=== PATIENT | female | born 1990 | race Caucasian/White ===

== ENCOUNTER 2017-10-21 01:52 | Emergency (ER) | payer OTHER, SELFPAY ==
[2017-10-21 01:53] VITALS: BP 143/102; PULSE 86; RESP 17; TEMP 36.3; O2SAT 100; BMI 29.7
--- NOTE | 2017-10-21 02:28 | EKG12_ITS ---
Test Reason : SHOULDER/CP Blood Pressure : / mmHG Vent. Rate : 085 BPM Atrial Rate : 085 BPM P-R Int : 136 ms QRS Dur : 096 ms QT Int : 374 ms P-R-T Axes : 051 004 026 degrees QTc Int : 445 ms Normal sinus rhythm with sinus arrhythmia Normal ECG Confirmed by CLAUDE SAWYER, ANEUDY ([id number]), metropolitan editor GREGORY RODRIGUEZ ([id number]) on 10/23/2017 1:27:33 PM Referred By: JESSICA Confirmed By:ANEUDY ARCE MD
--- NOTE | 2017-10-21 02:28 | RAD_ITS ---
STUDY: X-RAY CHEST REASON FOR EXAM: Female, 26 years old. Chest pain TECHNIQUE: Frontal and lateral views of the chest. COMPARISON: 07/30/2017 FINDINGS: The lungs are clear and expanded. There is no demonstrated pleural abnormality. Normal size heart. Normal mediastinum and teresa. Normal visualized pulmonary arteries. Normal visualized aortic arch and descending thoracic aorta. Normal visualized thoracic spine. Normal visualized ribs, clavicles, and shoulders. There is no demonstrated abnormality of the visualized soft tissue structures of the upper abdomen. RAD/Chest PA and Lateral IMPRESSION: Normal x-ray examination of the chest. Electronically Signed: Isacc Blackwell MD at 4:00 EDT Tel , Service support ,
--- NOTE | 2017-10-21 02:28 | ED.VISSUMM ---
- ER Visit Summary Date of Service: 10/21/17 Chief Complaint: Chest pain History of Present Illness: The patient is a 26 F presenting with pain in her right shoulder that radiates into her right chest and right parascapular area, she states the majority of the pain and the most severe pains are in her right shoulder and it feels like there is a blood pressure cuff on her upper arm. She woke up with this discomfort about 18-20 hours prior to arrival. She took a naproxen which did not help. She later took an ibuprofen which did not help. She later took an aspirin which did help. It is a little worse with certain that upper extremity movements or positions but she has a hard time pinpointing it. There is no pleuritic nature to it. She had pneumonia a couple months ago and states since then she has had dyspnea with exertion off and on and an occasional mild nonproductive cough, those are really no different today. She denies any recent travel, immobilization, hospitalization, leg pain, or swelling. No history of DVT or PE. She is a non-smoker. No risk factors for coronary artery disease, she does take medication for GERD. Physical Examination: Other than her blood pressure being slightly elevated at 143/102, her vital signs are normal including a heart rate of 86, respirations at 17, pulse ox 100 on room air. She is a little anxious. She can put her right hand over her head without any problem or discomfort. She can touch her left shoulder with her right hand without any discomfort. She has a negative Yergason sign. No subacromial tenderness on the right shoulder. No rashes. All compartments are soft and nondistended and nontender. 2+/4 equal bilateral radial pulses. Heart is regular without tachycardia or murmur. Lungs are clear to auscultation throughout, chest is mildly tender up near the clavicle, no tenderness at the acromioclavicular joint. No calf tenderness, pedal edema, or JVD. Abdomen soft nontender nondistended with normal bowel sounds present. Test Results: EKG is normal without any T-wave inversions or ischemic abnormalities. This is compared with an old EKG from July of this year, it is unchanged. Labs including troponin are normal. Chest x-ray on my interpretation is normal. Emergency Department Course and Treatment: She was given Toradol which really did not change much. 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 We discussed other treatments, such as nitroglycerin for possible esophageal spasm and Mylanta for possible reflux-related discomfort. She declined all this, and states that she forgot she took some Tums earlier and it did not help. She is comfortable going home without further treatment. I reassured her I do not think this is anything dangerous. Her PERC score is 0, therefore she meets criteria to not require further workup in order to rule out pulmonary embolus as etiology for this discomfort. Her discomfort is very atypical for PE anyhow. Encouraged to follow-up for persistent discomfort or return if worse and she is comfortable with that plan. Treatment Plan: As above Disposition: Discharge home Impression: Right shoulder pain Atypical chest pain This note was generated with [employer] dictation software. It may contain incorrect words, spelling, and punctuation that were not noted in review of the chart prior to signing ED Disposition - Plan for ED Patient: Disposition: Home or Assisted Living Chief Complaint: Chest Pain Instructions: ED Chest Pain Atypical Unkn Cause Referrals: Jorge Lamb DO [Primary Care Provider] - 3-5 Days if not improving
[2017-10-21] MEDS: Ketorolac 30 MG/ML Syringe IV (02:34)
[2017-10-21 02:46] LABS: Absolute Neutrophil Count 4.4 X10^3/uL (2.0-7.7); Basophil# 0.02 X10^3/uL; Basophil% 0.3 % (0-1); Eosinophil# 0.18 X10^3/uL; Eosinophils% 2.5 % (0-5); Hematocrit 38.6 % (37-47); Hemoglobin 13.2 g/dl (12.0-15.0); Lymphocyte % 29.3 % (19-41); Mean Corp Hgb Conc 34.2 g/gl (32-36); Mean Corpuscular Hgb 29.2 pg (27.0-32.0); Mean Corpuscular Volume 85.4 fL (81-99); Mean Platelet Vol. 10.9 fl (6.2-12.0); Monocyte# 0.48 X10^3/uL; Monocyte% 6.7 % (0-10); Neutrophil # 4.38 X10^3/uL (2.7-7.7); Neutrophil % 61.1 % (47-70); Platelet Count 151 K/mm3 (150-450); RBC Distribution Width CV 12.6 % (11.6-14.6); RBC Distribution Width SD 38.5 fl (35.1-43.9); Red Blood Count 4.52 M/mm3 (4.2-5.4); White Blood Count 7.2 K/mm3 (4.4-11.0)
[2017-10-21 02:48] LABS: POSITIVE COUNT NO; POSITIVE DIFFERENTIAL NO; POSITIVE MORPHOLOGY NO
[2017-10-21 03:08] LABS: Anion Gap 8 (5-15); BUN 14 mg/dL (7-18); Calcium,Total 8.2 mg/dL (8.5-10.1); Chloride 109 mmol/L (98-107); EST Glomerular Filtration Rate 70 mL/min (>60); Est Glom Filt Rate - Afr Amer 84 mL/min (>60); Estimated Creatinine Clearance 69.28 ml/min; Glucose 113 mg/dL (74-106); Potassium 3.6 mmol/L (3.5-5.1); Sodium Level 142 mmol/L (136-145)
[2017-10-21 03:56] VITALS: BP 107/96; PULSE 73; PULSE 75; O2SAT 98
== END 2017-10-21 03:57 | disposition home or self-care (01) ==
PROVIDERS: Emergency Provider Emergency Medicine; Family Provider Student in an Organized Health Care Education/Training Program; PCP Student in an Organized Health Care Education/Training Program
DX: R07.89 Other chest pain (principal); M25.511 Pain in right shoulder; K21.9 Gastro-esophageal reflux disease without esophagitis; Z79.899 Other long term (current) drug therapy
CPT/HCPCS: 71046; 80048; 84484; 85025; 93005; 96374; 99283; A4216

== ENCOUNTER → 2018-06-27 12:05 | Outpatient (CLI) | payer OTHER, SELFPAY ==
[2018-04-05 14:47] VITALS: BMI 28.7
[2018-06-27 12:44] LABS: Hematocrit 42.8 % (37-47); Hemoglobin 14.3 g/dl (12.0-15.0); Mean Corp Hgb Conc 33.4 g/gl (32-36); Mean Corpuscular Hgb 28.8 pg (27.0-32.0); Mean Corpuscular Volume 86.1 fL (81-99); Mean Platelet Vol. 10.7 fl (6.2-12.0); Platelet Count 194 K/mm3 (150-450); RBC Distribution Width CV 12.9 % (11.6-14.6); RBC Distribution Width SD 40.8 fl (35.1-43.9); Red Blood Count 4.97 M/mm3 (4.2-5.4); Scan Indicated on CBC? Y/N NO; White Blood Count 6.3 K/mm3 (4.4-11.0)
[2018-06-27 13:08] LABS: hCG Titer Quant., Serum < 1 mIU/mL (<9 non-preg)
[2018-06-27 13:24] LABS: ALB/GLOB Ratio 1.1 RATIO (0.9-2.4); AST(SGOT) 27 U/L (15-37); Alanine Aminotransfer ALT/SGPT 57 U/L (13-56); Albumin, Serum 3.9 g/dL (3.2-5.0); Alkaline Phosphatase 106 U/L (45-117); Anion Gap 9 (5-15); BUN 12 mg/dL (7-18); BUN/Creat Ratio 10.9 RATIO (10-20); Calcium,Total 8.7 mg/dL (8.5-10.1); Chloride 107 mmol/L (98-107); EST Glomerular Filtration Rate 62 mL/min (>60); Est Glom Filt Rate - Afr Amer 75 mL/min (>60); Globulin 3.6 g/dL (2.2-4.2); Glucose 83 mg/dL (74-106); Potassium 3.9 mmol/L (3.5-5.1); Protein, Total 7.5 g/dL (6.4-8.2); Sodium Level 140 mmol/L (136-145)
--- OUTSIDE RECORDS SUMMARY | 2018-08-22 15:18 | XMS RPT_ITS ---
:1990 Author Organization OHIP Support Name Relationship Address Phone DELROY IZQUIERDO Unavailable [address] [facility] + [place] [address] PHILLIP HYATT Un[address] + [place] [address] [facility] Unavailable [address] + [place] [address] FELECIA DELROY Unavailable [address] + [place] [address] PHILLIP HYATT Unavailable [address] + [place] [address] [facility] Unavailable [address] + [place] [address] FELECIA DELROY Unavailable [address] + [place] [address] PHILLIP HYATT Unavailable [address] + [place] [address] [facility] Unavailable [address] + [place] [address] FELECIA DELROY Unavailable [address] + [place] [address] PHILLIP HYATT Unavailable [address] + [place] [address] [facility] Unavailable [address] + [place] [address] FELECIA DELROY Unavailable [address] + [place] [address] PHILLIP HYATT Unavailable [address] + [place] [address] [facility] Unavailable [address] + [place] [address] FELECIA, DELROY Unavailable [address] + [place] [address] PHILLIP HYATT Unavailable [address] + [place] [address] [facility] Unavailable [address] + [place] [address] FELECIAAYSHA LARSENY Unavailable [address] + [place] [address] JESSICA, PHILLIP Unavailable [address] + [place] [address] [facility] Unavailable [address] + [place] [address] Care Team Providers Name Role Phone ASSESSMENT, HEALTH RISK Attending Unavailable Jorge Lamb Primary Care Unavailable Jorge Lamb Primary Care Unavailable Erin Shukla Attending Unavailable Jorge Lamb Primary Care Unavailable MADISON LOPEZ Attending Unavailable ASSESSMENT, HEALTH RISK Attending Unavailable ASSESSMENT, HEALTH RISK Referring Unavailable Kian Martines Primary Care Unavailable Steffen Kruger Attending Unavailable Martines, Kian Referring Unavailable Conrad, Kian Primary Care Unavailable Akanksha Nelson Attending Unavailable Conrad, Kian Primary Care Unavailable Akanksha Nelson Attending Unavailable Akanksha Nelson Referring Unavailable Martines, Kian Primary Care Unavailable PROBLEMS PROBLEMS DATE TYPE CONDITION / CODE ATTENDING STATUS SOURCE 07/30/2017 Unknown R11.0 - Nausea / Vazquez, Erin Active [place] R11.0(ICD-10) [facility] Repository PROCEDURES PROCEDURES No Procedure Records FoundRESULTS RESULTS ABDOMEN LIMITED Observed: 07/09/2018 Status: F Source: [place] 9:[address] [facility] REPOSITORY [facility] Imaging Services [address] [place] [address] Abdomen Limited MR#: [id number] Acct: [id number] Name: MAIK IZQUIERDO Rep #: [id number] : 1990 F 27 From: Joselo Fernandez DO PCP: Conrad SAWYER,Kian Status: REG CLI Study: Abdomen Limited Date of Exam: 07/09/18 Exam# [id number] Ordering Dr: Akanksha Villalobos MD STUDY: ABDOMINAL ULTRASOUND - RIGHT UPPER QUADRANT REASON FOR VISIT: Female, 27 years old. Elevated LFTs TECHNIQUE: Ultrasound evaluation of the right upper quadrant was performed with real-time and static ross-scale imaging. TECHNICAL QUALITY: Adequate. COMPARISON: None. FINDINGS: Liver: The liver measures 14.7 cm. There is normal echogenicity of the liver. The bile ducts are within normal limits. There is hepatic color flow. The direction of portal flow is hepatopetal. There is no demonstrated mass lesion. Gallbladder: Normal distended gallbladder. The gallbladder wall measures 1.7 mm. There is a negative sonographic Davila's sign. There is no pericholecystic fluid. There are no gallstones. Common Bile Duct (C.B.D.): The common bile duct measures 2.9 mm. Pancreas: Normal size of the head, body and tail of the pancreas. There is normal echogenicity of the pancreas. There is no demonstrated pancreatic mass or cyst. Right Kidney: Normal size of the right kidney. The right kidney measures 10.0 x 4.2 x 3.4 cm. Normal renal cortex. The right cortex measures 1.2 cm. There is no demonstrated renal mass or cyst. There is no right hydronephrosis. US/Abdomen Limited IMPRESSION: Normal right upper quadrant ultrasound examination. Electronically Signed: Joselo Fernandez DO at 23:14 EST Tel [phone], Service support , CC: Kian Martines MD; Akanksha Nelson MD Material Engineer: Signed CBC-COMPLETE BLOOD CNT Collected: 06/27/2018 Status: F Source: [place] NO DIFF 12:06 PM [facility] REPOSITORY TYPE CODE TESTS RESULT OUT OF RANGE REFERENCE UNITS LAB L100.1000 4.4-11.0 K/mm3 Normal WBC 6.3 LAB L100.1200 4.2-5.4 M/mm3 Normal RBC 4.97 LAB L100.1300 12.0-15.0 g/dl Normal HGB 14.3 LAB L100.1400 37-47 % Normal HCT 42.8 LAB L100.1500 81-99 fL Normal MCV 86.1 LAB L100.1600 27.0-32.0 pg Normal MCH 28.8 LAB L100.1700 32-36 g/gl Normal MCHC 33.4 LAB L100.1810 11.6-14.6 % Normal RDW CV 12.9 LAB L100.1820 35.1-43.9 fl Normal RDW SD 40.8 LAB L100.1900 150-450 K/mm3 Normal PLT 194 LAB L100.2000 6.2-12.0 fl Normal MPV 10.7 Performed By: #### L100.0500 #### [facility] [address] [facility]. [place], [place], [address] HCG TITER QUANT., Collected: 06/27/2018 Status: F Source: [place] SERUM 12:06 PM [facility] REPOSITORY TYPE CODE TESTS RESULT OUT OF RANGE REFERENCE UNITS LAB L700.8000 <9 non-preg mIU/mL Normal HCG < 1 QUANT. Performed By: #### L700.8000 #### [facility] [address] [facility]. [place], [place], [address] COMPREHENSIVE METABOLIC Collected: 06/27/2018 Status: F Source: [place] PROFIL 12:06 PM [facility] REPOSITORY TYPE CODE TESTS RESULT OUT OF RANGE REFERENCE UNITS LAB L501.0100 74-106 mg/dL Normal GLU 83 Result Comment: Please note revised GLUCOSE reference range effective 2017. LAB L501.1000 7-18 mg/dL Normal BUN 12 LAB L501.1100 0.55-1.02 mg/dL High CREAT,SERUM 1.10 Result Comment: The validity of the calculated GFR AND GFRAA in patients over 70 years has not been determined. Clinical correlation is essential. LAB L501.1110 >60 mL/min Normal EST GFR 62 Result Comment: Non- GFR Calc LAB L501.1115 >60 mL/min Normal EST GFR - AA 75 Result Comment: GFR Calc LAB L501.1300 10-20 RATIO Normal BUN/CRE 10.9 LAB L501.1500 6.4-8.2 g/dL T Normal PROT 7.5 LAB L501.1800 3.2-5.0 g/dL Normal ALB 3.9 LAB L501.1950 2.2-4.2 g/dL Normal GLOB 3.6 LAB L501.2000 0.9-2.4 RATIO Normal A/G 1.1 LAB L501.2200 8.5-10.1 mg/dL CA Normal 8.7 LAB L501.4100 15-37 U/L Normal AST 27 LAB L501.4305 45-117 U/L Normal ALK P 106 LAB L501.4405 13-56 U/L High ALT 57 LAB L501.4600 0.20-1.00 mg/dL T Normal BILI 0.40 LAB L501.5300 136-145 mmol/L NA Normal 140 LAB L501.5600 3.5-5.1 mmol/L K Normal 3.9 LAB L501.5900 98-107 mmol/L CL Normal 107 LAB L501.6100 21.0-32.0 mmol/L Normal CO2 24.0 LAB L501.6200 5-15 Normal GAP 9 Performed By: #### L500.4050 #### [facility] [address] [place], [place], [address] URGENT CARE VISIT Observed: 04/05/2018 Status: F Source: [place] REPORT 3:11 PM [facility] REPOSITORY [facility] [address] [place] [address] 6 [place] [address] OFFICE VISIT Date of Service: 04/05/18 MR#: [id number] Acct: [id number] Name: MAIK HYATT Rep #: [id number] : 1990 Provider: Steffen OVALLE Age/Sex: 27/F Location: [facility] Status: Signed Intake Vital Signs04/05/18 Height 5 ft 2 in Intake Visit Reasons: SINUS INFECTION/EAR ACHE Allergies grape Allergy (Verified 04/05/18 14:49) Swelling morphine Adverse Reaction (Verified 04/05/18 14:49) Other promethazine HCl [From Phenergan] Adverse Reaction (Verified 04/05/18 14:49) Other sulfamethoxazole [From Bactrim] Adverse Reaction (Verified 04/05/18 14:49) Vomiting trimethoprim [From Bactrim] Adverse Reaction (Verified 04/05/18 14:49) Vomiting Medications Dexlansoprazole [Dexilant] 60 mg PO DAILY 07/30/17 [History Confirmed 04/05/18] Desogestrel-Ethinyl Estradiol [Apri 28 Day Tablet] 1 tab PO DAILY 10/21/17 [History Confirmed 04/05/18] amoxicillin 875 mg-potassium clavulanate 125 mg tablet 1 tab PO Q12H 10 Days #20 tab 04/05/18 [Rx Confirmed 04/05/18] buspirone 5 mg tablet 5 mg PO BID 04/05/18 [History Confirmed 04/05/18] vitamin,calcium,jdtpizjl-ykmq-vmmrb acid tablet 1 tab PO DAILY 04/05/18 [History Confirmed 04/05/18] zinc 50 mg tablet 50 mg PO DAILY 04/05/18 [History Confirmed 04/05/18] PFSH Medical History Anemia (Acute) Fatigue (Acute) Fever (Acute) SOB (shortness of breath) (Acute) Surgical History History of tonsillectomy (Acute) Hx of section (Acute) Family History Grandfather Heart disease Parkinson disease Hypertension Grandmother Heart disease CHF (congestive heart failure) Hypertension Dementia Mother CHF (congestive heart failure) Heart disease Father Hypertension Dementia Social History Smoking Status: Never smoker alcohol intake: current alcohol intake frequency: a few times a month Alcohol type: wine HPI HPI Details: MAIK HYATT, is a 27 F who presents to the office today for sinus pressure and pain for the past week. Patient states that the episode started with a cough and congestion approximately 2 weeks ago which has since resolved however the nasal congestion and pressure have not. She states that the pressure does cause headaches which she has made slightly better with Tylenol. She has had no fever, chills, sweats. No nausea, vomiting, diarrhea. No other associated symptoms or alleviating/aggravating factors. ROS Const Constitutional: Positive for headache(s); no fever(s), chills, night sweats or abnormal sleep pattern ENT ENT: Positive for headache(s), nasal congestion, sinus pressure, sinus pain and nasal discharge; no ear pain Resp Respiratory: No cough or shortness of breath Cardio Cardiology: No shortness of breath, irregular heart rhythm or fast heart rate Neuro Neurology: Positive for headache(s); no confusion Psych Psychiatric: No abnormal sleep pattern, No confusion Exam Const General: cooperative, healthy appearing HENMT Head: normal to inspection Ears: hearing grossly normal bilaterally, TM's normal bilaterally, EAC's normal Nose: nasal discharge purulent Face and sinus: sinus tenderness frontal and maxillary Mouth: oral mucosae normal Throat: abnormal tonsil bilaterally, postnasal drainage Resp Effort AND Inspection: normal respiratory effort Auscultation: Bilateral: Clear to Auscultation Cardio Palpation: normal PMI Rate: regular rate Rhythm: regular rhythm Neuro General: alert, CN's II-XI intact bilaterally Psych Appearance: grossly normal Mental Status: mental status grossly normal Assessment AND Plan Problems 1. Acute non-recurrent frontal sinusitis J01.10 Status Acute Plan Augmentin as prescribed today. Encouraged to get plenty of rest, drink lots of clear liquids, and use Tylenol or Ibuprofen (unless contraindicated) for fever and comfort. Patient also educated on other symptomatic management techniques. To be seen in 7-10 days if no improvement; sooner if worsening of symptoms. Patient advised of potential red flags when appropriate report to the ED. Patient verbalized understanding of all the above. Medications New: Coding Level of Care Code Off vis,new,level 3 Diagnoses Acute non-recurrent frontal sinusitis J01.10 Sinusitis location: frontal Recurrence: non-recurrent 04/05/18 1511 <Electronically signed by Steffen OVALLE> Date Steffen OVALLE Cosigner Signature: Date (if applicable) CC: DEE, EMPLOYEE Collected: 03/19/2018 Status: F Source: [place] 8:59 AM [facility] REPOSITORY Order Comment: This patient requested that [facility] [employer] send to you a copy of their Yearly Employee Health Risk Assessment. A copy of this report is also given to the patient so they can follow up with your office if they choose. TYPE CODE TESTS RESULT OUT OF RANGE REFERENCE UNITS LAB L100.1000 4.4-11.0 K/mm3 Normal WBC 5.9 LAB L100.1200 4.2-5.4 M/mm3 Normal RBC 4.76 LAB L100.1300 12.0-15.0 g/dl Normal HGB 13.4 LAB L100.1400 37-47 % Normal HCT 41.5 LAB L100.1500 81-99 fL Normal MCV 87.2 LAB L100.1600 27.0-32.0 pg Normal MCH 28.2 LAB L100.1700 32-36 g/gl Normal MCHC 32.3 LAB L100.1810 11.6-14.6 % Normal RDW CV 13.1 LAB L100.1820 35.1-43.9 fl Normal RDW SD 41.8 LAB L100.1900 150-450 K/mm3 Normal PLT 162 LAB L100.2000 6.2-12.0 fl Normal MPV 11.0 LAB L100.2110 47-70 % Normal NEUT% 55.4 LAB L100.2210 19-41 % Normal LY% 33.9 LAB L100.2310 0-10 % Normal MONO% 8.3 LAB L100.2410 0-5 % Normal EO% 2.0 LAB L100.2510 0-1 % Normal BASO% 0.2 LAB L100.2620 2.0-7.7 X10 3/uL Normal Absolute Neut 3.3 LAB L100.2720 0.83-4.51 X10 3/ul Normal Absolute Lymph 2.01 Performed By: #### L100.0200 #### [facility] [address] [place], [place], [address] URINALYSIS, EMPLOYEE Collected: 03/19/2018 Status: F Source: [place] 8:59 AM [facility] REPOSITORY Order Comment: This patient requested that [facility] [employer] send to you a copy of their Yearly Employee Health Risk Assessment. A copy of this report is also given to the patient so they can follow up with your office if they choose. TYPE CODE TESTS RESULT OUT OF RANGE REFERENCE UNITS LAB L400.3000 Yellow COLOR Normal Yellow LAB L400.3050 Clear Normal CLARITY Sl. Cloudy LAB L400.3200 Normal mg/dl Normal GLUCOSE, UR Normal LAB L400.3300 Negative mg/dL Normal BILIRUBIN URINE Negative LAB L400.3400 Negative mg/dl Normal KETONE UR Negative LAB L400.3465 1.002-1.030 Normal SP.GR. DIPSTX 1.020 LAB L400.3550 5.0 - 8.0 pH UR Normal 6.0 LAB L400.3600 Negative mg/dl PROT Normal DIPSTX Negative LAB L400.3700 Normal mg/dl Normal UROBILI Normal LAB L400.3750 Negative Normal NITRITE UR Negative LAB L400.3780 Negative /ul High 25 OCCULT BLOOD-UR LAB L400.3800 Negative /ul High LEUK ESTERASE 500 Performed By: #### L400.0100 #### [facility] [address] [place], [place], [address] NICOTINE URINE DRUG Collected: 03/19/2018 Status: F Source: [place] SCREEN 8:59 AM [facility] REPOSITORY Order Comment: This patient requested that [facility] [employer] send to you a copy of their Yearly Employee Health Risk Assessment. A copy of this report is also given to the patient so they can follow up with your office if they choose. TYPE CODE TESTS RESULT OUT OF RANGE REFERENCE UNITS LAB L505.6250 TO BE Normal CONFIRMED Result Comment: CONFIRMATORY TESTING FOR ALL POSITIVE URINE DRUG SCREEN RESULTS WILL ONLY BE SENT OUT UPON PHYSICIAN ORDER. The results of Urine Drug Screen methods provide only preliminary analytical test results. A more specific alternate chemical method must be used in order to obtain a confirmed analytical result. Gas chromatography/mass spectrometery (GC/MS) is the preferred confirmatory method. Clinical consideration and professional judgement should be applied to any drug of abuse test result, particularly when preliminary positive results are used. LAB L505.6270 <200 ng/mL Normal COT DRG Negative SCREEN Result Comment: Cotinine is the first-stage metabolite of Nicotine. Performed By: #### L505.6240 #### [facility] [address] [place], [place], [address] EMPLOYEE PROFILE Collected: 03/19/2018 Status: F Source: [place] 8:59 AM [facility] REPOSITORY Order Comment: This patient requested that [facility] [employer] send to you a copy of their Yearly Employee Health Risk Assessment. A copy of this report is also given to the patient so they can follow up with your office if they choose. TYPE CODE TESTS RESULT OUT OF RANGE REFERENCE UNITS LAB L501.0100 74-106 mg/dL Normal GLU 90 Result Comment: Please note revised GLUCOSE reference range effective 2017. LAB L501.1000 7-18 mg/dL Normal BUN 12 LAB L501.1100 0.55-1.02 mg/dL High CREAT,SERUM 1.13 Result Comment: The validity of the calculated GFR AND GFRAA in patients over 70 years has not been determined. Clinical correlation is essential. LAB L501.1110 >60 mL/min Normal EST GFR 60 Result Comment: Non- GFR Calc LAB L501.1115 >60 mL/min Normal EST GFR - AA 73 Result Comment: GFR Calc LAB L501.1300 10-20 RATIO Normal BUN/CRE 10.6 LAB L501.1400 2.6-6.0 mg/dL Normal URIC 4.2 Result Comment: The drugs N-Acetylcysteine and Metamizole may falsely depress this assay. LAB L501.1500 6.4-8.2 g/dL Normal T PROT 7.2 LAB L501.1800 3.2-5.0 g/dL Normal ALB 3.4 LAB L501.1950 2.2-4.2 g/dL Normal GLOB 3.8 LAB L501.2000 0.9-2.4 RATIO Normal A/G 0.9 LAB L501.2200 8.5-10.1 mg/dL Normal CA 8.7 LAB L501.2300 2.5-4.9 mg/dL Normal PHOS 3.0 LAB L501.4100 15-37 U/L Normal AST 15 LAB L501.4305 45-117 U/L Normal ALK P 70 LAB L501.4405 13-56 U/L Normal ALT 25 LAB L501.4600 0.20-1.00 mg/dL Normal T BILI 0.30 LAB L501.4700 0.00-0.30 mg/dL Normal D BILI 0.09 LAB L501.4900 200 mg/dL Normal CHOL 147 Result Comment: <200 mg/dL Desirable 200-240 mg/dL Borderline >240 mg/dL High Risk LAB L501.5000 mg/dL Normal TRIG 187 Result Comment: The drugs N-Acetylcysteine and Metamizole may falsely depress this assay. Serum Triglycerides Reference Interval Normal <150 mg/dL Borderline high 150 - 199 mg/dL High 200 - 499 mg/dL Very High > or = 500 mg/dL LAB L501.5300 136-145 mmol/L Normal NA 140 LAB L501.5600 3.5-5.1 mmol/L Normal K 4.0 LAB L501.5900 98-107 mmol/L High CL 108 LAB L501.6100 21.0-32.0 mmol/L Normal CO2 25.0 LAB L501.6200 5-15 Normal 7 GAP LAB L501.6400 mg/dL Normal HDL 57 Result Comment: The drugs N-Acetylcysteine and Metamizole may falsely depress this assay. Reference Range HDL <40 mg/dL Low HDL Cholesterol HDL >or= 60 mg/dL High HDL Cholesterol LAB L501.6475 Normal CHOL:HDL 2.60 LAB L501.6500 0-130 mg/dL Normal LDL 53 LAB L501.6600 5-40 mg/dL Normal VLDL 37 LAB L504.2610 84-246 U/L Normal LDH 176 Performed By: #### L500.2900 #### [facility] [address] [place], [address] 12 LEAD ELECTROCARDIOGRAM Observed: 10/23/2017 Status: F Source: [place] 1:27 PM [facility] REPOSITORY [facility] Cardiovascular Services [address] [place] [address] 12 Lead EKG 10/21/17 0203 MR#: [id number] Acct: [id number] Name: MAIK HYATT Rep #: [id number] : 1990 26 From: Hudson Ham MD Attending Dr: Status: DEP ER Ordering Dr: Madison Lopez MD Date: 10/21/17 Location: ED Sex: F C Admitted: Test Reason : SHOULDER/CP Blood Pressure : / mmHG Vent. Rate : 085 BPM Atrial Rate : 085 BPM P-R Int : 136 ms QRS Dur : 096 ms QT Int : 374 ms P-R-T Axes : 051 004 026 degrees QTc Int : 445 ms Normal sinus rhythm with sinus arrhythmia Normal ECG Confirmed by CLAUDE SAWYER, HUDSON ([id number]), rewrite editor GREGORY RODRIGUEZ ([id number]) on 10/23/2017 1:27:33 PM Referred By: JESSICA Confirmed By:HUDSON HAM MD 10/23/17 1327 Date Hudson Ham MD CC: MADISON LOPEZ MD; Jorge Hankins DO Signed EMERGENCY DEPARTMENT Observed: 10/21/2017 Status: F Source: [place] SUMMARY 3:52 AM [facility] REPOSITORY [facility] Medical Records Department [address] [place] [address] Emergency Department Summary 10/21/17 0228 MR#: [id number] Acct: [id number] Name: MAIK HYATT Rep #: [id number] : 1990 26 From: Madison Lopez MD PCP: Jorge Hankins DO Status: REG ER - ER Visit Summary Date of Service: 10/21/17 Chief Complaint: Chest pain History of Present Illness: The patient is a 26 F presenting with pain in her right shoulder that radiates into her right chest and right parascapular area, she states the majority of the pain and the most severe pains are in her right shoulder and it feels like there is a blood pressure cuff on her upper arm. She woke up with this discomfort about 18-20 hours prior to arrival. She took a naproxen which did not help. She later took an ibuprofen which did not help. She later took an aspirin which did help. It is a little worse with certain that upper extremity movements or positions but she has a hard time pinpointing it. There is no pleuritic nature to it. She had pneumonia a couple months ago and states since then she has had dyspnea with exertion off and on and an occasional mild nonproductive cough, those are really no different today. She denies any recent travel, immobilization, hospitalization, leg pain, or swelling. No history of DVT or PE. She is a non-smoker. No risk factors for coronary artery disease, she does take medication for GERD. Physical Examination: Other than her blood pressure being slightly elevated at 143/102, her vital signs are normal including a heart rate of 86, respirations at 17, pulse ox 100 on room air. She is a little anxious. She can put her right hand over her head without any problem or discomfort. She can touch her left shoulder with her right hand without any discomfort. She has a negative Yergason sign. No subacromial tenderness on the right shoulder. No rashes. All compartments are soft and nondistended and nontender. 2+/4 equal bilateral radial pulses. Heart is regular without tachycardia or murmur. Lungs are clear to auscultation throughout, chest is mildly tender up near the clavicle, no tenderness at the acromioclavicular joint. No calf tenderness, pedal edema, or JVD. Abdomen soft nontender nondistended with normal bowel sounds present. Test Results: EKG is normal without any T-wave inversions or ischemic abnormalities. This is compared with an old EKG from July of this year, it is unchanged. Labs including troponin are normal. Chest x-ray on my interpretation is normal. Emergency Department Course and Treatment: She was given Toradol which really did not change much. 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 We discussed other treatments, such as nitroglycerin for possible esophageal spasm and Mylanta for possible reflux-related discomfort. She declined all this, and states that she forgot she took some Tums earlier and it did not help. She is comfortable going home without further treatment. I reassured her I do not think this is anything dangerous. Her PERC score is 0, therefore she meets criteria to not require further workup in order to rule out pulmonary embolus as etiology for this discomfort. Her discomfort is very atypical for PE anyhow. Encouraged to follow-up for persistent discomfort or return if worse and she is comfortable with that plan. Treatment Plan: As above Disposition: Discharge home Impression: Right shoulder pain Atypical chest pain This note was generated with [employer] dictation software. It may contain incorrect words, spelling, and punctuation that were not noted in review of the chart prior to signing ED Disposition - Plan for ED Patient: Disposition: Home or Assisted Living Chief Complaint: Chest Pain Instructions: ED Chest Pain Atypical Unkn Cause Referrals: Jorge Lamb, DO [Primary Care Provider] - 3-5 Days if not improving What to do if you have Problems For any increased pain, shortness of breath, bleeding, nausea or vomiting, chest pain, or any unexpected problems, contact your Primary Care Provider. Call [facility] ([phone]) or report to the closest Emergency Room. Call 911 if necessary. 10/21/17 0352 <Electronically signed by Madison Lopez MD> Date Madison Lopez MD Cosigner Signature (If Indicated): Date CC: Jorge Hankins, DO CBC W/DIFF, AUTOMATED Collected: 10/21/2017 Status: F Source: [place] 2:37 AM [facility] REPOSITORY TYPE CODE TESTS RESULT OUT OF RANGE REFERENCE UNITS LAB L100.1000 4.4-11.0 K/mm3 Normal WBC 7.2 LAB L100.1200 4.2-5.4 M/mm3 Normal RBC 4.52 LAB L100.1300 12.0-15.0 g/dl Normal HGB 13.2 LAB L100.1400 37-47 % Normal HCT 38.6 LAB L100.1500 81-99 fL Normal MCV 85.4 LAB L100.1600 27.0-32.0 pg Normal MCH 29.2 LAB L100.1700 32-36 g/gl Normal MCHC 34.2 LAB L100.1810 11.6-14.6 % Normal RDW CV 12.6 LAB L100.1820 35.1-43.9 fl Normal RDW SD 38.5 LAB L100.1900 150-450 K/mm3 Normal PLT 151 LAB L100.2000 6.2-12.0 fl Normal MPV 10.9 LAB L100.2100 47-70 % Normal NEUT% 61.1 LAB L100.2200 19-41 % Normal LY% 29.3 LAB L100.2300 0-10 % Normal MONO% 6.7 LAB L100.2400 0-5 % Normal EO% 2.5 LAB L100.2500 0-1 % Normal BASO% 0.3 LAB L100.2550 0.0-0.9 % Normal IM GRAN % 0.100 Result Comment: IG% - Immature Granulocytes (promyelocytes, myelocytes and metamyelocytes) > 1% indicates that a LEFT SHIFT is Present. LAB L100.2620 2.0-7.7 X10 3/uL Normal Absolute Neut 4.4 LAB L100.2720 0.83-4.51 X10 3/ul Normal Absolute Lymph 2.10 Performed By: #### L100.0100 #### [facility] [address] [place], [place], [id number] BASIC METABOLIC Collected: 10/21/2017 Status: F Source: [place] PROFILE (BMP) 2:37 AM [facility] REPOSITORY Order Comment: 'TROP' Serial specimen #1, #2, #3, or #4: 1 TYPE CODE TESTS RESULT OUT OF RANGE REFERENCE UNITS LAB L501.0100 74-106 mg/dL High GLU 113 Result Comment: Fasting Glucose result from 100 to 125 mg/dL suggests IMPAIRED HOMEOSTASIS per A.D.A. criteria. Please note revised GLUCOSE reference range effective 2017. LAB L501.1000 7-18 mg/dL Normal BUN 14 LAB L501.1100 0.55-1.02 mg/dL Normal CREAT,SERUM 1.00 Result Comment: The validity of the calculated GFR AND GFRAA in patients over 70 years has not been determined. Clinical correlation is essential. LAB L501.1110 >60 mL/min Normal EST GFR 70 Result Comment: Non- GFR Calc LAB L501.1115 >60 mL/min Normal EST GFR - AA 84 Result Comment: GFR Calc LAB L501.1255 ml/min Normal Estimated CRCL 69.28 LAB L501.1300 10-20 RATIO Normal BUN/CRE 14.0 LAB L501.2200 8.5-10 mg/dL Low .1 CA 8.2 LAB L501.5300 136-14 mmol/L Normal 5 NA 142 LAB L501.5600 3.5-5. mmol/L Normal 1 K 3.6 LAB L501.5900 98-107 mmol/L High CL 109 LAB L501.6100 21.0-3 mmol/L Normal 2.0 CO2 25.0 LAB L501.6200 5-15 Normal GAP 8 Performed By: #### L500.2500, L501.4010 #### [facility] [address] [place], [address] TROPONIN-I Collected: 10/21/2017 Status: F Source: [place] 2:37 AM [facility] REPOSITORY Order Comment: 'TROP' Serial specimen #1, #2, #3, or #4: 1 TYPE CODE TESTS RESULT OUT OF RANGE REFERENCE UNITS LAB L501.4010 <0.06 ng/mL Normal < 0.02 TROPONIN-I Result Comment: TROPONIN-I EXPECTED VALUES <0.05 NEGATIVE 0.06 - 0.59 AT RISK OF IA > OR = 0.60 SUGGEST IA Performed By: #### L500.2500, L501.4010 #### [facility] [address] [place], [place], [address] CHEST PA AND LATERAL Observed: 10/21/2017 Status: F Source: [place] 2:28 AM [facility] REPOSITORY [facility] Services [address] [place] [address] Chest PA and Lateral MR#: [id number] Acct: [id number] Name: MAIK HYATT Rep #: [id number] : 1990 F 26 From: Isacc Blackwell MD PCP: Jorge Hankins DO Status: DEP ER Study: Chest PA and Lateral Date of Exam: 10/21/17 Exam# [id number] Ordering Dr: Madison Lopez MD STUDY: X-RAY CHEST REASON FOR EXAM: Female, 26 years old. Chest pain TECHNIQUE: Frontal and lateral views of the chest. COMPARISON: 07/30/2017 FINDINGS: The lungs are clear and expanded. There is no demonstrated pleural abnormality. Normal size heart. Normal mediastinum and teresa. Normal visualized pulmonary arteries. Normal visualized aortic arch and descending thoracic aorta. Normal visualized thoracic spine. Normal visualized ribs, clavicles, and shoulders. There is no demonstrated abnormality of the visualized soft tissue structures of the upper abdomen. RAD/Chest PA and Lateral IMPRESSION: Normal x-ray examination of the chest. Electronically Signed: Isacc Blackwell MD at 4:00 EDT Tel , Service support , CC: MADISON LOPEZ MD; Jorge Hankins DO Material Engineer: Signed PROGRESS Observed: 10/04/2017 Status: COMPLETED Source: [place] 9:24 AM [facility] REPOSITORY HNO ID: [id number] Author: Juana Madrid) Luis F Service: (none) Author Type: Nurse Practitioner Type: Progress Notes Filed: 10/04/2017 9:36 AM Note Text: Subjective HPI Maik Hyatt is a 26 year old female who presents with cough, congestion, and sinus congestion and drainage, she has had this illness on and off for the last 2 months. In the last 2 days she had acute worsening of URI symptoms. She used her inhaler and Nyquil last night. She feels short of breath at times and has a frequent cough. Review of Systems Constitutional: Positive for fever (reported, 101 last night). HENT: Positive for congestion and ear pain. Negative for sore throat. Respiratory: Positive for cough, sputum production and shortness of breath. Cardiovascular: Negative. Negative for chest pain. Gastrointestinal: Negative. Negative for abdominal pain, diarrhea, nausea and vomiting. Musculoskeletal: Positive for myalgias. Skin: Negative. Negative for rash. BP 112/82 Pulse 94 Temp 36.8 ?C (98.3 ?F) (Tympanic) Wt 74.4 kg (164 lb) SpO2 97% BMI 29.05 kg/m2 PAST MEDICAL HISTORY Diagnosis Date - Allergic rhinitis, cause unspecified - Esophageal reflux - Headache(784.0) - Lymph node enlargement right posterior auricular, sees [facility] PAST SURGICAL HISTORY Procedure Laterality Date - DELIVERY ONLY 2009 , low transverse - EXCISION OF LINGUAL TONSIL 06/2007 - GI UPPER SERIES ALLERGIES Bactrim [Sulfamethoxazole-Trimethoprim]; Morphine; Phenergan [Promethazine Hcl]; Zoloft [Sertraline Hcl] MEDICATIONS Dexlansoprazole (DEXILANT) 60 mg CpDM Take by mouth. Levonorgestrel-Ethinyl Estrad (MARLISSA) 0.15-0.03 mg per tablet Take 1 tablet by mouth once daily. albuterol HFA (PROAIR HFA) 90 mcg/actuation inhaler Inhale 2 Puffs as instructed every 4 hours as needed. FAMILY HISTORY Problem Relation Age of Onset - None Mother - None Father - None Sister Overweight - None Brother Overweight - Hypertension Maternal Grandmother - Heart Maternal Grandfather - Other [Other] [OTHER] Maternal Grandfather Parkinson's - Alzheimer's Disease Paternal Grandmother - Breast Cancer Maternal Aunt 53 Social History Substance Use Topics - Smoking status: Never Smoker - Smokeless tobacco: Never Used - Alcohol use Yes Comment: Occasionally Objective Physical Exam Constitutional: She is well-developed, well-nourished, and in no distress. HENT: Head: Normocephalic. Right Ear: Tympanic membrane, external ear and ear canal normal. Left Ear: Tympanic membrane, external ear and ear canal normal. Nose: Rhinorrhea and sinus tenderness present. Mouth/Throat: Uvula is midline, oropharynx is clear and moist and mucous membranes are normal. Mucous membranes are not pale and not dry. No posterior oropharyngeal edema or posterior oropharyngeal erythema. Eyes: Conjunctivae are normal. Right eye exhibits no discharge. Left eye exhibits no discharge. Neck: Neck supple. Cardiovascular: Normal rate, regular rhythm and normal heart sounds. Pulmonary/Chest: Effort normal and breath sounds normal. Lymphadenopathy: She has no cervical adenopathy. Neurological: She is alert. Skin: Skin is warm and dry. No rash noted. Nursing note and vitals reviewed. ASSESSMENT/PLAN: 1. Sinobronchitis - ICD9: 473.9, 490, ICD10: J32.9, J40 - Will begin treatment with Zithromax pack as directed - The patient should also be given warm salt water gargles, throat lozenges and/or OTC throat spray as needed for the first 5- 7 days of treatment. - Supportive care with plenty of fluids, rest, and analgesia prn. - ALBUTEROL SULFATE HFA 90 MCG/ACTUATION AEROSOL INHALER - AZITHROMYCIN 250 MG TABLET - METHYLPREDNISOLONE 4 MG TABLETS IN A DOSE PACK - Follow-up with your PCP in 3-5 days if symptoms have not improved or sooner if symptoms worsen - Discussed red flags and need for immediate medical evaluation if any occur. - Discussed supportive care treatment with fluids, rest and analgesia. - Discussed expected course of illness Juana Kerns CNP CNOV Observed: 10/04/2017 Status: COMPLETED Source: [place] 9:15 AM [facility] REPOSITORY Office Visit ([facility]) MAIK HYATT ([id number]) 1990 F Date Time Provider Department 10/04/17 9:15 AM JUANA KERNS (GEOFF) [facility] During your visit today, we recorded the following information about you: Temperature Pulse Blood pressure Weight 98.3 degrees 94/minute 112/82 74.4 kg Juana Kerns CNP 10/04/2017 9:36 AM Signed Subjective HPI Maik Yazan Hyatt is a 26 year old female who presents with cough, congestion, and sinus congestion and drainage, she has had this illness on and off for the last 2 months. In the last 2 days she had acute worsening of URI symptoms. She used her inhaler and Nyquil last night. She feels short of breath at times and has a frequent cough. Review of Systems Constitutional: Positive for fever (reported, 101 last night). HENT: Positive for congestion and ear pain. Negative for sore throat. Respiratory: Positive for cough, sputum production and shortness of breath. Cardiovascular: Negative. Negative for chest pain. Gastrointestinal: Negative. Negative for abdominal pain, diarrhea, nausea and vomiting. Musculoskeletal: Positive for myalgias. Skin: Negative. Negative for rash. BP 112/82 Pulse 94 Temp 36.8 ?C (98.3 ?F) (Tympanic) Wt 74.4 kg (164 lb) SpO2 97% BMI 29.05 kg/m2 PAST MEDICAL HISTORY Diagnosis Date - Allergic rhinitis, cause unspecified - Esophageal reflux - Headache(784.0) - Lymph node enlargement right posterior auricular, sees [facility] PAST SURGICAL HISTORY Procedure Laterality Date - DELIVERY ONLY 2009 , low transverse - EXCISION OF LINGUAL TONSIL 06/2007 - GI UPPER SERIES ALLERGIES Bactrim [Sulfamethoxazole-Trimethoprim]; Morphine; Phenergan [Promethazine Hcl]; Zoloft [Sertraline Hcl] MEDICATIONS Dexlansoprazole (DEXILANT) 60 mg CpDM Take by mouth. Levonorgestrel-Ethinyl Estrad (MARLISSA) 0.15-0.03 mg per tablet Take 1 tablet by mouth once daily. albuterol HFA (PROAIR HFA) 90 mcg/actuation inhaler Inhale 2 Puffs as instructed every 4 hours as needed. FAMILY HISTORY Problem Relation Age of Onset - None Mother - None Father - None Sister Overweight - None Brother Overweight - Hypertension Maternal Grandmother - Heart Maternal Grandfather - Other [Other] [OTHER] Maternal Grandfather Parkinson's - Alzheimer's Disease Paternal Grandmother - Breast Cancer Maternal Aunt 53 Social History Substance Use Topics - Smoking status: Never Smoker - Smokeless tobacco: Never Used - Alcohol use Yes Comment: Occasionally Objective Physical Exam Constitutional: She is well-developed, well-nourished, and in no distress. HENT: Head: Normocephalic. Right Ear: Tympanic membrane, external ear and ear canal normal. Left Ear: Tympanic membrane, external ear and ear canal normal. Nose: Rhinorrhea and sinus tenderness present. Mouth/Throat: Uvula is midline, oropharynx is clear and moist and mucous membranes are normal. Mucous membranes are not pale and not dry. No posterior oropharyngeal edema or posterior oropharyngeal erythema. Eyes: Conjunctivae are normal. Right eye exhibits no discharge. Left eye exhibits no discharge. Neck: Neck supple. Cardiovascular: Normal rate, regular rhythm and normal heart sounds. Pulmonary/Chest: Effort normal and breath sounds normal. Lymphadenopathy: She has no cervical adenopathy. Neurological: She is alert. Skin: Skin is warm and dry. No rash noted. Nursing note and vitals reviewed. ASSESSMENT/PLAN: 1. Sinobronchitis - ICD9: 473.9, 490, ICD10: J32.9, J40 - Will begin treatment with Zithromax pack as directed - The patient should also be given warm salt water gargles, throat lozenges and/or OTC throat spray as needed for the first 5-7 days of treatment. - Supportive care with plenty of fluids, rest, and analgesia prn. - ALBUTEROL SULFATE HFA 90 MCG/ACTUATION AEROSOL INHALER - AZITHROMYCIN 250 MG TABLET - METHYLPREDNISOLONE 4 MG TABLETS IN A DOSE PACK - Follow-up with your PCP in 3-5 days if symptoms have not improved or sooner if symptoms worsen - Discussed red flags and need for immediate medical evaluation if any occur. - Discussed supportive care treatment with fluids, rest and analgesia. - Discussed expected course of illness GEOFF Saul CNP 10/04/2017 9:32 AM Signed ACUTE BRONCHITIS: You have acute bronchitis. This means the airway passages in your lungs are inflamed. Bronchitis may be caused by viruses or bacteria. Inhaling cigarette smoke will always make it worse. Exposure to irritating chemicals or second hand smoke as well as allergies can contribute to bronchitis. Repeat episodes of bronchitis may cause lifelong lung problems. Acute bronchitis is usually treated with rest, fluids, cough medicine, and possibly antibiotics or inhaled medicine to open up the small airways. It is very important that you avoid smoke and drink increased amounts of fluids. A cool air vaporizer can help thin bronchial secretions. This makes it easier to cough and clear your chest. If you are a cigarette smoker, consider using nicotine gum or skin patches to help you withdraw. Recovery from bronchitis is often slow, but you should start feeling better after 2-3 days of treatment. Please call your doctor or return here if you have any of the following symptoms: - Increased fever, chills, or chest pain. - Severe shortness of breath or bloody sputum. - Do not improve after 3 days of proper treatment. Acute Sinusitis Each of us has four paired cavities (spaces) in our head that are connected to the nose by narrow channels. These cavities, known as sinuses, produce thin mucus that drains out of the channels of the nose. This drainage helps keep the nose clean and free of particles and bacteria. Normally, sinuses are filled with air. But when sinuses become blocked and filled with fluid, bacteria can grow and cause an infection (bacterial sinusitis). Conditions that cause sinus blockage include: ? the common cold ? allergic rhinitis (swelling of the lining of the nose due to allergies) ? nasal polyps (small growths in the lining of the nose), or ? a deviated septum (the wall between the left and right nostril is crooked). Allergies, such as hay fever, can also cause swelling and poor drainage of the sinuses. One confusing factor to consider is that many people with ?sinus headaches? are actually suffering from migraines. In fact, in large clinical studies, up to 90% of people who reported sinus headaches were diagnosed with migraines instead. Migraines can cause headaches in combination with facial pressure over the sinuses, a runny nose, and nasal congestion. If you have symptoms that involve the sinuses, it may be difficult to tell if you have sinusitis, a cold, nasal allergy, or even a migraine. This article will describe the symptoms, diagnosis, and treatment of sinusitis, and how to tell the difference between sinusitis, cold, migraines, and nasal allergy. What is sinusitis? Sinusitis is an inflammation, or swelling, of the tissue lining the sinuses. There are two types of sinusitis: ? Acute bacterial sinusitis: a sudden onset of cold symptoms such as runny nose, stuffy nose, and facial pain that does not go away after 10 days, or symptoms that seem to begin improving but return worse than the initial symptoms. It responds well to antibiotics and decongestants. ? Chronic sinusitis: a condition defined by nasal congestion, drainage, facial pain/pressure, and decreased sense of smell for at least 12 weeks. Who gets sinusitis? Every year, approximately 1 billion Americans have at least one episode of viral sinusitis. About 37 million will develop a bacterial sinusitis. People who have the following conditions have a higher risk of sinusitis: ? Nasal mucus membrane swelling, as from a common cold or allergies ? Blockage of drainage ducts, leading to trapping of mucus ? Structure differences that narrow the drainage ducts ? Conditions that result in an increased risk of infection ? Polyps (growths) In children, common factors in the environment that contribute to sinusitis include allergies, illness from other children at day care or school, and smoke in the environment. In adults, the contributing factors are most frequently viral infections, allergies, and smoking. What are the signs and symptoms of acute sinusitis? The primary symptoms of acute sinusitis include: ? Facial pain/pressure/tenderness ? Nasal stuffiness ? Nasal discharge (thick yellow or green discharge from nose), especially if it is long-lasting. These also may be present with viral illness. ? Loss of smell and taste ? Cough/congestion Additional symptoms may include: ? Fever of 102? or higher ? Ear pain ? Headache ? Bad breath ? Fatigue ? Ache in upper jaw and teeth How is sinusitis diagnosed? To diagnose sinusitis, your doctor will discuss your symptoms and examine your nose for swelling and drainage. Your personal history is most important in diagnosing sinusitis. A physical exam of the ears, nose, and throat is performed to look for signs of obstruction (blockage) or infection. Some patients may have conditions that may need to be referred to a specialist, such as an ear, nose, and throat (ENT) physician. How is sinusitis treated? Acute sinusitis. If you have a simple sinusitis infection, your health care provider may recommend treatment with lyiy-rpb-eypslwl medications for cold and allergy, nasal saline irrigation, and drinking fluids (as most sinusitis is viral). Use of prescription intranasal steroid sprays might be added to help control symptoms. However, non-prescription drops or sprays should not be used beyond 5 days -- or they may actually increase congestion. If symptoms do not improve after at least 10 days, if the symptoms seem to be getting worse, or if medications for cold or allergy do not improve symptoms, a bacterial infection may be causing the sinusitis. In this case, antibiotics are given for 7 days in adults and 10 days in children. Antibiotics should improve symptoms within 48 hours. Chronic sinusitis. Treating chronic sinusitis begins with controlling the underlying condition, which is most often allergies. Standard treatments include intranasal steroid sprays, topical antihistamine sprays, or antihistamine pills, and leukotriene antagonists such as montelukast. Often you will be encouraged to rinse the nose with saline irrigations. Sometimes medications may be added to these irrigations. If sinusitis is not controlled, the next step is a visit with an Ear, Nose and Throat Specialist. Will I need to make lifestyle changes? If you have indoor allergies, avoiding triggers -- such as animal dander and dust mites ? is recommended in addition to medications. Smoking is never recommended, but if you do smoke, strongly consider a program to help you stop smoking, as this may be the main reason you have sinus infections. No special diet is required, but drinking extra fluids helps to thin nasal secretions. What are the symptoms of the common cold? An upper respiratory infection (the common cold) is usually caused by a virus that infects the nose and throat. Most upper respiratory infections are not bacterial and do not respond to antibiotics. A cold may cause swelling in the sinuses, preventing the outflow of mucus. Cold symptoms include nasal congestion, runny nose, post-nasal drip (ycau-ld-tqrg release of nasal fluid into the back of the throat), headache, achiness, and fatigue. Cough and fever may also go along with these symptoms. Cold symptoms usually build, peak, and slowly disappear. No treatment is necessary for a cold, but some medications can ease symptoms. For example, decongestants may decrease drainage and open the nasal passages. Analgesics (pain relievers) may help with fever and headache. Cough medication may help, as well. Colds will typically last from a few days to about a week. What is the harm in getting an antibiotic for a common cold? Viral infections like the common cold are not cured by antibiotics. Taking an antibiotic for a viral infection unnecessarily puts you at risk for side effects related to the antibiotic. In addition, the overuse of antibiotics leads to antibiotic resistance, which may make future infections more difficult to treat. Finally, the use of inappropriate medication increases health care costs unnecessarily. What are the symptoms of nasal allergy? Symptoms of nasal allergy include: ? Sneezing ? Itchy nose ? Clear, watery nasal discharge ? Nasal blockage ? Feeling fatigued How is nasal allergy treated? Usually medications are prescribed to relieve symptoms. These may include antihistamines, with or without decongestants, or steroid nasal sprays. Other nasal sprays, which deliver antihistamines or cromolyn sodium, are sometimes helpful. If allergy symptoms are chronic (long-term), allergy testing and allergy shots (immunotherapy) may be helpful. How can I tell if I have a sinus infection, cold, or nasal allergy? Although the symptoms of sinusitis and nasal allergy may occur with a common cold, in general, cold-related symptoms disappear within 1 week. The point at which a normal cold ends and a sinus condition begins is not always easy to know. If you are fighting off a cold and develop symptoms of a sinus infection or nasal allergy, see your health care provider. You will be asked to describe your symptoms and medical history. ? How do I know if my sinus condition requires the care of an ear, nose, and throat specialist? Most routine sinus conditions are easily cared for by primary care physicians. If, however, you are bothered by ongoing abnormal symptoms, recurring infections, or have abnormal X-ray findings or complications, a referral to a specialist is appropriate. References ? Hernandez Grant. et al., IDSA Clinical Practice Guideline for Acute Bacterial Rhinosinusitis in Children and Adults. Clinical Infectious Diseases; 2012;54(8):7714-8255. ? Raffi Eller, Sinusitis: Allergies, antibiotics, aspirin, asthma. [facility] Journal of Medicine 2006; 73(7): 671-678 ? National [employer]ergy and Infectious [employer]. Sinusitis (Sinus Infection) Accessed 06/08/2015. ? [employer], [employer]. Sinusitis Accessed 06/08/2015. ? [employer], [employer] AND[employer]; Immunology. Sinus Information Accessed 06/08/2015. ? Darrick Stevenson., Prevalence of migraine in patients with a history of self-reported or physician-diagnosed ANDquot;sinusANDquot; headache. [employer], 2003. 164(16):1769-72. ? Copyright 7127-0931 [facility]. All rights reserved. Referring Provider: SELF [200] Allergies As of Date: 10/04/2017 Noted Allergy Reaction BACTRIM (SULFAMETHOXAZOLE-TRIMETH*08/20/2015 8 - GI Upset Comments: vomiting MORPHINE 01/07/2008 Comments: hypotension PHENERGAN (PROMETHAZINE HCL) 01/07/2008 14 - Other: See Comments Comments: ? Hypotension, given at same time as Morphine ZOLOFT (SERTRALINE HCL) 10/30/2016 14 - Other: See Comments Comments: Increased anxiety and weight gain Date Reviewed: 10/04/2017 Reviewed by: Ana Iyer LPN - Fully Assessed Reason for Visit: cough, congestion and sinus [Other] Cmt: off and on for 2 months-now becoming very SOB Primary Visit Diagnosis:Sinobronchitis [J32.9, J40] Order(s):albuterol HFA (PROAIR HFA) 90 mcg/actuation inhalerInhale 2 Puffs as instructed every 4 hours as needed.Disp: 1 InhalerRfl: 0 azithromycin (ZITHROMAX) 250 mg tabletTake 2 tablets today then one tablet daily for 4 days.Disp: 6 tabletRfl: 0 methylPREDNISolone (MEDROL, CAREN,) 4 mg Dose-PackFollow dosing instructions, take with food.Disp: 1 PackageRfl: 0 Prescriptions as of 10/04/2017 Sig: ALBUTEROL SULFATE HFA 90 MCG/* Inhale 2 Puffs as instructed * DEXLANSOPRAZOLE 60 MG CAPSULE* Take by mouth. LEVONORGESTREL 0.15 MG-ETHINY* Take 1 tablet by mouth once d* AZITHROMYCIN 250 MG TABLET Take 2 tablets today then one* METHYLPREDNISOLONE 4 MG TABLE* Follow dosing instructions, t* Medication notes this encounter ESCITALOPRAM 5 MG TABLET >> Ana Iyer LPN 10/04/2017 9:14 AM >> ANA IYER LPN [facility] Oct 04, 2017 9:14 AM Not Taking BUPROPION XL 150 MG TAB >> Ana Iyer LINE MANAGER 10/04/2017 9:14 AM >> ANA IYER LPN [facility] Oct 04, 2017 9:14 AM Not Taking Problem List As Of Date 10/04/2017 Noted Resolved GE REFLUX (GASTROESOPHAGEAL) [K21.9] INVALID FOR* RHINITIS ALLERGIC, DUE TO POLLEN [J30.1] INVALID FOR* MELENA, BLOOD IN STOOL [K92.1] INVALID FOR* Supervision of Normal First [Z34.00] INVALID FOR*11/18/2009 Bacteriuria Preg-Unspec [O99.89, R82.71] INVALID FOR*11/18/2009 Routine Follow-Up [Z39.2] INVALID FOR* Leg Pain [M79.606] INVALID FOR* Unspecified Backache [M54.9] INVALID FOR* ANTOINE (generalized anxiety disorder) [F41.1] INVALID FOR* Other instructions from your clinician: ACUTE BRONCHITIS: You have acute bronchitis. This means the airway passages in your lungs are inflamed. Bronchitis may be caused by viruses or bacteria. Inhaling cigarette smoke will always make it worse. Exposure to irritating chemicals or second hand smoke as well as allergies can contribute to bronchitis. Repeat episodes of bronchitis may cause lifelong lung problems. Acute bronchitis is usually treated with rest, fluids, cough medicine, and possibly antibiotics or inhaled medicine to open up the small airways. It is very important that you avoid smoke and drink increased amounts of fluids. A cool air vaporizer can help thin bronchial secretions. This makes it easier to cough and clear your chest. If you are a cigarette smoker, consider using nicotine gum or skin patches to help you withdraw. Recovery from bronchitis is often slow, but you should start feeling better after 2-3 days of treatment. Please call your doctor or return here if you have any of the following symptoms: - Increased fever, chills, or chest pain. - Severe shortness of breath or bloody sputum. - Do not improve after 3 days of proper treatment. Acute Sinusitis Each of us has four paired cavities (spaces) in our head that are connected to the nose by narrow channels. These cavities, known as sinuses, produce thin mucus that drains out of the channels of the nose. This drainage helps keep the nose clean and free of particles and bacteria. Normally, sinuses are filled with air. But when sinuses become blocked and filled with fluid, bacteria can grow and cause an infection (bacterial sinusitis). Conditions that cause sinus blockage include: ? the common cold ? allergic rhinitis (swelling of the lining of the nose due to allergies) ? nasal polyps (small growths in the lining of the nose), or ? a deviated septum (the wall between the left and right nostril is crooked). Allergies, such as hay fever, can also cause swelling and poor drainage of the sinuses. One confusing factor to consider is that many people with ?sinus headaches? are actually suffering from migraines. In fact, in large clinical studies, up to 90% of people who reported sinus headaches were diagnosed with migraines instead. Migraines can cause headaches in combination with facial pressure over the sinuses, a runny nose, and nasal congestion. If you have symptoms that involve the sinuses, it may be difficult to tell if you have sinusitis, a cold, nasal allergy, or even a migraine. This article will describe the symptoms, diagnosis, and treatment of sinusitis, and how to tell the difference between sinusitis, cold, migraines, and nasal allergy. What is sinusitis? Sinusitis is an inflammation, or swelling, of the tissue lining the sinuses. There are two types of sinusitis: ? Acute bacterial sinusitis: a sudden onset of cold symptoms such as runny nose, stuffy nose, and facial pain that does not go away after 10 days, or symptoms that seem to begin improving but return worse than the initial symptoms. It responds well to antibiotics and decongestants. ? Chronic sinusitis: a condition defined by nasal congestion, drainage, facial pain/pressure, and decreased sense of smell for at least 12 weeks. Who gets sinusitis? Every year, approximately 1 billion Americans have at least one episode of viral sinusitis. About 37 million will develop a bacterial sinusitis. People who have the following conditions have a higher risk of sinusitis: ? Nasal mucus membrane swelling, as from a common cold or allergies ? Blockage of drainage ducts, leading to trapping of mucus ? Structure differences that narrow the drainage ducts ? Conditions that result in an increased risk of infection ? Polyps (growths) In children, common factors in the environment that contribute to sinusitis include allergies, illness from other children at day care or school, and smoke in the environment. In adults, the contributing factors are most frequently viral infections, allergies, and smoking. What are the signs and symptoms of acute sinusitis? The primary symptoms of acute sinusitis include: ? Facial pain/pressure/tenderness ? Nasal stuffiness ? Nasal discharge (thick yellow or green discharge from nose), especially if it is long-lasting. These also may be present with viral illness. ? Loss of smell and taste ? Cough/congestion Additional symptoms may include: ? Fever of 102? or higher ? Ear pain ? Headache ? Bad breath ? Fatigue ? Ache in upper jaw and teeth How is sinusitis diagnosed? To diagnose sinusitis, your doctor will discuss your symptoms and examine your nose for swelling and drainage. Your personal history is most important in diagnosing sinusitis. A physical exam of the ears, nose, and throat is performed to look for signs of obstruction (blockage) or infection. Some patients may have conditions that may need to be referred to a specialist, such as an ear, nose, and throat (ENT) physician. How is sinusitis treated? Acute sinusitis. If you have a simple sinusitis infection, your health care provider may recommend treatment with rqvp-mvi-syihaca medications for cold and allergy, nasal saline irrigation, and drinking fluids (as most sinusitis is viral). Use of prescription intranasal steroid sprays might be added to help control symptoms. However, non- prescription drops or sprays should not be used beyond 5 days -- or they may actually increase congestion. If symptoms do not improve after at least 10 days, if the symptoms seem to be getting worse, or if medications for cold or allergy do not improve symptoms, a bacterial infection may be causing the sinusitis. In this case, antibiotics are given for 7 days in adults and 10 days in children. Antibiotics should improve symptoms within 48 hours. Chronic sinusitis. Treating chronic sinusitis begins with controlling the underlying condition, which is most often allergies. Standard treatments include intranasal steroid sprays, topical antihistamine sprays, or antihistamine pills, and leukotriene antagonists such as montelukast. Often you will be encouraged to rinse the nose with saline irrigations. Sometimes medications may be added to these irrigations. If sinusitis is not controlled, the next step is a visit with an Ear, Nose and Throat Specialist. Will I need to make lifestyle changes? If you have indoor allergies, avoiding triggers -- such as animal dander and dust mites ? is recommended in addition to medications. Smoking is never recommended, but if you do smoke, strongly consider a program to help you stop smoking, as this may be the main reason you have sinus infections. No special diet is required, but drinking extra fluids helps to thin nasal secretions. What are the symptoms of the common cold? An upper respiratory infection (the common cold) is usually caused by a virus that infects the nose and throat. Most upper respiratory infections are not bacterial and do not respond to antibiotics. A cold may cause swelling in the sinuses, preventing the outflow of mucus. Cold symptoms include nasal congestion, runny nose, post- nasal drip (nzgp-qo-hffn release of nasal fluid into the back of the throat), headache, achiness, and fatigue. Cough and fever may also go along with these symptoms. Cold symptoms usually build, peak, and slowly disappear. No treatment is necessary for a cold, but some medications can ease symptoms. For example, decongestants may decrease drainage and open the nasal passages. Analgesics (pain relievers) may help with fever and headache. Cough medication may help, as well. Colds will typically last from a few days to about a week. What is the harm in getting an antibiotic for a common cold? Viral infections like the common cold are not cured by antibiotics. Taking an antibiotic for a viral infection unnecessarily puts you at risk for side effects related to the antibiotic. In addition, the overuse of antibiotics leads to antibiotic resistance, which may make future infections more difficult to treat. Finally, the use of inappropriate medication increases health care costs unnecessarily. What are the symptoms of nasal allergy? Symptoms of nasal allergy include: ? Sneezing ? Itchy nose ? Clear, watery nasal discharge ? Nasal blockage ? Feeling fatigued How is nasal allergy treated? Usually medications are prescribed to relieve symptoms. These may include antihistamines, with or without decongestants, or steroid nasal sprays. Other nasal sprays, which deliver antihistamines or cromolyn sodium, are sometimes helpful. If allergy symptoms are chronic (long- term), allergy testing and allergy shots (immunotherapy) may be helpful. How can I tell if I have a sinus infection, cold, or nasal allergy? Although the symptoms of sinusitis and nasal allergy may occur with a common cold, in general, cold-related symptoms disappear within 1 week. The point at which a normal cold ends and a sinus condition begins is not always easy to know. If you are fighting off a cold and develop symptoms of a sinus infection or nasal allergy, see your health care provider. You will be asked to describe your symptoms and medical history. ? How do I know if my sinus condition requires the care of an ear, nose, and throat specialist? Most routine sinus conditions are easily cared for by primary care physicians. If, however, you are bothered by ongoing abnormal symptoms, recurring infections, or have abnormal X-ray findings or complications, a referral to a specialist is appropriate. References ? Tayla Grant et al., IDSA Clinical Practice Guideline for Acute Bacterial Rhinosinusitis in Children and Adults. Clinical Infectious Diseases; 2012;54(8):3036-5860. ? Raffi Eller, Sinusitis: Allergies, antibiotics, aspirin, asthma. [facility] Journal of Medicine 2006; 73(7): 671-678 ? National [employer] of Allergy and Infectious [employer]. Sinusitis (Sinus Infection) Accessed 06/08/2015. ? [employer], [employer], [employer]. Sinusitis Accessed 06/08/2015. ? [employer]. Sinus Information Accessed 06/08/2015. ? Darrick Stevenson., Prevalence of migraine in patients with a history of self-reported or physician-diagnosed sinus headache. [employer], 2004. 164(16):1769-72. ? Copyright 7391-7561 [facility]. All rights reserved. Prescriptions ordered this encounter Disp Refills Start End ALBUTEROL SULFATE HFA 90 MCG/ACTUATI* 1 In* 0 10/04/2017 Route: INHALATION Sig: Inhale 2 Puffs as instructed every 4 hours as needed. AZITHROMYCIN 250 MG TABLET 6 ta* 0 10/04/2017 Sig: Take 2 tablets today then one tablet daily for 4 days. METHYLPREDNISOLONE 4 MG TABLETS IN A* 1 Pa* 0 10/04/2017 10/10/2017 Sig: Follow dosing instructions, take with food. Medications Discontinued During This Encounter buPROPion XL (WELLBUTRIN XL) 150 mg * 90 t* 3 12/13/2016 10/04/2017 Route: ORAL Sig: Take 1 tablet by mouth once daily. Disc: Reason for discontinue is not on file. escitalopram oxalate (LEXAPRO) 5 mg * 90 t* 3 03/21/2017 10/04/2017 Route: ORAL Sig: Take 1 tablet by mouth once daily. Disc: Reason for discontinue is not on file. albuterol HFA (PROAIR HFA) 90 mcg/ac* 1 In* 0 06/29/2016 10/04/2017 Route: INHALATION Sig: Inhale 2 Puffs as instructed every 4 hours as needed. Disc: Reason for discontinue is not on file. Letter Text Juana Kerns CNP Urgent Care [address] [facility] [address] Dept: [phone] 10/04/2017 [facility] [address] [facility] [address] To Whom it May Concern: This is to certify that Maik [place] was seen at our office for medical care. Maik may return to work on 10/05/2017. If you have any questions please feel free to call. Sincerely: Juana Kerns CNP Encounter Status:Closed by JAUNA KERNS on 10/04/17 12 LEAD ELECTROCARDIOGRAM Observed: 08/01/2017 Status: F Source: [place] 2:37 PM [facility] REPOSITORY [facility] Cardiovascular Services [address] [place] [address] 12 Lead EKG 07/30/17 1428 MR#: [id number] Acct: [id number] Name: CHRISTIAN HYATTITLIN Rep #: [id number] : 1990 26 From: Hudson Ham MD Attending Dr: Status: DEP ER Ordering Dr: Erin Shukla MD Date: 07/30/17 Location: ED Sex: F C Admitted: Test Reason : SOB Blood Pressure : / mmHG Vent. Rate : 088 BPM Atrial Rate : 088 BPM P-R Int : 138 ms QRS Dur : 088 ms QT Int : 368 ms P-R-T Axes : 034 010 035 degrees QTc Int : 445 ms Sinus rhythm with marked sinus arrhythmia Otherwise normal ECG Confirmed by HUDSON HAM MD ([id number]), rewrite editor GREGORY RODRIGUEZ ([id number]) on 08/01/2017 2:36:54 PM Referred By: Confirmed By:HUDSON HAM MD 08/01/17 1436 Date Hudson Ham MD CC: Jorge Lamb DO Signed DISCHARGE INSTRUCTION Observed: 07/30/2017 Status: F Source: [place] 5:09 PM [facility] REPOSITORY [facility] Medical Records Department [address] [place] [address] Discharge Instruction 07/30/171707 MR#: [id number] Acct: [id number] Name: MAIK HYATT Rep #: [id number] : 1990 26 From: Erin Shukla MD PCP: Jorge Lamb DO Status: REG ER ED Disposition - Plan for ED Patient: Chief Complaint: Shortness of Breath Instructions: ED Upper Resp Infec No Abx Tx Prescriptions: Ondansetron [Zofran Odt] 4 mg PO Q8H PRN PRN #10 tablet PRN Reason: Nausea Referrals: Jorge Lamb DO [Primary Care Provider] - What to do if you have Problems For any increased pain, shortness of breath, bleeding, nausea or vomiting, chest pain, or any unexpected problems, contact your Primary Care Provider. Call [facility] ([phone]) or report to the closest Emergency Room. Call 911 if necessary. 07/30/171708 <Electronically signed by Erin Shukla MD> Date Erin Shukla MD Cosigner Signature (If Indicated): Date CC: Jorge Lamb DO EMERGENCY DEPARTMENT Observed: 07/30/2017 Status: F Source: [place] 5:08 PM [facility] REPOSITORY [facility] Medical Records Department [address] [place] [address] Emergency Department Summary 07/30/17 1440 MR#: [id number] Acct: [id number] Name: MAIK HYATT Rep #: [id number] : 1990 26 From: Erin Shukla MD PCP: Jorge Lamb DO Status: REG ER - ER Visit Summary Date of Service: 07/30/17 Chief Complaint: Cough, shortness of breath History of Present Illness: The patient is a 26 F presenting with cough, shortness of breath. She states this has been ongoing for the past week. 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 She did receive a flu shot this year. She complains of subjective fever, shortness of breath, productive cough. She has myalgias and headache. She has a family history of PE, no other DVT/PE risk factors. She denies chest pain. She is not a smoker. Physical Examination: Vitals are stable. Patient is afebrile. Alert no acute distress. HEENT exam is unremarkable. Neck is supple. Lungs are clear and equal bilaterally. Heart is regular rate and rhythm. Abdomen is soft nontender nondistended. Extremities are unremarkable. Skin is warm and dry. No focal neurologic deficit. Remainder of exam is unremarkable. Emergency Department Course and Treatment: EKG is sinus with rate of 88, no acute ischemic changes. Chest x-ray shows no acute process. CBC, chemistries are unremarkable. Troponin is negative. D-dimer is 0.30. HCG negative. Influenza negative. Attempted to ambulate the patient and she became dizzy. She was then given a liter of fluid with some improvement. Her pulse ox is 92% on room air with ambulation. Because of her dizziness with ambulation she was offered admission. Patient declines admission. She states she does not want to stay in the hospital. She is advised signs and symptoms for which to return to ED. She understands and will follow-up with her primary care physician. She will return to ED for worsening complaints. Disposition: Discharge home Impression: Viral syndrome This note was generated with [employer] dictation software. It may contain incorrect words, spelling, and punctuation that were not noted in review of the chart prior to signing ED Disposition - Plan for ED Patient: Chief Complaint: Shortness of Breath Referrals: Jorge Lamb, DO [Primary Care Provider] - What to do if you have Problems For any increased pain, shortness of breath, bleeding, nausea or vomiting, chest pain, or any unexpected problems, contact your Primary Care Provider. Call [facility] ([phone]) or report to the closest Emergency Room. Call 911 if necessary. 07/30/171707 <Electronically signed by Erin Shukla MD> Date Erin Shukla MD Cosigner Signature (If Indicated): Date CC: Jorge Lamb DO CBC W/DIFF, AUTOMATED Collected: 07/30/2017 Status: F Source: [place] 2:35 PM [facility] REPOSITORY TYPE CODE TESTS RESULT OUT OF RANGE REFERENCE UNITS LAB L100.1000 4.4-11.0 K/mm3 Normal WBC 5.4 LAB L100.1200 4.2-5.4 M/mm3 Normal RBC 4.69 LAB L100.1300 12.0-15.0 g/dl Normal HGB 13.4 LAB L100.1400 37-47 % Normal HCT 40.6 LAB L100.1500 81-99 fL Normal MCV 86.6 LAB L100.1600 27.0-32.0 pg Normal MCH 28.6 LAB L100.1700 32-36 g/gl Normal MCHC 33.0 LAB L100.1810 11.6-14.6 % Normal RDW CV 12.7 LAB L100.1820 35.1-43.9 fl Normal RDW SD 40.5 LAB L100.1900 150-450 K/mm3 Normal PLT 153 LAB L100.2000 6.2-12.0 fl Normal MPV 10.6 LAB L100.2100 47-70 % Normal NEUT% 65.0 LAB L100.2200 19-41 % Normal LY% 23.8 LAB L100.2300 0-10 % Normal MONO% 7.7 LAB L100.2400 0-5 % Normal EO% 3.1 LAB L100.2500 0-1 % Normal BASO% 0.4 LAB L100.2550 0.0-0.9 % Normal IM GRAN % 0.000 Result Comment: IG% - Immature Granulocytes (promyelocytes, myelocytes and metamyelocytes) > 1% indicates that a LEFT SHIFT is Present. LAB L100.2620 2.0-7.7 X10 3/uL Normal Absolute Neut 3.5 LAB L100.2720 0.83-4.51 X10 3/ul Normal Absolute Lymph 1.29 Performed By: #### L100.0100 #### [facility] [address] [facility] [place], [place], [address] D-DIMER QUANTITATIVE Collected: 07/30/2017 Status: F Source: [place] (DVT/PE) 2:35 PM [facility] REPOSITORY TYPE CODE TESTS RESULT OUT OF RANGE REFERENCE UNITS LAB L300.8000 0.27-0.49 FEU/ug/m Normal D-DIMER 0.30 QUANT Result Comment: NORMAL D-Dimer level (<0.50) indicates no DVT or PE. Performed By: #### L300.8000 #### [facility] [address] [facility]. [place], [place], [address] BASIC METABOLIC Collected: 07/30/2017 Status: F Source: [place] PROFILE (BMP) 2:35 PM [facility] REPOSITORY Order Comment: 'TROP' Serial specimen #1, #2, #3, or #4: 1 TYPE CODE TESTS RESULT OUT OF RANGE REFERENCE UNITS LAB L501.0100 70-110 mg/dL Normal GLU 87 LAB L501.1000 7-18 mg/dL Normal BUN 9 LAB L501.1100 0.55-1.02 mg/dL High 1.08 CREAT,SERUM Result Comment: The validity of the calculated GFR AND GFRAA in patients over 70 years has not been determined. Clinical correlation is essential. LAB L501.1110 >60 mL/min Normal EST GFR 64 Result Comment: Non- GFR Calc LAB L501.1115 >60 mL/min Normal EST GFR - AA 77 Result Comment: GFR Calc LAB L501.1255 ml/min Normal Estimated CRCL 64.15 LAB L501.1300 10-20 RATIO Low BUN/CRE 8.3 LAB L501.2200 8.5-10 mg/dL Normal .1 CA 8.8 LAB L501.5300 136-14 mmol/L Normal 5 NA 139 LAB L501.5600 3.5-5. mmol/L Normal 1 K 3.9 LAB L501.5900 98-107 mmol/L Normal CL 105 LAB L501.6100 21.0-3 mmol/L Normal 2.0 CO2 25.0 LAB L501.6200 5-15 Normal GAP 9 Performed By: #### L500.2500, L501.4010 #### [facility] [address] [place], [address] TROPONIN-I Collected: 07/30/2017 Status: F Source: [place] 2:35 PM [facility] REPOSITORY Order Comment: 'TROP' Serial specimen #1, #2, #3, or #4: 1 TYPE CODE TESTS RESULT OUT OF RANGE REFERENCE UNITS LAB L501.4010 <0.06 ng/mL Normal < 0.02 TROPONIN-I Result Comment: TROPONIN-I EXPECTED VALUES <0.05 NEGATIVE 0.06 - 0.59 AT RISK OF IA > OR = 0.60 SUGGEST IA Performed By: #### L500.2500, L501.4010 #### [facility] [address] [place], [address] HCG TITER QUANT., Collected: 07/30/2017 Status: F Source: [place] SERUM 2:35 PM [facility] REPOSITORY TYPE CODE TESTS RESULT OUT OF RANGE REFERENCE UNITS LAB L700.8000 <9 non-preg mIU/mL Normal HCG < 1 QUANT. Performed By: #### L700.8000 #### [facility] [address] [place], [address] Observed: 07/30/2017 Status: F Source: [place] INFLUENZA A+B (RAPID 2:20 PM [facility]) REPOSITORY FLU A/B Rapid Negative test results should be confirmed by culture. Order Rapid Viral Culture for Influenzae A+B ([id number]) if clinically indicated. Influenza Ag, Direct Presumptive NEGATIVE for Influenza A/B Antigen (See Note) Performed By: #### M101.0101 #### [facility] [address] [place], [address] CHEST 1 VIEW Observed: 07/30/2017 Status: F Source: [place] (PORTABLE) 2:[address] [facility] REPOSITORY [facility] Imaging Services [address] [place] [address] Chest 1 View (Portable) MR#: [id number] Acct: [id number] Name: MAIK HYATT Rep #: [id number] : 1990 F 26 From: Joe Peña MD PCP: Jorge Lamb DO Status: REG ER Study: Chest 1 View (Portable) Date of Exam: 07/30/17 Exam# [id number] Ordering Dr: Erin Shukla MD STUDY: X-RAY CHEST REASON FOR EXAM: Female, 26 years old. Cough for one week TECHNIQUE: Single PA view of the chest. COMPARISON: Chest x-ray on August 21, 2013. FINDINGS: The lungs are clear and expanded. There is no demonstrated pleural abnormality. Normal size heart. Normal mediastinum and teresa. Normal visualized pulmonary arteries. Normal visualized aortic arch and descending thoracic aorta. Normal visualized thoracic spine. Normal visualized ribs, clavicles, and shoulders. There is no demonstrated abnormality of the visualized soft tissue structures of the upper abdomen. RAD/Chest 1 View (Portable) IMPRESSION: Normal x-ray examination of the chest. No significant changes since the prior study Electronically Signed: Joe Peña MD, FACR at 14:35 EST , Service support , CC: Erin Shukla MD; Jorge Lamb DO Material Engineer: Signed ALLERGIES ALLERGIES DATE TYPE / CODE NAME / CODE REACTION SEVERITY SOURCE 04/05/2018 Drug promethazine Other Unknown [place] Allergy/416 HCl/[id number](RXNO Community 610609([facility] ED CT) Repository 04/05/2018 Drug morphine/[id number] Other Unknown [place] Allergy/416 (RXNORM) Community 477161([facility] ED CT) Repository 04/05/2018 Drug sulfamethoxazole/F0 Vomiting Unknown [place] Allergy/416 [id number](RXNORM) Community 597768([facility] ED CT) Repository 04/05/2018 Drug trimethoprim/B90794 Vomiting Unknown [place] Allergy/416 2873(RXNORM) Community 367252([facility] ED CT) Repository 04/05/2018 Drug grape/[id number](RX Swelling Unknown [place] Allergy/416 NORM) Community 543068([facility] ED CT) Repository 10/30/2016 DRUG SERTRALINE HCL OTHER: SEE C [address] [address]349(SNOM Repository ED CT) 08/20/2015 DRUG/615443 SULFAMETHOXAZOLE-TR GI UPSET [facility] 003(SNOMED IMETHOPRIM [address]) Repository 01/07/2008 DRUG MORPHINE [address] [address]1418(SNOM Repository ED CT) 01/07/2008 DRUG PROMETHAZINE HCL OTHER: SEE C [address] [address]0548(SNOM Repository ED CT) ENCOUNTERS ENCOUNTERS ADMIT/DISCHARGE ACCOUNT ADMITTING ENCOUNTER LOCATION SOURCE NUMBER CLASS 07/09/2018 [id number] Ambulatory [facility] ing:US Repository 06/27/2018 [id number] [facility] ing:[place] Repository 04/05/2018/04/05/20 [id number] Ambulatory BMSBuilding:B [place] [address] Repository 03/19/2018 [id number] Ambulatory [facility] ing:EMPH Repository 10/21/2017/10/22/19 [id number] Emergency [address] ing:ED Repository 10/04/2017/10/05/19 [id number] Ambulatory [address] Repository 07/30/2017/07/30/19 [id number] Emergency [address] [address] ing:ED Repository 07/25/2017 [id number] Ambulatory [facility] ing:EMPH Repository PAYERS PAYERS ENCOUNTER GUARANTOR PAYER SUBSCRIBER SOURCE 07/09/2018 MAIK Hand Primary Insurance:[facility] MAIK Hassansamantha [id number] [facility] [id number] Number: Repository [id number]: [phone] [id number] [phone] (HP) Date:8342-78-83OF [address] [address]KPF, [place] [address]AH: CHECK WEBSITE 07/09/2018 Secondary NOT GIVENUNK [place] Insurance:SELF PAY [facility] Number: Effective Repository Date:2018-07-04 06/27/2018 MAIK Hand Primary MAIK Gonsalez [id number] Insurance:[place]OB: [facility] [id number] Number: Repository [id number]: [phone] [id number] [phone] (HP) Date:4680-91-32JH [address] [address]FXPP, [place] [address]CZ: 06/27/2018 Secondary NOT GIVENUNK [place] Insurance:SELF PAY [facility] Number: Effective Repository Date:2018-06-27 04/05/2018 MAIK Hand Primary MAIK [id number] Insurance[facility] [id number] Number: Repository [id number]: [phone] [id number] [phone] (HP) Date:5993-40-22XX [address] [address]FB, [place] [address]CR: 04/05/2018 Secondary NOT GIVENUNK [place] Insurance:SELF PAY [facility] Number: Effective Repository Date:2018-04-05 03/19/2018 MAIK Hand Primary NOT GIVENUNK [place] [id number] Insurance:SELF PAY [place] Number: Effective Repository [id number]: [phone]) Date:2018-03-19 [phone] (HP) 10/21/2017 MAIK M Primary MAIK Hand [place] [id number] Insurance:[facility]: [id number] Number: Repository [id number]: [phone] [id number] [phone] (HP) Date:7667-04-24EZ [facility] [address]FCWY[place]NF, [place] [address]LC: 10/21/2017 Secondary NOT GIVENUNK [place] Insurance:SELF PAY [facility] Number: Effective Repository Date:2017-10-21 07/30/2017 MAIK Primary MAIK [id number] Insurance:ESCANABAPolicy [place]OB: [facility] Number: [id number] [id number] Repository [phone]: ([phone]) Date:7238-39-04BY [phone] (HP) [place] [address]PI: 07/30/2017 Secondary NOT GIVENUNK [place] Insurance:SELF PAY [facility] Number: Effective Repository Date:2017-07-30 07/25/2017 MAIK Primary NOT GIVENUNK [place] [id number] Insurance:SELF PAY [place] Number: Effective Repository [id number]: ([phone] Date:2017-07-21 [phone] (HP)
== END ==
PROVIDERS: Family Provider Family Medicine; PCP Family Medicine; Visit Provider Obstetrics & Gynecology
DX: N92.6 Irregular menstruation, unspecified (principal); R10.11 Right upper quadrant pain; R53.83 Other fatigue
CPT/HCPCS: 36415; 80053; 84702; 85027

== ENCOUNTER → 2018-07-09 09:29 | Outpatient (CLI) | payer OTHER, SELFPAY ==
--- NOTE | 2018-07-09 09:34 | US_ITS ---
STUDY: ABDOMINAL ULTRASOUND - RIGHT UPPER QUADRANT REASON FOR VISIT: Female, 27 years old. Elevated LFTs TECHNIQUE: Ultrasound evaluation of the right upper quadrant was performed with real-time and static ross-scale imaging. TECHNICAL QUALITY: Adequate. COMPARISON: None. FINDINGS: Liver: The liver measures 14.7 cm. There is normal echogenicity of the liver. The bile ducts are within normal limits. There is hepatic color flow. The direction of portal flow is hepatopetal. There is no demonstrated mass lesion. Gallbladder: Normal distended gallbladder. The gallbladder wall measures 1.7 mm. There is a negative sonographic Davila's sign. There is no pericholecystic fluid. There are no gallstones. Common Bile Duct (C.B.D.): The common bile duct measures 2.9 mm. Pancreas: Normal size of the head, body and tail of the pancreas. There is normal echogenicity of the pancreas. There is no demonstrated pancreatic mass or cyst. Right Kidney: Normal size of the right kidney. The right kidney measures 10.0 x 4.2 x 3.4 cm. Normal renal cortex. The right cortex measures 1.2 cm. There is no demonstrated renal mass or cyst. There is no right hydronephrosis. US/Abdomen Limited IMPRESSION: Normal right upper quadrant ultrasound examination. Electronically Signed: Joselo Fernandez DO at 23:14 EST Tel [phone], Service support ,
--- OUTSIDE RECORDS SUMMARY | 2018-08-25 08:40 | XMS RPT_ITS ---
:1990 Author Organization OHIP Support Name Relationship Address Phone DELROY IZQUIERDO Unavailable [address] [facility] [address] + [place] [address] PHILLIP HYATT Un[address] + [place] [address] [facility] Unavailable [address] + [place] [address] DELROY IZQUIERDO Unavailable [address] [facility] [address] + [place] [address] PHILLIP HYATT Un[address] + [place] [address] [facility] Unavailable [address] + [place] [address] FELECIA DELROY Unavailable [address] + [place] [address] PHILLIP HYATT Unavailable [address] + [place] [address] [facility] Unavailable [address] + [place] [address] DELROY IZQUIERDO Unavailable [address] + [place] [address] PHILLIP HYTAT Unavailable [address] + [place] [address] [facility] Unavailable [address] + [place] [address] DELROY IZQUIERDO Unavailable [address] + [place] [address] PHILLIP HYATT Unavailable [address] + [place] [address] [facility] Unavailable [address] + [place] [address] DELROY IZQUIERDO Unavailable [address] + [place] [address] JESSICAPHILLIP LYLE Unavailable [address] + [place] [address] [facility] Unavailable [address] + [place] [address] Care Team Providers Name Role Phone Ag Russo Attending Unavailable Martines, Kian Referring Unavailable Jorge Lamb Primary Care Unavailable MADISON LOPEZ Attending Unavailable ASSESSMENT, HEALTH RISK Attending Unavailable ASSESSMENT, HEALTH RISK Referring Unavailable Martines, Kian Primary Care Unavailable Steffen Kruger Attending Unavailable Martines, Kian Referring Unavailable Martines, Kian Primary Care Unavailable Akanksha Nelson Attending Unavailable Martines, Kian Primary Care Unavailable Akanksha Nelson Attending Unavailable Sue-Valeriano, Summer Referring Unavailable Martines, Kian Primary Care Unavailable PROBLEMS PROBLEMS No Problem Records FoundPROCEDURES PROCEDURES No Procedure Records FoundRESULTS RESULTS URGENT CARE VISIT Observed: 07/25/2018 Status: F Source: [place] REPORT 12:01 PM [facility] [address] [place] [address] 6 [place] [address] OFFICE VISIT Date of Service: 07/25/18 MR#: [id number] Acct: [id number] Name: MAIK IZQUIERDO Rep #: [id number] : 1990 Provider: Ag OVALLE Age/Sex: 27/F Location: [facility] Status: Signed Intake Vital Signs07/25/18 Body Mass Index (BMI) 28.7 07/25/18 Height 5 ft 2 in 07/25/18 Weight: 157 lb 07/25/18 Body Mass Index (BMI) 28.7 07/25/18 Blood Pressure 112/78 07/25/18 Respiratory Rate 14 Intake Visit Reasons: Cough, Congestion and Fever Chief Complaint: Cough, myalgias, rhinorrhea Quitline Counselor Required: No Accompanied by: SELF Is patient in pain?: No Allergies grape Allergy (Verified 07/25/18 11:45) Swelling morphine Adverse Reaction (Verified 07/25/18 11:45) Other promethazine HCl [From Phenergan] Adverse Reaction (Verified 07/25/18 11:45) Other sulfamethoxazole [From Bactrim] Adverse Reaction (Verified 07/25/18 11:45) Vomiting trimethoprim [From Bactrim] Adverse Reaction (Verified 07/25/18 11:45) Vomiting Medications Dexlansoprazole [Dexilant] 60 mg PO DAILY 07/30/17 [History Confirmed 07/25/18] Desogestrel-Ethinyl Estradiol [Apri 28 Day Tablet] 1 tab PO DAILY 10/21/17 [History Confirmed 07/25/18] buspirone 5 mg tablet 5 mg PO BID 04/05/18 [History Confirmed 07/25/18] vitamin,calcium,uqjvwwco-vdft-nzcup acid tablet 1 tab PO DAILY 04/05/18 [History Confirmed 07/25/18] zinc 50 mg tablet 50 mg PO DAILY 04/05/18 [History Confirmed 07/25/18] ON LICENSE OF [facility] Medical History Anemia (Acute) Fatigue (Acute) Fever [...] a month Alcohol type: wine HPI HPI Chief Complaint: Cough, myalgias, rhinorrhea Details: MAIK IZQUIERDO, is a 27 F who presents to the office today for initial evaluation approximately 1 week history of progressively worsening rhinorrhea, cough, myalgias, chills. No complaints of fever, sweats, rash, chest pain/shortness of breath - though does admit occasional wheezing which she uses as needed albuterol inhaler. Patient notes cough is worse at night productive of clear yellow. 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 She has taken no ktoq-lzs-kujrsip products to assist with her symptoms. She notes no other members in household with similar complaints. She is a non-smoker. She notes no other associated symptoms no other alleviating or aggravating factors. ROS Const Constitutional: No other (ROS negative x10 other than as noted above) Exam Const General: cooperative, healthy appearing, no acute distress, uncomfortable Nutritional Appearance: average body habitus Orientation: alert, awake, oriented x3 HENMT Head: normal to inspection Ears: hearing grossly normal bilaterally, external ears normal, TM's normal bilaterally, EAC's normal Nose: external nose normal, nares normal, septum normal, nasal discharge clear bilaterally (Scant amount) Eyes General: appearance normal, both eyes and all related structures Neck Neck: normal visual inspection, full ROM, no lymphadenopathy, no meningeal signs, supple Neck mass: No Thyroid: thyroid normal Lymphatic: no lymphadenopathy noted Chest Chest palpation AND inspection: normal inspection of the chest Resp Effort AND Inspection: normal respiratory effort, able to speak in complete sentences, symmetric chest movement, cough Quality of cough: wet (Nonproductive in office today) Auscultation: Bilateral: Clear to Auscultation Cardio Palpation: normal PMI Rate: regular rate Rhythm: regular rhythm Heart Sounds: S1 normal, S2 normal, no gallops, no murmurs, no rubs Pulses: radial pulses present GI Inspection: normal to inspection Palpation: soft, no hepatosplenomegaly Skin General: no rashes or lesions noted Neuro General: alert, awake, oriented x3, gait normal Cognition: normal cognition Speech: speech normal Gait: normal gait Motor: muscle tone normal throughout Sensory Exam: no sensory deficits noted Psych Appearance: grossly normal Mental Status: mental status grossly normal Mood: congruent mood Affect: normal affect Speech and Movement: speech and movement normal Attitude: cooperative Thought Process: normal Thought Content: normal Judgment: judgment good Assessment AND Plan Problems 1. URI (upper respiratory infection) J06.9 2. Bronchitis J40 Plan Azithromycin as prescribed today. Work excuse. Avoid tobacco smoke exposure. Clear fluids, rest, Advil/Tylenol as needed for symptomatic relief. Follow-up with PCP in 3-5 days should symptoms not improve, sooner should symptoms worsen or any other concerns. Patient states acknowledging understanding all the above. This note was generated with [employer] software. It may contain incorrect words, spelling, and punctuation that were not noted in checking the note before signing. Coding Level of Care Code Off vis,est,level 3 Diagnoses URI (upper respiratory infection) J06.9 Bronchitis J40 07/25/18 1201 <Electronically signed by Ag OVALLE> Date Ag OVALLE Cosigner Signature: Date (if applicable) CC: ABDOMEN LIMITED Observed: 07/09/2018 Status: F Source: [place] 9:34 AM [facility] Imaging Services [address] [place] [address] Abdomen Limited MR#: [id number] Acct: [id number] Name: MAIK IZQUIERDO Rep #: [id number] : 1990 F 27 From: Joselo Fernandez DO PCP: Conrad SAWYER,Kian Status: REG CLI Study: Abdomen Limited Date of Exam: 07/09/18 Exam# [id number] Ordering Dr: Akanksha Villalobos MD STUDY: ABDOMINAL [...] Joselo Fernandez DO at 23:14 EST Tel [phone], Service support , CC: Kian Martines MD; Akanksha Nelson MD Broiler 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 [address] [place], [address] HCG TITER QUANT., Collected: 06/27/2018 Status: F Source: [place] SERUM 12:06 PM [facility] TYPE CODE TESTS RESULT OUT OF RANGE REFERENCE UNITS LAB L700.8000 <9 non-preg mIU/mL Normal HCG < 1 QUANT. Performed By: #### L700.8000 #### [facility] [address] [place], [address] COMPREHENSIVE METABOLIC Collected: 06/27/2018 Status: F Source: [place] PROFIL 12:06 PM [facility] TYPE CODE TESTS RESULT OUT OF [...] GAP 9 Performed By: #### L500.4050 #### [facility] [address] [place], [address] URGENT CARE VISIT Observed: 04/05/2018 Status: F Source: [place] REPORT 3:11 PM [facility] [address] [place] [address] [address] [place] [address] OFFICE VISIT Date of Service: 04/05/18 MR#: [id number] Acct: [id number] Name: MAIK HYATT Rep #: [id number] : 1990 Provider: Steffen OVALLE Age/Sex: 27/F Location: [facility] Status: Signed Intake Vital Signs04/05/18 Height 5 [...] mg PO BID 04/05/18 [History Confirmed 04/05/18] vitamin,calcium,wkskjapw-ekby-rgpjk acid tablet 1 tab PO DAILY 04/05/18 [...] confusion Exam Const General: cooperative, healthy appearing [facility] Head: normal to inspection Ears: hearing grossly [...] OVALLE Cosigner Signature: Date (if applicable) CC: CBC, EMPLOYEE Collected: 03/19/2018 Status: F Source: [place] 8:59 AM [facility] Order Comment: This patient requested that [facility] send to you a copy of [...] Lymph 2.01 Performed By: #### L100.0200 #### [facility] [address] [place], [place], [address] URINALYSIS, EMPLOYEE Collected: 03/19/2018 Status: F Source: [place] 8:59 AM [facility] Order Comment: This patient requested that [facility] send to you a copy of [...] ESTERASE 500 Performed By: #### L400.0100 #### [facility] [address] [place], [place], [address] NICOTINE URINE DRUG Collected: 03/19/2018 Status: F Source: [place] SCREEN 8:59 AM [facility] Order Comment: This patient requested that [facility] [email or web address] send to you a copy of their [...] of Nicotine. Performed By: #### L505.6240 #### [facility] [address] [place], [address] EMPLOYEE PROFILE Collected: 03/19/2018 Status: F Source: [place] 8:59 AM [facility] Order Comment: This patient requested that [facility] send to you a copy of [...] LDH 176 Performed By: #### L500.2900 #### [facility] [address] [place], [address] 12 LEAD ELECTROCARDIOGRAM Observed: 10/23/2017 Status: F Source: [place] 1:27 PM [facility] Cardiovascular Services [address] [place] [address] 12 Lead EKG 10/21/17 0203 MR#: [id number] Acct: [id number] Name: MAIK HYATT Rep #: [id number] : 1990 From: Hudson Ham MD Attending Dr: Status: [...] ECG Confirmed by CLAUDE SAWYER, HUDSON ([id number]), commercial production editor GREGORY RODRIGUEZ ([id number]) on 10/23/2017 1:27:33 PM Referred By: JESSICA Confirmed By:HUDSON HAM MD 10/23/17 1327 Date Hudson Ham MD CC: MADISON LOPEZ MD; Jorge Hankins DO Signed EMERGENCY DEPARTMENT Observed: 10/21/2017 Status: F Source: [place] SUMMARY 3:52 AM [facility] Medical Records Department [address] [place] [address] Emergency Department Summary 10/21/178 MR#: [id number] Acct: [id number] Name: MAIK HYATT Rep #: [id number] : 1990 From: Madison Lopez MD PCP: Jorge Hankins [...] chest pain This note was generated with [employer] dictation software. It may contain incorrect words, spelling, and punctuation that were not noted in review of the chart prior to signing ED Disposition - Plan for ED Patient: Disposition: Home or Assisted Living Chief Complaint: Chest Pain Instructions: ED Chest Pain Atypical Unkn Cause Referrals: Jorge Lamb DO [Primary Care Provider] - 3-5 Days if not improving What to do if you have Problems For any increased pain, shortness of breath, bleeding, nausea or vomiting, chest pain, or any unexpected problems, contact your Primary Care Provider. Call [facility] ([phone]) or report to the closest Emergency Room. Call 911 if necessary. 10/21/17 0352 <Electronically signed by Madison Lopez MD> Date Madison Lopez MD Cosigner Signature (If Indicated): Date CC: Jorge Hankins DO CBC W/DIFF, AUTOMATED Collected: 10/21/2017 Status: F Source: [place] 2:37 AM [facility] TYPE CODE TESTS RESULT OUT OF [...] Lymph 2.10 Performed By: #### L100.0100 #### [facility] [address] [place], [place], [address] BASIC METABOLIC Collected: 10/21/2017 Status: F Source: [place] PROFILE ([facility]) 2:37 AM [facility] Order Comment: 'TROP' Serial specimen #1, [...] 8 Performed By: #### L500.2500, L501.4010 #### [facility] [address] [facility] [place], [address] TROPONIN-I Collected: 10/21/2017 Status: F Source: [place] 2:37 AM [facility] Order Comment: 'TROP' Serial specimen #1, #2, #3, or #4: 1 TYPE CODE TESTS RESULT OUT OF RANGE REFERENCE UNITS LAB L501.4010 <0.06 ng/mL Normal < 0.02 TROPONIN-I Result Comment: TROPONIN-I EXPECTED VALUES <0.05 NEGATIVE 0.06 - 0.59 AT RISK OF TX > OR = 0.60 SUGGEST TX Performed By: #### L500.2500, L501.4010 #### [facility] [address] [facility] [place], [place], [address] CHEST PA AND LATERAL Observed: 10/21/2017 Status: F Source: [place] 2:28 AM [facility] Imaging Services [address] [place] [address] Chest PA and Lateral MR#: [id number] Acct: [id number] Name: MAIK HYATT Rep #: [id number] : 1990 F 26 From: Isacc Blackwell MD PCP: Jorge Hankins DO Status: DEP ER Study: Chest PA and Lateral Date of Exam: 10/21/17 Exam# [id number] Ordering Dr: Madison Lopez MD STUDY: X-RAY [...] CC: MADISON LOPEZ MD; Jorge Hankins DO Broiler Chef Or Cook: Signed PROGRESS Observed: 10/04/2017 Status: COMPLETED Source: [place] 9:24 AM [facility] REPOSITORY HNO ID: [id number] Author: Juana Kerns Service: (none) Author Type: Nurse Practitioner Type: [...] CNP CNOV Observed: 10/04/2017 Status: COMPLETED Source: [place] 9:15 AM [facility] REPOSITORY Office Visit (WSTR) MAIK HYATT ([id number]) 1990 F Date Time Provider Department 10/04/17 9:15 AM JUANA KERNS (GEOFF) WSTR During your visit today, we recorded the following information about you: Temperature Pulse Blood pressure Weight 98.3 degrees 94/minute 112/82 74.4 kg Juana Kerns CNP 10/04/2017 9:36 AM Signed Subjective HPI Maik Hyatt is a 26 [...] - Lymph node enlargement right posterior auricular, seestanley Gonsalez ENT PAST SURGICAL HISTORY Procedure Laterality Date [...] health care provider may recommend treatment with uius-utj-jyyyvfu medications for cold and allergy, nasal saline [...] include nasal congestion, runny nose, post-nasal drip (sids-qi-wmxm release of nasal fluid into the back [...] in Children and Adults. Clinical Infectious Diseases; 2012;54(8):1452-0724. ? Raffi Eller, Sinusitis: Allergies, antibiotics, aspirin, asthma. [facility] Journal of Medicine 2006; 73(7): 671-678 ? National Hope of Allergy and Infectious Diseases. Sinusitis (Sinus Infection) Accessed 06/08/2015. ? [place] Academy of Allergy, Asthma, and Immunology. Sinusitis Accessed 06/08/2015. ? [place] College of Allergy, Asthma ANDamp; Immunology. Sinus Information Accessed 06/08/2015. ? Darrick Stevenson., Prevalence of migraine in patients with a history of self-reported or physician-diagnosed ANDquot;sinusANDquot; headache. Arch Teasel Setter Med, 2003. 164(16):1769-72. ? Copyright 5083-5960 The [facility]. All rights reserved. Referring Provider: SELF [...] 10/04/2017 9:14 AM >> ANA IYER LPN [facility] Oct 04, 2017 9:14 AM Not Taking BUPROPION XL 150 MG TAB >> Ana Iyer LPN 10/04/2017 9:14 AM >> ANA IYER LPN [facility] Oct 04, 2017 9:14 AM Not [...] health care provider may recommend treatment with qfru-izt-jnyhpto medications for cold and allergy, nasal saline [...] nasal congestion, runny nose, post- nasal drip (qwxh-sa-mkcq release of nasal fluid into the back [...] in Children and Adults. Clinical Infectious Diseases; 2012;54(8):2968-2852. ? Raffi Eller, Sinusitis: Allergies, antibiotics, aspirin, asthma. [facility] Journal of Medicine 2006; 73(7): 671-678 ? National Hope of Allergy and Infectious Diseases. Sinusitis (Sinus Infection) Accessed 06/08/2015. ? [place] Academy of Allergy, Asthma, and Immunology. Sinusitis Accessed 06/08/2015. ? [place] College of Allergy, Asthma AND Immunology. Sinus Information Accessed 06/08/2015. ? Darrick Stevenson., Prevalence of migraine in patients with a history of self-reported or physician-diagnosed sinus headache. Arch Teasel Setter Med, 2004. 164(16):1769-79. ? Copyright 3611-5907 The [facility]. All rights reserved. Prescriptions ordered this [...] Text Juana Kerns CNP Urgent Care [address] [facility] [place] [address] Dept: [phone] 10/04/2017 Maik Hyatt [address] [facility] [address] To Whom it May Concern: This is to certify that Maik Hyatt was seen at our office for medical care. Maik may return to work on 10/05/2017. If you have any questions please feel free to call. Sincerely: Juana Kerns CNP Encounter Status:Closed by JUANA KERNS on 10/04/17 ALLERGIES ALLERGIES DATE TYPE / CODE NAME / CODE REACTION SEVERITY SOURCE 07/25/2018 Drug promethazine Other Unknown [place] Allergy/416 HCl/[id number](RXNO Community 180987([facility] ED CT) Repository 07/25/2018 Drug morphine/I290401809 Other Unknown [place] Allergy/416 (RXNORM) Community 549459([facility] ED CT) Repository 07/25/2018 Drug sulfamethoxazole/F0 Vomiting Unknown [place] Allergy/416 54251550(RXNORM) Community 859189([facility] ED CT) Repository 07/25/2018 Drug trimethoprim/H37237 Vomiting Unknown [place] Allergy/416 2873(RXNORM) Community 028656([facility] ED CT) Repository 07/25/2018 Drug grape/H370672680(RX Swelling Unknown [place] Allergy/416 NORM) Community 586668([facility] ED CT) Repository 10/30/2016 DRUG SERTRALINE HCL OTHER: SEE C [facility] INGREDI/[address] [place] 408768([facility] Repository ED CT) 08/20/2015 DRUG/265118 SULFAMETHOXAZOLE-TR GI UPSET [facility] 003(SNOMED IMETHOPRIM [address] [place] [address]) Repository 01/07/2008 DRUG MORPHINE [facility] INGREDI/[address] [place] [address]403([facility] Repository ED CT) 01/07/2008 DRUG PROMETHAZINE HCL [facility] [place] [address]32[address]([facility] Repository ED CT) ENCOUNTERS ENCOUNTERS ADMIT/DISCHARGE ACCOUNT ADMITTING ENCOUNTER LOCATION SOURCE NUMBER CLASS 07/25/2018/07/25/20 [id number] Ambulatory BMSBuilding:B [place] 18 MS.NOW [facility] Hospital Repository 07/09/2018 [id number] Ambulatory [facility] ing:US Repository 06/27/2018 [id number] Ambulatory [facility] ing:[place] Repository 04/05/2018/04/05/20 [id number] Ambulatory BMSBuilding:B [place] 18 MS.NOW [facility] Hospital Repository 03/19/2018 [id number] Ambulatory [facility] ing:EMPH Repository 10/21/2017/10/22/19 [id number] Emergency [address] ing:ED Repository 10/04/2017/10/05/19 [id number] Ambulatory [address] Repository PAYERS PAYERS ENCOUNTER GUARANTOR PAYER SUBSCRIBER SOURCE 07/25/2018 MAIK Hand Primary Insurance:[facility] MAIK [id number] [facility] BRENNDOB: [facility] [id number] Number: Repository [id number]: 330 [id number] [phone] () Date:1844-05-46YW [address] [address], [place] [address]XC: CHECK WEBSITE 07/25/2018 Secondary NOT GIVENUNK [place] Insurance:SELF PAY [facility] Number: Effective Repository Date:2018-07-25 07/09/2018 MAIK Hand Primary Insurance:[facility] MAIK [id number] [facility] [id number] Number: Repository [id number]: 330 [id number] [phone] () Date:8122-75-01EN [address] [address], [place] [address]QJ: CHECK WEBSITE 07/09/2018 Secondary NOT GIVENUNK [place] Insurance:SELF PAY [facility] Number: Effective Repository Date:2018-07-04 06/27/2018 MAIK Hand Primary MAIK [id number] Insurance:MUTUAL [place]DOB: [facility] [id number]HPP[place]icy Number: Repository [id number]: 330 [id number] [phone] (HP) Date:5583-29-73DF [address] [address]DLKTXQPP, [place] [address]FW: 06/27/2018 Secondary NOT GIVENUNK [place] Insurance:SELF PAY [facility] Number: Effective Repository Date:2018-06-27 04/05/2018 MAIK Hand Primary MAIK Hand [place] [id number] Insurance:MUTUAL GRIMSLEYDOB: [facility] [id number] EHPPolicy Number: Repository [id number]: 330 [id number] [phone] (HP) Date:5246-77-72MW [address] [address], [place] [address]CY: 04/05/2018 Secondary NOT GIVENUNK [place] Insurance:SELF PAY [facility] Number: Effective Repository Date:2018-04-05 03/19/2018 MAIK Hand Primary NOT GIVENUNK [place] [id number] Insurance:SELF PAY [place] Number: Effective Repository [id number]: (330) Date:2018-03-19 [phone] (HP) 10/21/2017 MAIK Hand Primary MAIK Hand [place] [id number] Insurance:[facility] [id number] Medical CenterPPolicy Number: Repository [id number]: 330 [id number] [phone] (HP) Date:1458-66-83LQ [address] [address]IPSCSAQG, [place] [address]TU: 10/21/2017 Secondary NOT GIVENUNK [place] Insurance:SELF PAY [facility] Number: Effective Repository Date:2017-10-21
== END ==
PROVIDERS: Family Provider Family Medicine; PCP Family Medicine; Referring Provider Obstetrics & Gynecology; Visit Provider Obstetrics & Gynecology
DX: R94.5 Abnormal results of liver function studies (principal)
CPT/HCPCS: 76705

== ENCOUNTER → 2018-10-07 10:14 | Outpatient (CLI) | payer OTHER, SELFPAY ==
[2018-07-25 11:46] VITALS: BMI 28.7
--- NOTE | 2018-10-07 10:46 | MRI_ITS ---
STUDY: MRI RIGHT KNEE REASON FOR EXAM: Female, 27 years old. Increasing right-sided knee pain and trouble walking. TECHNIQUE: Standardized fat and water weighted pulse sequences were obtained in all 3 orthogonal planes. COMPARISON: Prior comparison studies are not available for review at this time. FINDINGS: Normal medial meniscus. Normal hyaline cartilage of the medial femorotibial compartment. Normal medial femoral condyle and tibial plateau. Normal medial collateral ligamentous complex (MCL). Normal distal semimembranosus, gracilis and semitendinosus tendons. Normal lateral meniscus. There is diffuse, less than 50% thickness articular cartilage loss of the lateral femorotibial compartment. Normal lateral femoral condyle and tibial plateau. Normal proximal tibiofibular articulation. Normal lateral collateral (fibular) ligament. Normal popliteus tendon. Normal biceps femoris tendon. Normal anterior cruciate ligament (ACL). Normal posterior cruciate ligament (PCL). There is a medial patellar tilt. There appears to be focal thinning of the central retropatellar cartilage associated with abnormal signal suggesting blistering. Normal medial and lateral patellar retinaculum. There is quadriceps tendinosis with thickening of the tendon. There is patellar tendinosis with thickening of the tendon. Normal Hoffa's fat pad. There is a small volume joint effusion. The soft tissues are unremarkable. The otherwise visualized osseous structures are unremarkable. MRI/Lower Ext Joint Only (Routine) IMPRESSION: 1. There appears to be subluxation of the patella with apparent laxity of the medial retinaculum. 2. Mild chondromalacia. Electronically Signed: Amalia Nathan MD at 9:31 EDT , Service support ,
== END ==
PROVIDERS: Family Provider Family Medicine; PCP Family Medicine; Referring Provider Physician Assistant Surgical; Visit Provider Physician Assistant Surgical
DX: M25.561 Pain in right knee (principal)
CPT/HCPCS: 73721

== ENCOUNTER → 2018-11-05 11:04 | Outpatient (CLI) | payer OTHER, SELFPAY ==
[2018-07-25 11:46] VITALS: BMI 28.7
--- NOTE | 2018-11-05 | IMM_PTH ---
PATIENT: MAIK IZQUIERDO LOC: [facility] U#:[id number] AGE/SX: 34/F ROOM: RE11/05/[address]: Dr. Kian Martines MD : 1990 BED: DIS: SPEC #: [id number] RECD: 11/07/18 09:17 STATUS: DAI REGillian #: [id number] PAL: 11/05/18 00:[address]: Kian Martines DEPT: IMMUNOHISTOCHEMISTRY RECD BY: Kellie Mayo Tissues: Skin of arm Procedures: CD45 (add) MACRO (add) Vimentin (add) Pankeratin (add) MELAN-A (initial) S-100 (add) PHYSICIAN & INSTITUTION [place] [address] SPECIMEN INFORMATION: Tissue Source: Right arm, shave biopsy Clinical Info: Mole with color change, bleeding Specimen Number: [id number] CPT code: 19277, 28098 x5 METHODOLOGY: Deparaffinized sections of prefer/formalin-fixed tissue or PAP/DQ stained slides are incubated with monoclonal/polyclonal antibodies/oligonucleotide probes. Localization is made via biotin free immunoperoxidase method. Appropriate controls are performed and reacted as expected. Results on target cell population are indicated in the following table: RESULTS: ANTIBODY / CLONE RESULT Melan A (A103) positive S-100 (4C4.9) positive AE1-3 (AE1/AE3/PCK26) negative Macro (HAM-56) negative Vimentin (V9) positive CD45 (RP2/18) negative These tests were developed and their performance characteristics determined by [facility]. They may not have been cleared or approved by the U.S. Food and Drug Administration. The FDA has determined that such clearance or approval is not necessary. INTERPRETATION: Right arm, shave biopsy: Consistent with intradermal nevus. AM:stacey 11/07/18
--- NOTE | 2018-11-05 | LES_PTH ---
PATIENT: MAIK IZQUIERDO LOC: [facility] U#:[id number] AGE/SX: 34/F ROOM: RE11/05/[address]: Dr. Kian Martines MD : 1990 BED: DIS: SPEC #: [id number] RECD: 11/05/18 11:04 STATUS: DAI PRASANNA #: [id number] PAL: 11/05/18 00:[address]: Kian Martines DEPT: SURGICAL PATHOLOGY RECD BY: Eric Sánchez Tissues: Skin of arm Procedures: Surgery Specimen Level IV HEADER OPERATION: Shave biopsy PRE-OP DIAGNOSIS: Mole with color change, bleeding TISSUE SUBMITTED: Right arm, shave biopsy MICROSCOPIC DIAGNOSIS Skin lesion of right arm, shave biopsy: Compound nevus. AM:stacey 11/06/18 MICROSCOPIC DESCRIPTION Slides are reviewed. GROSS DESCRIPTION Received in fixative is one container labeled with the patient's name and designated right arm shave biopsy. The specimen consists of a piece of patricia-white skin measuring 0.3 x 0.3 x 0.1 cm. The specimen is totally submitted in one cassette. / SJ:rg 11/05/18 TC:5 [facility]: [id number]
== END ==
PROVIDERS: Family Provider Family Medicine; PCP Family Medicine; Referring Provider Family Medicine; Visit Provider Family Medicine
DX: D22.9 Melanocytic nevi, unspecified (principal)
CPT/HCPCS: 88305; 88341; 88342

== ENCOUNTER 2018-11-26 09:00 | Outpatient (RCR) | payer OTHER, SELFPAY ==
[2018-07-25 11:46] VITALS: BMI 28.7
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
--- NOTE | 2018-11-15 10:44 | HP.PTREVAL_ITS ---
YAMILE Powell, It has been my pleasure to treat MAIK IZQUIERDO over the last 10 visits for R knee sprain. Please see the progress note below for an update on the physical therapy plan of care! Subjective: Pt. reports today is a bad, we went to [employer], and it did not go well. All I did was walk around and the second day I had to sit the whole time. She reports she feels like she has regressed a bit after initially progressing. Pt. reports being 35% better overall. Objective/Function: RLE- ankle 5/5 throughout; knee- ext 4/5, flexion 4-/5 increase in symptoms: hip- flexion 4-/5 increase in symptoms, ext 4/5 increase in symptoms, abd 4/5 increase in symptoms. GAIT: Pt. ambulates with antalgic pattern, STAIRS: Pt. is able to negotiate, but has intense pain with controlled eccentric lowering. ROM: 0-0-120deg with increased pain at end ranges of motion Plan Plan: Requesting more visits x10 to work on decreasing her symptoms increas continued increase in strengthening. Goals Goal 1:: Decrease R knee pain x 50% to aid with sleep Goal Time Frame: 4-6 Weeks Goal Progress: Progressing Goal 2:: Increase R knee strength x 1 grade to aid with RTW without limitation Goal Time Frame: 4-6 Weeks Goal Progress: Progressing Goal 3:: Increase R knee flexion ROM x 10 degrees to aid with restoring a more normalized gait pattern Goal Time Frame: 4-6 Weeks Goal Progress: Progressing Goal 4:: I with HEP Goal Time Frame: 4-6 Weeks Goal Progress: Progressing Anticipated Interventions Patient/Client Instruction: Educate patient on: Condition, Plan of Care For the Purpose of:: To improve self management Therapeutic Exercise to Include: Strength training, Endurance training, Flexibilty training, Dynamic Lumbar Stabilization For the Purpose of:: To decrease pain, To increase ROM, To improve muscle performance and motor function Cryotherapy (ice pack, ice massage): Yes Ultrasound (thermal/non thermal): Yes For the Purpose of:: To decrease pain Please do not hesitate to contact me at [phone] by phone or if you have questions or concerns regarding this new plan of care! Sincerely, Julio Queen DPT
--- NOTE | 2018-12-13 08:01 | HP.PT.NRP ---
HP - Discharge Summary (1) - Patient Information MAIK IZQUIERDO was seen in my office for initial evaluation on 10/15/18. The following Plan of Care was established for this patient: Initial Frequency: 2-3x /Week Initial Duration: 4-6 Weeks - Anticipated Interventions Patient/Client Instruction: Educate patient on: Condition, Plan of Care For the Purpose of:: To improve self management Therapeutic Exercise to Include: Strength training, Endurance training, Flexibilty training, Dynamic Lumbar Stabilization For the Purpose of:: To decrease pain, To increase ROM, To improve muscle performance and motor function Cryotherapy (ice pack, ice massage): Yes Ultrasound (thermal/non thermal): Yes For the Purpose of:: To decrease pain This patient was last seen in our office . Pertinent comments regarding their Physical therapy will appear below: Pt returned today post surgical with orders for PT from a different care provider. This chart is discharged and care will be transferred to another EMR At this point I will be discontinuing this patient from physical therapy. I would be happy to see this patient again in the future if found appropriate by the physician. Thank you! Emory Trinh, PT, ATC
== END 2018-11-26 19:00 | disposition home or self-care (01) ==
LOC: PT 09:00
PROVIDERS: Family Provider Family Medicine; PCP Family Medicine; Referring Provider Physician Assistant Surgical; Visit Provider Physician Assistant Surgical
DX: M25.561 Pain in right knee (principal)
CPT/HCPCS: 97110; 97161; 97530

== ENCOUNTER 2019-02-14 07:30 | Outpatient (RCR) | payer OTHER, SELFPAY ==
[2018-07-25 11:46] VITALS: BMI 28.7
--- NOTE | 2018-12-19 13:52 | HP.PTEVAL_ITS ---
Patient's Visit Information MAIK IZQUIERDO is a 28 year old F referred to Physical Therapy by PB GARCIA with a diagnosis of R MPFL recon. Date of Evaluation: 12/19/18 Physical Therapist: Emory Trinh PT, ATC - Visit Plan Frequency: 2-3x /Week Duration: 4-6 Weeks Plan: Follow Protocal. CP for pain - Subjective Findings: DOS: 12/10/18. Pt reports she dislocated her Patella in August of this year. Pt reports she attempted PT after injury, but her pain really never got any better. Pt reports she is still in a lot of pain this date. Pt also c/o significant swelling in her R knee that is bothersome. Pt reports she has tingling and numbness around the knee cap and on the incisions. Pt reports sleep difficulty secondary to pain (wakes up every 3 hours). 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 Pt negotiates stairs one step at a time. 5/10 pain at rest, 8/10 pain at worst. - Pain R knee Pain Intensity (Out of 10): 5 Pain Intensity Range: 8 - Objective Neuro: B LE sensation is WNL to light touch. Girth at joint line: L knee 36 cm, R knee is 38 cm. ROM: R knee 0-5-50; L knee 0-135. MMT: R knee 2/5 and painful. L knee 5/5 throughout. Gait: Pt ambulated 340' with 2 krutches and a slow cadance until feeling tired and needing a rest - Goals Goal 1:: Decrease R knee pain x 50% to aid with sleep Goal Time Frame: 4-6 Weeks Goal 2:: Increase R knee ROM x 40 degrees to aid with resotring a more normalized gait pattern Goal Time Frame: 4-6 Weeks Goal 3:: Increase R knee strength x 2 grades to aid with RTW Goal Time Frame: 4-6 Weeks Goal 4:: I with HEP Goal Time Frame: 4-6 Weeks - Rehabilitation Potential Physical Therapy Diagnosis: Pt has R knee pain, limited ROM, and weakness secondary to R knee MPFL recon Rehabilitation Potential: Good - Anticipated Interventions Patient/Client Instruction: Educate patient on: Condition, Plan of Care For the Purpose of:: To improve self management Therapeutic Exercise to Include: Strength training, Endurance training, Balance training, Flexibilty training, Gait and locomotor training, Dynamic Lumbar Stabilization For the Purpose of:: To decrease pain, To increase ROM, To improve muscle performance and motor function Cryotherapy (ice pack, ice massage): Yes For the Purpose of:: To decrease pain Thank you for the opportunity to evaluate your patient. For Medicare and Medicare HMO plans, please review the plan of care and approve it. It will need to be FAXED BACK to us at [phone] for Medicare purposes. For Medicare only, by signing this I certify the plan of care. Please let me know if there are questions or concerns regarding this plan of care. Physician Signature: Date:
--- NOTE | 2019-01-16 11:00 | HP.PTREVAL ---
PB GARCIA, It has been my pleasure to treat MAIK IZQUIERDO over the last 11 visits for R MPFL recon. Please see the progress note below for an update on the physical therapy plan of care! Subjective: Pt reports she is sore from the drive here today Objective/Function: R knee pain 11/06. R knee ROM: 0-95 degrees. R knee MMT: flex= 5/5, ext= 3-/5. Pt is progressing well but still demonstrates the need for further skilled PT for ROM and strength Plan Plan: attempt to get approval for 12 more PT visits to ramez on strength and ROM Goals Goal 1:: Decrease R knee pain x 50% to aid with sleep Goal Time Frame: 4-6 Weeks Goal 2:: Increase R knee ROM x 40 degrees to aid with resotring a more normalized gait pattern Goal Time Frame: 4-6 Weeks Goal 3:: Increase R knee strength x 2 grades to aid with RTW Goal Time Frame: 4-6 Weeks Goal 4:: I with HEP Goal Time Frame: 4-6 Weeks Anticipated Interventions Patient/Client Instruction: Educate patient on: Condition, Plan of Care For the Purpose of:: To improve self management Therapeutic Exercise to Include: Strength training, Endurance training, Balance training, Flexibilty training, Gait and locomotor training, Dynamic Lumbar Stabilization For the Purpose of:: To decrease pain, To increase ROM, To improve muscle performance and motor function Cryotherapy (ice pack, ice massage): Yes For the Purpose of:: To decrease pain Please do not hesitate to contact me at [phone] by phone or if you have questions or concerns regarding this new plan of care! Sincerely, Emory Trinh, PT, ATC
--- NOTE | 2019-02-14 08:04 | HP.PTREVAL ---
PB GARCIA, It has been my pleasure to treat MAIK IZQUIERDO over the last 22 visits for R MPFL recon. Please see the progress note below for an update on the physical therapy plan of care! Subjective: Pt reports she is stiff today Objective/Function: R knee pain ranges from 4/10 to 6/10. R knee girth at joint line: 37.5 cm. R knee ROM: 0-133 degrees. R knee MMT: flex= 4+/5, ext= 3+/5 Plan Plan: Follow PROTOCOL and progress as pt able to tolerate. Goals Goal 1:: Decrease R knee pain x 50% to aid with sleep Goal Time Frame: 4-6 Weeks Goal 2:: Increase R knee ROM x 40 degrees to aid with resotring a more normalized gait pattern Goal Time Frame: 4-6 Weeks Goal 3:: Increase R knee strength x 2 grades to aid with RTW Goal Time Frame: 4-6 Weeks Goal 4:: I with HEP Goal Time Frame: 4-6 Weeks Anticipated Interventions Patient/Client Instruction: Educate patient on: Condition, Plan of Care For the Purpose of:: To improve self management Therapeutic Exercise to Include: Strength training, Endurance training, Balance training, Flexibilty training, Gait and locomotor training, Dynamic Lumbar Stabilization For the Purpose of:: To decrease pain, To increase ROM, To improve muscle performance and motor function Cryotherapy (ice pack, ice massage): Yes For the Purpose of:: To decrease pain Please do not hesitate to contact me at [phone] by phone or if you have questions or concerns regarding this new plan of care! Sincerely, Emory Trinh, PT, ATC
--- NOTE | 2019-04-23 12:33 | HP.PTDCSUM ---
HP - PT D/C Summary It has been my pleasure to treat MAIK IZQUIERDO under orders from PB GARCIA, for the diagnosis of R MPFL recon for a total of 22 visit(s). Discharge Date: Please see the following information for a summary of their discharge status. - Subjective Subjective: Pt reports she is stiff today - Pain R knee Pain Intensity (Out of 10): 4 R Hip/Glutes Pain Intensity (Out of 10): 6 - Overall Improvement % Improvement: 70 - Objective Objective/Function: R knee pain ranges from 4/10 to 6/10. R knee girth at joint line: 37.5 cm. R knee ROM: 0-133 degrees. R knee MMT: flex= 4+/5, ext= 3+/5 - Goals Goal 1:: Decrease R knee pain x 50% to aid with sleep Goal 2:: Increase R knee ROM x 40 degrees to aid with resotring a more normalized gait pattern Goal 3:: Increase R knee strength x 2 grades to aid with RTW Goal 4:: I with HEP - Plan Plan: Follow PROTOCOL and progress as pt able to tolerate. - D/C Information If there are questions or concerns regarding this patient's physical therapy, please feel free to call me at [phone]. Thank you for the referral of this patient. Sincerely, Emory Trinh, PT, ATC
== END 2019-02-14 19:00 | disposition home or self-care (01) ==
LOC: PT 07:30
PROVIDERS: Family Provider Family Medicine; PCP Family Medicine
DX: M25.361 Other instability, right knee (principal)
CPT/HCPCS: 97014; 97032; 97110; 97161; 97530; G0283

== ENCOUNTER 2019-04-22 22:10 | Emergency (ER) | payer OTHER, SELFPAY ==
[2018-07-25 11:46] VITALS: BMI 28.7
[2019-04-22 22:11] VITALS: BP 141/106; PULSE 87; RESP 18; TEMP 36.7; O2SAT 99; BMI 29.2
--- NOTE | 2019-04-22 23:05 | ED.VIS.GEN ---
History of Present Illness Chief Complaint: Cellulitis Narrative: Patient is a 28-year-old female who presents with a bug bite. She noticed a small red raised area on her right forearm today. She states she did squeeze a small amount of purulent material out of this. This evening she then noticed a couple of red lines actually extending medially towards the center of the forearm. No history of prior similar symptoms. She is not diabetic. No systemic symptoms such as fevers or vomiting. Past Medical History - Allergies and Home Meds Allergies/Adverse Reactions: Allergies grape Allergy (Verified 04/22/19 22:11) Swelling morphine Adverse Reaction (Verified 04/22/19 22:11) Other promethazine HCl [From Phenergan] Adverse Reaction (Verified 04/22/19 22:11) Other sulfamethoxazole [From Bactrim] Adverse Reaction (Verified 04/22/19 22:11) Vomiting trimethoprim [From Bactrim] Adverse Reaction (Verified 04/22/19 22:11) Vomiting Primary Care Physician: Kian Martines MD [Primary Care Provider] - Past Medical History: - - GERD Smoking Status: Never smoker Review of Systems All systems negative except as indicated General: Denies: Fever Cardiovascular: Denies: Chest pain Respiratory: Denies: Dyspnea Gastrointestinal: Denies: Vomiting Skin: Reports: Rash Physical Exam Vital Signs/Narrative: Vital Signs Temp Pulse Resp BP Pulse Ox 04/22/19 22:11 98.1 F 87 18 141/106 H 99 Inital Vital Signs reviewed: Yes General: Well nourished Head: Normocephalic Eyes: EOMI ENT: Moist mucous membranes Neck: Supple Cardiovascular: Regular rate Respiratory: No distress Skin: - - She has a small wound over the anterior distal right forearm with some surrounding erythema and warmth to the touch there are 2 red streaks extending medially these arsen there are no petechiae or purpura no fluctuance Diagnostic/Tx/Re-eval - Medical Decision Making Patient streaking is unusual but could be consistent with early lymphangitic streaking she will be treated for cellulitis. She was given first dose of Keflex here as well as a prescription for the same and was discharged home. ED Disposition - Plan for ED Patient: Disposition: Home or Assisted Living Diagnosis: Cellulitis Instructions: Cellulitis Prescriptions: Cephalexin [Keflex] 500 mg PO Q6 #40 cap Prescription Printed Referrals: Kian Martines MD [Primary Care Provider] -
[2019-04-22] MEDS: Cephalexin 250 MG Capsule 500 MG PO (23:29)
[2019-04-22 23:35] VITALS: PULSE 86; RESP 18; O2SAT 99
--- NOTE | 2019-04-22 23:36 | ED.RN ---
THIS NURSE REVIEWED D/C INSTRUCTIONS WITH PT. PT VERBALIZED UNDERSTANDING OF INSTRUCTIONS. PT DENIES FURTHER NEEDS OR QUESTIONS AT THIS TIME. PT AMBULATES FROM ROOM ON OWN WITHOUT ASSISTANCE FROM STAFF
== END 2019-04-22 23:37 | disposition home or self-care (01) ==
PROVIDERS: Emergency Provider Emergency Medicine; Family Provider Family Medicine; PCP Family Medicine
DX: L03.113 Cellulitis of right upper limb (principal); K21.9 Gastro-esophageal reflux disease without esophagitis; Z88.1 Allergy status to other antibiotic agents; Z88.2 Allergy status to sulfonamides; Z88.8 Allergy status to other drugs, medicaments and biological substances
CPT/HCPCS: 99283

== ENCOUNTER 2019-05-29 11:17 | Emergency (ER) | payer OTHER, SELFPAY ==
[2019-05-29 11:18] VITALS: BP 124/79; PULSE 90; RESP 18; TEMP 36.6; O2SAT 100; BMI 29.2
--- NOTE | 2019-05-29 11:33 | CT_ITS ---
STUDY: CT BRAIN WITHOUT CONTRAST REASON FOR EXAM: Female, 28 years old. Dizziness. RADIATION DOSAGE (If Supplied By Facility): CTDIvol = ( 44.99 ) mGy, DLP = ( 779.24 ) mGycm TECHNIQUE: Transaxial CT imaging of the brain was performed without administration of intravenous contrast material. Individualized dose optimization techniques were used for this CT. COMPARISON: Comparison is made with prior study dated January 02, 2011. FINDINGS: Normal soft tissue structures. Normal calvarium. Normal size ventricles and extra-axial spaces for the patient's age. Normal white matter tracts of the cerebral hemispheres. Normal basal ganglia and thalami. Normal brainstem. Normal cerebellum. There is no intracranial hemorrhage. There are no findings of an acute ischemic infarction. Normal visualized paranasal sinuses. CT/Brain/Head without Contrast IMPRESSION: Normal unenhanced CT scan of the brain. Electronically Signed: Steve oMy, at 12:48 EDT , Service support ,
--- NOTE | 2019-05-29 11:34 | RAD_ITS ---
STUDY: X-RAY - LEFT KNEE REASON FOR EXAM: Female, 28 years old. History of patellar dislocation. TECHNIQUE: 4 view(s) of the knee. COMPARISON: None. FINDINGS: Normal visualized distal femur. Normal visualized proximal tibia and fibula. Normal proximal tibiofibular articulation. Normal medial femorotibial compartment. Normal lateral femorotibial compartment. Normal patellofemoral articulation. The soft tissue structures are unremarkable. RAD/Knee 4 or More Views IMPRESSION: Normal x-ray examination of the knee. Electronically Signed: Steve Moy, at 12:42 EDT , Service support ,
[2019-05-29 11:59] LABS: Absolute Lymphocyte Count 1.58 X10^3/uL (0.83-4.51); Basophil# 0.03 X10^3/uL; Basophil% 0.5 % (0-1); Eosinophil# 0.43 X10^3/uL; Eosinophils% 7.9 % (0-5); Hematocrit 40.6 % (37-47); Hemoglobin 13.2 g/dL (12.0-15.0); Lymphocyte # 1.58 X10^3/ul (4.0); Lymphocyte % 28.9 % (19-41); Mean Corp Hgb Conc 32.5 g/dL (32-36); Mean Corpuscular Hgb 28.7 pg (27.0-32.0); Mean Corpuscular Volume 88.3 fL (81-99); Mean Platelet Vol. 10.6 fl (6.2-12.0); Monocyte# 0.39 X10^3/uL; Monocyte% 7.1 % (0-10); NRBC Flagged by Analyzer 0 % (0-5); Neutrophil # 3.02 X10^3/uL (2.7-7.7); Neutrophil % 55.4 % (47-70); Platelet Count 168 K/mm3 (150-450); RBC Distribution Width CV 12.7 % (11.6-14.6); RBC Distribution Width SD 41.2 fl (35.1-43.9); White Blood Count 5.5 K/mm3 (4.4-11.0)
[2019-05-29 12:10] LABS: Anion Gap 7 (5-15); BUN 17 mg/dL (7-18); BUN/Creat Ratio 16.3 RATIO (10-20); Calcium,Total 9.1 mg/dL (8.5-10.1); Chloride 107 mmol/L (98-107); Creatinine, Serum 1.04 mg/dL (0.55-1.02); EST Glomerular Filtration Rate 66 mL/min (>60); Est Glom Filt Rate - Afr Amer 80 mL/min (>60); Estimated Creatinine Clearance 65.43 ml/min; Glucose 103 mg/dL (74-106); Sodium Level 139 mmol/L (136-145)
[2019-05-29 12:36] LABS: Internal QC Validated? YES +Cl - CLEAR BKGD; Pregnancy, Serum, hCG Quali. NEGATIVE Negative
--- NOTE | 2019-05-29 13:21 | ED.VISSUMM ---
- ER Visit Summary Date of Service: 05/29/19 Chief Complaint: [Pain to left knee] History of Present Illness: The patient is a 28 F [presents to the ER with complaint of pain to her left knee that started last evening. Patient states that her kneecap popped out of place last night and she had to push it back in the place. Patient having pain with ambulation. Patient also states that she fell when her knee gave out on the 16th of the month and hit her head on a banister and she thinks she had a loss of consciousness for a few seconds. Patient had another injury last week when a sliding door fell and struck her in the head. Patient complains of intermittent episodes of dizziness and feeling like she has to hold onto things when she walks. She is had no vomiting. Since the knee injury last evening she is had some numbness to her left foot. Patient states that she is currently on her menstrual period which started today but she is 2 weeks early. She is been trying to get . Patient with recent surgery on her right knee.] Physical Examination: [HEENT-PERRLA, EOMI. Cranial nerves II through XII grossly intact. TMs clear. Mucous membranes moist. No adenopathy. Cardiovascular-regular rate and rhythm without murmur or ectopy Lungs-clear to auscultation, chest wall stable without crepitus or subcu emphysema Abdomen-normoactive bowel sounds, soft, nontender, no rebound or rigidity, no peritoneal signs. Neuro supk-xnduze-[id number] and pwdl-rl-fisn testing within normal limits, negative Romberg, negative pronator drift, fundi benign Extremities-intact ?4, normal range of motion, normal pulses, atraumatic] left knee-good range of motion in flexion and extension. Patient does have some pain with flexion. No effusion noted. Ligamentously stable. Neurovascular intact distally. She does have some tenderness along the medial joint line. Patella tracks normally during exam. Test Results: [CBC with differential obtained was normal. Chemistries normal. hCG negative. Orthostatic vital signs were negative CT scan of the brain without contrast was normal. X-rays of the left knee obtained were normal.] Emergency Department Course and Treatment: [] Treatment Plan: [Keep her appointment with primary care physician as well as orthopedic surgeon. I suspect she may have a concussive syndrome. Patient will be given a knee immobilizer for her left knee.] Disposition: [Discharged home in stable condition] Impression: [Left knee patella dislocation-reduced by patient Concussion syndrome] This note was generated with [employer] dictation software. It may contain incorrect words, spelling, and punctuation that were not noted in review of the chart prior to signing ED Disposition - Plan for ED Patient: Referrals: Kian Martines MD [Primary Care Provider] -
--- NOTE | 2019-05-29 13:25 | ED.DEP ---
ED Disposition - Plan for ED Patient: Instructions: Patellar Dislocation / Subluxation, CONCUSSION, No Wake Up Referrals: Kian Martines MD [Primary Care Provider] - As soon as possible
[2019-05-29 13:59] VITALS: BP 118/80; BP 135/93; BP 152/93; PULSE 67; PULSE 70; PULSE 94
== END 2019-05-29 14:01 | disposition home or self-care (01) ==
LOC: ED 12:40
PROVIDERS: Emergency Provider Emergency Medicine; Family Provider Family Medicine; PCP Family Medicine
DX: S83.005A Unspecified dislocation of left patella, initial encounter (principal); F07.81 Postconcussional syndrome; W19.XXXA Unspecified fall, initial encounter; Y93.9 Activity, unspecified; Y92.89 Other specified places as the place of occurrence of the external cause; Y99.9 Unspecified external cause status; K21.9 Gastro-esophageal reflux disease without esophagitis
CPT/HCPCS: 70450; 73564; 80048; 84703; 85025; 99284

== ENCOUNTER 2019-07-02 09:00 | Outpatient (RCR) | payer OTHER, SELFPAY ==
--- NOTE | 2019-06-16 14:18 | HP.PTEVAL ---
Patient's Visit Information MAIK IZQUIERDO is a 28 year old F referred to Physical Therapy by Dawson Meléndez MD with a diagnosis of concussion dizzyness. Date of Evaluation: 06/16/19 Physical Therapist: Kian Oh DPT, OCS, CSCS - Visit Plan Frequency: 1-2x /Week Duration: 4-6 Weeks Plan: 1-2x/week for 4-6 weeks for. 1. progression of adaptation and habituation, MSQ as needed. 2. Monitor balance. 3. symptom management - Subjective Findings: May 14 knee gave out adn hit head and got concussion, then hit head again two weeks later by a falling door. Symptoms include random dizzyness adn unsteadiness. Getting better overall. 40% better overall. Yesterday was a good day and has symptoms 30% of day. Today dizzy much of day. MIRZA daily since concussion in skunk pattern. Worse with stress. wakes up often with MIRZA. Dizzyness is not spinning but more lightheaded. Mostly when she is on feet. Rarely lying down. Is on amitrytilline. Can last all day. Moving head can make her worse really quick. Balance feels OK but knees can give out, Had R knee surgery 6 months ago adn L knee started giving out on her. Started patellar instability suddenly. Wears brace which makes it feel better. 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 Off for at least two weeks. Will see Rika on Sunday. Sleep is improving but was rough at first. Basic ADLs at home are OK. Knees hurt to put pants on. Lives with 2 kids and a . - Pain MIRZA Pain Intensity (Out of 10): 3 Pain Intensity Range: 0, 4 - Objective Oculomotor: no nystagmus with gaze or head shake. Oursuit is normal. Saccades give symptoms short term. VOR 15 sec gives 4/10 for 1 minute seated in quiet room. - head thrust. - skew eye deviation. - R hallpike. + L hallpike for up torsional nystagmus quickly, treated with Tonio then 50% better. - roll test. walking with VOR is dizzy and challenging for patient. c/s aROM is hesitant but WNL and without c/o pain or H. - Balance Scores Functional Gait Assessment Score: 24 % Disability: 20.0000 CATSIB Score (Max score 120 seconds): 110 - Goals Goal 1:: 30/30 FGA to show normal balance Goal Time Frame: 4-6 Weeks Goal 2:: Patient dizzyness abolished adn HA90% better Goal Time Frame: 4-6 Weeks Goal 3:: I apporpr HEp to minimze future problems. Goal Time Frame: 4-6 Weeks Goal 4:: Pt ready to return to work Goal Time Frame: 4-6 Weeks Goal 5:: <8% disability on DHI Goal Time Frame: 4-6 Weeks - Rehabilitation Potential Physical Therapy Diagnosis: vertigenous concussion symptoms. Rehabilitation Potential: Good - Anticipated Interventions Patient/Client Instruction: Educate patient on: Condition, Plan of Care For the Purpose of:: To improve muscle performance and motor function, To increase tolerance to activity/condition/position, To improve ability of physical actions for home/community/work/leisure, To improve gait and locomotor functions, To improve balance Therapeutic Exercise to Include: Balance training Comment: adaptation adn habituation For the Purpose of:: To increase tolerance to activity/condition/position, To improve ability of physical actions for home/community/work/leisure, To improve balance Thank you for the opportunity to evaluate your patient. For Medicare and Medicare HMO plans, please review the plan of care and approve it. It will need to be FAXED BACK to us at [phone] for Medicare purposes. For Medicare only, by signing this I certify the plan of care. Please let me know if there are questions or concerns regarding this plan of care. Physician Signature: Date:
--- NOTE | 2019-09-02 14:58 | HP.PT.NRP ---
HP - Discharge Summary (1) - Patient Information MAIK IZQUIERDO was seen in my office for initial evaluation on 06/16/19. The following Plan of Care was established for this patient: Initial Frequency: 1-2x /Week Initial Duration: 4-6 Weeks - Anticipated Interventions Patient/Client Instruction: Educate patient on: Condition, Plan of Care For the Purpose of:: To improve muscle performance and motor function, To increase tolerance to activity/condition/position, To improve ability of physical actions for home/community/work/leisure, To improve gait and locomotor functions, To improve balance Therapeutic Exercise to Include: Balance training For the Purpose of:: To increase tolerance to activity/condition/position, To improve ability of physical actions for home/community/work/leisure, To improve balance This patient was last seen in our office 07/02/19. Pertinent comments regarding their Physical therapy will appear below: Pt seen 3 visits of POC and was 75% better. she cancelled her last scheduled visit and did nto reschedule. At this point, it has been almost two months and I will disocontinue due to nonattendance. At this point I will be discontinuing this patient from physical therapy. I would be happy to see this patient again in the future if found appropriate by the physician. Thank you! Kian Oh, DPT, OCS, CSCS
== END 2019-07-02 19:00 | disposition home or self-care (01) ==
LOC: PT 09:00
PROVIDERS: Family Provider Family Medicine; PCP Family Medicine; Referring Provider Family Medicine; Visit Provider Family Medicine
DX: S06.0X9D Concussion with loss of consciousness of unspecified duration, subsequent encounter (principal); M54.2 Cervicalgia; R42 Dizziness and giddiness
CPT/HCPCS: 97110; 97162; 97530

== ENCOUNTER → 2019-10-10 15:21 | Outpatient (CLI) | payer BC, SELFPAY | PROVIDERS: PCP Family Medicine; Visit Provider Obstetrics & Gynecology | DX: Z11.3 Encounter for screening for infections with a predominantly sexual mode of transmission (principal); Z12.4 Encounter for screening for malignant neoplasm of cervix; Z34.81 Encounter for supervision of other normal pregnancy, first trimester ==

== ENCOUNTER → 2019-11-04 11:08 | Outpatient (CLI) | payer BC, SELFPAY | LOC: LAB.FUTURE 11:12 → LAB 11:15 | PROVIDERS: PCP Family Medicine; Referring Provider Obstetrics & Gynecology; Visit Provider Obstetrics & Gynecology | DX: R19.5 Other fecal abnormalities (principal) | CPT/HCPCS: 87177; 87209 ==

== ENCOUNTER → 2019-11-12 17:54 | Outpatient (CLI) | payer BC, SELFPAY ==
[2019-11-12 18:18] LABS: Absolute Lymphocyte Count 1.51 X10^3/uL (0.83-4.51); Absolute Neutrophil Count 5.6 X10^3/uL (2.0-7.7); Basophil# 0.03 X10^3/uL; Basophil% 0.4 % (0-1); Eosinophil# 0.07 X10^3/uL; Eosinophils% 0.9 % (0-5); Hematocrit 38.9 % (37-47); Hemoglobin 12.7 g/dL (12.0-15.0); Lymphocyte # 1.51 X10^3/ul (4.0); Lymphocyte % 19.8 % (19-41); Mean Corp Hgb Conc 32.6 g/dL (32-36); Mean Corpuscular Volume 88.8 fL (81-99); Mean Platelet Vol. 11.3 fl (6.2-12.0); Monocyte# 0.37 X10^3/uL; Monocyte% 4.8 % (0-10); NRBC Flagged by Analyzer 0 % (0-5); Neutrophil # 5.63 X10^3/uL (2.7-7.7); Neutrophil % 73.8 % (47-70); Platelet Count 183 K/mm3 (150-450); RBC Distribution Width CV 13.4 % (11.6-14.6); RBC Distribution Width SD 43.7 fl (35.1-43.9); Red Blood Count 4.38 M/mm3 (4.2-5.4); White Blood Count 7.6 K/mm3 (4.4-11.0)
[2019-11-12 18:40] LABS: Amphetamine Urine VISTA NEGATIVE (<1000 ng/mL); Barbiturate Urine VISTA NEGATIVE (< 200 ng/mL); Benzodiazepine Urine VISTA NEGATIVE (< 200 ng/mL); Cocaine Urine VISTA NEGATIVE (< 300 ng/mL); Ecstacy Urine VISTA NEGATIVE (< 500 ng/mL); Methadone Urine VISTA NEGATIVE (< 300 ng/mL); PCP Urine VISTA NEGATIVE (< 25 ng/mL); THC Urine VISTA NEGATIVE (< 50 ng/mL); Vista UDS pH Range 6
[2019-11-12 18:41] LABS: Thyroid Stim Hormone (TSH) 1.09 uIU/mL (0.358-3.74)
[2019-11-12 19:00] LABS: Color, Urine Yellow (Yellow); Glucose, Dipstick Normal (Normal); Ketone-Dipstick Negative (Negative); Leukocyte Esterase-Dipstick 500 /ul (Negative); Nitrite-Dipstick Negative (Negative); Occult Blood-Urine 10 /ul (Negative); Protein-Dipstick Negative (Negative); Urine Bilirubin Dipstick Negative (Negative); Urine Clarity Sl. Cloudy (Clear); Urine Urobilinogen Normal (Normal); Urine pH 6.5 (5.0 - 8.0)
[2019-11-13 00:57] LABS: Prenatal RPR NONREACTIVE (NONREACTIVE)
[2019-11-13 08:24] LABS: HIV - WCH Non-Reactive (Nonreactive); Hepatitis B Surface Antigen Non-Reactive (Nonreactive); Hepatitis C Antibody Non-Reactive (Nonreactive); Rubella IgG 204.2 IU/mL
== END ==
PROVIDERS: PCP Family Medicine; Referring Provider Obstetrics & Gynecology; Visit Provider Obstetrics & Gynecology
DX: Z34.81 Encounter for supervision of other normal pregnancy, first trimester (principal)
CPT/HCPCS: 80307; 81002; 84443; 85025; 86703; 86762; 86803; 87340

== ENCOUNTER → 2019-12-11 16:20 | Outpatient (CLI) | payer MEDICAID, SELFPAY ==
[2019-12-11 16:24] LABS: Mucous, Urine 0 SEEN /hpf (<or=2+); Red Blood Cells-Urine 0 SEEN /hpf (0-5); White Blood Cells 0 SEEN /hpf (0-5)
[2019-12-11 16:38] LABS: Color, Urine Yellow (Yellow); Glucose, Dipstick Normal (Normal); Ketone-Dipstick Negative (Negative); Leukocyte Esterase-Dipstick Negative /ul (Negative); Nitrite-Dipstick Negative (Negative); Occult Blood-Urine 10 /ul (Negative); Protein-Dipstick Negative (Negative); Urine Bilirubin Dipstick Negative (Negative); Urine Clarity Clear (Clear); Urine Urobilinogen Normal (Normal)
[2019-12-11 16:46] LABS: Bacteria 1+ /hpf (None Seen); Squamous Epithelial Cells - UA 0-5 SEEN /hpf (5-10)
== END ==
PROVIDERS: PCP Family Medicine; Referring Provider Obstetrics & Gynecology; Visit Provider Obstetrics & Gynecology
DX: O26.892 Other specified pregnancy related conditions, second trimester (principal); R30.0 Dysuria; R10.30 Lower abdominal pain, unspecified; Z3A.00 Weeks of gestation of pregnancy not specified
CPT/HCPCS: 81001; 87086; 87088

== ENCOUNTER 2020-01-20 21:27 | Emergency (ER) | payer MEDICAID, SELFPAY ==
[2020-01-20 21:28] VITALS: BP 115/79; PULSE 96; RESP 14; TEMP 36.9; O2SAT 99; BMI 29.2
[2020-01-20 21:55] VITALS: PULSE 84; RESP 24; O2SAT 99
[2020-01-20] MEDS: proCHLORPERazine 10 MG/2 ML Vial 5 MG IV (22:41)
[2020-01-20 22:42] LABS: Absolute Lymphocyte Count 1.37 X10^3/uL (0.83-4.51); Absolute Neutrophil Count 7.4 X10^3/uL (2.0-7.7); Basophil# 0.01 X10^3/uL; Basophil% 0.1 % (0-1); Eosinophil# 0.09 X10^3/uL; Hematocrit 34.7 % (37-47); Hemoglobin 11.5 g/dL (12.0-15.0); Lymphocyte # 1.37 X10^3/ul (4.0); Lymphocyte % 14.5 % (19-41); Mean Corp Hgb Conc 33.1 g/dL (32-36); Mean Corpuscular Hgb 30.1 pg (27.0-32.0); Mean Corpuscular Volume 90.8 fL (81-99); Mean Platelet Vol. 10.7 fl (6.2-12.0); Monocyte# 0.56 X10^3/uL; Monocyte% 5.9 % (0-10); NRBC Flagged by Analyzer 0 % (0-5); Neutrophil # 7.37 X10^3/uL (2.7-7.7); Neutrophil % 78.1 % (47-70); Platelet Count 186 K/mm3 (150-450); RBC Distribution Width SD 42.6 fl (35.1-43.9); Red Blood Count 3.82 M/mm3 (4.2-5.4); White Blood Count 9.4 K/mm3 (4.4-11.0)
[2020-01-20] MEDS: Lactated Ringers 1,000 ML 999 ML IV (22:44)
[2020-01-20 22:52] LABS: Anion Gap 6 (5-15); BUN 12 mg/dL (7-18); BUN/Creat Ratio 13.6 RATIO (10-20); Calcium,Total 8.8 mg/dL (8.5-10.1); Chloride 109 mmol/L (98-107); Creatinine, Serum 0.88 mg/dL (0.55-1.02); EST Glomerular Filtration Rate 80 mL/min (>60); Est Glom Filt Rate - Afr Amer 96 mL/min (>60); Estimated Creatinine Clearance 76.62 ml/min; Glucose 96 mg/dL (74-106); Potassium 3.9 mmol/L (3.5-5.1); Sodium Level 140 mmol/L (136-145)
--- NOTE | 2020-01-20 23:32 | ED.DCSUM_ITS ---
History of Present Illness Chief Complaint: Dizziness Narrative: Patient presenting for evaluation secondary to pelvic cramping. Patient is G3, P1 at 19 weeks . Patient reports that over the weekend she was working outside in the heat and she suffered a syncopal episode. She reports it was after she was pulling weeds, she went to walk inside then she became lightheaded and passed out. She denies there was any preceding chest pain shortness of breath or palpitations. She denies any injuries from the episode. Patient states that a week or so ago she was having some intermittent pelvic pain that ultimately ended up being Jerald Mcintyre contractions. Patient reports that today she has been having a similar pain in her pelvis. These are intermittent cramps that are not rhythmic. There is been no vaginal bleeding or loss of fluid. Patient does believe that she still feeling some movement. Patient has had complication of this with hyperemesis gravidarum and is on Compazine and Zofran regularly. She denies any fevers. She denies any diarrhea. Review of systems otherwise negative. Past Medical History - Allergies and Home Meds Allergies/Adverse Reactions: Allergies grape Allergy (Verified 01/20/20 21:31) Swelling morphine Adverse Reaction (Verified 01/20/20 21:31) Other promethazine HCl [From Phenergan] Adverse Reaction (Verified 01/20/20 21:31) Other sulfamethoxazole [From Bactrim] Adverse Reaction (Verified 01/20/20 21:31) Vomiting trimethoprim [From Bactrim] Adverse Reaction (Verified 01/20/20 21:31) Vomiting Primary Care Physician: Kian Martines MD [Primary Care Provider] - Prior records reviewed: Yes Past Medical History: None Smoking Status: Never smoker Review of Systems All systems negative except as indicated General: Reports: - - Syncope Eyes: Denies: Visual changes - bilaterally, Diplopia ENT: Denies: Rhinorrhea, Sore throat Cardiovascular: Denies: Chest pain, Palpitations Respiratory: Denies: Dyspnea, Cough, Dyspnea on exertion Gastrointestinal: Reports: Nausea, Vomiting Genitourinary: Denies: Dysuria, Hematuria, Frequency Musculoskeletal: Denies: Back pain, Extremity Pain Skin: Denies: Rash, Wounds Neurological: Denies: Headache, Weakness, Numbness Physical Exam Vital Signs/Narrative: Vital Signs Temp Pulse Resp BP Pulse Ox 01/20/20 21:55 84 24 H 99 01/20/20 21:28 98.5 F 96 14 115/79 99 Inital Vital Signs reviewed: Yes General: Well nourished, Well developed, No Acute Distress Head: Normocephalic, Atraumatic Eyes: Perrl, EOMI ENT: Moist mucous membranes, No rhinorrhea Neck: Supple, Nontender Cardiovascular: Regular rate, Regular rhythm, Murmur - 2 out of 6 systolic murmur Respiratory: No distress, CTA bilaterally, Chest nontender Abdomen: Soft, Nontender, Normal bowel sounds, - - Abdomen appropriately gravid for gestational age Back: Nontender, Normal Inspection Extremities: Nontender, No edema Skin: Normal color, No rash Neurological: Alert, Oriented x3, Cranial nerves II-XII grossly intact, Normal Strength, Normal Sensation Psychological: Normal affect, Normal Mood Diagnostic/Tx/Re-eval Laboratory Data 01/20/20 01/20/20 22:00 22:00 WBC 9.4 RBC 3.82 L Hgb 11.5 L Hct 34.7 L MCV 90.8 MCH 30.1 MCHC 33.1 RDW Std Deviation 42.6 RDW Coeff of Nathaniel 13.0 Plt Count 186 MPV 10.7 Immature Gran % (Auto) 0.400 Neut % (Auto) 78.1 H Lymph % (Auto) 14.5 L [place] % (Auto) 5.9 Eos % (Auto) 1.0 Baso % (Auto) 0.1 Absolute Neuts (auto) 7.4 Absolute Lymphs (auto) 1.37 Nucleated RBC % 0 Sodium 140 Potassium 3.9 Chloride 109 H Carbon Dioxide 25.0 Anion Gap 6 BUN 12 Creatinine 0.88 Estim Creat Clear Calc 76.62 Est GFR (MDRD) Af Amer 96 Est GFR (MDRD) Non-Af 80 BUN/Creatinine Ratio 13.6 Glucose 96 Calcium 8.8 - Medical Decision Making Patient presented secondary to an episode of syncope a couple of days ago and some intermittent pelvic cramping. History seems consistent with that of [place] Mcintyre contractions. IV was established patient was given a liter of lactated Ringer's. Patient's laboratory work-up including CBC and chemistry were unremarkable. Bedside ultrasound showed good movement with heart rate of 133. Patient was given Compazine in the emergency department. She had improvement of her symptoms. At this point I do not feel that the patient requires further observation or admission. Patient was given reassurance and she was discharged. ED Disposition - Plan for ED Patient: Disposition: Home or Assisted Living Diagnosis: [place] Mcintyre contractions Instructions: ED Labor False Referrals: Akanksha Sy MD [STAFF PHYSICIAN] - As Needed
[2020-01-21] VITALS: BP 115/88; PULSE 86; RESP 16; O2SAT 98
== END 2020-01-21 00:01 | disposition home or self-care (01) ==
PROVIDERS: Emergency Provider Emergency Medicine; PCP Family Medicine
DX: O47.02 False labor before 37 completed weeks of gestation, second trimester (principal); Z3A.19 19 weeks gestation of pregnancy; O21.0 Mild hyperemesis gravidarum; Z88.1 Allergy status to other antibiotic agents; Z88.2 Allergy status to sulfonamides; Z88.8 Allergy status to other drugs, medicaments and biological substances
CPT/HCPCS: 80048; 85025; 96361; 96374; 99283; J7120; A4216

== ENCOUNTER → 2020-02-26 13:43 | Outpatient (CLI) | payer MEDICAID, SELFPAY | PROVIDERS: PCP Family Medicine; Referring Provider Obstetrics & Gynecology; Visit Provider Obstetrics & Gynecology | DX: R30.0 Dysuria (principal); R39.15 Urgency of urination | CPT/HCPCS: 87086; 87088 ==

== ENCOUNTER 2020-04-03 21:27 | Emergency (ER) | payer MEDICAID, SELFPAY ==
[2020-04-03 21:28] VITALS: BP 105/66; PULSE 122; RESP 18; TEMP 36.4; O2SAT 98; BMI 31.2
[2020-04-03 21:31] VITALS: BP 105/66; PULSE 122; RESP 18; TEMP 36.4; O2SAT 98
--- NOTE | 2020-04-03 21:41 | EKG12_ITS ---
Test Reason : SOB Blood Pressure : / mmHG Vent. Rate : 081 BPM Atrial Rate : 081 BPM P-R Int : 144 ms QRS Dur : 088 ms QT Int : 378 ms P-R-T Axes : 024 002 013 degrees QTc Int : 439 ms Normal sinus rhythm Normal ECG Confirmed by EVERARDO SAWYER, NGOZI ([id number]), commercial production editor MISSY KAYE ([id number]) on 04/07/2020 9:51:59 AM Referred By: LISA Confirmed By:NGOZI MCGEE MD
--- NOTE | 2020-04-03 21:44 | ED.DCSUM_ITS ---
History of Present Illness Chief Complaint: Shortness of Breath Informant: Patient Onset: Yesterday Current Severity: Mild Maximum Severity: Moderate Narrative: Patient presents secondary to shortness of breath that she noted yesterday. It is worse with exertion and better with rest. She did have some chest pain earlier today. She noted her heart is tachycardic. She gives the example of walking to the kitchen and noting her heart rate going up into the 130s and staying there for about 10 minutes. She had a mild dry cough. She is had no fever or chills. She does report intermittent sweats. No change in taste or smell. Patient is approximately 30 weeks . She has felt normal movement. She has had hyperemesis with this , but states it is recently improved. In the last 24 hours she has had increased vomiting again. - Past Medical History (1) GERD (gastroesophageal reflux disease) Status: Chronic Past Medical History - Allergies and Home Meds Allergies/Adverse Reactions: Allergies grape Allergy (Verified 01/20/20 21:31) Swelling morphine Adverse Reaction (Verified 01/20/20 21:31) Other promethazine HCl [From Phenergan] Adverse Reaction (Verified 01/20/20 21:31) Other sulfamethoxazole [From Bactrim] Adverse Reaction (Verified 01/20/20 21:31) Vomiting trimethoprim [From Bactrim] Adverse Reaction (Verified 01/20/20 21:31) Vomiting Primary Care Physician: Kian Martines MD [Primary Care Provider] - Prior records reviewed: Yes Lives: With Family Smoking Status: Never smoker Review of Systems General: Reports: Sweats Eyes: Denies: Visual changes - bilaterally ENT: Denies: Bilateral ear pain, Sore throat Cardiovascular: Reports: Chest pain, Heart racing Respiratory: Reports: Dyspnea, Cough. Denies: Sputum Gastrointestinal: Reports: Nausea, Vomiting. Denies: Abdominal pain Genitourinary: Denies: Dysuria Musculoskeletal: Denies: Extremity Pain Skin: Denies: Rash Neurological: Denies: Headache Hematologic: Denies: Easy bruising, Easy bleeding Allergy: Denies: Uticaria Physical Exam Vital Signs/Narrative: Vital Signs Temp Pulse Resp BP Pulse Ox 04/03/20 21:31 97.6 F L 122 H 18 105/66 98 04/03/20 21:28 97.6 F L 122 H 18 105/66 98 Inital Vital Signs reviewed: Yes General: Well nourished, Well developed Head: Normocephalic ENT: Moist mucous membranes Neck: Supple Cardiovascular: Regular rate, Regular rhythm Respiratory: No distress, CTA bilaterally Abdomen: Soft, Nontender - Gravid, Normal bowel sounds Extremities: Nontender Skin: Normal color Neurological: Alert, Oriented x3 Psychological: Normal affect Diagnostic/Tx/Re-eval Impressions Chest CTA 04/03/20 22:55 IMPRESSION: Normal CTA chest examination, without a demonstrated pulmonary embolism or arterial dissection. Electronically Signed: Morro Lyles MD at 0:10 EDT , Service support , 04/03/20 22:55 CTA Chest W/WO Contrast [CT] Stat Laboratory Results 04/03/20 04/03/20 04/03/20 21:55 21:55 21:55 WBC 9.8 RBC 3.78 L Hgb 10.5 L Hct 32.7 L MCV 86.5 MCH 27.8 MCHC 32.1 RDW Std Deviation 38.5 RDW Coeff of Nathaniel 12.2 Plt Count 191 MPV 10.9 Immature Gran % (Auto) 0.400 Neut % (Auto) 72.5 H Lymph % (Auto) 18.[address] [place] % (Auto) 7.7 Eos % (Auto) 0.8 Baso % (Auto) 0.3 Absolute Neuts (auto) 7.1 Absolute Lymphs (auto) 1.80 Nucleated RBC % 0 D-Dimer Quant (PE/DVT) 1.24 H* Sodium 140 Potassium 3.6 Chloride 109 H Carbon Dioxide 24.0 Anion Gap 7 BUN 9 Creatinine 0.79 Estim Creat Clear Calc 85.35 Est GFR (MDRD) Af Amer 109 Est GFR (MDRD) Non-Af 90 BUN/Creatinine Ratio 11.4 Glucose 87 Calcium 8.5 Troponin I < 0.015 Urine Color Urine Clarity Urine pH Ur Specific [place] Urine Protein Urine Glucose (UA) Urine Ketones Urine Occult Blood Urine Nitrite Urine Bilirubin Urine Urobilinogen Ur Leukocyte Esterase Urine RBC Urine WBC Ur Squamous Epith Cells Urine Bacteria Urine Mucus 04/03/20 21:55 WBC RBC Hgb Hct MCV MCH MCHC RDW Std Deviation RDW Coeff of Nathaniel Plt Count MPV Immature Gran % (Auto) Neut % (Auto) Lymph % (Auto) [place] % (Auto) Eos % (Auto) Baso % (Auto) Absolute Neuts (auto) Absolute Lymphs (auto) Nucleated RBC % D-Dimer Quant (PE/DVT) Sodium Potassium Chloride Carbon Dioxide Anion Gap BUN Creatinine Estim Creat Clear Calc Est GFR (MDRD) Af Amer Est GFR (MDRD) Non-Af BUN/Creatinine Ratio Glucose Calcium Troponin I Urine Color Yellow Urine Clarity Sl. Cloudy Urine pH 6.0 Ur Specific [place] 1.015 Urine Protein Negative Urine Glucose (UA) 50 H Urine Ketones Negative Urine Occult Blood Negative Urine Nitrite Negative Urine Bilirubin Negative Urine Urobilinogen Normal Ur Leukocyte Esterase 25 H Urine RBC 0 SEEN Urine WBC 0-5 SEEN Ur Squamous Epith Cells 0-5 SEEN Urine Bacteria 0 SEEN Urine Mucus 0 SEEN - EKG Initial EKG Interpretation: Sinus Rhythm - Sinus 81 with no acute ischemia. - Medical Decision Making Patient was given IV fluids here. Test results are discussed with her. At this time her blood work is unremarkable and CTA reveals no evidence of PE. heart tones are appropriate. We will swab her for Covid which will be a send out test. Patient is comfortable with monitoring her symptoms at home. She does have a pulse ox that she can monitor her vital signs. She is encouraged to return for any worsening symptoms or concerns. ED Disposition - Plan for ED Patient: Disposition: Home or Assisted Living Diagnosis: Dyspnea Instructions: ED Dyspnea Referrals: Kian Martines MD [Primary Care Provider] - Joy Juarez MD [STAFF PHYSICIAN] -
[2020-04-03] MEDS: 0.9% Normal Saline 1,000 ML 1000 ML IV (21:59)
[2020-04-03 22:17] LABS: Bacteria 0 SEEN /hpf (None Seen); Mucous, Urine 0 SEEN /hpf (<or=2+); Red Blood Cells-Urine 0 SEEN /hpf (0-5)
[2020-04-03 22:22] LABS: Color, Urine Yellow (Yellow); Glucose, Dipstick 50 mg/dl (Normal); Ketone-Dipstick Negative (Negative); Leukocyte Esterase-Dipstick 25 /ul (Negative); Nitrite-Dipstick Negative (Negative); Occult Blood-Urine Negative /ul (Negative); Protein-Dipstick Negative (Negative); Specific Gravity, Urine 1.015 (1.002-1.030); Urine Bilirubin Dipstick Negative (Negative); Urine Clarity Sl. Cloudy (Clear); Urine Urobilinogen Normal (Normal)
[2020-04-03 22:31] LABS: Squamous Epithelial Cells - UA 0-5 SEEN /hpf (5-10); White Blood Cells 0-5 SEEN /hpf (0-5)
[2020-04-03 22:33] LABS: Absolute Neutrophil Count 7.1 X10^3/uL (2.0-7.7); Basophil# 0.03 X10^3/uL; Basophil% 0.3 % (0-1); Eosinophil# 0.08 X10^3/uL; Eosinophils% 0.8 % (0-5); Hematocrit 32.7 % (37-47); Hemoglobin 10.5 g/dL (12.0-15.0); Lymphocyte % 18.3 % (19-41); Mean Corp Hgb Conc 32.1 g/dL (32-36); Mean Corpuscular Hgb 27.8 pg (27.0-32.0); Mean Corpuscular Volume 86.5 fL (81-99); Mean Platelet Vol. 10.9 fl (6.2-12.0); Monocyte# 0.76 X10^3/uL; Monocyte% 7.7 % (0-10); NRBC Flagged by Analyzer 0 % (0-5); Neutrophil # 7.13 X10^3/uL (2.7-7.7); Neutrophil % 72.5 % (47-70); Platelet Count 191 K/mm3 (150-450); RBC Distribution Width CV 12.2 % (11.6-14.6); RBC Distribution Width SD 38.5 fl (35.1-43.9); Red Blood Count 3.78 M/mm3 (4.2-5.4); White Blood Count 9.8 K/mm3 (4.4-11.0)
[2020-04-03 22:38] LABS: Anion Gap 7 (5-15); BUN 9 mg/dL (7-18); BUN/Creat Ratio 11.4 RATIO (10-20); Calcium,Total 8.5 mg/dL (8.5-10.1); Chloride 109 mmol/L (98-107); Creatinine, Serum 0.79 mg/dL (0.55-1.02); EST Glomerular Filtration Rate 90 mL/min (>60); Est Glom Filt Rate - Afr Amer 109 mL/min (>60); Estimated Creatinine Clearance 85.35 ml/min; Glucose 87 mg/dL (74-106); Potassium 3.6 mmol/L (3.5-5.1); Sodium Level 140 mmol/L (136-145)
[2020-04-03 22:54] LABS: D-Dimer Quantitative (DVT/PE) 1.24 FEU/ug/m (0.27-0.49)
--- NOTE | 2020-04-03 22:55 | CT_ITS ---
STUDY: CTA CHEST REASON FOR EXAM: Female, 29 years old. Shortness of breath, cough, tachycardia. Patient . RADIATION DOSAGE (If Supplied By Facility): CTDIvol = ( 13.40 ) mGy, DLP = ( 425.46 ) mGycm TECHNIQUE: The examination was performed with the intravenous administration of IV 100mL Isovue-370. Post-processing of the angiographic images was performed, with multiplanar reformation and 3D reconstruction. Individualized dose optimization techniques were used for this CT. COMPARISON: Chest x-ray October 21, 2017. FINDINGS: Normal enhancement of the main pulmonary artery and right and left pulmonary arteries. Normal enhancement of the bilateral peripheral pulmonary arteries. There is no demonstrated pulmonary embolism. Normal thoracic aorta and visualized great vessels. There is no demonstrated aortic dissection. Normal heart and pericardium. Normal mediastinum. Normal hilar regions. Normal visualized trachea and bronchi. The lungs are well expanded. Normal pulmonary parenchyma. Normal pleura. Normal chest wall structures. Normal osseous structures. Normal visualized upper abdomen. CT/CTA Chest W/WO Contrast IMPRESSION: Normal CTA chest examination, without a demonstrated pulmonary embolism or arterial dissection. Electronically Signed: Morro Lyles MD at 0:10 EDT , Service support ,
[2020-04-03 23:00] VITALS: BP 106/73; PULSE 75; RESP 12; O2SAT 100
[2020-04-04 00:30] VITALS: BP 102/74; PULSE 76; RESP 17; O2SAT 100
== END 2020-04-04 00:39 | disposition home or self-care (01) ==
PROVIDERS: Emergency Provider Emergency Medicine; PCP Family Medicine
DX: O26.893 Other specified pregnancy related conditions, third trimester (principal); R06.00 Dyspnea, unspecified; K21.9 Gastro-esophageal reflux disease without esophagitis; O99.613 Diseases of the digestive system complicating pregnancy, third trimester; Z88.1 Allergy status to other antibiotic agents; Z88.2 Allergy status to sulfonamides; Z88.8 Allergy status to other drugs, medicaments and biological substances; Z3A.30 30 weeks gestation of pregnancy; R05 Cough
CPT/HCPCS: 71275; 80048; 81001; 84484; 85025; 85379; 87635; 93005; 96361; 96374; 99284; C9803; Q9967; U0003

== ENCOUNTER 2020-05-19 12:20 | Outpatient (CLI) | payer MEDICAID, SELFPAY ==
[2020-05-19 12:34] VITALS: BP 115/77; PULSE 123
[2020-05-19 12:40] VITALS: BMI 33.3
[2020-05-19 12:51] VITALS: PULSE 111; TEMP 37; O2SAT 97
[2020-05-19 14:04] VITALS: BP 122/77; PULSE 93; TEMP 37.1; O2SAT 97
[2020-05-19 14:07] LABS: ROM Internal Control Test YES-OK TO RESULT pt. (Internal QC); ROM Patient Test Negative (Negative)
--- NOTE | 2020-05-29 06:51 | OB.TRI.NOTE ---
History of Present Illness Date of Service: 05/19/20 Was patient seen by the physician?: No Reason For Visit: R/O RUPTURED MEMBRANES Final CLAIRE: 06/11/20 Gestational age: 36 weeks 5 days History of Present Illness: 29yo @ 36 5/7 wga presenting with c/o leaking of fluid. Allergies grape Allergy (Verified 01/20/20 21:31) Swelling morphine Adverse Reaction (Verified 01/20/20 21:31) Other promethazine HCl [From Phenergan] Adverse Reaction (Verified 01/20/20 21:31) Other sulfamethoxazole [From Bactrim] Adverse Reaction (Verified 01/20/20 21:31) Vomiting trimethoprim [From Bactrim] Adverse Reaction (Verified 01/20/20 21:31) Vomiting - Pertinent Past Medical History Medical History: Past Medical History (Last Reviewed 07/25/18 @ 11:45 by Meaghan Nuñez) Anemia Fatigue Fever SOB (shortness of breath) Surgical History: Past Surgical History (Last Reviewed 07/25/18 @ 11:45 by Meaghan Nuñez) History of tonsillectomy Hx of section Laboratory Studies: Laboratory Tests 05/19/20 Range/Units 13:05 Vag Amniotic Fld Detect Negative (Negative) Physical Exam Vitals: Vital Signs Temp Pulse BP Pulse Ox 98.7 F 93 122/77 H 97 05/19/20 14:04 05/19/20 14:04 05/19/20 14:04 05/19/20 14:04 NST - FHR Rate Baby A Baseline: 135 Variability:: Moderate Accelerations:: 15 x 15 Decelerations:: None NST Reactive:: Yes FHR Category:: Category I Uterine Activity:: 0-08/08 Impression/Plan 29yo @ 36 5/7wga with false labor Amnisure negative Prolonged monitor performed for tachycardia with baseline 180s occurring following initial NST, until baseline returned to 150 bpm. Pt hydrated orally in the interim. d/c home
== END 2020-05-19 15:20 | disposition home or self-care (01) ==
PROVIDERS: PCP Family Medicine; Referring Provider Obstetrics & Gynecology; Visit Provider Obstetrics & Gynecology
DX: O47.03 False labor before 37 completed weeks of gestation, third trimester (principal); Z3A.36 36 weeks gestation of pregnancy
CPT/HCPCS: 59025; 59050; 84112; 99218; G0378

== ENCOUNTER → 2020-09-09 09:23 | Outpatient (CLI) | payer MEDICAID, SELFPAY ==
[2020-09-09 10:13] LABS: Absolute Neutrophil Count 2.8 X10^3/uL (2.0-7.7); Basophil# 0.03 X10^3/uL; Basophil% 0.6 % (0-1); Eosinophil# 0.11 X10^3/uL; Eosinophils% 2.2 % (0-5); Hematocrit 43.4 % (37-47); Hemoglobin 14.1 g/dL (12.0-15.0); Lymphocyte % 32.7 % (19-41); Mean Corp Hgb Conc 32.5 g/dL (32-36); Mean Corpuscular Hgb 29.2 pg (27.0-32.0); Mean Corpuscular Volume 89.9 fL (81-99); Mean Platelet Vol. 10.7 fl (6.2-12.0); Monocyte# 0.33 X10^3/uL; Monocyte% 6.7 % (0-10); NRBC Flagged by Analyzer 0 % (0-5); Neutrophil # 2.82 X10^3/uL (2.7-7.7); Neutrophil % 57.6 % (47-70); Platelet Count 213 K/mm3 (150-450); RBC Distribution Width SD 42.8 fl (35.1-43.9); Red Blood Count 4.83 M/mm3 (4.2-5.4); White Blood Count 4.9 K/mm3 (4.4-11.0)
[2020-09-09 10:51] LABS: Thyroid Stim Hormone (TSH) 0.95 uIU/mL (0.358-3.74)
== END ==
PROVIDERS: PCP Family Medicine; Referring Provider Family Medicine; Visit Provider Family Medicine
DX: R53.83 Other fatigue (principal)
CPT/HCPCS: 36415; 84443; 85025

== ENCOUNTER → 2020-12-23 20:07 | Outpatient (CLI) | payer MEDICAID, SELFPAY ==
[2020-11-29 08:09] VITALS: BMI 31.8
== END ==
PROVIDERS: PCP Family Medicine; Referring Provider Nurse Practitioner Acute Care; Visit Provider Nurse Practitioner Acute Care
DX: G47.33 Obstructive sleep apnea (adult) (pediatric) (principal)
CPT/HCPCS: 95810

== ENCOUNTER 2021-02-21 12:30 | Outpatient (RCR) | payer MEDICAID, SELFPAY ==
[2021-01-19 10:55] VITALS: BMI 32.5
--- NOTE | 2021-01-20 14:01 | HP.PTEVAL_ITS ---
Patient's Visit Information MAIK IZQUIERDO is a 30 year old F referred to Physical Therapy by Dr. Matias Zambrano DO with a diagnosis of ITBand Syndrome. Date of Evaluation: 01/20/21 Physical Therapist: Inez Zelaya DPT - Visit Plan Frequency: 2x /Week Duration: 4 Weeks Plan: Focus on LE and core strength/stabilization- Aquatic Therapy - Subjective Patient reports that she is unsure of the cause. On Sunday she started to feel a jas horse in her right hip- having problems bending over, sitting, standing- thought it was a strain and let it go then her had to help her up off the toilet. Went to [facility]- ITBand Syndrome- had three steroid injections in her hip yesterday- Celebrex due to stomach ulcer. Currently it hurts pretty much all the time- in all positions. Pain is located in the ball joint- radiates down the thigh and has tingling in her buttock. Worst: 10/10 Agg: squatting, bending, walking, everything at this point hurts. Eases: nothing- has tried both heat and ice. Does have chronic back issues and goes to the chiro- normally focuses on neck and shoulders. No current low back pain. X- rays of both spine and hip. Sleep: disturbed. Numbness since the injection in top of thigh to knee- Tingling under the crease of the buttocks. Describes the hip pain as sharp/shooting and dull and achy. PMHX: right MPFL knee surgery, GERD, stomach ulcer, Meds: planzoprozol, apri control, caden. 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 - Objective Posture: FH, RS- increased guarding of the right LE. Gait: antalgic- decreased stance on the right LE. Stairs: non recip with 2 HR and pain. HR/TR: able with pain. SLS: weight shift but unable to SLS. ROM: Lumbar: Flexion: hands to knees, Extn: neutral, SB: decreased by 75%, Rotation decreased by 75% pain with all directions, Hip: unable to test due to pain, Knee/Ankle: WFL. Strength: Core: poor, Hip: 4/5 throughout with exception of IR/ER: 4-/5 with severe pain. Special Test: Scour: positive, Slump: positive, Dural Signs: positive, AMANUEL: positive. Challenged to get a good assessment due to pain levels and spasms - Goals Goal 1:: Patient will be I with HEP and progression Goal Time Frame: 4-6 Weeks Goal 2:: Patient will ambulate >300 feet with a normalized gait pattern Goal Time Frame: 4-6 Weeks Goal 3:: Patient will demo full AROM of the lumbar spine without pain Goal Time Frame: 4-6 Weeks Goal 4:: Patient will report no more than 2/10 pain for 1 week Goal Time Frame: 4-6 Weeks Goal 5:: Patient will maintain proper posture t/o tx session to demo increased core s/s - Rehabilitation Potential Physical Therapy Diagnosis: Patient presents with hypomobility- she has decreased painfree ROM, LE and core strength/stabilization, flexibility and muscular endurance leading to poor posture and increased pain with ADL's. Rehabilitation Potential: Fair - Anticipated Interventions Patient/Client Instruction: Educate patient on: Benefits of Fitness Program Therapeutic Exercise to Include: Strength training, Endurance training, Balance training, Agility training, Body mechanics, Postural training, Flexibilty training, Gait and locomotor training, Neuromotor development, In an aquatic setting, Dynamic Lumbar Stabilization, Scapular Strength/Stabilization For the Purpose of:: To improve muscle performance and motor function Thank you for the opportunity to evaluate your patient. For Medicare and Medicare HMO plans, please review the plan of care and approve it. It will need to be FAXED BACK to us at [phone] for Medicare purposes. For Medicare only, by signing this I certify the plan of care. Please let me know if there are questions or concerns regarding this plan of care. Physician Signature: Date :
--- NOTE | 2021-02-21 13:00 | HP.PTREVAL_ITS ---
Dr. 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 Please see the progress note below for an update on the physical therapy plan of care! Subjective: Still having pain on/off but is not as consistent as it was but catches her off guard. Worst: 5-6/10 Agg: getting up off the floor, squatting. Has been sleeping better due to medication. Her hip feels that she is like 40- 60%. Objective/Function: Posture: FH, RS- increased guarding of the right LE. Gait: no deviation noted Stairs: recip with 1 HR and reports pain HR/TR: able with pain. SLS: 5 seconds then LOB ROM: Lumbar: Flexion: hands to knees, Extn: neutral, SB: decreased by 25%, Rotation decreased by 25% pain with all directions, Hip: WFL, pain with IR/ER, Knee/Ankle: WFL. Strength: Core: fair Hip: 4/5 throughout with exception of IR/ER: 4/5 with moderate pain. Special Test: Scour: positive, Slump: positive, Dural Signs: positive, AMANUEL: positive. Plan Plan: 02/21/2021: Continue with current POC. *f/u with new HEP postural corrections as it relates to good gait mechanics as well as new HEP hip flexor/quad stretch. Focus on LE and core strength/stabilization- Aquatic Therapy Goals Goal 1:: Patient will be I with HEP and progression Goal Time Frame: 4-6 Weeks Goal Progress: Progressing Goal 2:: Patient will ambulate >300 feet with a normalized gait pattern Goal Time Frame: 4-6 Weeks Goal Progress: Progressing Goal 3:: Patient will demo full AROM of the lumbar spine without pain Goal Time Frame: 4-6 Weeks Goal Progress: Progressing Goal 4:: Patient will report no more than 2/10 pain for 1 week Goal Time Frame: 4-6 Weeks Goal Progress: Progressing Goal 5:: Patient will maintain proper posture t/o tx session to demo increased core s/s Goal Progress: Progressing Anticipated Interventions Patient/Client Instruction: Educate patient on: Benefits of Fitness Program Therapeutic Exercise to Include: Strength training, Endurance training, Balance training, Agility training, Body mechanics, Postural training, Flexibilty training, Gait and locomotor training, Neuromotor development, In an aquatic setting, Dynamic Lumbar Stabilization, Scapular Strength/Stabilization For the Purpose of:: To improve muscle performance and motor function Please do not hesitate to contact me at [phone] by phone or if you have questions or concerns regarding this new plan of care! Sincerely, DAVID LaurenT
--- NOTE | 2021-05-30 07:12 | HP.PT.NRP ---
MAIK IZQUIERDO was seen in my office for initial evaluation on 01/20/21. The following Plan of Care was established for this patient: Initial Frequency: 2x /Week Initial Duration: 4 Weeks Patient/Client Instruction: Educate patient on: Benefits of Fitness Program Therapeutic Exercise to Include: Strength training, Endurance training, Balance training, Agility training, Body mechanics, Postural training, Flexibilty training, Gait and locomotor training, Neuromotor development, In an aquatic setting, Dynamic Lumbar Stabilization, Scapular Strength/Stabilization For the Purpose of:: To improve muscle performance and motor function This patient was last seen in our office . Pertinent comments regarding their Physical therapy will appear below: Patient has not attended PT in over 4 weeks and is appropriate for discharge- return to MD for further evaluation as needed. At this point I will be discontinuing this patient from physical therapy. I would be happy to see this patient again in the future if found appropriate by the physician. Thank you! Inez Zelaya, DAVIDT Balance/Gait/Functional tests - Balance/Special Test Scores Lower Extremity Functional Score: 49
== END 2021-02-21 19:00 | disposition home or self-care (01) ==
LOC: PT 12:30
PROVIDERS: PCP Family Medicine; Referring Provider Orthopaedic Surgery; Visit Provider Orthopaedic Surgery
DX: M70.61 Trochanteric bursitis, right hip (principal); M76.31 Iliotibial band syndrome, right leg
CPT/HCPCS: 97110; 97113; 97164

== ENCOUNTER 2021-03-26 21:00 | Emergency (ER) | payer MEDICAID, SELFPAY ==
[2021-03-26 21:01] VITALS: BP 120/85; PULSE 130; RESP 18; TEMP 36.4; O2SAT 93; BMI 30.4
--- NOTE | 2021-03-26 21:31 | EDS_ITS ---
HPI History of Present Illness Chief Complaint: Shortness of Breath Informant: patient Onset/Context/Timing Onset: Days (3) Context: gradual Timing: Continuous Quality: Positive for Dyspnea on exertion Worsened by: Exertion Relieved by: Nothing Associated Symptoms cough, ear pain, fever, sore throat, clear sputum and white sputum; Negative for rhinorrhea Chest Pain: Positive for Continuous Narrative Narrative: Patient presents with shortness of breath that has been getting worse over the past 3 days. Patient states it has been constantly getting worse. Patient was recently tested for COVID-19 and was positive. Patient admits to a fever of 100.1 at home. Patient also admits to a sore throat and bilateral ear pain. Patient admits to cough with white clear sputum. Patient also admits to some pain over her left chest. [facility] Medical History (Updated 03/26/21 @ 23:[address] Kian Garcia, ) Anemia Fatigue Fever SOB (shortness of breath) Home Medications lansoprazole 30 mg PO BID 05/19/20 [History Last Taken 05/19/20 08:00] desogestrel 0.15 mg-ethinyl estradiol 0.03 mg tablet 1 tab PO DAILY 11/29/20 [History Last Taken Unknown] escitalopram oxalate 5 mg tablet 5 mg PO DAILY 11/29/20 [History Last Taken Unknown] fexofenadine 180 mg tablet 180 mg PO DAILY 11/29/20 [History Last Taken Unknown] azelastine 137 mcg (0.1 %) nasal spray aerosol 2 spray INTRANASAL BID #30 ml 12/06/20 [Rx Last Taken Unknown] fluticasone propionate 50 mcg/actuation nasal spray,suspension 2 spray INTRANASAL DAILY #18.2 ml 12/06/20 [Rx Last Taken Unknown] celecoxib 200 mg capsule 200 mg PO DAILY #30 cap 01/20/21 [Rx Last Taken Unknown] Allergy/AdvReac Type Severity Reaction Status Date / Time grape Allergy Swelling Verified 03/26/21 21:04 morphine AdvReac Other Verified 03/26/21 21:04 promethazine HCl AdvReac Other Verified 03/26/21 21:04 [From Phenergan] sulfamethoxazole AdvReac Vomiting Verified 03/26/21 21:04 [From Bactrim] trimethoprim [From Bactrim] AdvReac Vomiting Verified 03/26/21 21:04 Family History (Reviewed 01/07/21 @ 08:19 by Rosa Hilton SALESFORCE ADMINISTRATOR, SALESFORCE ADMINISTRATOR-C) Grandfather Heart disease Parkinson disease Hypertension Grandmother Heart disease CHF (congestive heart failure) Hypertension Dementia Mother CHF (congestive heart failure) Heart disease Father Hypertension Dementia Surgical History History of tonsillectomy Hx of section Social History Smoking Status: Never smoker alcohol intake: current alcohol intake frequency: a few times a month Alcohol type: wine ROS ROS ED Constitutional Constitutional ED: Reports fever(s); Denies chills Eyes Eyes: Denies blurry vision or change in vision ENT ENT ED: Reports ear pain bilateral and sore throat; Denies rhinorrhea Cardiovascular Cardiovascular: Reports chest pain; Denies palpitations Respiratory/Chest Respiratory/Chest: Reports cough and dyspnea Gastrointestinal Gastrointestinal: Reports diarrhea, nausea and vomiting Genitourinary Genitourinary ED: Denies dysuria or hematuria Musculoskeletal Musculoskeletal: Reports back pain; Denies neck pain Integumentary Reports rash; Denies abscess Neurologic Neurologic: Reports weakness; Denies headache(s) Allergic/Immunologic Allergic/Immunologic ED: Denies mouth swelling or urticaria EXAM Physical Exam Const Vital Signs: 03/26/21 21:01 03/26/21 21:58 03/26/21 23:00 Temperature 97.5 F L Temperature Source Temporal Pulse Rate 130 H 102 H Respiratory Rate 18 Respiratory Effort Normal Non-Labored Respiratory Depth Normal Respiratory Pattern Normal Blood Pressure 120/85 H 116/71 Blood Pressure Mean 96 86 Pulse Ox 93 96 Oxygen Delivery Method Room Air Room Air Room Air Positive well nourished and well developed General Appearance ED: well developed HEENT Reports moist mucous membranes Neck supple and no JVD Resp normal respiratory effort Auscultation: diminished lung sounds bilateral Cardio regular rate, regular rhythm and no murmurs GI normal to inspection, nondistended, normoactive bowel sounds and non-tender Palpation: soft Extremity normal to inspection General Extremety ED: Negative for edema or tenderness General Extremity: Negative for edema Neuro oriented x3, CN's II-XII intact bilaterally and no sensory deficits noted Sensorium / Orientation: alert Motor Exam: strength 5/5 throughout Psych mental status grossly normal Skin no rashes or lesions noted MDM MDM MDM Narrative Medical decision making narrative: Patient was given IV fluids, Tylenol, and 4 puffs of albuterol inhaler. EKG was obtained. On my interpretation, it showed a sinus tachycardia with a rate of 113. There are no acute ST or T wave changes. SD interval, QRS interval, QTC intervals are normal. [place] is normal. CBC was within normal limits. Comprehensive metabolic profile was normal. Portable 1 view chest x-ray was obtained. On my interpretation, lung medellin are clear. There is normal cardiac silhouette. Bony thorax is normal. There is no acute process noted. Radiologist also interpreted the x-ray and agrees. Lactate was obtained and was normal. COVID-19 rapid antigen was obtained and was positive. Because of the persistent tachycardia and dyspnea, CTA of the chest was obtained. There is no evidence of pulmonary embolism. There are sc attered infiltrates consistent with nonspecific bilateral multifocal pneumonia which is consistent with COVID-19 pneumonia. Patient was advised of her findings. Patient was instructed to follow-up with her primary care physician in 5 to 7 days. Patient was instructed to continue the albuterol inhaler every 4 hours as needed. Patient was instructed to continue Tylenol as needed for any aches or fevers. Patient was instructed return if worse in any way. Patient understood and was agreeable with the plan. All questions were answered. Lab Data Attestation: I reviewed the patient's lab results. Labs: Laboratory Results - last 24 hr 03/26/21 03/26/21 03/26/21 21:55 21:55 21:55 WBC 3.8 L RBC 4.84 Hgb 14.0 Hct 42.0 MCV 86.8 MCH 28.9 MCHC 33.3 RDW Std Deviation 40.4 RDW Coeff of Nathaniel 12.7 Plt Count 83 L MPV 11.7 Immature Gran % (Auto) 0.300 Neut % (Auto) 75.1 H Lymph % (Auto) 17.9 L [place] % (Auto) 6.7 Eos % (Auto) 0.0 Baso % (Auto) 0.0 Absolute Neuts (auto) 2.8 Absolute Lymphs (auto) 0.67 L Nucleated RBC % 0 Differential Comment SCANNED Platelet Estimate MOD DEC RBC Morphology NORM C+C Sodium 138 Potassium 3.6 Chloride 104 Carbon Dioxide 27.0 Anion Gap 7 BUN 5 L Creatinine 0.91 Estim Creat Clear Calc 73.42 Est GFR (MDRD) Af Amer 92 Est GFR (MDRD) Non-Af 76 BUN/Creatinine Ratio 5.5 L Glucose 128 H Lactic Acid 1.0 Calcium 8.3 L Total Bilirubin 0.70 AST 98 H ALT 96 H Alkaline Phosphatase 95 Total Protein 6.9 Albumin 3.1 L Globulin 3.8 Albumin/Globulin Ratio 0.8 L Radiography Chest X-Ray - ED: 1 View, Read by ED Physician, Read by Radiologist and Normal Diagnostic Testing: Radiology Impression Chest X-Ray 03/26/21 22:00 IMPRESSION: No radiographic evidence of acute cardiopulmonary disease. at 2222 Reported and signed by: Adria Mills MD Electronically Signed: Adria Mills MD at 22:21 EDT Tel , Service support , Chest CTA 03/26/21 22:55 IMPRESSION: Normal CTA chest examination, without a demonstrated pulmonary embolism or arterial dissection. Scattered infiltrates consistent with nonspecific bilateral multifocal pneumonia. Electronically Signed: Yung Byrd MD at 23:57 EDT , Service support , EKG Initial EKG: Attestation: I personally reviewed and interpreted this EKG as follows: Interpretation: No Acute Injury Pattern and Sinus Tachycardia (113) Prior EKG tracings: available for review Prior: Unchanged (04/03/2020) Discharge Plan Triage Chief Complaint: Shortness of Breath ED Provider: Kian Garcia Dx/Rx/DC Orders Clinical Impression: Pneumonia due to COVID-19 virus Instructions: Coronavirus Disease 2019 (COVID-19): Caring for Yourself or Others Prescriptions: No Action escitalopram oxalate [Lexapro] 5 mg tablet 5 mg PO DAILY RF: 0 desogestrel-ethinyl estradiol [Apri] 0.15-0.03 mg tablet 1 tab PO DAILY RF: 0 fexofenadine [Radha Allergy] 180 mg tablet 180 mg PO DAILY RF: 0 lansoprazole 30 MG capsule 30 mg PO BID RF: 0 azelastine 137 mcg (0.1 %) aerosol,spray 2 spray intranasal BID Qty: 30 RF: 3 fluticasone propionate 50 mcg/actuation spray,suspension 2 spray intranasal DAILY Qty: 18.2 RF: 3 celecoxib [Celebrex] 200 mg capsule 200 mg PO DAILY Qty: 30 RF: 0 Primary Care Provider: Gilbert Hurley Referrals: Gilbert Hurley MD [Primary Care Provider] - 5-7 Days Disposition Disposition: Home, Self Care
--- NOTE | 2021-03-26 21:43 | EKG12_ITS ---
Test Reason : SOB Blood Pressure : / mmHG Vent. Rate : 113 BPM Atrial Rate : 113 BPM P-R Int : 146 ms QRS Dur : 094 ms QT Int : 350 ms P-R-T Axes : 021 -09 011 degrees QTc Int : 480 ms Sinus tachycardia Otherwise normal ECG Confirmed by CLAUDE SAWYER, ANEUDY ([id number]), staff editor TAY REBOLLAR ([id number]) on 03/29/2021 8:33:17 AM Referred By: MACO Confirmed By:ANEUDY ARCE MD
[2021-03-26 21:58] VITALS: O2SAT 94
--- NOTE | 2021-03-26 22:00 | RAD_ITS ---
HISTORY: cough EXAMINATION/TECHNIQUE: XR Chest 1 View portable AP view COMPARISON: Two-view chest x-ray from 10/21/17 FINDINGS: LINES/DEVICES: color television console monitor leads. LUNGS: No pulmonary edema. No focal airspace consolidation. No sizable pleural effusion. No pneumothorax detected. MEDIASTINUM AND CARDIOVASCULAR STRUCTURES: Heart size within normal limits for imaging technique. Central airways and mediastinal contour are unremarkable. BONES AND SOFT TISSUES: No acute findings. RAD/Chest 1 View (Portable) IMPRESSION: No radiographic evidence of acute cardiopulmonary disease. at 2222 Reported and signed by: Adria Mills MD Electronically Signed: Adria Mills MD at 22:21 EDT Tel , Service support ,
[2021-03-26 22:11] LABS: Absolute Lymphocyte Count 0.67 X10^3/uL (0.83-4.51); Absolute Neutrophil Count 2.8 X10^3/uL (2.0-7.7); Lymphocyte # 0.67 X10^3/ul (0.83-4.51); Lymphocyte % 17.9 % (19-41); Mean Corp Hgb Conc 33.3 g/dL (32-36); Mean Corpuscular Hgb 28.9 pg (27.0-32.0); Mean Corpuscular Volume 86.8 fL (81-99); Mean Platelet Vol. 11.7 fl (6.2-12.0); Monocyte# 0.25 X10^3/uL; Monocyte% 6.7 % (0-10); NRBC Flagged by Analyzer 0 % (0-5); Neutrophil # 2.82 X10^3/uL (2.7-7.7); Neutrophil % 75.1 % (47-70); POSITIVE COUNT YES; Platelet Count 83 K/mm3 (150-450); RBC Distribution Width CV 12.7 % (11.6-14.6); RBC Distribution Width SD 40.4 fl (35.1-43.9); Red Blood Count 4.84 M/mm3 (4.2-5.4); White Blood Count 3.8 K/mm3 (4.4-11.0)
[2021-03-26 22:14] LABS: Differential Indicated SCAN CRITERIA MET
[2021-03-26 22:28] LABS: ALB/GLOB Ratio 0.8 RATIO (0.9-2.4); AST(SGOT) 98 U/L (15-37); Alanine Aminotransfer ALT/SGPT 96 U/L (13-56); Albumin, Serum 3.1 g/dL (3.2-5.0); Alkaline Phosphatase 95 U/L (45-117); Anion Gap 7 (5-15); BUN 5 mg/dL (7-18); BUN/Creat Ratio 5.5 RATIO (10-20); Calcium,Total 8.3 mg/dL (8.5-10.1); Chloride 104 mmol/L (98-107); Creatinine, Serum 0.91 mg/dL (0.55-1.02); EST Glomerular Filtration Rate 76 mL/min (>60); Est Glom Filt Rate - Afr Amer 92 mL/min (>60); Estimated Creatinine Clearance 73.42 ml/min; Globulin 3.8 g/dL (2.2-4.2); Glucose 128 mg/dL (74-106); Potassium 3.6 mmol/L (3.5-5.1); Protein, Total 6.9 g/dL (6.4-8.2); Sodium Level 138 mmol/L (136-145)
[2021-03-26 22:50] LABS: Differential Comment SCANNED
[2021-03-26 22:51] LABS: Platelet Estimate MOD DEC (ADEQ); Red Cell Morphology NORM C+C NORMAL (NORM C&C)
--- NOTE | 2021-03-26 22:55 | CT_ITS ---
STUDY: CTA CHEST REASON FOR EXAM: Female, 30 years old. Dyspnea RADIATION DOSAGE (If Supplied By Facility): CTDIvol = ( 12.93 ) mGy, DLP = ( 373.14 ) mGycm TECHNIQUE: The examination was performed with the intravenous administration of IV 100mL Isovue-370. Post-processing of the angiographic images was performed, with multiplanar reformation and 3D reconstruction. Individualized dose optimization techniques were used for this CT. COMPARISON: 04/03/2020. FINDINGS: Normal enhancement of the main pulmonary artery and right and left pulmonary arteries. Normal enhancement of the bilateral peripheral pulmonary arteries. There is no demonstrated pulmonary embolism. Normal thoracic aorta and visualized great vessels. There is no demonstrated aortic dissection. Normal heart and pericardium. Normal mediastinum. Normal hilar regions. Normal visualized trachea and bronchi. The lungs are under expanded. There are bilateral widespread streaky and patchy pulmonary opacities consistent with nonspecific multifocal pneumonia. Normal pleura. Normal chest wall structures. Normal osseous structures. Normal visualized upper abdomen. CT/CTA Chest W/WO Contrast IMPRESSION: Normal CTA chest examination, without a demonstrated pulmonary embolism or arterial dissection. Scattered infiltrates consistent with nonspecific bilateral multifocal pneumonia. Electronically Signed: Yung Byrd MD at 23:57 EDT , Service support ,
[2021-03-26 23:00] VITALS: BP 116/71; PULSE 102; O2SAT 96
[2021-03-27 00:18] VITALS: PULSE 89; RESP 14; O2SAT 95
== END 2021-03-27 00:19 | disposition home or self-care (01) ==
PROVIDERS: Emergency Provider Emergency Medicine; PCP Family Medicine
DX: U07.1 COVID-19 (principal); J12.82 Pneumonia due to coronavirus disease 2019; D64.9 Anemia, unspecified; Z79.1 Long term (current) use of non-steroidal anti-inflammatories (NSAID); Z79.899 Other long term (current) drug therapy
CPT/HCPCS: 71045; 71275; 80053; 83605; 85025; 87426; 93005; 99284; J7040; Q9967; A4216

== ENCOUNTER 2021-08-29 15:28 | Outpatient (CLI) | payer OTHER, MEDICAID, SELFPAY ==
--- NOTE | 2021-08-29 15:32 | BI_ITS ---
MAMMOGRAPHY - BILATERAL DIAGNOSTIC REASON FOR EXAM: Female, 30 years old. Right breast infection and lump at the 11 to 12 o''clock position. Patient noted enlargement of the right axillary lymph nodes. PERTINENT HISTORY: Aunts with breast cancer. TECHNIQUE: Digital bilateral breast caroline (3D mammographic acquisition) in the CC and MLO projections. 2-D mediolateral oblique (MLO) and craniocaudad (CC) views of both breasts were obtained. CAD: Full Field Digital Mammography with Computer Added Detection was performed. COMPARISON: Comparison is made with prior study dated 06/11/2015. FINDINGS: Breast Composition: The breasts are heterogeneously dense, which may obscure small masses. There are no dominant masses or suspicious calcifications. No other significant abnormalities are identified. There has been no significant change since the prior study. BI/DIAG MAMM W/CAD, BILAT IMPRESSION: Stable bilateral diagnostic mammogram. With the patient''s history of a palpable lump in the deep lateral outer aspect of the right breast, correlation with ultrasound is recommended. ASSESSMENT CATEGORY: BIRADS Category 0: Incomplete. Need additional imaging evaluation. A letter regarding these results will be sent to the patient by the facility within 30 days. Approximately 10% of breast cancers are not detected by mammography. A normal mammogram should not delay biopsy of a clinically suspicious abnormality. Electronically Signed: Steve Moy MD at 10:06 EST ,
== END 2021-08-29 23:59 | disposition short-term general hospital (02) ==
LOC: OPBI 15:29
PROVIDERS: PCP Family Medicine; Referring Provider Family Medicine; Visit Provider Family Medicine
DX: N64.4 Mastodynia (principal); R92.2 Inconclusive mammogram
CPT/HCPCS: 77062; 77066; G0279

== ENCOUNTER 2021-09-02 14:42 | Outpatient (CLI) | payer OTHER, MEDICAID, SELFPAY ==
--- NOTE | 2021-09-02 14:46 | US_ITS ---
STUDY: ULTRASOUND BREAST - RIGHT REASON FOR EXAM: Female, 30 years old. Right breast pain and palpable lump in the upper-outer quadrant of the breast. TECHNIQUE: Axial and longitudinal images of the RIGHT breast were performed with a high resolution ultrasound transducer. # OF IMAGES: 33 COMPARISON: Comparison is made with prior mammogram dated 08/29/2021 and prior sonogram of the right breast dated 06/11/2015. FINDINGS: RIGHT Breast: There is evidence of a 1.3 cm x 0.7 cm x 0.6 cm benign-appearing lymph node in the right axillary region. The upper half of the right breast was examined by ultrasound. No sonographic abnormality is seen. US/Breast Limited Unilateral IMPRESSION: 1.3 cm x 0.7 cm x 0.6 cm benign-appearing lymph node in the right axillary region. ASSESSMENT CATEGORY: BIRADS Category 2: Benign. A letter regarding these results will be sent to the patient by the facility within 30 days. Electronically Signed: Steve Moy MD at 15:45 EST ,
== END 2021-09-02 23:59 | disposition home or self-care (01) ==
LOC: US 14:43
PROVIDERS: PCP Family Medicine; Referring Provider Family Medicine; Visit Provider Family Medicine
DX: N64.4 Mastodynia (principal); N63.11 Unspecified lump in the right breast, upper outer quadrant
CPT/HCPCS: 76642

== ENCOUNTER → 2022-05-08 | Outpatient (CLI) | payer OTHER, MEDICAID, SELFPAY ==
--- NOTE | 2022-05-08 08:22 | RAD_ITS ---
STUDY: X-RAY - ESOPHAGUS (BARIUM SWALLOW) WITH FLUOROSCOPY REASON FOR EXAM: Female, 31 years old. GERD REFLUX TECHNIQUE: 13 view(s) of the esophagus were obtained following swallowing of barium. FLUOROSCOPY TIME (if supplied): (46 seconds) minutes/seconds COMPARISON: Comparison is made with prior study dated 07/19/2016. FINDINGS: There is no demonstrated esophageal foreign body. There is no demonstrated stricture or mucosal abnormality. Normal gastroesophageal junction, without a demonstrated hiatal hernia. The patient ingested a 12 mm tablet of barium. The tablet is trapped at the level of the gastroesophageal junction. Normal visualized aortic arch and descending thoracic aorta. Normal visualized pulmonary parenchyma. Normal visualized osseous structures of the thorax. RAD/Esophagus Dual Contrast IMPRESSION: The ingested 12 mm tablet of barium is trapped at the gastroesophageal junction. Electronically Signed: Steve Moy MD at 13:29 EDT ,
== END | disposition home or self-care (01) ==
LOC: RAD 08:10
PROVIDERS: PCP Family Medicine; Visit Provider Otolaryngology
DX: K21.9 Gastro-esophageal reflux disease without esophagitis (principal)
CPT/HCPCS: 74221

== ENCOUNTER → 2022-08-04 | Outpatient (CLI) | payer OTHER, MEDICAID, SELFPAY ==
--- NOTE | 2022-08-04 07:30 | LES_PTH ---
PATIENT: MAIK IZQUIERDO LOC: [facility] U#:[id number] AGE/SX: 31/F ROOM: RE08/04/[address]: Dr. Gilbert Hurley MD : 1990 BED: DIS: 08/04/2022 SPEC #: [id number] RECD: 08/04/22 17:31 STATUS: DAI PRASANNA #: [id number] PAL: 08/04/22 07:[address]: Gilbert Hurley DEPT: SURGICAL PATHOLOGY RECD BY: Ignacia Ledbetter Tissues: Skin of arm Procedures: Surgery Specimen Level IV HEADER OPERATION: Right arm neoplasm excision PRE-OP DIAGNOSIS: Suspicious skin lesion TISSUE SUBMITTED: Right arm neoplasm MICROSCOPIC DIAGNOSIS Neoplasm of right arm, biopsy: Intradermal nevus. AM:stacey 08/08/2022 MICROSCOPIC DESCRIPTION Slides are reviewed. GROSS DESCRIPTION Received in fixative is one container labeled with the patient's name and designated right arm neoplasm. The specimen consists of a punch biopsy of patricia-light brown skin measuring 0.3 cm in diameter and 0.3 cm in length. The specimen is totally submitted in one cassette. / SJ:rg 08/07/2022 TC:5 [facility]: [id number]
== END | disposition home or self-care (01) ==
PROVIDERS: PCP Family Medicine; Referring Provider Family Medicine; Visit Provider Family Medicine
DX: L98.9 Disorder of the skin and subcutaneous tissue, unspecified (principal)
CPT/HCPCS: 88305

== ENCOUNTER 2022-09-01 19:38 | Emergency (ER) | payer OTHER, MEDICAID, SELFPAY ==
[2022-09-01 19:39] VITALS: BP 124/92; PULSE 106; RESP 16; TEMP 36.6; O2SAT 100; BMI 30.1
--- NOTE | 2022-09-01 21:01 | US_ITS ---
STUDY: VENOUS DOPPLER ULTRASOUND - RIGHT LOWER EXTREMITY REASON FOR EXAM: Female, 31 years old. LEG PAIN AND SWELLING undefined -- PAIN TECHNIQUE: Ultrasound evaluation of the deep vein system to include gary-scale imaging and compression was performed. Gary-scale imaging and Doppler sonographic evaluation, including duplex spectral analysis and qualitative color flow sonography, was performed. COMPARISON: None. FINDINGS: Common Femoral Vein: Normal compression, spontaneity and augmentation. Normal color Doppler. Common Femoral Vein/Greater Saphenous Junction: Normal compression, spontaneity and augmentation. Normal color Doppler. Superficial Femoral Proximal: Normal compression, spontaneity and augmentation. Normal color Doppler. Superficial Femoral Middle: Normal compression, spontaneity and augmentation. Normal color Doppler. Superficial Femoral Distal: Normal compression, spontaneity and augmentation. Normal color Doppler. Popliteal Vein: Normal compression, spontaneity and augmentation. Normal color Doppler. Posterior Tibial Vein: Normal compression, spontaneity and augmentation. Normal color Doppler. Peroneal Vein: Normal compression, spontaneity and augmentation. Normal color Doppler. There is no demonstrated deep venous thrombosis. US/Venous Duplex Imag/Limited/Uni IMPRESSION: There is no demonstrated deep venous thrombosis. Electronically Signed: Emory Troy MD at 21:44 EST ,
[2022-09-01 22:11] LABS: Absolute Lymphocyte Count 2.44 X10^3/uL (0.83-4.51); Absolute Neutrophil Count 4.8 X10^3/uL (2.0-7.7); Basophil# 0.05 X10^3/uL; Basophil% 0.6 % (0-1); Eosinophil# 0.33 X10^3/uL; Hemoglobin 10.9 g/dL (12.0-15.0); Lymphocyte # 2.44 X10^3/ul (0.83-4.51); Lymphocyte % 29.8 % (19-41); Mean Corp Hgb Conc 30.3 g/dL (32-36); Mean Corpuscular Hgb 23.1 pg (27.0-32.0); Mean Corpuscular Volume 76.4 fL (81-99); Mean Platelet Vol. 10.3 fl (6.2-12.0); Monocyte# 0.58 X10^3/uL; Monocyte% 7.1 % (0-10); NRBC Flagged by Analyzer 0 % (0-5); Neutrophil # 4.78 X10^3/uL (2.7-7.7); Neutrophil % 58.3 % (47-70); Platelet Count 253 K/mm3 (150-450); RBC Distribution Width CV 16.4 % (11.6-14.6); RBC Distribution Width SD 45.5 fl (35.1-43.9); Red Blood Count 4.71 M/mm3 (4.2-5.4); White Blood Count 8.2 K/mm3 (4.4-11.0)
[2022-09-01 22:27] LABS: Anion Gap 8 (5-15); BUN 18 mg/dL (7-18); BUN/Creat Ratio 18.2 RATIO (10-20); Calcium,Total 8.8 mg/dL (8.5-10.1); Chloride 107 mmol/L (98-107); Creatinine, Serum 0.99 mg/dL (0.55-1.02); EST Glomerular Filtration Rate 68 mL/min (>60); Est Glom Filt Rate - Afr Amer 83 mL/min (>60); Estimated Creatinine Clearance 66.86 ml/min; Glucose 126 mg/dL (74-106); Potassium 3.6 mmol/L (3.5-5.1); Sodium Level 143 mmol/L (136-145)
[2022-09-01 22:37] LABS: D-Dimer Quantitative (DVT/PE) < 0.27 FEU/ug/m (0.27-0.49)
--- NOTE | 2022-09-01 22:45 | EKG12_ITS ---
Test Reason : SOB Blood Pressure : / mmHG Vent. Rate : 079 BPM Atrial Rate : 079 BPM P-R Int : 168 ms QRS Dur : 092 ms QT Int : 374 ms P-R-T Axes : 032 -17 018 degrees QTc Int : 428 ms Normal sinus rhythm Normal ECG Confirmed by ANEUDY ARCE MD ([id number]), editor house organ JAMES SCHULER ([id number]) on 09/04/2022 11:12:49 AM Referred By: Confirmed By:NAEUDY ARCE MD
--- NOTE | 2022-09-01 23:05 | EX.ED.DYSGE1 ---
HPI History of Present Illness Chief Complaint: Shortness of Breath Narrative Narrative: Patient is a 31-year-old female with past medical history of anemia. She states that over the past few weeks she has been having to travel more for work. She has noticed that she has had some tenderness and pain to her right calf and feels like the area is slightly swollen. She states that she has never had a DVT or PE but there is a strong family history of them and that today she noticed some shortness of breath sensation which she could not differentiate between anxiety or possible clot and secondary to this comes in for evaluation [facility] Medical History (Updated 09/01/22 @ 23:[address] Lauri Lucio, DO) Anemia Fatigue Fever SOB (shortness of breath) Home Medications lansoprazole 30 mg capsule,delayed release 30 mg PO BID 05/19/20 [History Last Taken 05/19/20 08:00] desogestrel 0.15 mg-ethinyl estradiol 0.03 mg tablet (Apri) 1 tab PO DAILY 11/29/20 [History Last Taken Unknown] escitalopram oxalate 5 mg tablet (Lexapro) 5 mg PO DAILY 11/29/20 [History Last Taken Unknown] fexofenadine 180 mg tablet (Ardha Allergy) 180 mg PO DAILY 11/29/20 [History Last Taken Unknown] azelastine 137 mcg (0.1 %) nasal spray aerosol 2 spray intranasal BID #30 mL 12/06/20 [Rx Last Taken Unknown] celecoxib 200 mg capsule (Celebrex) 200 mg PO DAILY Stomach Ulcer and Pain #30 caps 01/20/21 [Rx Last Taken Unknown] fluticasone propionate 50 mcg/actuation nasal spray,suspension 2 spray intranasal DAILY #18.2 mL 08/22/21 [Rx Last Taken Unknown] Allergy/AdvReac Type Severity Reaction Status Date / Time grape Allergy Swelling Verified 09/01/22 19:42 morphine AdvReac Other Verified 09/01/22 19:42 promethazine HCl AdvReac Other Verified 09/01/22 19:42 [From Phenergan] sulfamethoxazole AdvReac Vomiting Verified 09/01/22 19:42 [From Bactrim] trimethoprim [From Bactrim] AdvReac Vomiting Verified 09/01/22 19:42 Family History Grandfather Heart disease Parkinson disease Hypertension Grandmother Heart disease CHF (congestive heart failure) Hypertension Dementia Mother CHF (congestive heart failure) Heart disease Father Hypertension Dementia Surgical History History of tonsillectomy Hx of section Social History Smoking Status: Never smoker alcohol intake: current alcohol intake frequency: a few times a month Alcohol type: wine ROS ROS ED Constitutional Constitutional ED: Denies chills or fever(s) ENT ENT ED: Denies sore throat Cardiovascular Cardiovascular: Denies chest pain Respiratory/Chest Respiratory/Chest: Reports dyspnea; Denies cough Gastrointestinal Gastrointestinal: Denies abdominal pain, diarrhea, nausea or vomiting Genitourinary Genitourinary ED: Denies dysuria Musculoskeletal Musculoskeletal: Reports other Details: Positive right calf pain Integumentary Denies rash Neurologic Neurologic: Denies headache(s) Hematologic/Lymphatic Hematologic/Lymphatic: Denies easy bleeding or easy bruising EXAM Physical Exam Const Vital Signs: 09/01/22 19:39 Temperature 97.8 F Temperature Source Temporal Pulse Rate 106 H Respiratory Rate 16 Blood Pressure 124/92 H Blood Pressure Mean 102 Pulse Ox 100 Oxygen Delivery Method Room Air Positive well nourished and well developed General Appearance ED: well developed HEENT Reports moist mucous membranes HEENT Narrative: No tongue or lip swelling no airway edema or compromise Eyes PERRL and EOMs intact bilaterally Neck supple and no JVD Chest Wall palpation of chest normal Resp normal respiratory effort and clear to auscultation bilaterally Cardio regular rhythm Rate: tachycardic and other Other Details: Slightly tachycardic rate with regular rhythm. Radial pulses are plus 2 out of 4 bilaterally are equal and symmetric GI normal to inspection, nondistended, normoactive bowel sounds, non-tender, non-distended and no masses Auscultation: normoactive bowel sounds Palpation: soft Extremity Extremity Narrative: There is trace nonpitting edema to the right lower extremity compared to left with mild calf tenderness with palpation but no overlying soft tissue changes to suggest trauma or infection Neuro oriented x3 and CN's II-XII intact bilaterally Sensorium / Orientation: alert Psych mental status grossly normal Skin no rashes or lesions noted MDM MDM MDM Narrative Medical decision making narrative: Patient presented to the ER slightly tachycardic but otherwise with stable vitals and in no acute respiratory distress. Based on her slight asymmetric leg edema and history of recent travel as well as family history of clots I did elect to perform a venous duplex as well as basic blood work. Venous duplex of the right lower extremity does not show any changes to suggest DVT and her D-dimer is also negative which goes against pulmonary embolus or DVT as a cause of her symptoms. An EKG was then obtained secondary to her slight tachycardia and shortness of breath sensation which revealed no acute ischemic or dysrhythmic events. Therefore this time with stable vitals and negative work-up I do not feel there is need for further evaluation as exam and work-up does not point to DVT PE severe anemia or cardiac event as a cause of her symptoms. Patient was advised to follow-up with her family doctor she is agreeable to this plan as work-up does not show any obvious signs of clot and is safe for discharge Lab Data Attestation: I reviewed the patient's lab results. Labs: Laboratory Results - last 24 hr 09/01/22 09/01/22 09/01/22 22:00 22:00 22:00 WBC 8.2 RBC 4.71 Hgb 10.9 L Hct 36.0 L MCV 76.4 L MCH 23.1 L MCHC 30.3 L RDW Std Deviation 45.5 H RDW Coeff of Nathaniel 16.4 H Plt Count 253 MPV 10.3 Immature Gran % (Auto) 0.200 Neut % (Auto) 58.3 Lymph % (Auto) 29.8 [place] % (Auto) 7.1 Eos % (Auto) 4.0 Baso % (Auto) 0.6 Absolute Neuts (auto) 4.8 Absolute Lymphs (auto) 2.44 Nucleated RBC % 0 D-Dimer Quant (PE/DVT) < 0.27 L Sodium 143 Potassium 3.6 Chloride 107 Carbon Dioxide 28.0 Anion Gap 8 BUN 18 Creatinine 0.99 Estim Creat Clear Calc 66.86 Est GFR (MDRD) Af Amer 83 Est GFR (MDRD) Non-Af 68 BUN/Creatinine Ratio 18.2 Glucose 126 H Calcium 8.8 Radiography Diagnostic Testing: Clinical Impression(s) from Imaging Studies Venous Duplex 09/01/22 21:01 IMPRESSION: There is no demonstrated deep venous thrombosis. Electronically Signed: Emory Troy MD at 21:44 EST Reading Location ID and State: [facility] / [place] , Service support , Discharge Plan Triage Chief Complaint: Shortness of Breath Other Complaint: Lower Extremity Injury ED Provider: Lauri Lucio Dx/Rx/DC Orders Clinical Impression: Right calf pain, Dyspnea Instructions: ED Dyspnea Prescriptions: No Action escitalopram oxalate [Lexapro] 5 mg tablet 5 mg PO DAILY desogestrel-ethinyl estradiol [Apri] 0.15-0.03 mg tablet 1 tab PO DAILY fexofenadine [Radha Allergy] 180 mg tablet 180 mg PO DAILY lansoprazole 30 MG capsule 30 mg PO BID azelastine 137 mcg (0.1 %) aerosol,spray 2 spray intranasal BID Qty: 30 3RF Rx Instructions: administer into each nostril celecoxib [Celebrex] 200 mg capsule 200 mg PO DAILY Qty: 30 0RF Rx Instructions: Do not take in conjunction with other NSAIDs, Tylenol is okay. fluticasone propionate 50 mcg/actuation spray,suspension 2 spray intranasal DAILY Qty: 18.2 3RF Rx Instructions: administer into each nostril Primary Care Provider: Gilbert Hurley Referrals: Gilbert Hurley MD [Primary Care Provider] - Activity Restrictions/Additional Instructions: The ultrasound of your leg does not show any type of blood clot/DVT. Your D-dimer is also negative which goes against a pulmonary embolus. Please follow-up with her family doctor for repeat evaluation and return to the ER should you have any further concerns Disposition Disposition: Home, Self Care
== END 2022-09-01 23:26 | disposition home or self-care (01) ==
PROVIDERS: Emergency Medicine; Emergency Provider Emergency Medicine; PCP Family Medicine; Visit Provider Emergency Medicine
DX: M79.661 Pain in right lower leg (principal); R06.00 Dyspnea, unspecified; Z82.49 Family history of ischemic heart disease and other diseases of the circulatory system
CPT/HCPCS: 80048; 85025; 85379; 93005; 93971; 94760; 99283; A4216

== ENCOUNTER 2022-11-26 22:41 | Emergency (ER) | payer OTHER, MEDICAID, SELFPAY ==
[2022-11-26 22:42] VITALS: BP 123/89; PULSE 89; RESP 16; TEMP 36.4; O2SAT 100; BMI 30.6
--- NOTE | 2022-11-26 23:30 | RAD_ITS ---
EXAM: XR CHEST, 1 VIEW CLINICAL INDICATION: chest pain TECHNIQUE: Frontal view of the chest. COMPARISON: 03/26/2021 FINDINGS: LUNGS AND PLEURAL SPACES: Unremarkable. No consolidation or edema. No pneumothorax. No effusion. HEART: Unremarkable. Cardiac silhouette not enlarged. MEDIASTINUM: Central airways and mediastinal contour are unremarkable. BONES/JOINTS: Unremarkable. SOFT TISSUES: Unremarkable. RAD/Chest 1 View (Portable) IMPRESSION: No radiographic evidence of acute cardiopulmonary disease. Electronically Signed: Emory Woods MD at 0:19 EDT ,
--- NOTE | 2022-11-26 23:31 | EDS_ITS ---
HPI History of Present Illness Chief Complaint: Neuro S/Sx Detail of Chief Complaint: Syncope Informant: patient Onset/Context/Timing Onset: Today Context: Sudden Onset Current Severity: Gone Maximum Severity: Mild Narrative Narrative: 31-year-old female past medical history of reflux. Says she has passed out 5 times in the last 2 years never been evaluated for it. Today her has a history of bipolar disorder is currently manic. She said he was doing irrational things at home she was trying to stop him from leaving and losing his medications and she felt lightheaded and passed out. Said this was very brief and only lasted seconds. She denies any headache or chest pain. Last week she had viral syndrome with nausea vomiting and diarrhea. Denies any dysuria or abdominal pain. No recent hospitalizations or surgeries. Prior similar symptoms: Yes Recent Illness/Hospitalization: No [facility] Medical History (Updated 11/27/22 @ 00:[address] Gerardo Antonoi MD) Anemia Fatigue Fever SOB (shortness of breath) Home Medications lansoprazole 30 mg capsule,delayed release 30 mg PO BID 05/19/20 [History Last Taken 05/19/20 08:00] desogestrel 0.15 mg-ethinyl estradiol 0.03 mg tablet (Apri) 1 tab PO DAILY 11/29/20 [History Last Taken Unknown] fexofenadine 180 mg tablet (Radha Allergy) 180 mg PO DAILY 11/29/20 [History Last Taken Unknown] azelastine 137 mcg (0.1 %) nasal spray aerosol 2 spray intranasal BID #30 mL 12/06/20 [Rx Last Taken Unknown] celecoxib 200 mg capsule (Celebrex) 200 mg PO DAILY Stomach Ulcer and Pain #30 caps 01/20/21 [Rx Last Taken Unknown] fluticasone propionate 50 mcg/actuation nasal spray,suspension 2 spray intranasal DAILY #18.2 mL 08/22/21 [Rx Last Taken Unknown] Allergy/AdvReac Type Severity Reaction Status Date / Time grape Allergy Swelling Verified 11/26/22 22:45 morphine AdvReac Other Verified 11/26/22 22:45 promethazine HCl AdvReac Other Verified 11/26/22 22:45 [From Phenergan] sulfamethoxazole AdvReac Vomiting Verified 11/26/22 22:45 [From Bactrim] trimethoprim [From Bactrim] AdvReac Vomiting Verified 11/26/22 22:45 Family History Grandfather Heart disease Parkinson disease Hypertension Grandmother Heart disease CHF (congestive heart failure) Hypertension Dementia Mother CHF (congestive heart failure) Heart disease Father Hypertension Dementia Surgical History History of tonsillectomy Hx of section Social History Smoking Status: Never smoker alcohol intake: current alcohol intake frequency: a few times a month Alcohol type: wine ROS ROS ED ROS Narrative Recent GI illness resolved with nausea, vomiting and diarrhea. Review of Systems ROS Unobtainable: Denies due to encephalopathy Constitutional Constitutional ED: Denies chills or fever(s) Eyes Eyes: Denies blurry vision ENT ENT ED: Denies ear pain Cardiovascular Cardiovascular: Denies chest pain Respiratory/Chest Respiratory/Chest: Denies cough or dyspnea Gastrointestinal Gastrointestinal: Reports diarrhea, nausea, vomiting and other Details: 1 week ago. ; Denies abdominal pain, constipation or melena Genitourinary Genitourinary ED: Denies dysuria Musculoskeletal Musculoskeletal: Denies arthralgias Neurologic Neurologic: Denies headache(s) Psychiatric Psychiatric: Denies anxiety Endocrine Endocrinology: Denies cold intolerance Hematologic/Lymphatic Hematologic/Lymphatic: Reports none Allergic/Immunologic Allergic/Immunologic ED: Denies mouth swelling or tongue swelling EXAM Physical Exam Narrative Exam Narrative: Well-appearing 31-year-old female. Vital signs stable afebrile. H EENT exam unremarkable. Pupils round reactive light. No facial droop. Normal speech. No signs of trauma to her face or scalp. Neck nontender. No lymphadenopathy. Lungs clear to auscultation bilaterally. Heart regular rhythm no murmur. Rate about 90. Chest wall nontender. Abdomen soft nontender. Normal bowel sounds no peritoneal signs. Moving all 4 extremities. 5 out of 5 vegetable thinner strength. Kasi si plantarflexion intact. Normal range of motion. No ataxia. Neurologically she is awake and alert. Answering questions following commands. NIH score of 0. Fingertip to nose within normal limits. No drift. Back nontender. Normal exam. Const Vital Signs: 11/26/22 22:42 11/26/22 22:49 11/26/22 23:43 Temperature 97.5 F L Temperature Source Temporal Pulse Rate 89 Pulse Rate [Lying] Pulse Rate [Sitting (for 1 minute prior to obtaining)] Pulse Rate [Standing (for 1 minute prior to obtaining)] Respiratory Rate 16 Respiratory Effort Normal Non-Labored Respiratory Pattern Normal Blood Pressure 123/89 H Blood Pressure [Lying] Blood Pressure [Sitting (for 1 minute prior to obtaining)] Blood Pressure [Standing (for 1 minute prior to obtaining)] Blood Pressure Mean 100 Blood Pressure Mean [Lying] Blood Pressure Mean [Sitting (for 1 minute prior to obtaining)] Blood Pressure Mean [Standing (for 1 minute prior to obtaining)] Pulse Ox 100 98 Oxygen Delivery Method Room Air Room Air 11/27/22 00:02 Temperature Temperature Source Pulse Rate Pulse Rate [Lying] 83 Pulse Rate [Sitting (for 1 minute prior to obtaining)] 90 Pulse Rate [Standing (for 1 minute prior to obtaining)] 88 Respiratory Rate Respiratory Effort Respiratory Pattern Blood Pressure Blood Pressure [Lying] 112/87 H Blood Pressure [Sitting (for 1 minute prior to obtaining)] 120/91 H Blood Pressure [Standing (for 1 minute prior to obtaining)] 132/98 H Blood Pressure Mean Blood Pressure Mean [Lying] 95 Blood Pressure Mean [Sitting (for 1 minute prior to obtaining)] 100 Blood Pressure Mean [Standing (for 1 minute prior to obtaining)] 109 Pulse Ox Oxygen Delivery Method Positive well nourished and well developed; Negative for obese, cachectic, contractures or unkempt General Appearance ED: well developed and NAD; Negative for unkempt, cachectic, contractures, cyanotic, diaphoretic or pallor Nutritional Appearance: Negative for cachectic or obese HEENT Reports moist mucous membranes; Denies dry mucous membranes Negative for trauma or tenderness Mouth ED: No dry mucous membranes Mouth: No dry mucous membranes Eyes PERRL and EOMs intact bilaterally General Eye ED: Negative for pale conjunctiva, scleral icterus or other Neck no lymphadenopathy, supple and no JVD General: Negative for tenderness Lymph Lymphatic: Negative for other Chest Wall inspection of chest normal and palpation of chest normal Chest: Negative for other Resp normal respiratory effort and clear to auscultation bilaterally Effort and Inspection: Negative for retractions Auscultation: Negative for rales, rhonchi or wheezes Cardio regular rate, regular rhythm, S1 normal heart sound, S2 normal heart sound and no murmurs Palpation: Negative for palpable S3 Rate: Negative for bradycardia or tachycardic Rhythm: Negative for abnormal rhythm GI normal to inspection, nondistended, normoactive bowel sounds, non-tender, non- distended and no masses; Negative for hepatosplenomegaly Inspection: Negative for abdominal distention Auscultation: normoactive bowel sounds Palpation: soft; Negative for tender or guarding Back/Spine no CVA tenderness General Back: Negative for CVA tenderness Cervical Spine: Negative for cervical spine tenderness Thoracic Spine / Upper Back: Negative for thoracic spinal tenderness Lumbar Spine / Lower Back: Negative for lumbar spinal tenderness Extremity normal to inspection General Extremety ED: Negative for edema or tenderness General Extremity: Negative for edema Neuro oriented x3, CN's II-XII intact bilaterally and no sensory deficits noted Neuro Narrative: Normal neurologic exam. NIH 0. Normal speech. Normal motor strength and sensation. Sensorium / Orientation: alert; Negative for orientation impaired, lethargic or stuporous Sensory Exam: No sensory level loss detected Motor Exam: strength 5/5 throughout Psych mental status grossly normal Appearance: Negative for unkempt Attitude: No agitated Mood & Affect: Negative for depressed or tearful Skin no rashes or lesions noted, no wounds and skin turgor normal General Skin Exam: elasticity normal; Negative for jaundice or pallor Lesions: No lesion noted Rashes: No rashes noted Trauma: Negative for abrasion Wounds: Negative for wounds noted MDM MDM MDM Narrative Medical decision making narrative: 31-year-old female has very stressful situation at home with her with bipolar disorder. Has had syncopal events 5 times last 2 years. She has a normal physical exam. Normal neurologic exam. No cardiac history. We will do a cardiac work-up. I do not think she needs imaging of her brain. Repeat exam at 12:48 AM patient is doing well. Exam normal and unchanged. We went over all of her test results. They are comfortable being discharged home. Both her cardiac and neurologic exam remains normal. History & Record Review Discussion w/independent historian: Patient Lab Data Attestation: I reviewed the patient's lab results. Lab results narrative: CBC shows a white count 7.6. H&H 11.3 and 36.7. Consistent with a mild anemia. Platelets normal at 262. Electrolytes show a gap of 4. Normal BUN of 16 creatinine of 1. Glucose 129. Troponin 15. Serum test negative. Chest x-ray normal. EKG unremarkable. She does have prior labs on her computer and her last hemoglobin was 10.9. She normally runs between 10.9 and 14. Labs: Laboratory Results - last 24 hr 11/26/22 11/26/22 11/26/22 23:39 23:39 23:39 WBC 7.6 RBC 4.65 Hgb 11.3 L Hct 36.7 L MCV 78.9 L MCH 24.3 L MCHC 30.8 L RDW Std Deviation 44.2 H RDW Coeff of Nathaniel 15.5 H Plt Count 262 MPV 10.1 Immature Gran % (Auto) 0.400 Neut % (Auto) 52.3 Lymph % (Auto) 36.4 [place] % (Auto) 6.9 Eos % (Auto) 3.3 Baso % (Auto) 0.7 Absolute Neuts (auto) 4.0 Absolute Lymphs (auto) 2.75 Nucleated RBC % 0 Sodium 137 Potassium 3.6 Chloride 108 H Carbon Dioxide 25.0 Anion Gap 4 L BUN 16 Creatinine 1.08 H Estim Creat Clear Calc 61.29 Est GFR (MDRD) Af Amer 75 Est GFR (MDRD) Non-Af 62 BUN/Creatinine Ratio 14.8 Glucose 129 H Calcium 8.8 Troponin I High Sens 15 Serum , Qual NEGATIVE Radiography Chest X-Ray - ED: 1 View, Read by ED Physician, Read by Radiologist, Heart, Lungs, Mediastinum, Bony Structures and No Acute Disease Diagnostic Testing: Clinical Impression(s) from Imaging Studies Chest X-Ray 11/26/22 23:30 IMPRESSION: No radiographic evidence of acute cardiopulmonary disease. Electronically Signed: Emory Woods MD at 0:19 EDT , Chest x-ray, portable, single view read by myself and the radiologist is unremarkable. Normal cardiac silhouette. No infiltrates. No fluid. Normal lung [place]. Rhythm Strip Rhythm Strip: Sinus Rhythm Rate: 76 Ectopy: None EKG Initial EKG: Attestation: I personally reviewed and interpreted this EKG as follows: Interpretation: Sinus Rhythm and No Acute Injury Pattern Comments: Normal sinus rhythm rate of 76. No acute signs of CO, ischemia or dysrhythmia. No old EKG available for comparison. Prior EKG tracings: not available for review Prior: No Prior Discharge Plan Triage Chief Complaint: Neuro S/Sx Other Complaint: Syncope ED Provider: Gerardo Antonio Dx/Rx/DC Orders Clinical Impression: Syncope Instructions: Causes of Syncope Prescriptions: No Action desogestrel-ethinyl estradiol [Apri] 0.15-0.03 mg tablet 1 tab PO DAILY fexofenadine [Radha Allergy] 180 mg tablet 180 mg PO DAILY lansoprazole 30 MG capsule 30 mg PO BID azelastine 137 mcg (0.1 %) aerosol,spray 2 spray intranasal BID Qty: 30 3RF Rx Instructions: administer into each nostril celecoxib [Celebrex] 200 mg capsule 200 mg PO DAILY Qty: 30 0RF Rx Instructions: Do not take in conjunction with other NSAIDs, Tylenol is okay. fluticasone propionate 50 mcg/actuation spray,suspension 2 spray intranasal DAILY Qty: 18.2 3RF Rx Instructions: administer into each nostril Primary Care Provider: Gilbert Hurley Referrals: Gilbert Hurley MD [Primary Care Provider] - 3-5 Days if not improving Activity Restrictions/Additional Instructions: Follow-up with your doctor. Return if feeling worse. Disposition Disposition: Home, Self Care
[2022-11-26 23:43] VITALS: O2SAT 98
[2022-11-26 23:44] LABS: Absolute Lymphocyte Count 2.75 X10^3/uL (0.83-4.51); Basophil# 0.05 X10^3/uL; Basophil% 0.7 % (0-1); Eosinophil# 0.25 X10^3/uL; Eosinophils% 3.3 % (0-5); Hematocrit 36.7 % (37-47); Hemoglobin 11.3 g/dL (12.0-15.0); Lymphocyte # 2.75 X10^3/ul (0.83-4.51); Lymphocyte % 36.4 % (19-41); Mean Corp Hgb Conc 30.8 g/dL (32-36); Mean Corpuscular Hgb 24.3 pg (27.0-32.0); Mean Corpuscular Volume 78.9 fL (81-99); Mean Platelet Vol. 10.1 fl (6.2-12.0); Monocyte# 0.52 X10^3/uL; Monocyte% 6.9 % (0-10); NRBC Flagged by Analyzer 0 % (0-5); Neutrophil # 3.96 X10^3/uL (2.7-7.7); Neutrophil % 52.3 % (47-70); Platelet Count 262 K/mm3 (150-450); RBC Distribution Width CV 15.5 % (11.6-14.6); RBC Distribution Width SD 44.2 fl (35.1-43.9); Red Blood Count 4.65 M/mm3 (4.2-5.4); White Blood Count 7.6 K/mm3 (4.4-11.0)
[2022-11-26 23:49] VITALS: BMI 30.6
[2022-11-27 00:02] VITALS: BP 112/87; BP 120/91; BP 132/98; PULSE 83; PULSE 88; PULSE 90
[2022-11-27 00:15] LABS: Internal QC Validated? YES +Cl - CLEAR BKGD; Pregnancy, Serum, hCG Quali. NEGATIVE Negative
[2022-11-27 00:19] LABS: Anion Gap 4 (5-15); BUN 16 mg/dL (7-18); BUN/Creat Ratio 14.8 RATIO (10-20); Calcium,Total 8.8 mg/dL (8.5-10.1); Chloride 108 mmol/L (98-107); Creatinine, Serum 1.08 mg/dL (0.55-1.02); EST Glomerular Filtration Rate 62 mL/min (>60); Est Glom Filt Rate - Afr Amer 75 mL/min (>60); Estimated Creatinine Clearance 61.29 ml/min; Glucose 129 mg/dL (74-106); Potassium 3.6 mmol/L (3.5-5.1); Sodium Level 137 mmol/L (136-145); Troponin-I HS 15 pg/mL (3.0-54.0)
[2022-11-27 00:42] VITALS: PULSE 69; RESP 16; O2SAT 99
== END 2022-11-27 00:59 | disposition home or self-care (01) ==
PROVIDERS: Emergency Provider Emergency Medicine; PCP Family Medicine; Visit Provider Emergency Medicine
DX: R55 Syncope and collapse (principal); Z79.3 Long term (current) use of hormonal contraceptives
CPT/HCPCS: 71045; 80048; 84484; 84703; 85025; 93005; 99285; A4216

== ENCOUNTER → 2022-12-12 | Outpatient (CLI) | payer OTHER, MEDICAID, SELFPAY ==
--- NOTE | 2022-12-12 08:49 | US_ITS ---
STUDY: ULTRASOUND BREAST - RIGHT REASON FOR EXAM: Female, 32 years old. Right axillary pain. TECHNIQUE: Axial and longitudinal images of the RIGHT breast were performed with a high resolution ultrasound transducer. # OF IMAGES: 37 COMPARISON: Comparison is made with prior mammogram done earlier in the day as well as prior sonogram of the right breast dated September 02, 2021. FINDINGS: RIGHT Breast: Imaging of the right axilla was obtained. 4 benign appearing lymph nodes are seen. The largest measures 2.5 cm by 1.2 cm x 0.6 cm. It has a fatty hilum. US/Breast Limited Unilateral IMPRESSION: 4 lymph nodes are seen in the right axilla. The largest lymph node measures 2.5 cm x 1.2 cm x 0.6 ASSESSMENT CATEGORY: BIRADS Category 2: Benign. A letter regarding these results will be sent to the patient by the facility within 30 days. Electronically Signed: Steve Moy MD at 15:34 EDT ,
--- NOTE | 2022-12-12 08:49 | BI_ITS ---
MAMMOGRAPHY - BILATERAL DIAGNOSTIC REASON FOR EXAM: Female, 32 years old. Recently palpable right breast mass in the axillary region. Nonpalpable at time of examination. PERTINENT HISTORY: Aunt with breast cancer. TECHNIQUE: Digital bilateral breast caroline (3D mammographic acquisition) in the CC and MLO projections. 2-D mediolateral oblique (MLO) and craniocaudad (CC) views of both breasts were obtained. CAD: Full Field Digital Mammography with Computer Added Detection was performed. COMPARISON: Comparison is made with prior study dated February 26, 2022. FINDINGS: Breast Composition: The breasts are extremely dense, which lowers the sensitivity of mammography. There are no dominant masses or suspicious calcifications. Lymph nodes are seen in the right axillary region. No other significant abnormalities are identified. There has been no significant change since the prior study. BI/DIAG MAMM W/CAD, BILAT IMPRESSION: Stable bilateral diagnostic mammogram. With the patient''s history of a right axillary lump, correlation with ultrasound is recommended. ASSESSMENT CATEGORY: BIRADS Category 0: Incomplete. Need additional imaging evaluation. A letter regarding these results will be sent to the patient by the facility within 30 days. Approximately 10% of breast cancers are not detected by mammography. A normal mammogram should not delay biopsy of a clinically suspicious abnormality. Electronically Signed: Steve Moy MD at 10:29 EDT ,
== END | disposition home or self-care (01) ==
LOC: OPBI 08:46
PROVIDERS: PCP Family Medicine; Referring Provider Family Medicine; Visit Provider Family Medicine
DX: N64.4 Mastodynia (principal)
CPT/HCPCS: 77062; 76642; 77066; G0279

== ENCOUNTER 2022-12-20 12:59 | Emergency (ER) | payer OTHER, MEDICAID, SELFPAY ==
[2022-12-20 13:00] VITALS: BP 137/91; PULSE 117; RESP 16; TEMP 36.6; O2SAT 100; BMI 30.7
--- NOTE | 2022-12-20 13:27 | CT_ITS ---
HISTORY: paraesthesias right side. TECHNIQUE: Multiple axial images were obtained of the head without intravenous contrast. A radiation dose optimization technique was used for this scan. 237 images. COMPARISON: 05/29/2019. FINDINGS: BRAIN PARENCHYMA: No significant attenuation abnormality. No acute intra-axial hemorrhage. CSF SPACES: Cerebral ventricles, cortical sulci, and other extra-axial CSF spaces within normal limits in size for age. No midline shift or other significant mass effect. No acute extra-axial hemorrhage. OTHER: Intact calvarium. No significant air fluid levels in the paranasal sinuses or mastoid air cells. Unremarkable orbits. CT/Brain/Head without Contrast IMPRESSION: No acute intracranial process identified. Electronically Signed: Celi Shukla MD at 15:18 EDT ,
--- NOTE | 2022-12-20 13:30 | EKG12_ITS ---
Test Reason : BACK PAIN Blood Pressure : / mmHG Vent. Rate : 089 BPM Atrial Rate : 089 BPM P-R Int : 116 ms QRS Dur : 090 ms QT Int : 362 ms P-R-T Axes : 037 -01 026 degrees QTc Int : 440 ms Normal sinus rhythm Low voltage QRS Borderline ECG Confirmed by CLAUDE SAWYER, ANEUDY ([id number]), industrial editor TAY REBOLLAR ([id number]) on 12/21/2022 9:07:21 AM Referred By: Confirmed By:ANEUDY ARCE MD
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
--- NOTE | 2022-12-20 14:50 | RAD_ITS ---
HISTORY: bilat chest pain. TECHNIQUE: XR Chest 2 Views. COMPARISON: 11/26/2022. FINDINGS: CARDIOMEDIASTINAL BORDERS: Cardiac silhouette within normal limits in size. Mediastinal contour unremarkable. LUNGS: Radiographically clear. Artifact from patient''s hair over the right upper lobe. PLEURA: No pleural effusion or pneumothorax seen. OSSEOUS STRUCTURES: Unremarkable. RAD/Chest PA and Lateral IMPRESSION: No acute cardiopulmonary process identified. Electronically Signed: Celi Shukla MD at 15:19 EDT ,
[2022-12-20 14:51] LABS: Absolute Lymphocyte Count 1.58 X10^3/uL (0.83-4.51); Absolute Neutrophil Count 3.2 X10^3/uL (2.0-7.7); Basophil# 0.04 X10^3/uL; Basophil% 0.7 % (0-1); Eosinophil# 0.13 X10^3/uL; Eosinophils% 2.4 % (0-5); Hematocrit 37.8 % (37-47); Hemoglobin 11.6 g/dL (12.0-15.0); Lymphocyte # 1.58 X10^3/ul (0.83-4.51); Mean Corp Hgb Conc 30.7 g/dL (32-36); Mean Corpuscular Hgb 24.6 pg (27.0-32.0); Mean Corpuscular Volume 80.1 fL (81-99); Mean Platelet Vol. 10.1 fl (6.2-12.0); Monocyte# 0.44 X10^3/uL; Monocyte% 8.1 % (0-10); NRBC Flagged by Analyzer 0 % (0-5); Neutrophil # 3.24 X10^3/uL (2.7-7.7); Neutrophil % 59.4 % (47-70); Platelet Count 257 K/mm3 (150-450); RBC Distribution Width CV 15.7 % (11.6-14.6); Red Blood Count 4.72 M/mm3 (4.2-5.4); White Blood Count 5.5 K/mm3 (4.4-11.0)
[2022-12-20 15:08] LABS: Anion Gap 5 (5-15); BUN 9 mg/dL (7-18); BUN/Creat Ratio 8.5 RATIO (10-20); Calcium,Total 9.1 mg/dL (8.5-10.1); Chloride 109 mmol/L (98-107); Creatinine, Serum 1.06 mg/dL (0.55-1.02); EST Glomerular Filtration Rate 63 mL/min (>60); Est Glom Filt Rate - Afr Amer 76 mL/min (>60); Estimated Creatinine Clearance 61.86 ml/min; Glucose 95 mg/dL (74-106); Potassium 4.1 mmol/L (3.5-5.1); Sodium Level 139 mmol/L (136-145); Troponin-I HS 15 pg/mL (3.0-54.0)
[2022-12-20 15:32] VITALS: BP 133/71; PULSE 67; RESP 16; O2SAT 97
== END 2022-12-20 15:39 | disposition home or self-care (01) ==
PROVIDERS: Emergency Provider Emergency Medicine; PCP Family Medicine; Visit Provider Emergency Medicine
DX: M54.9 Dorsalgia, unspecified (principal); R07.89 Other chest pain; R20.2 Paresthesia of skin; K21.9 Gastro-esophageal reflux disease without esophagitis; Z79.899 Other long term (current) drug therapy; Z79.3 Long term (current) use of hormonal contraceptives
CPT/HCPCS: 70450; 71046; 80048; 84484; 85025; 93005; 99283

== ENCOUNTER → 2023-01-01 | Outpatient (CLI) | payer OTHER, MEDICAID, SELFPAY ==
[2023-01-01 11:11] LABS: Erythrocyte Sedimentation Rate 4 mm/hr (0-30)
[2023-01-01 11:14] LABS: Absolute Neutrophil Count 2.9 X10^3/uL (2.0-7.7); Basophil# 0.04 X10^3/uL; Basophil% 0.7 % (0-1); Eosinophil# 0.47 X10^3/uL; Eosinophils% 8.1 % (0-5); Hematocrit 39.6 % (37-47); Lymphocyte % 34.6 % (19-41); Mean Corp Hgb Conc 30.3 g/dL (32-36); Mean Corpuscular Hgb 24.2 pg (27.0-32.0); Mean Corpuscular Volume 79.8 fL (81-99); Mean Platelet Vol. 11.6 fl (6.2-12.0); Monocyte% 6.9 % (0-10); NRBC Flagged by Analyzer 0 % (0-5); Neutrophil # 2.86 X10^3/uL (2.7-7.7); Neutrophil % 49.5 % (47-70); Platelet Count 182 K/mm3 (150-450); RBC Distribution Width CV 16.1 % (11.6-14.6); RBC Distribution Width SD 45.5 fl (35.1-43.9); Red Blood Count 4.96 M/mm3 (4.2-5.4); White Blood Count 5.8 K/mm3 (4.4-11.0)
[2023-01-01 11:44] LABS: Vitamin D,25 Hydroxy 27.4 ng/mL
[2023-01-01 11:55] LABS: AST(SGOT) 18 U/L (15-37); Alanine Aminotransfer ALT/SGPT 25 U/L (13-56); Albumin, Serum 3.9 g/dL (3.2-5.0); Alkaline Phosphatase 104 U/L (45-117); Anion Gap 3 (5-15); BUN 15 mg/dL (7-18); BUN/Creat Ratio 14.9 RATIO (10-20); CRP < 2.90 mg/L (0.0-3.0); Calcium,Total 9.3 mg/dL (8.5-10.1); Chloride 108 mmol/L (98-107); Creatinine, Serum 1.01 mg/dL (0.55-1.02); EST Glomerular Filtration Rate 67 mL/min (>60); Est Glom Filt Rate - Afr Amer 81 mL/min (>60); Ferritin 6 ng/mL (8-252); Globulin 3.9 g/dL (2.2-4.2); Glucose 89 mg/dL (74-106); Potassium 4.5 mmol/L (3.5-5.1); Prolactin 4.5 ng/mL; Protein, Total 7.8 g/dL (6.4-8.2); Sodium Level 137 mmol/L (136-145); Thyroid Stim Hormone (TSH) 1.86 uIU/mL (0.358-3.74)
[2023-01-02 17:07] LABS: Endomysial Antibody IgA Negative (Negative); Immunoglobulin A 118 mg/dL (87-352); t-Transglutaminase IgA <2 U/mL (0-3)
[2023-01-04 18:07] LABS: Anti-Centromere B Ab <0.2 AI (0.0-0.9); Anti-Chromatin <0.2 AI (0.0-0.9); Anti-Jo <0.2 AI (0.0-0.9); Anti-Scleroderma-70 AB 0.3 AI (0.0-0.9); Anti-dsDNA Ab 1 IU/mL (0-9); Beef <0.10 kU/L (Class 0); Chocolate <0.10 kU/L (Class 0); Clam <0.10 kU/L (Class 0); Codfish <0.10 kU/L (Class 0); Corn <0.10 kU/L (Class 0); Egg, White 1.29 kU/L (Class II); Egg, Whole 0.66 kU/L (Class II); Milk (Cow) 0.33 kU/L (Class I); Peanut <0.10 kU/L (Class 0); Pork <0.10 kU/L (Class 0); RNP Ab <0.2 AI (0.0-0.9); SCALLOP <0.10 kU/L (Class 0); SESAME SEED <0.10 kU/L (Class 0); SJOGREN'S Anti-SS-A test < 0.2 AI (0.0-0.9); SJOGREN'S Anti-SS-B test < 0.2 AI (0.0-0.9); Shrimp <0.10 kU/L (Class 0); Smith Ab <0.2 AI (0.0-0.9); Soybean <0.10 kU/L (Class 0); Vitamin D 1,25-Dihydroxy 38.8 pg/mL (24.8-81.5); Walnut, (Food) <0.10 kU/L (Class 0); Wheat 0.25 kU/L (Class 0/I)
[2023-01-06 00:07] LABS: Alpha-1-Globulins 0.2 g/dL (0.0-0.4); Alpha-2-Globulins 0.7 g/dL (0.4-1.0); Angiotensin Convert Enzyme 39 U/L (14-82); Anti-Smooth Muscle ABS 13 Units (0-19); Cytoplasmic Ab (C-ANCA) <1:20 titer (Neg:<1:20); Gamma Globulin 1.2 g/dL (0.4-1.8); Immunoglobulin A 118 mg/dL (87-352); Immunoglobulin E 54 IU/mL (6-495); Immunoglobulin G 1101 mg/dL (586-1602); Immunoglobulin M 109 mg/dL (26-217); PROEL- TOTAL PROTEIN 7.2 g/dL (6.0-8.5); Perinuclear Ab (P-ANCA) <1:20 titer (Neg:<1:20)
== END | disposition home or self-care (01) ==
LOC: LAB 10:36
PROVIDERS: PCP Family Medicine; Referring Provider Internal Medicine Gastroenterology; Visit Provider Internal Medicine Gastroenterology
DX: K21.9 Gastro-esophageal reflux disease without esophagitis (principal); Z87.898 Personal history of other specified conditions
CPT/HCPCS: 36415; 80053; 82164; 82306; 82652; 82728; 82784; 82785; 83516; 84146; 84165; 84443; 85025; 85652; 86003; 86005; 86140; 86225; 86235; 86255; 86256; 86334

== ENCOUNTER → 2023-01-02 | Outpatient (CLI) | payer OTHER, MEDICAID, SELFPAY ==
--- NOTE | 2023-01-02 12:37 | MRI_ITS ---
STUDY: BILATERAL BREAST MR WITHOUT AND WITH CONTRAST REASON FOR EXAM: Female, 32 years old. Family history of breast cancer. Right axillary adenopathy. TECHNIQUE: Multi-sequence multi-echo imaging of both breasts was performed with a dedicated breast coil. T1-weighted and T2-weighted images were performed before the administration of contrast. T1-weighted images were also performed after the intravenous administration of 15ml of Clariscan. COMPARISON: Mammogram and right breast ultrasound dated December 12, 2022. FINDINGS: RIGHT BREAST: Heterogeneously dense fibroglandular tissue. No abnormal enhancing masses or areas of non-mass enhancement in the right breast. LEFT BREAST: Heterogeneously dense fibroglandular tissue. No abnormal enhancing masses or areas of non-mass enhancement in the left breast. Scattered shotty lymph nodes in both axillae, right slightly greater than left. No abnormal morphology of either axillary region lymph nodes is noted. No abnormality in the visualized regions of the chest or liver. MRI/Breast Bilateral W/O and W IMPRESSION: Heterogeneously dense fibroglandular tissue with shotty lymph nodes in both axillae, right slightly greater than left. No other abnormality. Yearly screening mammogram recommended. CATEGORY: BIRADS Category 2: Benign. A letter regarding these results will be sent to the patient by the facility within 30 days. Electronically Signed: Willy Kaur MD at 9:49 EDT ,
== END | disposition home or self-care (01) ==
LOC: MRI 12:35
PROVIDERS: PCP Family Medicine; Referring Provider Family Medicine; Visit Provider Family Medicine
DX: R09.89 Other specified symptoms and signs involving the circulatory and respiratory systems (principal)
CPT/HCPCS: 77049; A9575; A4216; C8908

== ENCOUNTER 2023-03-02 13:03 | Day surgery (SDC) | payer OTHER, MEDICAID, SELFPAY ==
[2023-03-02 13:20] VITALS: BP 126/81; PULSE 86; RESP 17; TEMP 30; O2SAT 100; BMI 31.4
[2023-03-02] MEDS: Lactated Ringers 1,000 ML 15 ML IV (13:23)
[2023-03-02 13:31] LABS: Internal QC Validated? YES +Cl - CLEAR BKGD; Pregnancy, Urine Negative Negative
--- NOTE | 2023-03-02 14:15 | EGD_PTH ---
PATIENT: MAIK IZQUIERDO LOC: EN U#:[id number] AGE/SX: 32/F ROOM: RE03/02/[address]: Dr. Louis Manning DO : 1990 BED: DIS: 03/02/2023 SPEC #: [id number] RECD: 03/02/23 16:19 STATUS: DAI REGillian #: [id number] PAL: 03/02/23 14:[address]: Louis Manning DEPT: SURGICAL PATHOLOGY RECD BY: Ignacia Ledbetter ENTERED: 03/05/23 08:38 SP TYPE: EGD BIOPSY OT DR: Dr. Gilbert Hurley MD Tissues: A - Stomach, NOS B - Duodenum, NOS C - Esophagus, NOS Procedures: Special Stain Group II Surgery Specimen Level IV Alcian Blue/PAS (control) HEADER OPERATION: EGD ([facility] [place]) with biopsy PRE-OP DIAGNOSIS: GERD TISSUE SUBMITTED: A - Stomach cardia biopsy, B - Duodenum biopsy, C - Distal esophagus biopsy MICROSCOPIC DIAGNOSIS A. Stomach cardia, biopsy: Moderate chronic active gastritis. See comment. B. Duodenum, biopsy: Fragments of duodenal mucosa with mild nonspecific chronic inflammation. C. Distal esophagus, biopsy: Fragments of gastroesophageal mucosa with chronic inflammation. Intestinal metaplasia (goblet cell metaplasia) not identified. See comment. SJ:rg 03/06/2023 COMMENT A. The results of immunohistochemistry for Helicobacter pylori will be reported separately ([id number]). C. Alcian blue/PAS stain with matched control is used in the evaluation of the specimen. MICROSCOPIC DESCRIPTION Slides are reviewed. GROSS DESCRIPTION A - Received in fixative is one container labeled with the patient's name and designated stomach cardia biopsy. The specimen consists of two irregular fragments of light patricia soft tissue that in aggregate measure 0.8 x 0.4 x 0.1 cm. The specimen is totally submitted in one cassette. B - Received in fixative is one container labeled with the patient's name and designated duodenum biopsy. The specimen consists of two irregular fragments of light patricia soft tissue that in aggregate measure 0.6 x 0.3 x 0.1 cm. The specimen is totally submitted in one cassette. C - Received in fixative is one container labeled with the patient's name and designated distal esophagus biopsy. The specimen consists of two irregular fragments of light patricia soft tissue that in aggregate measure 0.6 x 0.4 x 0.1 cm. The specimen is totally submitted in one cassette. / SJ:rg 03/05/2023 TC:2 CPT: 55317 x3, [id number]
--- NOTE | 2023-03-02 14:15 | IMM_PTH ---
PATIENT: MAIK IZQUIERDO LOC: EN U#:[id number] AGE/SX: 32/F ROOM: RE03/02/[address]: Dr. Louis Manning DO : 1990 BED: DIS: 03/02/2023 SPEC #: [id number] RECD: 03/05/23 13:27 STATUS: DAI REQ #: [id number] PAL: 03/02/23 14:[address]: Louis Manning DEPT: IMMUNOHISTOCHEMISTRY RECD BY: Kellie Mayo ENTERED: 03/05/23 13:28 SP TYPE: IMMUNO OTHR DR: Dr. Gilbert Hurley MD Tissues: A - Stomach, NOS Procedures: H Pylori (initial) PHYSICIAN & INSTITUTION [place] [id number] SPECIMEN INFORMATION: Tissue Source: A - Stomach, cardiac Clinical Info: GERD Specimen Number: [id number] CPT code: 22744 METHODOLOGY: Deparaffinized sections of prefer/formalin-fixed tissue or PAP/DQ stained slides are incubated with monoclonal/polyclonal antibodies/oligonucleotide probes. Localization is made via biotin free immunoperoxidase method. Appropriate controls are performed and reacted as expected. Results on target cell population are indicated in the following table: RESULTS: ANTIBODY / CLONE RESULT Block A H Pylori (polyclonal) negative These tests were developed and their performance characteristics determined by [facility]. They may not have been cleared or approved by the U.[place]. Food and Drug Administration. The FDA has determined that such clearance or approval is not necessary. The above immunohistochemical/dualISH markers are ordered and reviewed by the Pathologist. INTERPRETATION: A. Stomach cardia, biopsy: Negative for Helicobacter pylori organisms. SJ:stacey 03/06/2023
--- NOTE | 2023-03-02 14:52 | HP.PCM_ITS ---
History and Physical Date of Admission: 03/02/23 32 F who presents to the office today for PCP OV with history of GERD being managed with Prevacid 30mg BID. ? Chest CTA 8.28.21 dyspnea without acute/chronic finding. ? Barium swallow 10.. tablet trapped at GE junction. *I established 01.01.23. Previously established with Dr. Aviles for many years for management of acid reflux. In 2019 she was changed to prevacid 30mg BID when she was . Notes recent increase of reflux lately but also notes there is some ?odd health issues? and possibly increased stress with this. Feels cotton balls in her throat which she feels is r/t historical reflux symptoms. ROS Const Constitutional: No anorexia, fatigue, fever(s), weight change or sleep problems Eyes Eyes: No change in vision ENT ENT: No abnormal hearing, difficulty swallowing, mouth lesions, tongue swelling or throat swelling Resp Respiratory: No cough or shortness of breath Cardio Cardiology: No chest pain at rest, chest pain with exertion, shortness of breath or dyspnea on exertion Gastro GI: No difficulty swallowing Genitourinary-Female: No difficulty urinating or burning urination Musc Musculoskeletal: No joint pain, joint swelling, muscle weakness or decreased muscle mass Skin Skin: No hair loss in leg, yellowing of the eye, itchy eyes, rash, skin ulcer or skin swelling Neuro Neurology: No abnormal hearing, abnormal movements, confusion, unsteady gait/balance or memory loss Psych Psychiatric: No anxiety, No confusion and No memory loss Endo Endocrine: No fatigue or weight change Aller/Imm Allergy/Immunologic: No itchy eyes, throat swelling or tongue swelling Sammy/Lymp Hematologic/Lymphatic: No easy bleeding, easy bruising or enlarged lymph nodes Exam Const General: cooperative and comfortable Nutritional Appearance: average body habitus and well nourished [facility] Head: normal to inspection Ears: hearing grossly normal bilaterally Nose: external nose normal Face and sinus: normal facial exam Mouth: oral mucosae normal Throat: posterior oropharynx normal Eyes General: appearance normal, both eyes and all related structures Neck Neck: normal visual inspection Chest Chest palpation & inspection: normal inspection of the chest and normal palpation of entire chest wall Resp Effort & Inspection: normal respiratory effort Auscultation: Bilateral: Clear to Auscultation Cardio Palpation: normal PMI Rate: regular rate Rhythm: regular rhythm GI Inspection: normal to inspection Auscultation: normal bowel sounds Percussion: normal to percussion Palpation: no hepatosplenomegaly Skin General: no rashes or lesions noted Neuro General: patient alert Extrem General: normal to inspection Psych Affect: normal affect Quality Reporting Tobacco Screening ([facility] 138) Smoking Status: Never smoker Assessment and Plan Assessment and Plan (1) GERD (gastroesophageal reflux disease): Status: Chronic Plan: She has longstanding gastroesophageal reflux disease 20 and has used multiple medicines. Currently she is on omeprazole 40 mg twice daily. She did have a response with Prevacid. She takes this 30 mg p.o. twice a day. She does recognize that some of her symptoms could be secondary to reflux disease but she still wants to feel better. Await laboratory analysis and continue current medication recommendations. (2) History of paresthesia: Status: Acute Plan: He feels a lymphadenopathy we will check her for autoimmune disease. By checking antineutrophilic antibody, antineutrophil cytoplasmic antibody. We will also get ESR, CRP, LDH, protein electrophoresis to see if there or if her symptoms are mostly secondary to stress. Orders: Orders Comprehensive Metabolic Profil Today K21.9 - Gastro-esophageal reflux disease without esophagitis, Z87.898 - Personal history of other specified conditions CRP Today K21.9 - Gastro-esophageal reflux disease without esophagitis, Z87.898 - Personal history of other specified conditions Ferritin Today K21.9 - Gastro-esophageal reflux disease without esophagitis, Z87.898 - Personal history of other specified conditions CBC W/Diff, Automated Today K21.9 - Gastro-esophageal reflux disease without esophagitis, Z87.898 - Personal history of other specified conditions Erythrocyte Sed Rate Today K21.9 - Gastro-esophageal reflux disease without esophagitis, Z87.898 - Personal history of other specified conditions WILEY Comprehensive Panel Today K21.9 - Gastro-esophageal reflux disease without esophagitis, Z87.898 - Personal history of other specified conditions Angiotensin Convert Enzyme Today K21.9 - Gastro-esophageal reflux disease without esophagitis, Z87.898 - Personal history of other specified conditions ANCA Today K21.9 - Gastro-esophageal reflux disease without esophagitis, Z87.898 - Personal history of other specified conditions Anti-Smooth Muscle ABS Today K21.9 - Gastro-esophageal reflux disease without esophagitis, Z87.898 - Personal history of other specified conditions Celiac Disease Profile Today K21.9 - Gastro-esophageal reflux disease without esophagitis, Z87.898 - Personal history of other specified conditions Vitamin D,25 Hydroxy Today K21.9 - Gastro-esophageal reflux disease without esophagitis, Z87.898 - Personal history of other specified conditions Thyroid Stim Hormone (TSH) Today K21.9 - Gastro-esophageal reflux disease without esophagitis, Z87.898 - Personal history of other specified conditions Allergen, Rast Food Profile Today K21.9 - Gastro-esophageal reflux disease without esophagitis, Z87.898 - Personal history of other specified conditions Allergen, Food Profile Today K21.9 - Gastro-esophageal reflux disease without esophagitis, Z87.898 - Personal history of other specified conditions Vitamin D 1,25-Dihydroxy Today K21.9 - Gastro-esophageal reflux disease without esophagitis, Z87.898 - Personal history of other specified conditions Immunoglobulins G/A/M/E Today K21.9 - Gastro-esophageal reflux disease without esophagitis, Z87.898 - Personal history of other specified conditions KIERSTEN + Protein Elect, Serum Today K21.9 - Gastro-esophageal reflux disease without esophagitis, Z87.898 - Personal history of other specified conditions Prolactin Today K21.9 - Gastro-esophageal reflux disease without esophagitis, Z87.898 - Personal history of other specified conditions Medications: New famotidine 20 mg PO BID 60 tabs 3RF I have examined the patient and the H&P has been reviewed. There are no clinical changes since date of exam.
[2023-03-02 15:10] VITALS: BP 115/86; BP 126/81; PULSE 101; RESP 16; TEMP 36.3; O2SAT 97
--- NOTE | 2023-03-02 15:14 | OP.EGD_ITS ---
Patient Name: Effie Martines Procedure Date: 03/02/2023 2:41 PM Date of : 1990 Age: 32 Procedure: Upper GI endoscopy Indications: Functional Dyspepsia, Heartburn, Failure to respond to medical treatment Providers: Louis Manning DO Referring MD: Gilbert Hurley MD Medicines: Monitored Anesthesia Care Patient Profile: This is a 32 year old female. Refer to note in patient chart for documentation of history and physical. Patient has symptoms of acute epigastric abdominal pain, chronic dyspepsia and chronic heartburn. Complications: No immediate complications. Procedure: Pre-Anesthesia Assessment: - Prior to the procedure, a History and Physical was performed, and patient medications and allergies were reviewed. The patient is competent. The risks and benefits of the procedure and the sedation options and risks were discussed with the patient. All questions were answered and informed consent was obtained. Patient identification and proposed procedure were verified by the physician in the pre-procedure area. Mental Status Examination: alert and oriented. Airway Examination: normal oropharyngeal airway and neck mobility. Respiratory Examination: clear to auscultation. CV Examination: normal. Prophylactic Antibiotics: The patient does not require prophylactic antibiotics. Prior Anticoagulants: The patient has taken no previous anticoagulant or antiplatelet agents. ASA Grade Assessment: II - A patient with mild systemic disease. After reviewing the risks and benefits, the patient was deemed in satisfactory condition to undergo the procedure. The anesthesia plan was to use monitored anesthesia care (MAC). Immediately prior to administration of medications, the patient was re-assessed for adequacy to receive sedatives. The heart rate, respiratory rate, oxygen saturations, blood pressure, adequacy of pulmonary ventilation, and response to care were monitored throughout the procedure. The physical status of the patient was re-assessed after the procedure. After obtaining informed consent, the endoscope was passed under direct vision. Throughout the procedure, the patient's blood pressure, pulse, and oxygen saturations were monitored continuously. The Endoscope was introduced through the mouth, and advanced to the second part of duodenum. The upper GI endoscopy was accomplished without difficulty. The patient tolerated the procedure well. Scope In: 2:57:37 PM Scope Out: 3:03:03 PM Total Procedure Duration Time 0 hours 5 minutes 26 seconds Findings: The Z-line was irregular and was found 37 cm from the incisors. Biopsies were taken with a cold forceps for histology. Verification of patient identification for the specimen was done. Estimated blood loss was minimal. Localized moderate inflammation characterized by erosions, erythema and friability was found in the cardia. Biopsies were taken with a cold forceps for histology. Verification of patient identification for the specimen was done. Estimated blood loss was minimal. The first portion of the duodenum was normal. Biopsies were taken with a cold forceps for histology. Verification of patient identification for the specimen was done. Estimated blood loss was minimal. Impression: - Z-line irregular, 37 cm from the incisors. Biopsied. - Chronic gastritis. Biopsied. - Normal first portion of the duodenum. Biopsied. Recommendation: - Discharge patient to home. - Resume previous diet. - Continue present medications. - Await pathology results. Procedure Code(s): --- Professional --- 29522, Esophagogastroduodenoscopy, flexible, transoral; with biopsy, single or multiple CPT copyright 2017 [employer]. All rights reserved. The codes documented in this report are preliminary and upon supervisor cell operation review may be revised to meet current compliance requirements. Louis Manning DO 03/02/2023 3:13:35 PM This report has been signed electronically. Number of Addenda: 0 Note Initiated On: 03/02/2023 2:41 PM
--- NOTE | 2023-03-02 15:14 | OP.CCLET_ITS ---
03/02/2023 Gilbert Hurley MD [address] [id number] Re : Upper GI endoscopy procedure for [facility] Dear Dr. Hurley This procedure was performed on Thursday, March 02, 2023. My impressions and recommendations are as follows: Impressions : - Z-line irregular, 37 cm from the incisors. Biopsied. - Chronic gastritis. Biopsied. - Normal first portion of the duodenum. Biopsied. Recommendations : - Discharge patient to home. - Resume previous diet. - Continue present medications. - Await pathology results. My findings are described in the full procedure note, which is enclosed. If I can be of further assistance, please feel free to contact me at . Sincerely, Louis Manning, 03/02/2023 3:13:35 PM This report has been signed electronically.
[2023-03-02 15:15] VITALS: BP 114/86; BP 126/81; PULSE 85; RESP 16; O2SAT 96
[2023-03-02 15:20] VITALS: BP 117/90; BP 117/91; BP 126/81; PULSE 82; PULSE 84; PULSE 93; RESP 16; O2SAT 93; O2SAT 98; O2SAT 99
[2023-03-02 15:25] VITALS: BP 119/91; BP 126/81; PULSE 78; RESP 16; TEMP 36.8; O2SAT 97
[2023-03-02 15:41] VITALS: BP 126/81
== END 2023-03-02 15:53 | disposition home or self-care (01) ==
LOC: EN 13:07 → AC 13:08
PROVIDERS: Anesthesiology; PCP Family Medicine; Referring Provider Family Medicine; Visit Provider Internal Medicine Gastroenterology
PROC: 0DJ08ZZ Inspection of Upper Intestinal Tract, Via Natural or Artificial Opening Endoscopic (ICD-10-PCS; CPT 43235; principal; 2023-03-02 14:10)
DX: K29.50 Unspecified chronic gastritis without bleeding (principal); K21.9 Gastro-esophageal reflux disease without esophagitis; Z87.898 Personal history of other specified conditions
CPT/HCPCS: 43239; 81025; 88305; 88313; 88342; J7120; J2405

== ENCOUNTER 2023-03-16 08:14 | Outpatient (CLI) | payer OTHER, MEDICAID, SELFPAY ==
[2023-03-16] MEDS: Lidocaine Jelly 2% 20 ML Syringe (URO-JET) 1 APPLIC (08:25)
--- OUTSIDE RECORDS SUMMARY | 2023-03-16 08:25 | XMS RPT_ITS | CCD ---
Author Name Unknown Address [id number] [place] [address] Organization [facility] Care Team Providers Care Plate Straightener Name Role Phone TINO SAWYER, BRANDT Ng Primary Care Physician Josue SAWYER, Gilbert Friedman Primary Care Provider TINO SAWYER, BRANDT Ng Primary Care Physician Josue SAWYER, Gilbert Friedman Primary Care Provider Josue SAWYER, Gilbert Friedman Primary Care Provider [phone] Josue SAWYER, Gilbert Friedman Primary Care Provider EMMY HUTTON Attending Unavailable MALIHA MEDINA Referring Unavailable GILBERT SALAS Primary Care Unavailable MÓNICA SERNA Referring Unavailable JOSUE, GILBERT FRIEDMAN Primary Care Unavailable MÓNICA SERNA Attending Unavailable KISHAN ARMENDARIZ Referring Unavailable GILBERT SALAS Primary Care Unavailable Gilbert Salas MD Primary Care Provider ELLE FAYE Referring Unavailable GILBERT SALAS Primary Care Unavailable Gilbert Salas MD Primary Care Provider GILBERT SALAS Primary Care Unavailable GILBERT SALAS Primary Care Unavailable ELLE FAYE Attending Unavailable ELLE FAYE Referring Unavailable GILBERT SALAS Primary Care Unavailable KISHAN ARMENDARIZ Attending Unavailable GILBERT SALAS Primary Care Unavailable KISHAN ARMENDARIZ Referring Unavailable JOSUE, GILBERT Madison Primary Care Unavailable JOSUE, GILBERT Madison Primary Care Unavailable KISHAN ARMENDARIZ Referring Unavailable JOSUE, GILBERT Madison Primary Care Unavailable JOSUE, GILBERT Madison Primary Care Unavailable ELLE FAYE Referring Unavailable JOSUE, GILBERT Madison Primary Care Unavailable ELLE FAYE Referring Unavailable GILBERT SALAS Primary Care Unavailable GILBERT SALAS Primary Care Unavailable GILBERT SALAS Primary Care Unavailable MELODY HAYNES Referring Unavailable SALAS, GILBERT R Primary Care Unavailable GILBERT SALAS Primary Care Unavailable REBECA PIKE Referring Unavailable GILBERT SALAS Primary Care Unavailable GILBRET SALAS Primary Care Unavailable GILBERT SALAS Primary Care Unavailable EMMY HUTTON Referring Unavailable Allergies Allergy Classification Reported Allergen(s) Allergy Type Date of Onset Reaction(s) Facility (20 sources) Morphine; Translations: [morphine] Drug Allergy 8 [facility] (2 sources) Promethazine; Translations: [promethazine] Drug Allergy [facility] (18 sources) Sulfamethoxazole / Trimethoprim; Translations: [sulfamethoxazole-tr imethoprim] Drug Allergy 6 GI Upset [facility] (19 sources) Promethazine; Translations: [PROMETHAZINE HCL] Drug Allergy 8 Other: See Comments [facility] Work Phone: (19 sources) Sertraline; Translations: [SERTRALINE HCL] Drug Allergy 7 Other: See Comments [facility] Work Phone: (3 sources) Sulfamethoxazole / Trimethoprim; Translations: [SULFAMETHOXAZOLE-TR IMETHOPRIM] Drug Allergy 6 [facility] Other [facility] (6 sources) grape extract; Translations: [GRAPE] Drug Allergy 9 Swelling [facility] Medications Current Medications Medication Drug Class(es) Dates Sig (Normalized) Sig (Original) Radha Allergy (1 source) Start: 01-02-2022 take 1 dose by mouth twice daily Radha Allergy Dose : 60 mg =, Oral, BID, 0 Refill(s) Start Date: 01/02/22 Status: Ordered amoxicillin 875 mg oral tablet (1 source) Penicillin-class Antibacterial Start: 06-07-2022 End: 06-14-2022 take 1 tablet by mouth twice daily amoxicillin (AMOXIL) 875 mg tablet Take 1 tablet by mouth twice daily for 7 days. 14 tablet 0 06/07/2022 06/14/2022 Active Completed/Discontinued Medications Medication Drug Class(es) Dates Sig (Normalized) Sig (Original) [id number] 200 actuat albuterol 0.09 mg/actuat metered dose inhaler (16 sources) beta2-Adrenergic Agonist Start: 10-04-2017 take 2 puff(s) by inhalation every four hours as needed albuterol HFA (PROAIR HFA) 90 mcg/actuation inhaler Indications: Sinobronchitis Inhale 2 Puffs as instructed every 4 hours as needed. 1 Inhaler 0 10/04/2017 Active Problems Active Problems Problem Classification Problem Date Documented Date Episodic/Chronic Abdominal pain (1 source) Pain in pelvis 01-02-2022 Episodic Anxiety disorders (19 sources) Anxiety; Translations: [Generalized anxiety disorder] Onset: 02-16-2015 07-15-2020 Chronic Chronic obstructive pulmonary disease and bronchiectasis (2 sources) Chronic bronchitis 07-15-2020 Chronic Esophageal disorders (18 sources) Gastric reflux; Translations: [Gastroesophageal reflux disease] Onset: 03-06-2008 07-15-2020 Chronic Immunizations and screening for infectious disease (1 source) Suspected disease caused by 2019-nCoV; Translations: [Suspected COVID-19 virus infection] Episodic Inflammation; infection of eye (except that caused by tuberculosis or sexually transmitteddisease) (1 source) Blepharitis; Translations: [Unspecified inflammation of eyelid] Episodic Lymphadenitis (1 source) Enlarged lymph nodes, unspecified; Translations: [Enlarged lymph nodes] Onset: 12-26-2022 Episodic Other and unspecified benign neoplasm (1 source) Angiokeratoma of vulva 01-02-2022 Episodic Other nervous system disorders (1 source) Demyelinating disease of central nervous system; Translations: [Demyelinating disease of central nervous system, unspecified] Chronic Other nervous system disorders (1 source) Demyelinating disease of central nervous system, unspecified; Translations: [Demyelinating disease of central nervous system (HCC)] Onset: 01-09-2023 Chronic Other nervous system disorders (2 sources) Paresthesia; Translations: [Paresthesia of skin] Episodic Other nervous system disorders (1 source) Paresthesia of skin; Translations: [Paresthesia of skin] Onset: 12-26-2022 Episodic Other nutritional; endocrine; and metabolic disorders (2 sources) Body mass index 30+ - obesity 06-01-2020 Chronic Other upper respiratory disease (16 sources) Allergic rhinitis due to pollen; Translations: [Allergic rhinitis due to pollen] Onset: 03-06-2008 03-06-2008 Chronic Otitis media and related conditions (1 source) Acute right otitis media; Translations: [Otitis media, unspecified, right ear] Episodic Residual codes; unclassified (2 sources) Chronic back pain 07-15-2020 Episodic Residual codes; unclassified (4 sources) Transient alteration of awareness; Translations: [Transient alteration of awareness] Onset: 01-09-2023 Episodic Unclassified (2 sources) Breast feeding () (observable entity) 06-02-2020 Past or Other Problems Problem Classification Problem Date Documented Da te Episodic/Chronic Gastrointestinal hemorrhage (16 sources) Hematochezia; Translations: [Melena] Onset: 03-06-2008 03-06-2008 Episodic Genitourinary symptoms and ill-defined conditions (4 sources) Increased frequency of urination; Translations: [Frequency of micturition] Onset: 04-25-2022 Episodic Nonmalignant breast conditions (1 source) Mastodynia; Translations: [Breast pain, right] Onset: 10-17-2021 Episodic Other connective tissue disease (16 sources) Pain in lower limb; Translations: [Pain in leg, unspecified] Onset: 12-22-2009 12-22-2009 Episodic Other connective tissue disease (1 source) Pain in left foot; Translations: [Foot pain, left] Onset: 08-01-2022 Episodic Other and delivery including normal (18 sources) Vaginal delivery; Translations: [Patient encounter status] Onset: 12-22-2009 06-03-2020 Episodic Spondylosis; intervertebral disc disorders; other back problems (16 sources) Backache; Translations: [Dorsalgia, unspecified] Onset: 12-22-2009 12-22-2009 Episodic Urinary tract infections (2 sources) Acute urinary tract infection; Translations: [Urinary tract infection, site not specified] Onset: 04-08-2022 Episodic Results Test Name Value Interpretation Reference Range Facil ity Vital Signs Date Time Vital Sign Value Performing Clinician Faci [facility] 12-26-2022 07:00-0400 Body temperature 98.6 [degF] Elle Faye PA-C Work Phone: [facility] 12-26-2022 07:00-0400 Body weight 79.11 kg Elle Faye PA-C Work Phone: [facility] 12-26-2022 07:00-0400 Diastolic blood pressure 88 mm[Hg] Elle Timmonser PA-C Work Phone: [facility] 12-26-2022 07:00-0400 Heart rate 71 /min Elle Timmonser PA-C Work Phone: [facility] 12-26-2022 07:00-0400 Respiratory rate 18 /min Elle Timmonser PA-C Work Phone: [facility] 12-26-2022 07:00-0400 SaO2% (BldA) [Mass fraction] 98 % Elle Faye PA-C Work Phone: [facility] 12-26-2022 07:00-0400 Systolic blood pressure 125 mm[Hg] Elle Timmonser PA-C Work Phone: [facility] 07-26-2022 17:44-0500 Body temperature 97.59 [degF] Per Sohail IMMUNOPATHOLOGIST.INFANT TEACHER Work Phone: [facility] 07-26-2022 17:44-0500 Body weight 77.66 kg Per Sohail IMMUNOPATHOLOGIST.INFANT TEACHER Work Phone: [facility] 07-26-2022 17:44-0500 Diastolic blood pressure 74 mm[Hg] Per Sohail IMMUNOPATHOLOGIST.INFANT TEACHER Work Phone: [facility] 07-26-2022 17:44-0500 Heart rate 118 /min Per Sohail IMMUNOPATHOLOGIST.INFANT TEACHER Work Phone: [facility] 07-26-2022 17:44-0500 Respiratory rate 16 /min Per Sohail IMMUNOPATHOLOGIST.INFANT TEACHER Work Phone: [facility] 07-26-2022 17:44-0500 SaO2% (BldA) [Mass fraction] 97 % Per Sohail IMMUNOPATHOLOGIST.INFANT TEACHER Work Phone: [facility] 07-26-2022 17:44-0500 Systolic blood pressure 112 mm[Hg] Per Sohail IMMUNOPATHOLOGIST.INFANT TEACHER Work Phone: [facility] 06-07-2022 08:28-0500 Body temperature 99.39 [degF] Maliha Medina APRN.INFANT TEACHER Work Phone: [facility] 06-07-2022 08:28-0500 Body weight 74.84 kg Maliha Medina APRN.INFANT TEACHER Work Phone: [facility] 06-07-2022 08:28-0500 Diastolic blood pressure 72 mm[Hg] Maliha Medina APRN.INFANT TEACHER Work Phone: [facility] 06-07-2022 08:28-0500 Heart rate 76 /min Maliha Medina APRN.INFANT TEACHER Work Phone: [facility] 06-07-2022 08:28-0500 Respiratory rate 16 /min Maliha Medina APRN.INFANT TEACHER Work Phone: [facility] 06-07-2022 08:28-0500 SaO2% (BldA) [Mass fraction] 100 % Maliha Medina APRN.INFANT TEACHER Work Phone: [facility] 06-07-2022 08:28-0500 Systolic blood pressure 108 mm[Hg] Maliha Medina APRN.INFANT TEACHER Work Phone: [facility] 04-08-2022 10:51-0400 Body temperature 98.1 [degF] Rebeca Pike IMMUNOPATHOLOGIST.INFANT TEACHER Work Phone: [facility] 04-08-2022 10:51-0400 Body weight 72.48 kg Rebeca Pike IMMUNOPATHOLOGIST.INFANT TEACHER Work Phone: [facility] 04-08-2022 10:51-0400 Diastolic blood pressure 82 mm[Hg] Rebeca Shahzad IMMUNOPATHOLOGIST.INFANT TEACHER Work Phone: [facility] 04-08-2022 10:51-0400 Heart rate 84 /min Rebeca Shahzad IMMUNOPATHOLOGIST.INFANT TEACHER Work Phone: [facility] 04-08-2022 10:51-0400 Respiratory rate 18 /min Rebeca Shahzad IMMUNOPATHOLOGIST.INFANT TEACHER Work Phone: [facility] 04-08-2022 10:51-0400 SaO2% (BldA) [Mass fraction] 99 % Rebeca Pike APRN.INFANT TEACHER Work Phone: [facility] 04-08-2022 10:51-0400 Systolic blood pressure 118 mm[Hg] Rebeca Pike APRN.INFANT TEACHER Work Phone: [facility] Encounters Encounter Date Encounter Type Care Provider Facility Start: 03-06-2023 End: 03-06-2023 ambulatory GILBERT SALAS Facility:[facility] Start: 03-06-2023 End: 03-06-2023 ambulatory Emg 850) Neurology Start: 03-06-2023 End: 03-06-2023 Patient encounter procedure Emg 1 Neur [facility] (Max Weight: 850) [facility] Start: 01-24-2023 End: 01-25-2023 ambulatory ELLE FAYE Facility:[facility] Start: 01-24-2023 End: 01-25-2023 Patient encounter procedure [facility] [place] Work Phone: Neurology Procedures Date Procedure Procedure Detail Performing Clinician Start: 03-06-2023 Nerve conduction studies 5-6 studies Elle Faye PA-C Work Phone: Start: 01-24-2023 Electroencephalogram w/rec awake&drowsy Elle Faye PA-C Work Phone: Start: 04-28-2022 Us retroperitoneal real time w/image complete Emmy Hutton APRN.INFANT TEACHER Work Phone: Start: 04-08-2022 Urnls dip stick/tablet rgnt auto w/o microscopy Marlyn Nieves PA-C Work Phone: Start: 07-30-2018 History of operative procedure on knee AILYN NARANJO MD Start: 02-28-2016 Adult depression screening assessment Mónica Serna MD Work Phone: Start: 07-30-2009 section AILYN NARANJO MD Tonsillectomy AILYN NARANJO MD Plan of Treatment Date Care Activity Detail Author Start: 03-30-2023 Influenza vaccination [facility] Start: 12-26-2022 End: 02-25-2023 CBC W Auto Differential panel - Blood [facility] Work Phone: Immunizations Immunization Date Immunization Notes Care Provider [facility] 05-10-2015 influenza, seasonal, injectable Mónica Serna MD Work Phone: [facility] Work Phone: 05-25-2009 novel [id number], all formulations Mónica Serna MD Work Phone: [facility] Payers Date Payer Category Payer Medicaid [id number] 2021 Private Health Insurance EHP AET NA EHP STAFF/NON STAFF / EHP [facility] [id number] 2021-Present [address] [place] [address] EPO [id number] 2021 Private Health Insurance [id number] 2021 Unknown [id number] 2019 Medicaid [employer] [id number] 2019-Present [phone] [address] [place] [address] Medicaid [id number] 2019 Medicaid [id number] 2019 Medicaid [id number] Social History Date Type Detail Facility Start: 06-01-2020 End: 04-08-2022 Never smoked tobacco (finding) [facility] Start: 1990 Sex Assigned At Female [facility] Start: 10-17-2021 End: 12-26-2022 Alcohol intake Ex-drinker (finding) [facility] Start: 10-28-2021 End: 06-07-2022 Exposure to SARS-CoV-2 (event) Not sure [facility] Start: 04-08-2022 Tobacco use and exposure Smokeless tobacco non-user [facility] Start: 12-21-2022 End: 12-26-2022 History of Social function [facility] Start: 12-21-2022 End: 12-26-2022 Tobacco use panel [facility] Adult Depression Screening Assessment 0 [facility] Start: 10-15-2021 Gender identity Identifies as female gender (finding) [facility] Clinical Notes 06-08-2009 to 03-06-2023 Carlito Lozano MD - 03/06/2023 2:43 PM EDTPatient Mervat Faye PA-C - 12/26/2022 7:07 AM EDTTelephone Encounter - Ashley Soliman MA - 12/22/2022 8:23 AM EDT Note Date & Type Note Facility 03-06-2023 Note HNO ID: [id number] Author: Carlito Lozano MD Service: ? Author Type: Physician Type: Progress Notes Filed: 03/06/2023 3:29 PM Note Text: UNIVERSAL PROTOCOL / SAFETY CHECKLIST Procedure to be Performed: EMG Sign In: A Moment of CARE was completed. Personnel directly involved with the procedure wore the appropriate PPE (Personal Protective Equipment). Patient/Surrogate Stated/Verified: PATIENT VERIFIED(optional for EMERGENT procedures): Patient name, Date of , Relevant allergies, and The intended procedure Time Out Communication: Intended patient and procedure match the source documents. Correct side/site marked and visible. Sign Out: SIGN OUT (optional for EMERGENT procedures): Post-procedure follow-up management communicated and Plan of Care Visit completed when applicable. Gricelda Brunson NCST Carlito Lozano MD [facility] 03-06-2023 History of Presen t illness Narrative UNIVERSAL PROTOCOL / SAFETY CHECKLIST Procedure to be Performed: EMG Sign In: A Moment of CARE was completed. Personnel directly involved with the procedure wore the appropriate PPE (Personal Protective Equipment). Patient/Surrogate Stated/Verified: PATIENT VERIFIED(optional for EMERGENT procedures): Patient name, Date of , Relevant allergies, and The intended procedure Time Out Communication: Intended patient and procedure match the source documents. Correct side/site marked and visible. Sign Out: SIGN OUT (optional for EMERGENT procedures): Post-procedure follow-up management communicated and Plan of Care Visit completed when applicable. Gricelda Brunson NCST Carlito Lozano MD documented in this encounter [facility] 01-09-2023 Note HNO ID: [id number] Author: GLADIS Vuong) Service: ? Author Type: Technologist Type: Progress Notes Filed: 01/09/2023 10:23 AM Note Text: Radiology Service Progress Note DATE OF SERVICE: January 09, 2023 TIME: 10:23 AM PATIENT IDENTITY VERIFICATION COMPLETED USING TWO (2) STANDARD IDENTIFIERS: Name and Date of confirmed by patient verbally. FALL SCREENING: Has the patient had 2 falls in the last year or 1 fall with injury or currently using an Ambulatory Assistive Device (Walker, Cane, Wheelchair, Crutches, etc.)? No PATIENT GENDER DATA: Female. status: : No status: NO. PATIENT RELEVANT IMPLANT DATA REVIEWED: Yes ALLERGIES: Reviewed and unchanged CONTRAST ALLERGY: NO. EXAM: MRI - CONTRAST TYPE: GROUP II PERIPHERAL IV DATA: Ambulatory: A peripheral IV was started in the Right antecubital site with a Angio cath: 22 gauge. RADIOLOGY DEPARTMENT: MR; Exam(s) Completed: Head: Multiple Sclerosis Spine: Cervical spine SIGNATURE: RT Carolann(R) PATIENT NAME: Maik Martines DATE: January 09, 2023 TIME: 10:23 AM [facility] 12-29-2022 Note HNO ID: [id number] Author: RT Silvia(R) Service: Radiology Author Type: Parking Regulation Enforcement Officer Type: Progress Notes Filed: 12/29/2022 1:43 PM Note Text: Radiology Service Progress Note PATIENT NAME: Maik Martines DATE OF SERVICE: December 29, 2022 TIME: 1:43 PM PATIENT IDENTITY VERIFICATION COMPLETED USING TWO (2) IDENTIFIERS: Name and Date of confirmed by patient verbally. FALL SCREENING: Has the patient had 2 falls in the last year or 1 fall with injury or currently using an Ambulatory Assistive Device (Walker, Cane, Wheelchair, Crutches, etc.)? No PATIENT GENDER DATA: Female. status: : No status: NO. PATIENT RELEVANT IMPLANT DATA REVIEWED: Not Applicable RADIOLOGY DEPARTMENT: Mammography PERIPHERAL IV DATA: Not applicable SIGNED BY: Val Stephens, RT(R) December 29, 2022 1:43 PM [facility] 12-26-2022 Note HNO ID: [id number] Author: Kishan Armendariz MD Service: ? Author Type: Physician Type: Progress Notes Filed: 12/26/2022 5:52 PM Note Text: HISTORY AND PHYSICAL Maik Martines 1990 REFERRING PHYSICIAN: No ref. provider found CHIEF COMPLAINT: Consult (Lump in right breast, enlarge lymph nodes) HPI: The patient is a 32 year old female with a complaint of enlarged lymph nodes in her right axillary area.. Ultrasound of the right axillary area shows several lymph nodes in her right axillary area. The largest measures 2.5 x 1.2 x 0.6 cm. Appears to have a fatty hilum. I actually saw this patient back in 2021 and at that time I sent her to a breast surgeon and they really did not see any lymph nodes so clearly we have had an increase in the size of these lymph nodes. In addition she still having breast pain. PAST MEDICAL HISTORY Diagnosis Date Allergic rhinitis, cause unspecified Esophageal reflux Headache(784.0) Lymph node enlargement right posterior auricular, sees [facility] Lymph node enlargement right axilla PAST SURGICAL HISTORY Procedure Laterality Date DELIVERY ONLY 2009 , low transverse EXC/DSTRJ LINGUAL TONSIL ANY METHOD SPX 06/2007 GI UPPER SERIES Current Outpatient Medications Medication Sig Cetirizine (ZYRTEC) 10 mg cap Take 10 mg by mouth. LORazepam (ATIVAN) 0.5 mg Take one tablet 15-20 minutes before your MRI. You may repeat if anxiety persists. lansoprazole (PREVACID) 30 mg capsule Take 1 capsule by mouth twice daily before meals. albuterol HFA (PROAIR HFA) 90 mcg/actuation inhaler Inhale 2 Puffs as instructed every 4 hours as needed. iv contrast (will be provided with radiology test) MRI CSP Inject, intravenously, once for 1 dose. No IV access, insert saline lock prior to the beginning of sedation, infusion, injection of imaging exam. Discontinue saline lock post exam. If Pt. has a central line or IVAD, may access for administration according to line specific nursing protocol. Once exam is complete flush line and de-access according to line specific nursing protocol in the MR contrast administration guidelines link. (Patient not taking: Reported on 12/26/2022) fluconazole (DIFLUCAN) 150 mg tablet Take 1 tablet by mouth once daily. ergocalciferol 50,000 unit capsule (VITAMIN D2, DRISDOL) Take 1 capsule by mouth one time a week. fexofenadine (RADHA) 180 mg tablet Take 1 tablet by mouth once daily. (Patient not taking: Reported on 12/26/2022) ENSKYCE 0.15-0.03 mg per tablet Take 1 tablet by mouth once daily. loratadine (CLARITIN) 10 mg tablet (Patient not taking: Reported on 10/24/2020 ) Levonorgestrel-Ethinyl Estrad (MARLISSA) 0.15-0.03 mg per tablet Take 1 tablet by mouth once daily. No current facility-administered medications for this visit. ALLERGIES: Bactrim [Sulfamethoxazole-Trimethoprim] , Grape, Morphine, Phenergan [Promethazine Hcl], and Zoloft [Sertraline Hcl] PERSONAL HISTORY: Social History Tobacco Use Smoking status: Never Smokeless tobacco: Never Vaping Use Vaping Use: Never used Substance Use Topics Alcohol use: Not Currently Drug use: No FAMILY HISTORY: FAMILY HISTORY Problem Relation Age of Onset None Mother None Father None Sister Overweight None Brother Overweight Hypertension Maternal Grandmother Heart Maternal Grandfather other (Other [Other]) Maternal Grandfather Parkinson's Alzheimer's Disease Paternal Grandmother Breast Cancer Maternal Aunt 53 Genetics negative Breast Cancer Maternal cousin 60 REVIEW OF SYMPTOMS: The review of systems data was entered by the nurse and reviewed by ia Nursing Notes: Mónica Frederick LPN 12/26/2022 3:28 PM Signed REVIEW OF SYSTEMS: General: The patient notes fatigue, denies weight loss, notes weight gain, denies feeling hot, and denies feelings of cold. Eyes: The patient denies glaucoma, denies eye injury/surgery, wears glasses or contacts. Ear/Nose/Throat: The patient notes allergies, denies hayfever, denies ear infections, and denies bloody noses. Cardiovascular: The patient denies chest pain, denies heart disease, denies high blood pressure,denies cardiac stent, denies prior heart attack, denies irregular heart beat, denies high cholesterol, denies poor circulation, denies heart failure, other cardiac issues, denies claudication, denies cold feet, denies peripheral arterial stent. Respiratory: The patient denies tuberculosis, denies pneumonia, denies frequent cough, denies pulmonary embolism, denies shortness of breath, and denies coughing up blood. Gastrointestinal: The patient denies difficulty swallowing, notes acid reflux, denies ulcers, denies vomiting, denies jaundice/hepatitis, denies gallbladder problems, denies black or tarry stools, denies hemorrhoids, denies bleeding from rectum, denies diverticulitis, denies constipation, denies diarrhea, denies loss of stool control, and denies christian (more content not included)... [facility] 12-26-2022 Note HNO ID: [id number] Author: Elle Faye PA-C Service: ? Author Type: Physician Painter Ski Edge Type: Progress Notes Filed: 12/26/2022 12:57 PM Note Text: Neurology Outpatient Clinic Date: December 26, 2022 Patient Name: Maik Martines Referring physician: SELF Primary physician: Gilbert Salas [address] [place] [id number] Reason for Evaluation: Paresthesias Subjective HPI Maik Martines is a 32 year old right-handed female with history of ANTOINE who presents for evaluation of paresthesias. Dr. Gilbert Salas MD is the PCP. Chart review: Patient passed out 5 times in the last few years and went to ER at beginning of November, related to stress. Additional ER visit for burning in her back at ER 12/20/22, numbness in right face and right arm and leg. CT brain negative, ER wanted MRI for MS and referral to neuro was made. Patient presents for evaluation of multiple symptoms. States the last 4 to 5 months she has had an acute presentation of multiple symptoms. She states that she has had multiple episodes of dizziness and lightheadedness, states that this is likely caused by stress. States she takes care of her schizoaffective stepson, you did put him at home recently causing a lot of stress. She notes that she get dizziness and lightheadedness with both standing and turning head. She states that she will first feel room spinning dizziness followed by a presyncopal lightheadedness. She has passed out few times, but again attributes this to stress. Notes that the sensation lasts 30 minutes to an hour and associated with nausea, 1 episode vomiting with all of this. No tinnitus, headache with this. Does believe her numbness that she has been experiencing the last few months is also exacerbated with this feeling. Patient also reporting some numbness in the right face, right foot and right hand. She notes that the numbness of face has been on and off for the last few years, always on the right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 bites in the past. No known insect bite. No systemic symptoms. Denies history of MRSA. Denies any fever body aches chills productive cough chest pain shortness of breath pleuritic pain hemoptysis nausea vomiting abdominal pain change in bowel or bladder habits. Past medical history prescription medication use and allergies reviewed. .Patient presents with: Pain: Pt reported (RT) hip redness, swelling possible insect bite x 4 days. PAST MEDICAL HISTORY Diagnosis Date Allergic rhinitis, cause unspecified Esophageal reflux Headache(784.0) Lymph node enlargement right posterior auricular, sees [facility] Lymph node enlargement right axilla PAST SURGICAL HISTORY Procedure Laterality Date DELIVERY ONLY 2009 , low transverse EXC/DSTRJ LINGUAL TONSIL ANY METHOD SPX 06/2007 GI UPPER SERIES ALLERGIES Bactrim [Sulfamethoxazole-Trimethoprim] , Grape, Morphine, Phenergan [Promethazine Hcl], and Zoloft [Sertraline Hcl] MEDICATIONS fexofenadine (RADHA) 180 mg tablet Take 1 tablet by mouth once daily. lansoprazole (PREVACID) 30 mg capsule Take 1 capsule by mouth twice daily before meals. fluconazole (DIFLUCAN) 150 mg tablet Take 1 tablet by mouth once daily. ergocalciferol 50,000 unit capsule (VITAMIN D2, DRISDOL) Take 1 capsule by mouth one time a week. ENSKYCE 0.15-0.03 mg per tablet Take 1 tablet by mouth once daily. loratadine (CLARITIN) 10 mg tablet (Patient not taking: Reported on 10/24/2020 ) albuterol HFA (PROAIR HFA) 90 mcg/actuation inhaler Inhale 2 Puffs as instructed every 4 hours as needed. Levonorgestrel-Ethinyl Estrad (MARLISSA) 0.15-0.03 mg per tablet Take 1 tablet by mouth once daily. FAMILY HISTORY Problem Relation Age of Onset None Mother None Father None Sister Overweight None Brother Overweight Hypertension Maternal Grandmother Heart Maternal Grandfather other (Other [Other]) Maternal Grandfather Parkinson's Alzheimer's Disease Paternal Grandmother Breast Cancer Maternal Aunt 53 Genetics negative Breast Cancer Maternal cousin 60 Social History Tobacco Use Smoking status: Never Smokeless tobacco: Never Vaping Use Vaping Use: Never used Substance Use Topics Alcohol use: Not Currently Drug use: No BP 128/64 Pulse 98 Temp 36.7 ?C (98.1 ?F) (Tympanic) Resp 16 Wt 78.4 kg (172 lb 12.8 oz) LMP 07/30/2022 (Within Days) SpO2 100% BMI 30.61 kg/m? Review of Systems Constitutional: Negative for chills, fever and malaise/fatigue. HENT: Negative for congestion, ear discharge, ear pain, sinus pain and sore throat. Eyes: Negative for blurred vision, pain, discharge and redness. Respiratory: Negative for cough, hemoptysis, sputum production, shortness of breath, wheezing and stridor. Cardiovascular: Negative for chest pain. Gastrointestinal: Negative for abdominal pain, diarrhea, nausea and vomiting. Musculoskeletal: Negative for myalgias. Skin: Negative for itching and rash. Neurological: Negative for dizziness and headaches. Objective Physical Exam Constitutional: General: She is not in acute distress. Appearance: She is not diaphoretic. HENT: Head: Normocephalic. Mouth/Throat: Mouth: Mucous membranes are moist. Pharynx: Oropharynx is clear. No oropharyngeal exudate or posterior oropharyngeal erythema. Eyes: Conjunctiva/sclera: Conjunctivae normal. Pupils: Pupils are equal, round, and reactive to light. Cardiovascular: Rate and Rhythm: Normal rate and regular rhythm. Heart sounds: Normal heart sounds. Pulmonary: Effort: Pulmonary effort is normal. No tachypnea, accessory muscle usage or respiratory distress. Breath sounds: Normal breath sounds. No stridor. No wheezing, rhonchi or rales. Musculoskeletal: Cervical back: Normal range of motion. Skin: General: Skin is warm and dry. Comments: A 1 cm x 1 cm area of erythema noted. Raised central area. No remote redness. No breaks in skin. No drainage. Neurological: Mental Status: She is alert and oriented to person, place, and time. ASSESSMENT/PLAN: 1. Folliculitis - ICD9: 704.8, ICD10: L73.9 Differentials include folliculitis versus insect bite. Treat as superficial bacterial infection. Placed on mupirocin. Patient was educated on supportive therapies. Patient will follow up with primary care provider as needed. Patient was instructed to immediately proceed to emergency room for any new, worsening, or symptoms lasting longer th (more content not included)... [facility] 08-01-2022 Note HNO ID: [id number] Author: RT Alem(R) Service: ? Author Type: Parking Regulation Enforcement Officer Type: Progress Notes Filed: 08/01/2022 11:00 AM Note Text: Radiology Service Progress Note PATIENT NAME: Maik Martines DATE OF SERVICE: August 01, 2022 TIME: 10:31 AM PATIENT IDENTITY VERIFICATION COMPLETED USING TWO (2) IDENTIFIERS: Name and Date of confirmed by patient verbally. FALL SCREENING: Has the patient had 2 falls in the last year or 1 fall with injury or currently using an Ambulatory Assistive Device (Walker, Cane, Wheelchair, Crutches, etc.)? No PATIENT GENDER DATA: Female. status: : No status: NO. PATIENT RELEVANT IMPLANT DATA REVIEWED: Yes RADIOLOGY DEPARTMENT: General X-ray: Exam(s) Completed: Lower Extremity X-Ray(s): Foot, Left PERIPHERAL IV DATA: Not applicable SIGNED BY: RT Alem(R) August 01, 2022 10:31 AM [facility] 08-01-2022 Note HNO ID: [id number] Author: Melody Haynes APRN.GEOFF Service: ? Author Type: Nurse Practitioner Type: Progress Notes Filed: 08/01/2022 2:24 PM Note Text: This note was created using [employer]-Duction[employer]. Subjective Maik Martines is a 31 year old female. 31 year old female with PMH GERD and anxiety presents for complaints of left foot pain and eye irritation. . Foot Pain Acute onset of symptoms 07/26/22 States she ran all her left toes and foot into a wall States that today she presents citing that it is not getting better +ecchymosis to toes and top of foot Denies break in skin integrity Denies numbness or tingling +painful and reduced ROM Denies seeking medical treatment [employer]. Eye Irration Acute onset shortly before 07/23/22 She was seen here on 07/26/22 and was diagnosed with eyelid inflammation She was provided Keflex and Romycin ointment. States slightly better, but still there She wears glasses. Denies that she has followed up with eye doctor. Denies visual disturbances. Denies pain with eye movement. The history is provided by the patient. No self propelled dredge operator was used. Eye Problem This is a recurrent problem. The current episode started 1 to 4 weeks ago. The problem occurs constantly. The problem has been waxing and waning. Pertinent negatives include no abdominal pain, anorexia, arthralgias, change in bowel habit, chest pain, chills, congestion, coughing, diaphoresis, fatigue, fever, headaches, joint swelling, myalgias, nausea, neck pain, numbness, rash, sore throat, swollen glands, urinary symptoms, vertigo, visual change, vomiting or weakness. Nothing aggravates the symptoms. Treatments tried: keflex and Romycin. The treatment provided mild relief. Pain (foot) Pain location: left foot. This is a new problem. The current episode started in the past 7 days. There has been a history of trauma. The problem occurs constantly. The problem has been unchanged. The quality of the pain is described as aching and sharp. The pain is at a severity of 6/10. The pain is moderate. Associated symptoms include a limited range of motion. Pertinent negatives include no fever, inability to bear weight, itching, joint locking, joint swelling, numbness, stiffness or tingling. The symptoms are aggravated by activity and standing. She has tried nothing for the symptoms. The treatment provided no relief. Family history does not include gout or rheumatoid arthritis. There is no history of diabetes, gout, osteoarthritis or rheumatoid arthritis. PAST MEDICAL HISTORY Diagnosis Date Allergic rhinitis, cause unspecified Esophageal reflux Headache(784.0) Lymph node enlargement right posterior auricular, sees [facility] Lymph node enlargement right axilla PAST SURGICAL HISTORY Procedure Laterality Date DELIVERY ONLY 2009 , low transverse EXC/DSTRJ LINGUAL TONSIL ANY METHOD SPX 06/2007 GI UPPER SERIES ALLERGIES Bactrim [Sulfamethoxazole-Trimethoprim] , Grape, Morphine, Phenergan [Promethazine Hcl], and Zoloft [Sertraline Hcl] MEDICATIONS erythromycin (ROMYCIN) 5 mg/gram (0.5 %) ophthalmic ointment Use 1 application in the left eye three times daily for 7 days. cephALEXin (KEFLEX) 500 mg capsule Take 1 capsule by mouth three times daily for 7 days. fluconazole (DIFLUCAN) 150 mg tablet Take 1 tablet by mouth once daily. fexofenadine (RADHA) 180 mg tablet Take 1 tablet by mouth once daily. lansoprazole (PREVACID) 30 mg capsule Take 1 capsule by mouth twice daily before meals. albuterol HFA (PROAIR HFA) 90 mcg/actuation inhaler Inhale 2 Puffs as instructed every 4 hours as needed. ergocalciferol 50,000 unit capsule (VITAMIN D2, DRISDOL) Take 1 capsule by mouth one time a week. ENSKYCE 0.15-0.03 mg per tablet Take 1 tablet by mouth once daily. loratadine (CLARITIN) 10 mg tablet (Patient not taking: Reported on 10/24/2020 ) Levonorgestrel-Ethinyl Estrad (MARLISSA) 0.15-0.03 mg per tablet Take 1 tablet by mouth once daily. FAMILY HISTORY Problem Relation Age of Onset None Mother None Father None Sister Overweight None Brother Overweight Hypertension Maternal Grandmother Heart Maternal Grandfather other (Other [Other]) Maternal Grandfather Parkinson's Alzheimer's Disease Paternal Grandmother Breast Cancer Maternal Aunt 53 Genetics negative Breast Cancer Maternal cousin 60 Social History Tobacco Use Smoking status: Never Smokeless tobacco: Never Vaping Use Vaping Use: Never used Substance Use Topics Alcohol use: Not Currently Drug use: No Review of Systems Constitutional: Negative for chills, diaphoresis, fatigue and fever. HENT: Negative for congestion, ear discharge, ear pain and sore throat. Eyes: Negative for photophobia, pain, discharge, redness, itching and visual disturbance. Respiratory: Negative for apnea, cough and chest tightness. Cardiovascular: Negative for chest pain, palpita (more content not included)... [facility] 07-26-2022 Note HNO ID: [id number] Author: Per Sauceda APRN.INFANT TEACHER Service: ? Author Type: Nurse Practitioner Type: Progress Notes Filed: 07/26/2022 7:03 PM Note Text: Subjective HPI HPI Maik Martines is a 31 year old female who presents today for CC of left eyelid swelling/redness. This started 1 day aog. Has tried warm/cold compress. Symptoms are worsened by nothing. Risk factors has been crying a lot lately . Denies eye injury, blurred vision. Denies possibility of being . . .Patient presents with: Eye Problem: left eyelid on and off x 1 day PAST MEDICAL HISTORY Diagnosis Date Allergic rhinitis, cause unspecified Esophageal reflux Headache(784.0) Lymph node enlargement right posterior auricular, sees [facility] Lymph node enlargement right axilla PAST SURGICAL HISTORY Procedure Laterality Date DELIVERY ONLY 2009 , low transverse EXC/DSTRJ LINGUAL TONSIL ANY METHOD SPX 06/2007 GI UPPER SERIES ALLERGIES Bactrim [Sulfamethoxazole-Trimethoprim] , Morphine, Phenergan [Promethazine Hcl], and Zoloft [Sertraline Hcl] MEDICATIONS fluconazole (DIFLUCAN) 150 mg tablet Take 1 tablet by mouth once daily. fexofenadine (RADHA) 180 mg tablet Take 1 tablet by mouth once daily. lansoprazole (PREVACID) 30 mg capsule Take 1 capsule by mouth twice daily before meals. albuterol HFA (PROAIR HFA) 90 mcg/actuation inhaler Inhale 2 Puffs as instructed every 4 hours as needed. erythromycin (ROMYCIN) 5 mg/gram (0.5 %) ophthalmic ointment Use 1 application in the left eye three times daily for 7 days. cephALEXin (KEFLEX) 500 mg capsule Take 1 capsule by mouth three times daily for 7 days. ergocalciferol 50,000 unit capsule (VITAMIN D2, DRISDOL) Take 1 capsule by mouth one time a week. ENSKYCE 0.15-0.03 mg per tablet Take 1 tablet by mouth once daily. loratadine (CLARITIN) 10 mg tablet (Patient not taking: Reported on 10/24/2020 ) Levonorgestrel-Ethinyl Estrad (MARLISSA) 0.15-0.03 mg per tablet Take 1 tablet by mouth once daily. FAMILY HISTORY Problem Relation Age of Onset None Mother None Father None Sister Overweight None Brother Overweight Hypertension Maternal Grandmother Heart Maternal Grandfather other (Other [Other]) Maternal Grandfather Parkinson's Alzheimer's Disease Paternal Grandmother Breast Cancer Maternal Aunt 53 Genetics negative Breast Cancer Maternal cousin 60 Social History Tobacco Use Smoking status: Never Smokeless tobacco: Never Vaping Use Vaping Use: Never used Substance Use Topics Alcohol use: Not Currently Drug use: No ROS Objective Blood pressure 112/74, pulse 118, temperature 36.4 ?C (97.6 ?F), resp. rate 16, weight 77.7 kg (171 lb 3.2 oz), last menstrual period 02/10/2022, SpO2 97 %. Physical Exam Constitutional: General: She is not in acute distress. Appearance: She is not toxic-appearing or diaphoretic. HENT: Head: Normocephalic and atraumatic. Eyes: General: Left eye: No discharge. Conjunctiva/sclera: Left eye: Left conjunctiva is not injected. Pulmonary: Effort: Pulmonary effort is normal. No accessory muscle usage or respiratory distress. Neurological: Mental Status: She is alert and oriented to person, place, and time. ASSESSMENT/PLAN: 1. Eyelid inflammation - ICD9: 373.9, ICD10: H01.9 Cover for stye and possible early periorbital cellulitis. F/u for continued s/s in 3 days, urgent f/u for worsening s/s. - ERYTHROMYCIN 5 MG/GRAM (0.5 %) EYE OINTMENT - CEPHALEXIN 500 MG CAPSULE Per Sauceda APRN.[facility] 07-26-2022 History of Presen t illness Narrative Subjective HPI HPI Maik Martines is a 31 year old female who presents today for CC of left eyelid swelling/redness. This started 1 day aog. Has tried warm/cold compress. Symptoms are worsened by nothing. Risk factors has been crying a lot lately . Denies eye injury, blurred vision. Denies possibility of being . . .Patient presents with: Eye Problem: left eyelid on and off x 1 day PAST MEDICAL HISTORY Diagnosis Date Allergic rhinitis, cause unspecified Esophageal reflux Headache(784.0) Lymph node enlargement right posterior auricular, sees [facility] Lymph node enlargement right axilla PAST SURGICAL HISTORY Procedure Laterality Date DELIVERY ONLY 2009 , low transverse EXC/DSTRJ LINGUAL TONSIL ANY METHOD SPX 06/2007 GI UPPER SERIES ALLERGIES Bactrim [Sulfamethoxazole-Trimethoprim] , Morphine, Phenergan [Promethazine Hcl], and Zoloft [Sertraline Hcl] MEDICATIONS fluconazole (DIFLUCAN) 150 mg tablet Take 1 tablet by mouth once daily. fexofenadine (RADHA) 180 mg tablet Take 1 tablet by mouth once daily. lansoprazole (PREVACID) 30 mg capsule Take 1 capsule by mouth twice daily before meals. albuterol HFA (PROAIR HFA) 90 mcg/actuation inhaler Inhale 2 Puffs as instructed every 4 hours as needed. erythromycin (ROMYCIN) 5 mg/gram (0.5 %) ophthalmic ointment Use 1 application in the left eye three times daily for 7 days. cephALEXin (KEFLEX) 500 mg capsule Take 1 capsule by mouth three times daily for 7 days. ergocalciferol 50,000 unit capsule (VITAMIN D2, DRISDOL) Take 1 capsule by mouth one time a week. ENSKYCE 0.15-0.03 mg per tablet Take 1 tablet by mouth once daily. loratadine (CLARITIN) 10 mg tablet (Patient not taking: Reported on 10/24/2020 ) Levonorgestrel-Ethinyl Estrad (MARLISSA) 0.15-0.03 mg per tablet Take 1 tablet by mouth once daily. FAMILY HISTORY Problem Relation Age of Onset None Mother None Father None Sister Overweight None Brother Overweight Hypertension Maternal Grandmother Heart Maternal Grandfather other (Other [Other]) Maternal Grandfather Parkinson's Alzheimer's Disease Paternal Grandmother Breast Cancer Maternal Aunt 53 Genetics negative Breast Cancer Maternal cousin 60 Social History Tobacco Use Smoking status: Never Smokeless tobacco: Never Vaping Use Vaping Use: Never used Substance Use Topics Alcohol use: Not Currently Drug use: No ROS Objective Blood pressure 112/74, pulse 118, temperature 36.4 C (97.6 F), resp. rate 16, weight 77.7 kg (171 lb 3.2 oz), last menstrual period 02/10/2022, SpO2 97 %. Physical Exam Constitutional: General: She is not in acute distress. Appearance: She is not toxic-appearing or diaphoretic. HENT: Head: Normocephalic and atraumatic. Eyes: General: Left eye: No discharge. Conjunctiva/sclera: Left eye: Left conjunctiva is not injected. Pulmonary: Effort: Pulmonary effort is normal. No accessory muscle usage or respiratory distress. Neurological: Mental Status: She is alert and oriented to person, place, and time. ASSESSMENT/PLAN: 1. Eyelid inflammation - ICD9: 373.9, ICD10: H01.9 Cover for stye and possible early periorbital cellulitis. F/u for continued s/s in 3 days, urgent f/u for worsening s/s. - ERYTHROMYCIN 5 MG/GRAM (0.5 %) EYE OINTMENT - CEPHALEXIN 500 MG CAPSULE Per Sauceda APRN.INFANT TEACHER documented in this encounter [facility] 06-07-2022 Note HNO ID: [id number] Author: Maliha Medina APRN.INFANT TEACHER Service: ? Author Type: Nurse Practitioner Type: Progress Notes Filed: 06/07/2022 9:03 AM Note Text: CC: Patient presents with: Sinus Problem: headaches, bilateral ear pain x 6 days HPI: Maik Martines is a 31 year old female who presents to the office with complaint of head congestion, cough, nonproductive, sinus symptoms, and ear symptoms for 6 days. Symptoms are worsening Associated symptoms includes ear pain. Denies decreased appetite, nausea, vomiting , and diarrhea. Treatments tried include nothing so far. with no relief of symptoms. Sick contacts: unknown. History of asthma, frequent episodes of bronchitis, chronic bronchitis, bronchiectasis or COPD: No Smoker: No Seasonal/environmental allergies: No The ROS is otherwise negative. The patient's pmh, medications, allergies, and past visits are reviewed. PHYSICAL EXAM: BP 108/72 Pulse 76 Temp 37.4 ?C (99.4 ?F) Resp 16 Wt 74.8 kg (165 lb) LMP 02/10/2022 (Within Days) SpO2 100% BMI 29.23 kg/m? General appearance: alert, cooperative, pleasant, in no acute distress Head: Normocephalic Eyes: EOM's intact, conjunctiva pink and moist, no icterus, sclera white, non-injected Ears: Right ear: External ear/canal- Normal, TM - erythematous, bulging. Left ear: External ear/canal- Normal, TM - erythematous Oropharynx:moist without lesions, No erythema, exudates or tonsillar hypertrophy. Heart: Negative. RRR without obvious murmur, gallop, or rubs. No ectopy. Lungs: clear to auscultation, without rales or wheeze, good air exchange PAST MEDICAL HISTORY Diagnosis Date Allergic rhinitis, cause unspecified Esophageal reflux Headache(784.0) Lymph node enlargement right posterior auricular, sees [facility] Lymph node enlargement right axilla PAST SURGICAL HISTORY Procedure Laterality Date DELIVERY ONLY 2009 , low transverse EXC/DSTRJ LINGUAL TONSIL ANY METHOD SPX 06/2007 GI UPPER SERIES ALLERGIES Bactrim [Sulfamethoxazole-Trimethoprim] , Morphine, Phenergan [Promethazine Hcl], and Zoloft [Sertraline Hcl] MEDICATIONS fexofenadine (RADHA) 180 mg tablet Take 1 tablet by mouth once daily. lansoprazole (PREVACID) 30 mg capsule Take 1 capsule by mouth twice daily before meals. albuterol HFA (PROAIR HFA) 90 mcg/actuation inhaler Inhale 2 Puffs as instructed every 4 hours as needed. amoxicillin (AMOXIL) 875 mg tablet Take 1 tablet by mouth twice daily for 7 days. fluconazole (DIFLUCAN) 150 mg tablet Take 1 tablet by mouth once daily. ergocalciferol 50,000 unit capsule (VITAMIN D2, DRISDOL) Take 1 capsule by mouth one time a week. ENSKYCE 0.15-0.03 mg per tablet Take 1 tablet by mouth once daily. loratadine (CLARITIN) 10 mg tablet (Patient not taking: Reported on 10/24/2020 ) Levonorgestrel-Ethinyl Estrad (MARLISSA) 0.15-0.03 mg per tablet Take 1 tablet by mouth once daily. FAMILY HISTORY Problem Relation Age of Onset None Mother None Father None Sister Overweight None Brother Overweight Hypertension Maternal Grandmother Heart Maternal Grandfather other (Other [Other]) Maternal Grandfather Parkinson's Alzheimer's Disease Paternal Grandmother Breast Cancer Maternal Aunt 53 Genetics negative Breast Cancer Maternal cousin 60 Social History Tobacco Use Smoking status: Never Smokeless tobacco: Never Vaping Use Vaping Use: Never used Substance Use Topics Alcohol use: Not Currently Drug use: No ASSESSMENT/PLAN: 1. Acute otitis media, right - ICD9: 382.9, ICD10: H66.91 Amoxicillin twice a day for 7 days. Prescription instructions reviewed with patient as applicable. Potential red flag symptoms discussed with the patient. Reviewed appropriate action plan to take if red flag symptoms occur. Patient agreeable to treatment plan. Maliha Medina APRN.[facility] 06-07-2022 History of Presen t illness Narrative CC: Patient presents with: Sinus Problem: headaches, bilateral ear pain x 6 days HPI: Maik Martines is a 31 year old female who presents to the office with complaint of head congestion, cough, nonproductive, sinus symptoms, and ear symptoms for 6 days. Symptoms are worsening Associated symptoms includes ear pain. Denies decreased appetite, nausea, vomiting , and diarrhea. Treatments tried include nothing so far. with no relief of symptoms. Sick contacts: unknown. History of asthma, frequent episodes of bronchitis, chronic bronchitis, bronchiectasis or COPD: No Smoker: No Seasonal/environmental allergies: No The ROS is otherwise negative. The patient's pmh, medications, allergies, and past visits are reviewed. PHYSICAL EXAM: BP 108/72 Pulse 76 Temp 37.4 C (99.4 F) Resp 16 Wt 74.8 kg (165 lb) LMP 02/10/2022 (Within Days) SpO2 100% BMI 29.23 kg/m General appearance: alert, cooperative, pleasant, in no acute distress Head: Normocephalic Eyes: EOM's intact, conjunctiva pink and moist, no icterus, sclera white, non-injected Ears: Right ear: External ear/canal- Normal, TM - erythematous, bulging. Left ear: External ear/canal- Normal, TM - erythematous Oropharynx:moist without lesions, No erythema, exudates or tonsillar hypertrophy. Heart: Negative. RRR without obvious murmur, gallop, or rubs. No ectopy. Lungs: clear to auscultation, without rales or wheeze, good air exchange PAST MEDICAL HISTORY Diagnosis Date Allergic rhinitis, cause unspecified Esophageal reflux Headache(784.0) Lymph node enlargement right posterior auricular, sees [facility] Lymph node enlargement right axilla PAST SURGICAL HISTORY Procedure Laterality Date DELIVERY ONLY 2009 , low transverse EXC/DSTRJ LINGUAL TONSIL ANY METHOD SPX 06/2007 GI UPPER SERIES ALLERGIES Bactrim [Sulfamethoxazole-Trimethoprim] , Morphine, Phenergan [Promethazine Hcl], and Zoloft [Sertraline Hcl] MEDICATIONS fexofenadine (RADHA) 180 mg tablet Take 1 tablet by mouth once daily. lansoprazole (PREVACID) 30 mg capsule Take 1 capsule by mouth twice daily before meals. albuterol HFA (PROAIR HFA) 90 mcg/actuation inhaler Inhale 2 Puffs as instructed every 4 hours as needed. amoxicillin (AMOXIL) 875 mg tablet Take 1 tablet by mouth twice daily for 7 days. fluconazole (DIFLUCAN) 150 mg tablet Take 1 tablet by mouth once daily. ergocalciferol 50,000 unit capsule (VITAMIN D2, DRISDOL) Take 1 capsule by mouth one time a week. ENSKYCE 0.15-0.03 mg per tablet Take 1 tablet by mouth once daily. loratadine (CLARITIN) 10 mg tablet (Patient not taking: Reported on 10/24/2020 ) Levonorgestrel-Ethinyl Estrad (MARLISSA) 0.15-0.03 mg per tablet Take 1 tablet by mouth once daily. FAMILY HISTORY Problem Relation Age of Onset None Mother None Father None Sister Overweight None Brother Overweight Hypertension Maternal Grandmother Heart Maternal Grandfather other (Other [Other]) Maternal Grandfather Parkinson's Alzheimer's Disease Paternal Grandmother Breast Cancer Maternal Aunt 53 Genetics negative Breast Cancer Maternal cousin 60 Social History Tobacco Use Smoking status: Never Smokeless tobacco: Never Vaping Use Vaping Use: Never used Substance Use Topics Alcohol use: Not Currently Drug use: No ASSESSMENT/PLAN: 1. Acute otitis media, right - ICD9: 382.9, ICD10: H66.91 Amoxicillin twice a day for 7 days. Prescription instructions reviewed with patient as applicable. Potential red flag symptoms discussed with the patient. Reviewed appropriate action plan to take if red flag symptoms occur. Patient agreeable to treatment plan. Maliha Medina APRN.CNP documented in this encounter [facility] 05-03-2022 Miscellaneous Notes Patient notified of results. Tamar Loya RN Lmom for pt to call back to give her, her results. Jade Juan Cma Please let patient know that her renal ultrasound was normal. documented in this encounter [facility] 04-28-2022 Miscellaneous Notes Patient informed. Shay Fernandez Ma Please call patient, urine culture is negative for infection. documented in this encounter [facility] 04-28-2022 Note HNO ID: [id number] Author: Melody Guadalupe RDMS Service: ? Author Type: Metal Sprayer Protective Coating Type: Progress Notes Filed: 04/28/2022 7:59 AM Note Text: Radiology Service Progress Note PATIENT NAME: Maik Martines DATE OF SERVICE: April 28, 2022 TIME: 7:59 AM PATIENT IDENTITY VERIFICATION COMPLETED USING TWO (2) IDENTIFIERS: Name and Date of confirmed by patient verbally. FALL SCREENING: Has the patient had 2 falls in the last year or 1 fall with injury or currently using an Ambulatory Assistive Device (Walker, Cane, Wheelchair, Crutches, etc.)? No PATIENT GENDER DATA: Female. status: : No status: NO. PATIENT RELEVANT IMPLANT DATA REVIEWED: Not Applicable RADIOLOGY DEPARTMENT: Ultrasound PERIPHERAL IV DATA: Not applicable SIGNED BY: Melody Guadalupe RDMS T April 28, 2022 7:59 AM [facility] 04-28-2022 History of Presen t illness Narrative Radiology Service Progress Note PATIENT NAME: Maik Martines DATE OF SERVICE: April 28, 2022 TIME: 7:59 AM PATIENT IDENTITY VERIFICATION COMPLETED USING TWO (2) IDENTIFIERS: Name and Date of confirmed by patient verbally. FALL SCREENING: Has the patient had 2 falls in the last year or 1 fall with injury or currently using an Ambulatory Assistive Device (Walker, Cane, Wheelchair, Crutches, etc.)? No PATIENT GENDER DATA: Female. status: : No status: NO. PATIENT RELEVANT IMPLANT DATA REVIEWED: Not Applicable RADIOLOGY DEPARTMENT: Ultrasound PERIPHERAL IV DATA: Not applicable SIGNED BY: Melody Guadalupe RDMS Uday April 28, 2022 7:59 AM documented in this encounter [facility] 04-25-2022 Note HNO ID: [id number] Author: Emmy Hutton APRN.GEOFF Service: ? Author Type: Nurse Practitioner Type: Progress Notes Filed: 04/25/2022 9:04 AM Note Text: NEW PATIENT OFFICE VISIT HISTORY OF PRESENT ILLNESS Maik Martines is a 31 year old female who presents today as a new patient for acute bladder pressure. She has ++ h/o endometriosis she just started depo she is due for second shot in April. She reports that she has had ++ bladder pressure for 2 weeks and started having dysuria. She was treated with Keflex and dysuria resolved but the bladder pressure has not resolved. Last urine culture showed staph epi. She feels like she is is emptying her bladder. She reports that nothing makes the bladder pressure better or worse. No gross hematuria. No h/o kidney stones. PVR 72cc today UA (+) moderate blood - she is on menses currently. Will check urine culture and get renal ultrasound and follow up pending results LAB RESULTS Creatinine Date Value Ref Range Status 04/08/2022 0.97 (H) 0.58 - 0.96 mg/dL Final No results found for: PSA Color (no units) Date Value 08/30/2016 Yellow Clarity (no units) Date Value 08/30/2016 Clear Glucose, Urine (mg/dL) Date Value 08/30/2016 Negative Bilirubin, Urine (no units) Date Value 08/30/2016 Negative Ketones, Urine (no units) Date Value 08/30/2016 Negative Specific [place], Ur (no units) Date Value 08/30/2016 1.026 Hemoglobin/Blood,Ur ( ) Date Value 08/30/2016 1+ pH, Urine (no units) Date Value 08/30/2016 5.0 Protein, Urine (mg/dL) Date Value 08/30/2016 Negative Urobilinogen (no units) Date Value 08/30/2016 Normal Nitrites (no units) Date Value 08/30/2016 Negative Leukest (no units) Date Value 08/30/2016 1+ MEDICATIONS: fexofenadine (RADHA) 180 mg tablet Take 1 tablet by mouth once daily. lansoprazole (PREVACID) 30 mg capsule Take 1 capsule by mouth twice daily before meals. albuterol HFA (PROAIR HFA) 90 mcg/actuation inhaler Inhale 2 Puffs as instructed every 4 hours as needed. ergocalciferol 50,000 unit capsule (VITAMIN D2, DRISDOL) Take 1 capsule by mouth one time a week. ENSKYCE 0.15-0.03 mg per tablet Take 1 tablet by mouth once daily. escitalopram oxalate (LEXAPRO) 5 mg tablet Take 5 mg by mouth once daily. (Patient not taking: Reported on 09/09/2021 ) loratadine (CLARITIN) 10 mg tablet (Patient not taking: Reported on 10/24/2020 ) ondansetron (ZOFRAN) 4 mg tablet Take by mouth. (Patient not taking: Reported on 10/24/2020 ) Levonorgestrel-Ethinyl Estrad (MARLISSA) 0.15-0.03 mg per tablet Take 1 tablet by mouth once daily. REVIEW OF SYSTEMS CONSTITUTIONAL: Patient reports no recent fever or weight loss CARDIOVASCULAR: No chest pain, palpitations or ankle edema. RESPIRATORY: No wheezing, frequent cough or shortness of breath GENITOURINARY: See HPI HISTORIES PAST MEDICAL HISTORY Diagnosis Date Allergic rhinitis, cause unspecified Esophageal reflux Headache(784.0) Lymph node enlargement right posterior auricular, sees [facility] Lymph node enlargement right axilla FAMILY HISTORY Problem Relation Age of Onset None Mother None Father None Sister Overweight None Brother Overweight Hypertension Maternal Grandmother Heart Maternal Grandfather other (Other [Other]) Maternal Grandfather Parkinson's Alzheimer's Disease Paternal Grandmother Breast Cancer Maternal Aunt 53 Genetics negative Breast Cancer Maternal cousin 60 PAST SURGICAL HISTORY Procedure Laterality Date DELIVERY ONLY 2009 , low transverse EXC/DSTRJ LINGUAL TONSIL ANY METHOD SPX 06/2007 GI UPPER SERIES SOCIAL HISTORY Social History Tobacco Use Smoking status: Never Smokeless tobacco: Never Vaping Use Vaping Use: Never used Substance Use Topics Alcohol use: Not Currently Drug use: No PHYSICAL EXAMINATION General appearance: Well appearing, alert, in no acute distress, well-hydrated, well nourished.. BACK: no pain to palpation over spine or costovertebral angles. MUSCULOSKELETAL: Negative for joint pain or swelling. RESPIRATORY: Normal respiratory effort. SKIN: Normal color, no rash, no lesions.. ASSESSMENT/PLAN: 1. Sensation of pressure in bladder area - ICD9: 596.89, ICD10: R39.89 - BLADDER SCAN - URINE CULTURE - US KIDNEY/BLADDER - follow up pending results Emmy Hutton APRN.INFANT TEACHER [facility] 04-18-2022 Miscellaneous Notes Patient given results and verbalized understanding of instructions given. Maria Victoria Antoine ----- Message from Juana Kerns APRN.INFANT TEACHER sent at 04/18/2022 12:47 PM EDT ----- Please advise patient the urine culture was negative. Follow instructions given by provider at visit, f/u with PCP if symptoms persist or worsen. documented in this encounter [facility] 04-17-2022 Miscellaneous Notes Patient given results and verbalized understanding of instructions given. Maria Victoria Antoine Vaginal swabs negative. Continue supportive therapies as discussed. Follow-up with LEDGER CLERK if symptoms are not improving. Moose Grace APRN.GEOFF documented in this encounter [facility] 04-17-2022 Note HNO ID: [id number] Author: Maliha Medina APRN.GEOFF Service: ? Author Type: Nurse Practitioner Type: Progress Notes Filed: 04/17/2022 8:22 AM Note Text: CC: Patient presents with: UTI: Bladder pressure, urgency x10 days HPI Maik Martines is a 31 year old female who presents with complaint of possible UTI. These symptoms have been present for 10 days. Associated symptoms: pressure and abdominal pain Denies: burning, backpain, hematuria, fever, chills, sweats, and flank pain Treatments: antibiotics (keflex) with no relief The ROS was otherwise negative. PMH, Medications, labs, allergies, and recent past visits with PCP were reviewed and updated as able. PHYSICAL EXAM: BP 118/78 Pulse 97 Temp 37 ?C (98.6 ?F) Resp 18 Wt 72.4 kg (159 lb 9.6 oz) LMP 02/10/2022 (Within Days) SpO2 98% BMI 28.27 kg/m? General: Well appearing and alert CV: Regular rate and rhythm without obvious murmur Lungs: clear to auscultation bilaterally Back: straight and symmetric Abdomen: slight pain in mid abdomen lower and upper. PAST MEDICAL HISTORY Diagnosis Date Allergic rhinitis, cause unspecified Esophageal reflux Headache(784.0) Lymph node enlargement right posterior auricular, sees [facility] Lymph node enlargement right axilla PAST SURGICAL HISTORY Procedure Laterality Date DELIVERY ONLY 2009 , low transverse EXC/DSTRJ LINGUAL TONSIL ANY METHOD SPX 06/2007 GI UPPER SERIES ALLERGIES Bactrim [Sulfamethoxazole-Trimethoprim] , Morphine, Phenergan [Promethazine Hcl], and Zoloft [Sertraline Hcl] MEDICATIONS fexofenadine (RADHA) 180 mg tablet Take 1 tablet by mouth once daily. lansoprazole (PREVACID) 30 mg capsule Take 1 capsule by mouth twice daily before meals. albuterol HFA (PROAIR HFA) 90 mcg/actuation inhaler Inhale 2 Puffs as instructed every 4 hours as needed. ergocalciferol 50,000 unit capsule (VITAMIN D2, DRISDOL) Take 1 capsule by mouth one time a week. ENSKYCE 0.15-0.03 mg per tablet Take 1 tablet by mouth once daily. escitalopram oxalate (LEXAPRO) 5 mg tablet Take 5 mg by mouth once daily. (Patient not taking: Reported on 09/09/2021 ) loratadine (CLARITIN) 10 mg tablet (Patient not taking: Reported on 10/24/2020 ) ondansetron (ZOFRAN) 4 mg tablet Take by mouth. (Patient not taking: Reported on 10/24/2020 ) Levonorgestrel-Ethinyl Estrad (MARLISSA) 0.15-0.03 mg per tablet Take 1 tablet by mouth once daily. FAMILY HISTORY Problem Relation Age of Onset None Mother None Father None Sister Overweight None Brother Overweight Hypertension Maternal Grandmother Heart Maternal Grandfather other (Other [Other]) Maternal Grandfather Parkinson's Alzheimer's Disease Paternal Grandmother Breast Cancer Maternal Aunt 53 Genetics negative Breast Cancer Maternal cousin 60 Social History Tobacco Use Smoking status: Never Smokeless tobacco: Never Vaping Use Vaping Use: Never used Substance Use Topics Alcohol use: Not Currently Drug use: No ASSESSMENT/PLAN: 1. Sensation of pressure in bladder area - ICD9: 596.89, ICD10: R39.89 - UA DIP, URINE (POC) - URINE CULTURE - MAYNOR / TRICHOMONAS AMPLIFICATION - BACTERIAL VAGINOSIS AMPLIFICATION - GC/CHLAMYDIA DNA DET - CONSULT TO UROLOGY No treatment at this time. If test come back positive will treat at that time. Patient will make her own urology appt. Prescription instructions reviewed with patient as applicable. Potential red flag symptoms discussed with the patient. Reviewed appropriate action plan to take if red flag symptoms occur. Patient agreeable to treatment plan. Maliha Medina APRN.INFANT TEACHER [facility] 04-08-2022 Note HNO ID: [id number] Author: Rebeca Pike APRN.GEOFF Service: ? Author Type: Nurse Practitioner Type: Progress Notes Filed: 04/08/2022 11:25 AM Note Text: Subjective The history is provided by the patient. No self propelled dredge operator was used. HPI Maik Martines is a 31 year old female who presents today for CC of burning and frequency with urination. She also is having lower abdominal pressure Positive for Dysuria, Increase in frequency of urination, and Urgency, Negative for Sense of incomplete void, Fevers, Vomiting, Diarrhea, Abdominal pain , Back/Flank pain, Blood in urine, and Vaginal itch or discharge Chance of : No Last intercourse: past week Any self-treatment attempted: Yes Number of previous UTI's in last 6 months:0 Number of previous UTI's in last 12 months: 0 Aggravating Factors: voiding Alleviating Factors include Increasing fluids with partial relief in symptoms. BP 118/82 Pulse 84 Temp 36.7 ?C (98.1 ?F) Resp 18 Wt 72.5 kg (159 lb 12.8 oz) LMP 10/09/2016 SpO2 99% BMI 28.31 kg/m? Social History Tobacco Use Smoking status: Never Smokeless tobacco: Never Vaping Use Vaping Use: Never used Substance Use Topics Alcohol use: Not Currently Drug use: No PAST MEDICAL HISTORY Diagnosis Date Allergic rhinitis, cause unspecified Esophageal reflux Headache(784.0) Lymph node enlargement right posterior auricular, sees [facility] Lymph node enlargement right axilla I have confirmed and edited as necessary, the [facility] Review of Systems Constitutional: Negative for chills and fever. Gastrointestinal: Negative for abdominal pain and vomiting. Genitourinary: Positive for dysuria, frequency and urgency. Negative for flank pain and hematuria. Objective Physical Exam Vitals and nursing note reviewed. Constitutional: Appearance: Normal appearance. Abdominal: General: Bowel sounds are normal. There is no abdominal bruit. Palpations: Abdomen is not rigid. There is no mass or pulsatile mass. Tenderness: There is abdominal tenderness in the suprapubic area. There is no guarding or rebound. Negative signs include Davila's sign and McBurney's sign. Neurological: Mental Status: She is alert and oriented to person, place, and time. Psychiatric: Mood and Affect: Affect normal. ASSESSMENT/PLAN: 1. Urinary frequency - ICD9: 788.41, ICD10: R35.0 (primary diagnosis) acute - UA positive for darius esterase - Send urine for culture - Begin treatment with keflex for 7 days - Patient education for prevention given - UA DIP, URINE (POC) - URINE CULTURE 2. Acute UTI - ICD9: 599.0, ICD10: N39.0 - COMP METABOLIC PANEL - last cmp was 2017 with creatinine of 1.04 Will repeat today, adjust dose of keflex if needed Will call tomorrow with results. Diagnosis and treatment plan were discussed and questions were answered to the patient's satisfaction. Pt acknowledged understanding of concepts and follow up plan. Specific signs and symptoms that would indicate the need for higher level of care were discussed in detail warranting prompt ER evaluation. Rebeca Pike APRN.[facility] 04-08-2022 History of Presen t illness Narrative Subjective The history is provided by the patient. No self propelled dredge operator was used. HPI Maik Martines is a 31 year old female who presents today for CC of burning and frequency with urination. She also is having lower abdominal pressure Positive for Dysuria, Increase in frequency of urination, and Urgency, Negative for Sense of incomplete void, Fevers, Vomiting, Diarrhea, Abdominal pain , Back/Flank pain, Blood in urine, and Vaginal itch or discharge Chance of : No Last intercourse: past week Any self-treatment attempted: Yes Number of previous UTI's in last 6 months:0 Number of previous UTI's in last 12 months: 0 Aggravating Factors: voiding Alleviating Factors include Increasing fluids with partial relief in symptoms. BP 118/82 Pulse 84 Temp 36.7 C (98.1 F) Resp 18 Wt 72.5 kg (159 lb 12.8 oz) LMP 10/09/2016 SpO2 99% BMI 28.31 kg/m Social History Tobacco Use Smoking status: Never Smokeless tobacco: Never Vaping Use Vaping Use: Never used Substance Use Topics Alcohol use: Not Currently Drug use: No PAST MEDICAL HISTORY Diagnosis Date Allergic rhinitis, cause unspecified Esophageal reflux Headache(784.0) Lymph node enlargement right posterior auricular, sees [facility] Lymph node enlargement right axilla I have confirmed and edited as necessary, the [facility] Review of Systems Constitutional: Negative for chills and fever. Gastrointestinal: Negative for abdominal pain and vomiting. Genitourinary: Positive for dysuria, frequency and urgency. Negative for flank pain and hematuria. Objective Physical Exam Vitals and nursing note reviewed. Constitutional: Appearance: Normal appearance. Abdominal: General: Bowel sounds are normal. There is no abdominal bruit. Palpations: Abdomen is not rigid. There is no mass or pulsatile mass. Tenderness: There is abdominal tenderness in the suprapubic area. There is no guarding or rebound. Negative signs include Davila's sign and McBurney's sign. Neurological: Mental Status: She is alert and oriented to person, place, and time. Psychiatric: Mood and Affect: Affect normal. ASSESSMENT/PLAN: 1. Urinary frequency - ICD9: 788.41, ICD10: R35.0 (primary diagnosis) acute - UA positive for darius esterase - Send urine for culture - Begin treatment with keflex for 7 days - Patient education for prevention given - UA DIP, URINE (POC) - URINE CULTURE 2. Acute UTI - ICD9: 599.0, ICD10: N39.0 - COMP METABOLIC PANEL - last cmp was 2017 with creatinine of 1.04 Will repeat today, adjust dose of keflex if needed Will call tomorrow with results. Diagnosis and treatment plan were discussed and questions were answered to the patient's satisfaction. Pt acknowledged understanding of concepts and follow up plan. Specific signs and symptoms that would indicate the need for higher level of care were discussed in detail warranting prompt ER evaluation. Rebeca Pike APRN.CNP documented in this encounter [facility] 02-23-2022 Miscellaneous Notes Images from the original note were not included. Return to Work Progress Caregiver COVID19 Call Patient Name: Maik Martines Date of : 1990 Primary Care Physician: Gilbert Salas MD, MD Service Date: 02/23/2022 Service Time: 10:24 AM Return to Work Progress Caregiver COVID19 Call Survey completed; NOT cleared. Declines outreach. Will follow Signature: Crow Vargas PA-C Patient Name: Maik Martines Date: 02/23/2022 Time: 10:24 AM Pager/Contact: documented in this encounter [facility] 02-21-2022 Miscellaneous Notes Images from the original note were not included. COVID-19 Positive Caregiver Patient Name: Maik Martines Primary Care Physician: Gilbert Salas MD, MD Service Date: 02/21/2022 Service Time: 7:10 AM COVID-19 Positive Caregiver COVID Symptom Onset: 02/17--per hotline call NOT VAXXED Lab Results Component Value Date COVID19 (A) 02/20/2022 SARS-CoV-2 (Agent of COVID-19) Detected by RT-PCR or equivalent method. Covid Immunization Dates Overdue - COVID-19 VACCINE (1) Overdue - never done No completion, postpone, frequency change, or communication history exists for this topic. In DocFlowsheet: Spoke to patient indicates Email and MyChart Messages Sent Spoke with analytical manager indicates Email notification sent to leadership contact -Best email for electonic communication: [email or web address] -MyChart message sent -Caregiver Support email sent -Email sent to leadership Signature: Anahi Andre APRN.CNP Patient Name: Maik Martines Date: 02/21/2022 Time: 7:10 AM Pager/Contact: documented in this encounter [facility] 02-20-2022 Miscellaneous Notes Images from the original note were not included. Symptomatic Caregiver COVID Call Patient Name: Maik Martines Date of : 1990 Primary Care Physician: Gilbert Salas MD, MD Service Date: 02/20/2022 Service Time: 6:43 AM Symptomatic Caregiver COVID Call - confirmed: Yes -Caregiver employee ID: [id number] -Symptom onset: 02-17-22 Home test + Covid Immunization Dates Overdue - COVID-19 VACCINE (1) Overdue - never done No completion, postpone, frequency change, or communication history exists for this topic. Recent travel outside [place]: no Cares for COVID-19 positive patients: no Known positive COVID-19 contacts: no Previously positive for COVID: yes Comorbidities: [] Obesity [] Diabetes Mellitus [] Asthma/COPD [] [] Other: Symptoms: achy, cough, runny nose [] Mild [x] Moderate [] Severe Maik meets criteria for Caregiver COVID19 testing. Plan -Caregiver COVID19 test ordered and scheduled -Reinforced self-isolation, avoiding public areas and gatherings, pending COVID19 result -Mask while home with family and not isolated alone -Advised no work pending COVID19 result -Advised to seek evaluation by primary care provider, [facility], or ED with worsening or escalating symptoms -Advised to call the COVID Hotline with outstanding questions/comments/concerns Signature: Mónica Martinez Patient Name: Maik Martines Date: 02/20/2022 Time: 6:43 AM Pager/Contact: documented in this encounter [facility] 11-07-2021 Miscellaneous Notes I spoke with the patient to schedule her for a one month follow up with Dr. Serna. Patient will call back she was unable to schedule at this time due to her work schedule. Fabiana Arango MA documented in this encounter [facility] 10-17-2021 Note HNO ID: [id number] Author: Mónica Serna MD Service: ? Author Type: Physician Type: Progress Notes Filed: 10/17/2021 4:11 PM Note Text: Mónica Serna MD [facility] [address] [place] [address] HPI: Maik Martines is a 30 year old White female who presents for an evaluation of right breast and axillary pain of 2-1/2 months duration. She has tried [id number] Tylenol, ibuprofen and evening primrose oil with no significant improvement. Nursing Notes: Octavia Brewer LPN 10/17/2021 3:43 PM Signed Patient present for right breast and axillary pain x2-3 months. Octavia Brewer LPN AGE AT [place] 10 AGE AT FIRST 18 (3[age] FAMILY HISTORY OF BREAST CANCER Yes (IF YES) NUMBER OF FIRST DEGREE RELATIVES WITH BREAST CANCER 0 PREVIOUS BREAST BIOPSIES No (IF YES) PREVIOUS BREAST BIOPSY WITH ATYPICAL HYPERPLASIA No RACE Obstetric History T1 L1 SAB0 IAB0 Ectopic0 Multiple0 Live Births1 Name of Baby 1: Iman Ann Date: 11/02/09 GA: 40w0d Delivery: SECTION Apgar1: 8 Apgar5: 9 Living: Living PAST MEDICAL HISTORY Diagnosis Date - Allergic rhinitis, cause unspecified - Esophageal reflux - Headache(784.0) - Lymph node enlargement right posterior auricular, sees [facility] - Lymph node enlargement right axilla PAST SURGICAL HISTORY Procedure Laterality Date - DELIVERY ONLY 2009 , low transverse - EXC/DSTRJ LINGUAL TONSIL ANY METHOD SPX 06/2007 - GI UPPER SERIES FAMILY HISTORY Problem Relation Age of Onset - None Mother - None Father - None Sister Overweight - None Brother Overweight - Hypertension Maternal Grandmother - Heart Maternal Grandfather - other (Other [Other]) Maternal Grandfather Parkinson's - Alzheimer's Disease Paternal Grandmother - Breast Cancer Maternal Aunt 53 Genetics negative - Breast Cancer Maternal cousin 60 CURRENT MEDICATIONS: fexofenadine (RADHA ALLERGY) 180 mg tablet Take 1 tablet by mouth once daily. ENSKYCE 0.15-0.03 mg per tablet Take 1 tablet by mouth once daily. lansoprazole (PREVACID) 30 mg capsule Take 1 capsule by mouth twice daily before meals. albuterol HFA (PROAIR HFA) 90 mcg/actuation inhaler Inhale 2 Puffs as instructed every 4 hours as needed. Levonorgestrel-Ethinyl Estrad (MARLISSA) 0.15-0.03 mg per tablet Take 1 tablet by mouth once daily. escitalopram oxalate (LEXAPRO) 5 mg tablet Take 5 mg by mouth once daily. loratadine (CLARITIN) 10 mg tablet ondansetron (ZOFRAN) 4 mg tablet Take by mouth. CURRENT ALLERGIES: ALLERGIES Allergen Reactions - Bactrim [Sulfametho* GI Upset vomiting - Morphine hypotension - Phenergan [Prometha* Other: See Comments ? Hypotension, given at same time as Morphine - Zoloft [Sertraline * Other: See Comments Increased anxiety and weight gain Social History Tobacco Use - Smoking status: Never Smoker - Smokeless tobacco: Never Used Vaping Use - Vaping Use: Never used Substance Use Topics - Alcohol use: Not Currently - Drug use: No LABS AND IMAGING: Recent mammogram and right breast ultrasound were reviewed. Both studies were read as negative. Review of Systems Constitutional: Negative for chills and fever. All other systems reviewed and are negative. PHYSICAL EXAM: BP 121/85 Pulse 98 Ht 160 cm (5' 3 ) Wt 72.6 kg (160 lb) LMP 10/09/2016 BMI 28.34 kg/m? General appearance: Well appearing, alert, in no acute distress Skin: skin color, texture, turgor normal, no suspicious rashes or lesions Eyes: Anicteric sclera, Pupils are equally round and reactive Abdomen: soft, non-tender, non-distended Extremities: No clubbing, cyanosis, or edema. Heart: Regular rate and rhythm Lungs: Clear to ascultation bilaterally Neuro: Alert and oriented times three Physical Exam Chest: Breasts: Breasts are symmetrical. Right: No swelling, inverted nipple, mass, nipple discharge, skin change, tenderness or axillary adenopathy. Left: No swelling, inverted nipple, mass, nipple discharge, skin change, tenderness or axillary adenopathy. Lymphadenopathy: Upper Body: Right upper body: No axillary adenopathy. Left upper body: No axillary adenopathy. The mammogram and breast ultrasound was reviewed in detail. Plan IMPRESSION/PLAN: Maik Martines is a 30 year old White female who presents for an evaluation of right breast and axillary pain of 2-1/2 months duration. She has tried [id number] Tylenol, ibuprofen and evening primrose oil with no significant improvement. Clinical examination finds right breast tenderness with palpation. Otherwise, there is no discrete suspicious mass, skin change, nipple discharge or lymphadenopathy in either breast. Recent breast imaging was reviewed both films and reports. Both mammography and ultrasound were read as negative. I am recommending application of EMLA cream to the (more content not included)... [facility] documented as of this encounter (statuses as of 11/07/2021) [address]10-2009 History of Past illness Narrative* Problem Noted Date Resolved Date Asymptomatic bacteriuria in , unspecified as to episode of care 06/08/2009 11/18/2009 Supervision of normal first 03/25/2009 11/18/2009 documented as of this encounter (statuses as of 02/20/2022) [address]10-2009 History of Past illness Narrative* Problem Noted Date Resolved Date Asymptomatic bacteriuria in , unspecified as to episode of care 06/08/2009 11/18/2009 Supervision of normal first 03/25/2009 11/18/2009 documented as of this encounter (statuses as of 02/21/2022) [address]10-2009 History of Past illness Narrative* Problem Noted Date Resolved Date Asymptomatic bacteriuria in , unspecified as to episode of care 06/08/2009 11/18/2009 Supervision of normal first 03/25/2009 11/18/2009 documented as of this encounter (statuses as of 02/23/2022) [address]10-2009 History of Past illness Narrative* Problem Noted Date Resolved Date Asymptomatic bacteriuria in , unspecified as to episode of care 06/08/2009 11/18/2009 Supervision of normal first 03/25/2009 11/18/2009 documented as of this encounter (statuses as of 04/08/2022) [address]10-2009 History of Past illness Narrative* Problem Noted Date Resolved Date Asymptomatic bacteriuria in , unspecified as to episode of care 06/08/2009 11/18/2009 Supervision of normal first 03/25/2009 11/18/2009 documented as of this encounter (statuses as of 04/17/2022) [address]10-2009 History of Past illness Narrative* Problem Noted Date Resolved Date Asymptomatic bacteriuria in , unspecified as to episode of care 06/08/2009 11/18/2009 Supervision of normal first 03/25/2009 11/18/2009 documented as of this encounter (statuses as of 04/18/2022) [address]10-2009 History of Past illness Narrative* Problem Noted Date Resolved Date Asymptomatic bacteriuria in , unspecified as to episode of care 06/08/2009 11/18/2009 Supervision of normal first 03/25/2009 11/18/2009 documented as of this encounter (statuses as of 04/28/2022) [address]10-2009 History of Past illness Narrative* Problem Noted Date Resolved Date Asymptomatic bacteriuria in , unspecified as to episode of care 06/08/2009 11/18/2009 Supervision of normal first 03/25/2009 11/18/2009 documented as of this encounter (statuses as of 04/29/2022) [address]10-2009 History of Past illness Narrative* Problem Noted Date Resolved Date Asymptomatic bacteriuria in , unspecified as to episode of care 06/08/2009 11/18/2009 Supervision of normal first 03/25/2009 11/18/2009 documented as of this encounter (statuses as of 05/03/2022) [address]2009 History of Past illness Narrative* Problem Noted Date Resolved Date Asymptomatic bacteriuria in , unspecified as to episode of care 06/08/2009 11/18/2009 Supervision of normal first 03/25/2009 11/18/2009 documented as of this encounter (statuses as of 06/07/2022) [address]2009 History of Past illness Narrative* Problem Noted Date Resolved Date Asymptomatic bacteriuria in , unspecified as to episode of care 06/08/2009 11/18/2009 Supervision of normal first 03/25/2009 11/18/2009 documented as of this encounter (statuses as of 08/02/2022) [address]2009 History of Past illness Narrative* Problem Noted Date Resolved Date Asymptomatic bacteriuria in , unspecified as to episode of care 06/08/2009 11/18/2009 Supervision of normal first 03/25/2009 11/18/2009 documented as of this encounter (statuses as of 12/26/2022) [address]2009 History of Past illness Narrative* Problem Noted Date Resolved Date Asymptomatic bacteriuria in , unspecified as to episode of care 06/08/2009 11/18/2009 Supervision of normal first 03/25/2009 11/18/2009 documented as of this encounter (statuses as of 12/26/2022) [facility]10[facility]2009 History of Past illness Narrative* Problem Noted Date Resolved Date Asymptomatic bacteriuria in , unspecified as to episode of care 06/08/2009 11/18/2009 Supervision of normal first 03/25/2009 11/18/2009 documented as of this encounter (statuses as of 01/26/2023) [facility] History of Past illness Narrative* Problem Noted Date Diagnosed Date Resolved Date Asymptomatic bacteriuria in , unspecified as to episode of care 06/08/20092009 Supervision of normal first 03/25/2009 11/18/2009 documented as of this encounter (statuses as of 03/07/2023) [facility] No data available for this section [facility] Evaluation + Plan note Future Appointments Appointment Date:01/16/2022 10:30:00 AM Scheduled Provider:EMMETT DAMON MD Location:[facility] Appointment Type:[facility] EvOwnerIQation note* Diagnosis Suspected COVID-19 virus infection- Primary [facility] this [facility] Diagnosis Urinary frequency- Primary Acute UTI Urinary tract infection, site not specified documented [facility]* Diagnosis Sensation of pressure in bladder area Other specified disorders of bladder [facility] Diagnosis Acute otitis media, right- Primary Unspecified otitis media documented [facility] this [facility]* Diagnosis Eyelid inflammation- Primary Unspecified inflammation of eyelid [facility]* Diagnosis Demyelinating disease of central nervous system (HCC)- Primary Demyelinating disease of central nervous system, unspecified Awareness alteration, transient Transient alteration of awareness Paresthesia of skin Disturbance of skin sensation Claustrophobia Other isolated or specific phobias documented [facility] this encounter [facility]* Diagnosis Awareness alteration, transient Transient alteration of awareness [facility] Paresthesia of skin Disturbance of skin sensation [facility] No data available for this section [facility] Progress note No data available for this section [facility] Reason for referral (narrative)* Diagnostic Procedure Only (Routine) - Closed Specialty Diagnoses / Procedures Referred By Contac t Referred To Contact US IMAGING Diagnoses Sensation of pressure in bladder area Procedures US KIDNEY/BLADDER US RETROPERITONEAL REAL TIME W/IMAGE COMPLETE Emmy Hutton APRN.CNP [address] [place] [address] Us Imaging Referral ID Status Reason Start Date Expiration Date V isits Requested Visits Authorized [id number] Closed Auto-Generate d Referral 04/25/2022 05/25/2023 1 1 [facility] for referral (narrative)* Outpatient Procedure (Routine) - Authorized Specialty Diagnoses / Procedures Referred By Lin cano Referred To Contact [facility] Diagnoses Paresthesia of skin Procedures EMG(NEURO/NI) NERVE CONDUCTION STUDIES 9-10 STUDIES Elle Faye PA-C [address] [place] [address] [facility] [place] [address] [place] [address] Referral ID Status Reason Start Date Expiration Date Visits Requested Visits Authorized [id number] Authorized Auto-Generat ed Referral 12/26/2022 12/27/2023 1 1 * MRI/CT (Routine) - Incomplete Specialty Diagnoses / Procedures Referred By Lin cano Referred To Contact MR IMAGING Diagnoses Demyelinating disease of central nervous system (HCC) Awareness alteration, transient Procedures MRI CERVICAL SPINE WO/W IVCON MRI SPINAL CANAL CERVICAL W/O & W/CONTR MATRL Elle Faye PA-C [address] [place] [address] Mr Imaging Referral ID Status Reason Start Date Expiration Date Visits Requested Visits Authorized [id number] Incomplete Auto-Generat ed Referral 12/26/2022 01/25/2024 1 1 * MRI/CT (Routine) - Incomplete Specialty Diagnoses / Procedures Referred By Lin cano Referred To Contact MR IMAGING Diagnoses Demyelinating disease of central nervous system (HCC) Awareness alteration, transient Procedures MRI BRAIN WO/W IVCON MRI BRAIN BRAIN STEM W/O W/CONTRAST MATERIAL Elle Faye PA-C [address] [place] [address] Mr Imaging Referral ID Status Reason Start Date Expiration Date Visits Requested Visits Authorized [id number] Incomplete Auto-Generat ed Referral 12/26/2022 01/25/2024 1 1 * Outpatient Procedure (Routine) - Authorized Specialty Diagnoses / Procedures Referred By Lin cano Referred To Contact [facility] [place] Diagnoses Awareness alteration, transient Procedures EPIL EEG ROUTINE ELECTROENCEPHALOGRAM REC COMA/SLEEP ONLY Elle Faye PA-C [address] [place] [address] [place] [address] Referral ID Status Reason Start Date Expiration Date Visits Requested Visits Authorized [id number] Authorized Auto-Generat ed Referral 12/26/2022 12/27/2023 1 1 [facility] for visit Narrative* Outpatient Procedure (Routine) - Closed Specialty Diagnoses / Procedures Referred By Lin cano Referred To Contact [facility] [place] Diagnoses Awareness alteration, transient Procedures EPIL EEG ROUTINE ELECTROENCEPHALOGRAM REC COMA/SLEEP ONLY Elle Faye PA-C [address] [place] [address] [place] [address] Referral ID Status Reason Start Date Expiration Date V isits Requested Visits Authorized [id number] Closed Auto-Generate d Referral 12/26/2022 12/27/2023 1 1 [facility] Outpatient Procedure (Routine) - Closed Specialty Diagnoses / Procedures Referred By Lin cano Referred To Contact [facility] Diagnoses Paresthesia of skin Procedures EMG(NEURO/NI) NERVE CONDUCTION STUDIES 9-10 STUDIES Elle Faye PA-C [address] [place] [address] [facility] [place] [address] [place] [address] Referral ID Status Reason Start Date Expiration Date V isits Requested Visits Authorized [id number] Closed Auto-Generate d Referral 12/26/2022 12/27/2023 1 1 [facility] Health Concerns Infection Onset Date Last Indicated Resolved Time COVID-19 Confirmed 02/20/2022 02/20/2022 Summary Purpose Family History No Family History Records FoundNo Family History Records FoundNo Family History Records FoundNo Family History Records Found Advance Directives No Advanced Directives Records FoundNo Advanced Directives Records FoundNo Advanced Directives Records FoundNo Advanced Directives Records Found Additional Source Comments Source Comments (unrecognize d section and content) In the event this informatio n is protected by the Federal Confidentiality of Alcohol and Drug Abuse Patient Records regulations: The Federal rules restrict any use of the information to criminally investigate or prosecute any alcohol or drug abuse patient.[facility] the event this information is protected by the Federal Confidentiality of Alcohol and Drug Abuse Patient Records regulations: The Federal rules restrict any use of the information to criminally investigate or prosecute any alcohol or drug abuse patient.[facility] the event this information is protected by the Federal Confidentiality of Alcohol and Drug Abuse Patient Records regulations: The Federal rules restrict any use of the information to criminally investigate or prosecute any alcohol or drug abuse patient.[facility] the event this information is protected by the Federal Confidentiality of Alcohol and Drug Abuse Patient Records regulations: The Federal rules restrict any use of the information to criminally investigate or prosecute any alcohol or drug abuse patient.[facility] the event this information is protected by the Federal Confidentiality of Alcohol and Drug Abuse Patient Records regulations: The Federal rules restrict any use of the information to criminally investigate or prosecute any alcohol or drug abuse patient.[facility] the event this information is protected by the Federal Confidentiality of Alcohol and Drug Abuse Patient Records regulations: The Federal rules restrict any use of the information to criminally investigate or prosecute any alcohol or drug abuse patient.[facility] the event this information is protected by the Federal Confidentiality of Alcohol and Drug Abuse Patient Records regulations: The Federal rules restrict any use of the information to criminally investigate or prosecute any alcohol or drug abuse patient.[facility] the event this information is protected by the Federal Confidentiality of Alcohol and Drug Abuse Patient Records regulations: The Federal rules restrict any use of the information to criminally investigate or prosecute any alcohol or drug abuse patient.[facility] the event this information is protected by the Federal Confidentiality of Alcohol and Drug Abuse Patient Records regulations: The Federal rules restrict any use of the information to criminally investigate or prosecute any alcohol or drug abuse patient.[facility] the event this information is protected by the Federal Confidentiality of Alcohol and Drug Abuse Patient Records regulations: The Federal rules restrict any use of the information to criminally investigate or prosecute any alcohol or drug abuse patient.[facility] the event this information is protected by the Federal Confidentiality of Alcohol and Drug Abuse Patient Records regulations: The Federal rules restrict any use of the information to criminally investigate or prosecute any alcohol or drug abuse patient.[facility] the event this information is protected by the Federal Confidentiality of Alcohol and Drug Abuse Patient Records regulations: The Federal rules restrict any use of the information to criminally investigate or prosecute any alcohol or drug abuse patient.[facility] Hospital[facility] the event this information is protected by the Federal Confidentiality of Alcohol and Drug Abuse Patient Records regulations: The Federal rules restrict any use of the information to criminally investigate or prosecute any alcohol or drug abuse patient.[facility] the event this information is protected by the Federal Confidentiality of Alcohol and Drug Abuse Patient Records regulations: The Federal rules restrict any use of the information to criminally investigate or prosecute any alcohol or drug abuse patient.[facility] the event this information is protected by the Federal Confidentiality of Alcohol and Drug Abuse Patient Records regulations: The Federal rules restrict any use of the information to criminally investigate or prosecute any alcohol or drug abuse patient.[facility] the event this information is protected by the Federal Confidentiality of Alcohol and Drug Abuse Patient Records regulations: The Federal rules restrict any use of the information to criminally investigate or prosecute any alcohol or drug abuse patient.[facility] Reason for Visit (unrecogniz ed section and content) Reason Onset Date Comments [facility] COVID Outreach 02/20/2022 Reason Comments [facility] Outreach Reason Comments UTI Urinary burning, katrina q. And pressure x 1.5 weeks Reason Comments Results Reason Comments Results, Lab Reason Comments Radiology US Specialty Diagnoses / Procedures Referred By Contac t Referred To Contact US IMAGING Diagnoses Sensation of pressure in bladder area Procedures US KIDNEY/BLADDER US RETROPERITONEAL REAL TIME W/IMAGE COMPLETE Emmy Hutton APRN.[employer]ANT [employer] [address] [place] [address] Us Imaging Referral ID Status Reason Start Date Expiration Date V isits Requested Visits Authorized [id number] Closed Auto-Generate d Referral 04/25/2022 05/25/2023 1 1 Reason Comments Sinus Problem headaches, bilateral ear pain x 6 days Reason Comments Eye Problem left eyelid on and o ff x 1 day Reason Comments New Patient New Patient Evaluation Reason Comments Appointment Records for upcoming neuro appt. 12/26/22 with [facility] Teams (unrecognized sec tion and content) Plate Straightener Relationship Specialty Start Date End Date Gilbert Salas MD [address] [facility] [address] [place] [address] PCP - General Family Practice 09/09/21 Plate Straightener Relationship Specialty Start Date End Date Gilbert Salas MD [address] [facility] [address] [place] [address] PCP - General Family Practice 09/09/21 Plate Straightener Relationship Specialty Start Date End Date Gilbert Salas MD [address] [facility] [address] [place] [address] PCP - General Family Practice 09/09/21 Plate Straightener Relationship Specialty Start Date End Date Gilbert Salas MD [address] [facility] [address] [place] [address] PCP - General Family Practice 09/09/21 Plate Straightener Relationship Specialty Start Date End Date Gilbert Salas MD [address] [facility] [address] [place] [address] PCP - General Family Medicine 09/09/21 Plate Straightener Relationship Specialty Start Date End Date Gilbert Salas MD [address] [facility] [address] [place] [address] PCP - General Family Medicine 09/09/21 Plate Straightener Relationship Specialty Start Date End Date Gilbert Salas MD [address] [facility] [address] [place] [address] PCP - General Family Medicine 09/09/21 Plate Straightener Relationship Specialty Start Date End Date Gilbert Salas MD [address] [facility] [address] [place] [address] PCP - General Family Medicine 09/09/21 Plate Straightener Relationship Specialty Start Date End Date Gilbert Salas MD [address] [place] [address] [address] [place] [address] PCP - General Family Medicine 09/09/21 Plate Straightener Relationship Specialty Start Date End Date Gilbert Salas MD [address] [place] [address] [address] [place] [address] PCP - General Family Medicine 09/09/21 Plate Straightener Relationship Specialty Start Date End Date Gilbert Salas MD [address] [place] [address] [address] [place] [address] PCP - General Family Medicine 09/09/21 Plate Straightener Relationship Specialty Start Date End Date Gilbert Salas MD [address] [place] [address] [address] [place] [address] PCP - General Family Medicine 09/09/21 INFORMATION SOURCE (unrecogn ized section and content) DATE CREATED AUTHOR AUTHOR'S ORGANIZ ATION 05/04/2022 [facility] DATE CREATED AUTHOR AUTHOR'S ORGANIZ ATION 01/26/2023 [facility] DATE CREATED AUTHOR AUTHOR'S ORGANIZ ATION 03/07/2023 [facility] FOR RECORDS PERTAINING TO PATIENTS WHO ARE OR HAVE BEEN ENROLLED IN A CHEMICAL DEPENDENCY/SUBSTANCEABUSE PROGRAM, SOME INFORMATION MAY BE OMITTED. This clinical summary was aggregated from multiple sources. Caution should be exercised in using it in the provision of clinical care. This summary normalizes information from multiple sources, and as a consequence, information in this document may materially change the coding, format and clinical context of patient data. In addition, data may be omitted in some cases. CLINICAL DECISIONS SHOULD BE BASED ON THE PRIMARY CLINICAL RECORDS. [facility]. provides no warranty or guarantee of the accuracy or completeness of information in this document.
[2023-03-16 08:33] VITALS: BP 126/91; PULSE 95; RESP 14; TEMP 37.1; O2SAT 99
== END 2023-03-16 11:00 | disposition home or self-care (01) ==
LOC: SDC 03-27 15:08 → PAT 09-26 13:08
PROVIDERS: PCP Family Medicine; Referring Provider Internal Medicine Gastroenterology; Visit Provider Internal Medicine Gastroenterology
PROC: F00ZJWZ Instrumental Swallowing and Oral Function Assessment using Swallowing Equipment (ICD-10-PCS; CPT 43235; principal; 2023-03-16 07:55)
DX: K21.9 Gastro-esophageal reflux disease without esophagitis (principal)
CPT/HCPCS: 91010

== ENCOUNTER 2025-03-28 19:52 | Emergency (ER) | payer OTHER, SELFPAY ==
[2025-03-28 19:54] VITALS: BP 126/90; PULSE 90; RESP 18; TEMP 36.5; O2SAT 98
[2025-03-28 20:10] VITALS: BMI 31.7
--- NOTE | 2025-03-28 20:28 | ED.VIS.LOWEX ---
HPI History of Present Illness Chief Complaint: Lower Extremity Injury Narrative Narrative: 34-year-old female past medical history of previous ankle sprains presents with injury to her left ankle and foot that she sustained just prior to arrival. She states that she stepped off the curb and probably suffered an inversion injury. She now has pain and swelling mainly to her left lateral ankle. She has mild pain at the base of the fifth metatarsal as well. Denies falling, hitting her head, or loss of consciousness. No other injury. She states she did hear a crack when it happened. [facility] Medical History Wears contact lenses Wears glasses Depression Anxiety Injury of head and neck Difficulty swallowing History of ulceration Gastric reflux Non-smoker Lumbar degenerative disc disease LEXIS (obstructive sleep apnea) Fatigue Anemia SOB (shortness of breath) Home Medications ?Medication ?Instructions ?Recorded ?Last Taken ?Type fexofenadine 180 mg tablet 180 mg PO DAILY 11/29/20 03/01/23 History (Radha Allergy) fluticasone propionate 50 2 spray intranasal DAILY #18.2 mL 08/22/21 03/01/23 Rx mcg/actuation nasal spray,suspension sucralfate 1 gram tablet 1 g PO Q6H 02/27/23 03/01/23 History colestipol 1 gram tablet 1 g PO ONCE 30 days #30 tabs 04/09/23 Unknown Rx amoxicillin 875 mg-potassium 1 tab PO Q12H #14 tabs 05/10/23 Unknown Rx clavulanate 125 mg tablet prednisone 20 mg tablet 20 mg PO DAILY #7 tabs 05/10/23 Unknown Rx lansoprazole 30 mg capsule,delayed 30 mg PO DAILY #90 caps 01/15/24 Unknown Rx release Allergy/AdvReac Type Severity Reaction Status Date / Time grape Allergy Swelling Verified 03/28/25 19:54 morphine AdvReac Other Verified 03/28/25 19:54 promethazine HCl (From AdvReac Other Verified 03/28/25 19:54 Phenergan) sulfamethoxazole (From AdvReac Vomiting Verified 03/28/25 19:54 Bactrim) trimethoprim (From Bactrim) AdvReac Vomiting Verified 03/28/25 19:54 Family History Grandfather Heart disease Parkinson disease Hypertension Grandmother Heart disease CHF (congestive heart failure) Hypertension Dementia Mother CHF (congestive heart failure) Heart disease Father Hypertension Dementia Surgical History Hx of knee surgery History of tonsillectomy Hx of section Social History housing: house Smoking Status: Never smoker alcohol intake: current alcohol intake frequency: a few times a month Alcohol type: wine ROS ROS ED ROS Narrative Review of systems positive for left lateral ankle pain and swelling, positive pain at base of fifth metatarsal, mild. No falling, no hitting of head, no loss of consciousness, no neck pain or other injury. EXAM Physical Exam Narrative Exam Narrative: GCS 15. ABCs are intact. Focused examination of the left ankle reveals a moderate amount of swelling about the left malleolus and talofibular ligament area as well as tenderness to palpation, no crepitance. Mild pain base of fifth metatarsal. No palpable Achilles tendon deficit. No proximal fibular head tenderness. Able to flex and extend knee. Palpable dorsalis pedis pulse. Const Vital Signs: 03/28/25 19:54 03/28/25 21:33 Temperature 97.7 F L 97.7 F L Temperature Source Temporal Pulse Rate 90 90 Respiratory Rate 18 18 Blood Pressure 126/90 H 126/90 H Blood Pressure Mean 102 102 Pulse Ox 98 98 Oxygen Delivery Method Room Air MDM MDM MDM Narrative Medical decision making narrative: Differential diagnosis includes but not limited to ankle sprain versus fracture versus foot contusion versus fracture. She was administered ibuprofen 800 mg initially for analgesia and had already been given an ice pack. X-rays were obtained of the left ankle and left foot and 3 views of interpreted by myself independently. I have low suspicion for Achilles tendon rupture as she has no palpable deficit and negative Andre test. X-rays were obtained of the left ankle and 3 views and interpreted by myself independently as no evidence of an acute fracture. There is lateral soft tissue swelling noted. Additionally, I independently interpreted the x-rays of the left foot and see no evidence of an acute fracture. At this point in time, she will be placed in an Aircast and given crutches with teaching. She will be nonweightbearing over the next week and follow-up with her primary care provider. She can take [id number] medications like ibuprofen or Tylenol as needed for pain. She will continue ice and elevation at home. Return instructions to the emergency department were reviewed. Disposition is discharged home in stable condition. History & Record Review Discussion w/independent historian: Patient Discharge Plan Triage Chief Complaint: Lower Extremity Injury ED Provider: José Manuel Martinez Dx/Rx/DC Orders Clinical Impression: Left ankle sprain, Contusion of foot, left Instructions: ED Sprain Ankle W X Ray, ED Ankle Sprain (Adult) Prescriptions: No Action fexofenadine [Radha Allergy] 180 mg tablet 180 mg PO DAILY prednisone 20 mg tablet 20 mg PO DAILY Qty: 7 2RF amoxicillin-pot clavulanate 875-125 mg tablet 1 tab PO Q12H Qty: 14 0RF sucralfate 1 gram tablet 1 g PO Q6H fluticasone propionate 50 mcg/actuation spray,suspension 2 spray intranasal DAILY Qty: 18.2 3RF Rx Instructions: administer into each nostril colestipol 1 gram tablet 1 g PO ONCE 30 Days Qty: 30 2RF lansoprazole 30 mg capsule,delayed release(DR/EC) 30 mg PO DAILY Qty: 90 4RF Primary Care Provider: Gilbert Hurley Referrals: Moose Velasco DPM [Med Staff - Active Staff] - As Needed Gilbert Hurley MD [Primary Care Provider] - 1 Week Activity Restrictions/Additional Instructions: Continue ice and elevation of your left ankle at home. Use crutches and begin weightbearing in approximately 1 week. Follow-up with your primary care provider. [id number]-[id number] medications like Tylenol or ibuprofen as needed for pain. Print Language: Khmer Disposition Disposition: Home, Self Care Discharge Date/Time: 03/28/25 21:34
--- NOTE | 2025-03-28 20:36 | RAD_ITS ---
PROCEDURE: FOOT MIN 3 VIEWS; ANKLE MIN 3 VIEWS 03/28/2025 REASON FOR EXAM: TRAUMA TECHNIQUE: Procedure Code: RADFO; RADANK Modality: DX Procedure: FOOT MIN 3 VIEWS; ANKLE MIN 3 VIEWS Laterality: Left COMPARISON: None available FINDINGS: Bones: No visible fracture. No suspicious bone lesion. Joints: Normal alignment. Joint spaces preserved. No arthropathic features. Soft tissues: Soft tissues are unremarkable. RAD/Foot min 3 Views IMPRESSION: NO ACUTE FRACTURE OR DISLOCATION. [facility]
--- NOTE | 2025-03-28 20:36 | RAD_ITS ---
PROCEDURE: FOOT MIN 3 VIEWS; ANKLE MIN 3 VIEWS 03/28/2025 REASON FOR EXAM: TRAUMA TECHNIQUE: Procedure Code: RADFO; RADANK Modality: DX Procedure: FOOT MIN 3 VIEWS; ANKLE MIN 3 VIEWS Laterality: Left COMPARISON: None available FINDINGS: Bones: No visible fracture. No suspicious bone lesion. Joints: Normal alignment. Joint spaces preserved. No arthropathic features. Soft tissues: Soft tissues are unremarkable. RAD/Ankle min 3 Views IMPRESSION: NO ACUTE FRACTURE OR DISLOCATION. Reading Location[facility]
--- OUTSIDE RECORDS SUMMARY | 2025-03-28 21:06 | XMS RPT_ITS | CCD ---
Author Organization [facility] Inform ion Partnership [facility] Care Team Providers Care Mapping Pilot Name Role Phone TINO SAWYER, BRANDT Ng Primary Care Physician Xavi SAWYER, Gilbert Granados Primary Care Provider [phone] BRANDT MARTINES MD Primary Care Physician Xavi SAWYER, Gilbert Granados Primary Care Provider Xavi SAWYER, Gilbert Granados Primary Care Provider Xavi SAWYER, Gilbert Granados Primary Care Provider VESNA HILLMAN Attending Unavailable TJ MEDINA Referring Unavailable GILBERT HURLEY Primary Care Unavailable MÓNICA SÁNCHEZ Referring Unavailable GILBERT HURLEY Primary Care Unavailable MÓNICA SÁNCHEZ Attending Unavailable KISHAN KAY Referring Unavailable GILBERT HURLEY Primary Care Unavailable Gilbert Hurley MD Primary Care Provider Dr. Gilbert Hurley Primary Care Provider Dr. Gilbert Hurley Referring Provider Friend, Dr. Myers Attending Provider ELLE FAYE Referring Unavailable GILBERT HURLEY Primary Care Unavailable Dr. Louis Manning Other Provider Gilbert Hurley MD Primary Care Provider Adalid ZAMORANO, Kasey Ng Unavailable [phone] Amalia Prado MA Unavailable Unavailable Louis Manning Consulting Unavailable Gilbert Hurley Referring Unavailable Gilbert Hurley Primary Care Unavailable FriendLouis Attending Unavailable Christos Schultz Attending Unavailable Gilbert Hurley Primary Care Unavailable Gilbert Hurley Primary Care Unavailable Gerardo Antonio Attending Unavailable Gilbert Hurley Primary Care Unavailable Friend, Louis Attending Unavailable Friend, Louis Referring Unavailable Hurley, Gilbert Primary Care Unavailable Hurley, Gilbert Attending Unavailable Hurley, Gilbert Referring Unavailable Hurley, Gilbert Attending Unavailable Hurley, Gilbert Referring Unavailable Hurley, Gilbert Primary Care Unavailable Hurley, Gilbert Referring Unavailable Hurley, Gilbert Primary Care Unavailable Friend, Louis Attending Unavailable Friend, Louis Referring Unavailable Hurley, Gilbert Primary Care Unavailable Friend, Louis Attending Unavailable Friend, Louis Attending Unavailable Hurley, Gilbert Referring Unavailable Hurley, Gilbert Primary Care Unavailable Hurley, Gilbert Primary Care Unavailable Hurley, Gilbert Referring Unavailable Friend, Louis Attending Unavailable Gilbert Hurley MD Primary Care Provider [phone] Unavailable Primary Care Provider UnavailFRANCISCO Plunkett Referring Unavailable FRANCISCO BUI Attending Unavailable Gilbert Hurley MD Primary Care Provider [phone] GILBERT HURLEY Primary Care Unavailable VERNELL MEDINA Attending Unavailable HURLEY, GILBERT Madison Primary Care Unavailable CLAUDINE JOYCE Referring Unavailable HURLEY, GILBERT Madison Primary Care Unavailable ESTEFANIA VINES Referring Unavailable HURLEY, GILBERT Madison Primary Care Unavailable CLAUDINE JOYCE Attending Unavailable HURLEY, GILBERT Madison Primary Care Unavailable HURLEY, GILBERT Madison Primary Care Unavailable Allergies Allergy Classification Reported Allergen(s) Allergy Type Date of Onset Reaction(s) Facility (20 sources) Morphine; Translations: [morphine] Drug Allergy 8 Other [facility] (2 sources) Promethazine; Translations: [promethazine] Drug Allergy [facility] (20 sources) Sulfamethoxazole / Trimethoprim; Translations: [sulfamethoxazole-tr imethoprim] Drug Allergy 6 GI Upset, Vomiting [facility] (20 sources) Promethazine; Translations: [PROMETHAZINE HCL] Drug Allergy 8 Other: See Comments [facility] Work Phone: (20 sources) Sertraline; Translations: [SERTRALINE HCL] Drug Allergy 7 Other: See Comments [facility] Work Phone: (3 sources) Sulfamethoxazole / Trimethoprim; Translations: [SULFAMETHOXAZOLE-TR IMETHOPRIM] Drug Allergy 6 [facility] Other [facility] (20 sources) grape extract; Translations: [GRAPE] Drug Allergy 9 Swelling [facility] (7 sources) Sulfamethoxazole Drug Allergy 1 Vomiting [facility] (7 sources) Trimethoprim Drug Allergy 1 Vomiting [facility] (1 source) grape extract Drug Allergy 3 [facility] (1 source) Morphine Drug Allergy 3 [facility] (1 source) Promethazine Drug Allergy 3 [facility] (1 source) Sulfamethoxazole Drug Allergy 3 [facility] (1 source) Trimethoprim Drug Allergy 3 [facility] Medications Current Medications Medication Drug Class(es) Dates Sig (Normalized) Sig (Original) [id number] 200 actuat albuterol 0.09 mg/actuat metered dose inhaler (20 sources) beta2-Adrenergic Agonist Start: 10-04-2017 take 2 puff(s) by inhalation every four hours as needed albuterol HFA (PROAIR HFA) 90 mcg/actuation inhaler Indications: Sinobronchitis Inhale 2 Puffs as instructed every 4 hours as needed. 1 Inhaler 10/04/2017 Active Comment on above: Inhale 2 Puffs as in structed every 4 hours as needed. Radha Allergy (1 source) Start: 01-02-2022 take [...] days. 14 tablet 0 06/07/2022 06/14/2022 Active Comment on above: Take 1 tablet by elizabeth twice daily for 7 days. amoxicillin 875 mg / clavulanate 125 mg oral tablet (9 sources) Penicillin-class Antibacterial Start: 05-10-2023 End: 05-10-2023 take 1 tablet by mouth every twelve hours Amoxicillin-Pot Clavulanate Active 1 TABLET PO Q12H May 09, 2023 11:00pm Start: 04-05-2018 End: 04-15-2018 take 1 tablet by mouth every twelve hours Amoxicillin-Pot Clavulanate (Augmentin) 875-125 mg tablet Discontinued 1 TABLET PO Q12H 18 05April 04, 2018 11:00pm April 14, 2018 11:08pm azelastine hydrochloride 0.137 mg/actuat metered dose nasal spray (5 sources) Histamine-1 Receptor Antagonist Start: 12-06-2020 take 1 spray(s) nasal route twice daily Azelastine Active 2 SPRAY INTRANASAL TWICE A DAY December 06, 2020 12:00am administer into each nostril celecoxib 200 mg oral capsule (5 sources) Nonsteroidal Anti-inflammatory Drug Start: 01-20-2021 take 1 capsule by mouth once daily Celecoxib (Celebrex) 200 mg capsule Active 200 MG PO DAILY January 20, 2021 12:00am Do not take in conjunction with other NSAIDs, Tylenol is okay. cephalexin 500 mg oral capsule (2 sources) Cephalosporin Antibacterial Start: 07-26-2022 End: 08-02-2022 take 1 capsule by mouth three times daily cephALEXin (KEFLEX) 500 mg capsule Indications: Eyelid inflammation Take 1 capsule by mouth three times daily for 7 days. 21 capsule 0 07/26/2022 08/02/2022 Active Start: 04-08-2022 End: 04-15-2022 take 1 capsule by mouth twice daily cephALEXin (KEFLEX) 500 mg capsule Take 1 capsule by mouth twice daily for 7 days. 14 capsule 0 04/08/2022 04/15/2022 Active Comment on above: Take 1 capsule by mo uth twice daily for 7 days. Take 1 capsule by mo uth three times daily for 7 days. Cetirizine (17 sources) Histamine-1 Receptor Antagonist cetirizine HCl (ZYRTEC ORAL) Take by mouth. Active End: 07-31-2024 Cetirizine (ZYRTEC) 10 mg ca p Take 10 mg by mouth. 07/31/2024 Discontinued (Discontinued by Patient) Comment on above: Take 10 mg by mouth. Cholecalciferol (1 source) Vitamin D Start: 2 Vitamin D (3) 45 units oral capsule 1000u, qDay, 0 Refill(s) Start Date: 01/02/22 Status: Ordered colestipol hydrochloride 1000 mg oral tablet (1 source) Bile Acid Sequestrant Start: 3 take 1 g by mouth once Colestipol Active 1 GM PO ONCE April 08, 2023 11:00pm Desogestrel-Ethinyl Estradiol (20 sources) Progestin, Estrogen Start: Desogestrel-Ethiny l Estradiol (Apri) 0.15-0.03 mg tablet Active 1 TABLET PO DAILY November 28, 2020 11:00pm Start: 11-29-2020 Desogestrel-Et hinyl Estradiol (Apri) 0.15-0.03 mg tablet Active 1 TABLET PO DAILY November 29, 2020 12:00am Start: 08-12-2020 End: 07-24-2023 take 1 tablet by mouth once daily ENSKYCE 0.15-0.03 mg per tablet Take 1 tablet by mouth once daily. 08/12/2020 07/24/2023 Discontinued Start: 08-12-2020 take 1 tablet by elizabeth th once daily ENSKYCE 0.15-0.03 mg per tablet Take 1 tablet by mouth once daily. 0 08/12/2020 Active Comment on above: Take 1 tablet by elizabeth th once daily. doxycycline monohydrate 100 mg oral tablet (1 source) Tetracycline-class Drug Start: End: take 1 tablet by mouth twice daily doxycycline monohydrate 100 mg tablet Indications: Skin lesion Take 1 tablet by mouth two times a day for 7 days. 14 tablet 05/11/2024 05/18/2024 Active DULoxetine 60 mg delayed release oral capsule (8 sources) Serotonin and Norepinephrine Reuptake Inhibitor Start: take 1 capsule by mouth once DULoxetine (CYMBALTA) 60 mg capsule Take 1 capsule by mouth every afternoon. 04/29/2024 Active elagolix 150 mg oral tablet (1 source) Start: elagolix 150 mg oral tablet Dose : 150 mg = 1 tab(s), Oral, qDay, # 14 tab(s), 0 Refill(s), samples given to patient (Rx), Pelvic pain Vulvovaginitis Start Date: 01/02/22 Status: Ordered erythromycin 0.005 mg/mg ophthalmic ointment (1 source) Macrolide, Macrolide Antimicrobial Start: End: erythromycin (ROMYCIN) 5 mg/gram (0.5 %) ophthalmic ointment Indications: Eyelid inflammation Use 1 application in the left eye three times daily for 7 days. 3.5 g 0 07/26/2022 08/02/2022 Active Comment on above: Use 1 application in the left eye three times daily for 7 days. estradiol cypionate 5 mg/ml injectable solution (8 sources) Estrogen estradiol (DEPO-ESTRADIOL) 5 mg/mL injection Inject intramuscularly one time only. Active fluticasone propionate 0.05 mg/actuat metered dose nasal spray (14 sources) Corticosteroid Start: End: take 1 spray(s) nasal route once daily Fluticasone Propionate Active 2 SPRAY INTRANASAL DAILY 18.2 August 22, 2021 1:08pm administer into each nostril lansoprazole 30 mg delayed release oral capsule (20 sources) Proton Pump Inhibitor Start: take 30 mg by mouth once daily Lansoprazole Active 30 MG PO DAILY August 06, 2023 12:00am Start: 01-19-2023 End: 01-19-2023 take 1 capsule by mouth once daily Lansoprazole (Prevacid) 30 mg capsule,delayed release(DR/EC) Discontinued 30 MG PO DAILY January 18, 2023 11:00pm January 19, 2023 4:14pm Start: 05-19-2020 End: 07-08-2023 take 1 capsule by mouth twice daily before mealtime lansoprazole (PREVACID) 30 mg capsule Indications: Dyspepsia Take 1 capsule by mouth twice daily before meals. 60 capsule 5 08/17/2020 Active Comment on above: Take 1 capsule by [facility] twice daily before meals. lidocaine 25 mg/ml / prilocaine 25 mg/ml topical cream (1 source) Antiarrhythmic, Amide Local Anesthetic Start: 10-18-19 End: 11-18-19 lidocaine-prilocaine (EMLA) 2.5-2.5 % cream Apply cream to affected area twice daily as needed 30 g 1 10/17/2021 11/17/2021 Active Comment on above: Apply cream to affec momo area twice daily as needed 1 ml medroxyPROGESTERone acetate 150 mg/ml prefilled syringe (4 sources) Progestin Start: 07-31-19 medroxyPROGESTERone (DEPO-PROVERA) 150 mg/mL Inject 1 mL intramuscularly every 12 weeks. 1 Each 4 07/31/2024 Active metroNIDAZOLE 500 mg oral tablet (1 source) Nitroimidazole Antimicrobial Start: 01-03-20 End: 01-10-20 metroNIDAZOLE 500 mg oral tablet Dose : 500 mg = 1 tab(s), Oral, q12h, X 7 day(s), # 14 tab(s), 0 Refill(s), 01/09/22 11:06:00 EDT, Pharmacy: [facility]/pharmacy #[id number], Pelvic pain Vulvovaginitis, 160, cm, 01/02/22 10:04:00 EDT, Height, 72.3 Start Date: 01/02/22 Stop Date: 01/09/22 Status: Ordered mupirocin 0.02 mg/mg topical ointment (1 source) RNA Synthetase Inhibitor Antibacterial Start: 05-11-20 End: 05-21-20 mupirocin (BACTROBAN) 2 % ointment Indications: Skin lesion Apply to affected area three times a day for 10 days. 22 g 05/11/2024 05/21/2024 Active Omeprazole (9 sources) Proton Pump Inhibitor Start: 07-16-20 omeprazole Oral, qDay, 0 Refill(s) Start Date: 07/16/20 Status: Ordered Start: 04-03-2020 End: 11-29-2020 take 20 mg by mouth twice daily Omeprazole Discontinued 20 MG PO TWICE A DAY April 02, 2020 11:00pm November 29, 2020 1:16pm predniSONE 20 mg oral tablet (4 sources) Start: 07-03-2024 End: 07-07-2024 take 2 tablets by mouth once daily at mealtime predniSONE (DELTASONE) 20 mg tablet Take 2 tablets by mouth once daily for 4 days. Take daily with food. 8 tablet 07/03/2024 07/07/2024 Active Start: 11-11-2023 End: 11-16-2023 take 2 tablets by mouth once daily predniSONE (DELTASONE) 20 mg tablet Indications: URI, acute Take 2 tablets by mouth once daily for 5 days. 10 tablet 0 11/11/2023 11/16/2023 Active Start: 05-10-2023 End: 05-10-2023 take 20 mg by mouth once daily Prednisone Active 20 MG PO DAILY May 09, 2023 11:00pm Comment on above: Take 2 tablets by mo [facility] once daily for 5 days. AD (1 source) Start: 06-01-2020 AD Oral, qDay, 0 Refill(s) Start Date: 06/01/20 Status: Ordered sucralfate 1000 mg oral tablet (12 sources) Aluminum Complex Start: 02-27-2023 take 1 g by mouth every six hours Sucralfate Active 1 GM PO EVERY 6 HOURS February 26, 2023 11:00pm Start: 02-26-2023 End: 07-31-2024 take 1 tablet by mouth four times daily sucralfate (CARAFATE) 1 gram tablet Take 1 tablet by mouth four times daily. (mixed with a little bit of water to make a slurry). 120 tablet 5 02/26/2023 07/31/2024 Discontinued (Discontinued by Patient) Comment on above: [facility] (mixed with a little bit of water to make a slurry). Completed/Discontinued Medications Medication Drug Class(es) Dates Sig (Normalized) Sig (Original) Apri 0.15 mg-0.03 mg oral tablet (1 source) Start: 10-10-2021 take 1 tablet by mouth once daily Apri 0.15 mg-0.03 mg oral tablet Dose = 1 tab(s), Oral, Daily, # 90 tab(s), 3 Refill(s), Pharmacy: [facility]/pharmacy #[id number], 160, cm, 10/10/21 16:07:00 EDT, Height, kg, 10/10/21 16:07:00 EDT, Dosing Weight Start Date: 10/10/21 Status: Ordered aspirin 81 mg delayed release oral tablet (7 sources) Platelet Aggregation Inhibitor, Nonsteroidal Anti-inflammatory Drug Start: 05-19-2020 End: 11-29-2020 take 81 mg by mouth once daily Aspirin Discontinued 81 MG PO DAILY May 18, 2020 11:00pm November 29, 2020 1:16pm azelastine hydrochloride 0.137 mg/actuat / fluticasone propionate 0.05 mg/actuat metered dose nasal spray (7 sources) Corticosteroid, Histamine-1 Receptor Antagonist Start: 11-29-2020 End: 12-06-2020 take 1 spray(s) nasal route twice daily Azelastine-Flutica sone (Dymista) 137-50 mcg/spray spray,non-aerosol Discontinued 1 SPRAY INTRANASAL TWICE A DAY November 28, 2020 11:00pm December 06, 2020 11:39am administer into each nostril benzonatate 100 mg oral capsule (8 sources) Non-narcotic Antitussive Start: 07-03-2024 End: 07-31-2024 take 1 capsule by mouth every eight hours as needed benzonatate (TESSALON PERLE) 100 mg capsule Take 1 capsule by mouth three times a day as needed. 21 capsule 07/03/2024 07/31/2024 Discontinued (Discontinued by Patient) Start: 11-11-2023 End: 07-03-2024 take 2 capsules by mouth three times daily as needed benzonatate (TESSALON PERLE) 100 mg capsule Indications: URI, acute Take 2 capsules by mouth three times a day as needed. 30 capsule 11/11/2023 07/03/2024 Discontinued (Course of therapy completed) Comment on above: Take 2 capsules by m out three times a day as needed. Dexlansoprazole (Dexilant) 60 mg capsule,biphase delayed releas (1 source) Start: End: take 1 capsule by mouth once daily Dexlansoprazole (Dexilant) 60 mg capsule,biphase delayed releas Discontinued 60 MG PO DAILY May 30, 2023 11:00pm August 06, 2023 3:44pm docusate sodium 50 mg oral capsule (7 sources) Start: End: Docusate Sodium Discontinued 1 TABLET PO NEEDED January 19, 2020 11:00pm November 29, 2020 1:16pm ergocalciferol 1.25 mg oral capsule (17 sources) Provitamin D2 Compound Start: End: take 1 capsule by mouth every week ergocalciferol 50,000 unit capsule (VITAMIN D2, DRISDOL) Take 1 capsule by mouth one time a week. 8 capsule 10/18/2021 07/24/2023 Discontinued Comment on above: Take 1 capsule by mo [facility] one time a week. escitalopram 5 mg oral tablet (14 sources) Serotonin Reuptake Inhibitor Start: End: take 1 tablet by mouth once daily Escitalopram Oxalate (Lexapro) 5 mg tablet Discontinued 5 MG PO DAILY November 28, 2020 11:00pm October 17, 2022 1:32pm Comment on above: Take 5 mg by mouth o nce daily. Ethinyl Estradiol / Levonorgestrel (17 sources) Progestin, Estrogen, Progestin-containin g Intrauterine Device End: take 1 tablet by mouth once daily Levonorgestrel-Ethinyl Estrad (MARLISSA) 0.15-0.03 mg per tablet Take 1 tablet by mouth once daily. 07/24/2023 Discontinued take 1 tablet by mouth once lilian y Levonorgestrel-Ethinyl Estrad (MARLISSA) 0.15-0.03 mg per tablet Take 1 tablet by mouth once daily. 0 Active Comment on above: Take 1 tablet by [facility] once daily. famotidine 20 mg oral tablet (3 sources) Histamine-2 Receptor Antagonist Start: 01-02-20 End: 01-20-20 take 20 mg by mouth twice daily Famotidine Discontinued 20 MG PO TWICE A DAY 60 December 31, 2022 11:00pm January 19, 2023 3:50pm ferrous sulfate 325 mg oral tablet (7 sources) Start: 05-19-20 End: 11-30-19 take 325 mg by mouth once daily Ferrous Sulfate Discontinued 325 MG PO DAILY May 18, 2020 11:00pm November 29, 2020 1:16pm fexofenadine hydrochloride 180 mg oral tablet (20 sources) Histamine-1 Receptor Antagonist Start: 11-26-19 End: 07-31-19 take 1 tablet by mouth once daily fexofenadine (RADHA) 180 mg tablet Take 1 tablet by mouth once daily. 11/25/2018 07/24/2023 Discontinued Comment on above: Take 1 tablet by elizabeth th once daily. fluconazole 150 mg oral tablet (10 sources) Azole Antifungal Start: 04-25-20 End: 07-24-20 take 1 tablet by mouth once daily fluconazole (DIFLUCAN) 150 mg tablet Take 1 tablet by mouth once daily. 1 tablet 04/25/2022 07/24/2023 Discontinued Comment on above: Take 1 tablet by elizabeth th once daily. iv contrast (will be provided with radiology test) (4 sources) Start: 12-27-19 End: 07-24-20 iv contrast (will be provided with radiology [...] MR contrast administration guidelines link. 1 Each 12/26/2022 07/24/2023 Discontinued Start: 12-26-2022 iv contrast (w ill be provided with radiology test) MRI CSP [...] contrast administration guidelines link. 1 Each 0 12/26/2022 Active Comment on above: MRI CSP Inject, intr avenously, once for 1 dose. No IV access, [...] in the MR contrast administration guidelines link. loratadine 10 mg oral tablet (20 sources) Start: 11-28-2019 End: 07-24-2023 loratadine (CLARITIN) 10 mg tablet 11/28/2019 07/24/2023 Discontinued LORazepam 0.5 mg oral tablet (3 sources) Benzodiazepine Start: 12-26-2022 End: 02-25-2023 LORazepam (ATIVAN) 0.5 mg Indications: Claustrophobia Take one tablet 15-20 minutes before your MRI. You may repeat if anxiety persists. 2 tablet 12/26/2022 02/25/2023 Comment on above: Take one tablet 15-2 0 minutes before your MRI. You may repeat if anxiety persists. ondansetron 4 mg oral tablet (7 sources) Serotonin-3 Receptor Antagonist Start: 12-10-2018 ondansetron (ZOFRAN) 4 mg tablet Take by mouth. 0 12/10/2018 Active Comment on above: Take by mouth. Pnv Cmb#95-Ferrous Fumarate-Fa (7 sources) Start: 01-20-2020 End: 11-29-2020 Pnv Cmb#95-Ferrous Fumarate-Fa Discontinued 1 EACH PO DAILY January 19, 2020 11:00pm November 29, 2020 1:16pm Start: 01-20-2020 End: 11-29-2020 Pnv Cmb#95-Ferrous Fumarate- Fa Discontinued 1 EACH PO DAILY January 20, 2020 12:00am November 29, 2020 2:16pm prochlorperazine 5 mg oral tablet (7 sources) Phenothiazine Start: 01-20-2020 End: 11-29-2020 Prochlorperazine Maleate Discontinued 5 MG PO NEEDED January 19, 2020 11:00pm November 29, 2020 1:16pm Problems Active Problems Problem Classification Problem Date Documented Da te Episodic/Chronic Abdominal pain (1 source) Pain in pelvis 01-02-2022 Episodic Anxiety disorders (20 sources) Anxiety; Translations: [Generalized anxiety disorder] Onset: 02-16-2015 07-15-2020 Chronic Chronic obstructive pulmonary disease and bronchiectasis (2 sources) Chronic bronchitis 07-15-2020 Chronic Chronic obstructive pulmonary disease and bronchiectasis (7 sources) Bronchitis; Translations: [Bronchitis, not specified as acute or chronic] 04-22-2019 Episodic Contraceptive and procreative management (1 source) Contraception ; Translations: [Encounter for surveillance of injectable contraceptive] 07-31-2024 Episodic Early or threatened labor (7 sources) Jerald Mcintyre contractions; Translations: [False labor, unspecified] 01-22-2020 Episodic Esophageal disorders (20 sources) Gastric reflux; Translations: [Gastroesophageal reflux disease] Onset: 03-06-2008 07-15-2020 Chronic Genitourinary symptoms and ill-defined conditions (3 sources) Increased frequency of urination; Translations: [Frequency of micturition] Onset: 04-25-2022 Episodic Immunizations and screening for infectious disease (5 sources) Suspected disease caused by 2019-nCoV; Translations: [Suspected COVID-19 virus infection] Onset: 11-18-2024 Episodic Inflammation; infection of eye (except that caused by tuberculosis or sexually transmitteddisease) (1 source) Blepharitis; Translations: [Unspecified inflammation of eyelid] Episodic Lymphadenitis (2 sources) Lymphadenopathy; Translations: [Enlarged lymph nodes, unspecified] 12-29-2022 Episodic Malaise and fatigue (7 sources) Fatigue; Translations: [Other fatigue] 01-07-2021 Episodic Nonmalignant breast conditions (3 sources) Mastodynia; Translations: [Breast problem] Onset: 10-17-2021 12-29-2022 Episodic Nonspecific chest pain (3 sources) Non-cardiac chest pain; Translations: [Other chest pain] 12-28-2022 Episodic Other and unspecified benign neoplasm (1 source) Angiokeratoma of vulva 01-02-2022 Episodic Other connective tissue disease (7 sources) Trochanteric bursitis; Translations: [Trochanteric bursitis, right hip] 01-19-2021 Episodic Other connective tissue disease (7 sources) Iliotibial band friction syndrome of right knee; Translations: [Iliotibial band syndrome, right leg] 01-19-2021 Episodic Other connective tissue disease (5 sources) Pain in calf; Translations: [Pain in right lower leg] 09-01-2022 Episodic Other connective tissue disease (1 source) Pain in left foot; Translations: [Pain in left foot] 08-01-2022 Episodic Other connective tissue disease (2 sources) Pain in right foot; Translations: [Pain in right foot] Onset: 06-19-2024 06-19-2024 Episodic Other connective tissue disease (1 source) Pain in right foot; Translations: [Pain in right foot] Onset: 06-19-2024 Episodic Other gastrointestinal disorders (1 source) Dysphagia; Translations: [Dysphagia, unspecified] 05-10-2023 Episodic Other lower respiratory disease (12 sources) Dyspnea; Translations: [Dyspnea, unspecified] 04-05-2020 Episodic Other lower respiratory disease (2 sources) Cough; Translations: [Acute cough] 07-03-2024 Episodic Other nervous system disorders (1 source) Demyelinating disease of central nervous system; Translations: [Demyelinating disease of central nervous system, unspecified] Chronic Other nervous system disorders (2 sources) Paresthesia; Translations: [Paresthesia of skin] Episodic Other nervous system disorders (3 sources) Facial paresthesia; Translations: [Paresthesia of skin] 12-28-2022 Episodic Other nervous system disorders (3 sources) Transient paresthesia; Translations: [Paresthesia of skin] 12-28-2022 Episodic Other non-traumatic joint disorders (1 source) Pain in right shoulder; Translations: [Pain in joint, shoulder region] 07-24-2023 Episodic Other nutritional; endocrine; and metabolic disorders (9 sources) Body mass index 30+ - obesity; Translations: [Body mass index (BMI) 31.0-31.9, adult] 06-01-2020 Chronic Other screening for suspected conditions (not mental disorders or infectious disease) (1 source) Cancer cervix screening status; Translations: [Encounter for screening for malignant neoplasm of cervix] 07-31-2024 Episodic Other skin disorders (1 source) Skin lesion; Translations: [Disorder of the skin and subcutaneous tissue, unspecified] 05-11-2024 Episodic Other upper respiratory disease (20 sources) Allergic rhinitis due to pollen; Translations: [Allergic rhinitis due to pollen] Onset: 03-06-2008 03-06-2008 Chronic Other upper respiratory disease (1 source) Nasal congestion; Translations: [Nasal congestion] 05-11-2024 Episodic Other upper respiratory infections (20 sources) Posterior rhinorrhea; Translations: [Postnasal drip] 11-29-2020 Episodic Otitis media and related conditions (1 source) Acute right otitis media; Translations: [Otitis media, unspecified, right ear] Episodic Residual codes; unclassified (2 sources) Chronic back pain 07-15-2020 Episodic Residual codes; unclassified (3 sources) Transient alteration of awareness; Translations: [Transient alteration of awareness] Onset: 01-24-2023 Episodic Residual codes; unclassified (3 sources) History of clinical finding in subject; Translations: [Personal history of other specified conditions] 01-01-2023 Episodic Skin and subcutaneous tissue infections (7 sources) Cellulitis; Translations: [Cellulitis, unspecified] 04-23-2019 Episodic Spondylosis; intervertebral disc disorders; other back problems (7 sources) Degeneration of lumbar intervertebral disc; Translations: [Other intervertebral disc degeneration, lumbar region] 01-19-2021 Chronic Unclassified (2 sources) Breast feeding (infant) (observable entity) 06-02-2020 Comment on above: System added from do cumentation. Breast feeding Status documented as Yes on Admission Unclassified (1 source) Acute cough; Translations: [Acute cough] Onset: 07-03-2024 Urinary tract infections (1 source) Acute urinary tract infection; Translations: [Urinary tract infection, site not specified] Episodic Viral infection (7 sources) COVID-19; Translations: [Pneumonia due to COVID-19 virus] 03-26-2021 Episodic Past or Other Problems Problem Classification Problem Date Documented Da te Episodic/Chronic Cancer of cervix (4 sources) Atypical squamous cells of undetermined significance on cervical Papanicolaou smear; Translations: [Atypical squamous cells of undetermined significance on cytologic smear of cervix (ASC-US)] Onset: 08-05-2024 08-14-2024 Episodic Gastrointestinal hemorrhage (20 sources) Hematochezia; Translations: [Melena] Onset: 03-06-2008 03-06-2008 Episodic Other circulatory disease (1 source) Other specified symptoms and signs involving the circulatory and respiratory systems; Translations: [Other specified symptoms and signs involving the circulatory and respiratory systems] Onset: 01-08-2023 Episodic Other complications of (13 sources) Asymptomatic bacteriuria in ; Translations: [Asymptomatic bacteriuria in , unspecified as to episode of care] Onset: 06-08-2009 Resolved: 11-18-2009 11-18-2009 Episodic Other connective tissue disease (20 sources) Pain in lower limb; Translations: [Pain in leg, unspecified] Onset: 12-22-2009 Resolved: 08-05-2024 12-22-2009 Episodic Other female genital disorders (2 sources) Cervical intraepithelial neoplasia grade 1; Translations: [Mild cervical dysplasia] Onset: 08-18-2024 08-18-2024 Episodic Other gastrointestinal disorders (1 source) Dysphagia, unspecified; Translations: [Dysphagia, unspecified] Onset: 05-10-2023 Episodic Other and delivery including normal (20 sources) Vaginal delivery; Translations: [Patient encounter status] Onset: 03-25-2009 Resolved: 08-05-2024 06-03-2020 Episodic Residual codes; unclassified (3 sources) Personal history of other specified conditions; Translations: [Other specified personal history presenting hazards to health] Onset: 01-01-2023 01-01-2023 Episodic Spondylosis; intervertebral disc disorders; other back problems (20 sources) Backache; Translations: [Dorsalgia, unspecified] Onset: 12-22-2009 Resolved: 08-05-2024 12-22-2009 Episodic Syncope (5 sources) Syncope; Translations: [Syncope and collapse] Onset: 12-01-2022 11-27-2022 Episodic Results Test Name Value Interpretation Reference Range Facility [facility] 11-18-2024 [facility] Nurse Visit (OBGYWM) MAIK MARTINES ([id number]) 1990 [facility] Date Time Provider Department 11/18/24 2:00 PM 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 Maik Martines is here for her HPV Gardasil vaccination, injection # two of the series. Patient ?No Gardasil injection was given without incident. See immunizations for details of immunizations administered today. VIS sheet provided: Yes Patient advised to follow up in 4 months from the 2nd injection Provider Dr. Vernell Medina was present in office at time of injection. Jb Mills LPN Jb Mills KEYA 11/18/2024 1:48 PM Signed Gardasil Gardasil is a vaccine to protect against Human Papillomavirus (HPV) types 6, 11, 16, 18, 31,33,45, 52, 58. These viruses cause cancer and precancerous lesions on the cervix (opening between vagina and uterus), in the vagina and on the vulva (skin around the outside of the vagina) as well as genital warts. The vaccine cannot cause these diseases and cannot treat them if already present. Gardasil works best if given before contact with HPV. Most people are exposed to HPV soon after starting sexual activity. The vaccine is recommended between the ages of 9 and 45. Gardasil does not protect against all strains of HPV. Women who receive the vaccine still need to have regular pelvic exams and cervical cancer screening with the pap smear. You should ask your doctor if Gardasil is right for you if you have a weakened immune system, a bleeding disorder, plan to become soon or have a current illness causing fever. Gardasil is not recommended for women. You should be sure your doctor is aware of any allergies you have and all medications and herbal supplements you take. Gardasil is given to those ages 9-14 in 2 doses at 0 and 8 months. In ages 15-45, three injections are given at 0,2,6 months. Common side effects include pain, redness, itching and swelling at the injection site, nausea, fever, dizziness and fainting. Rare but potentially serious reactions have been reported. These include allergic reaction, swollen glands, joint and muscle pain, weakness and Guillain-[place] syndrome. Referring Provider: CLAUDINE JOYCE [[id number]] Allergies As of Date: 11/18/2024 Noted Allergy Reaction BACTRIM (SULFAMETHOXAZOLE-TRIM ETH*08/20/2015 8 - GI Upset 11 - Vomiting GRAPE 05/29/2019 7 - Swelling MORPHINE 01/07/2008 Comments: hypotension PHENERGAN (PROMETHAZINE HCL) 01/07/2008 14 - Other: See Comments Comments: ? Hypotension, given at same time as Morphine ZOLOFT (SERTRALINE HCL) 10/30/2016 14 - Other: See Comments Comments: Increased anxiety and weight gain Date Reviewed: 08/14/2024 Reviewed by: Vernell Medina MD - Fully Assessed Reason for Visit: Gardasil Injection [1654] Primary Visit Diagnosis:Need for prophylactic vaccination/inoculatio n against viral disease [Z23] Prescriptions as of 11/18/2024 - cetirizine HCl (ZYRTEC ORAL) Take by mouth. - medroxyPROGESTERone (DEPO-PROVERA) 150 mg/mL Inject 1 mL intramuscularly every 12 weeks. - DULoxetine (CYMBALTA) 60 mg capsule Take 1 capsule by mouth every afternoon. - estradiol (DEPO-ESTRADIOL) 5 mg/mL injection Inject intramuscularly one time only. - lansoprazole (PREVACID) 30 mg capsule Take 1 capsule by mouth twice daily before meals. - albuterol HFA (PROAIR HFA) 90 mcg/actuation inhaler Inhale 2 Puffs as instructed every 4 hours as needed. Problem List As Of Date 11/18/2024 Noted Resolved GE REFLUX (GASTROESOPHAGEAL) [K21.9] 03/06/2008 RHINITIS ALLERGIC, DUE TO POLLEN [J30.1] 03/06/2008 MELENA, BLOOD IN STOOL [K92.1] 03/06/2008 Supervision of Normal First [Z34.00] 03/25/2009 11/18/2009 Bacteriuria Preg-Unspec [O99.891, R82.71] 06/08/2009 11/18/2009 Routine follow-up [Z39.2] 12/22/2009 08/05/2024 Leg pain [M79.606] 12/22/2009 08/05/2024 Backache, unspecified [M54.9] 12/22/2009 08/05/2024 ANTOINE (generalized anxiety disorder) [F41.1] 02/16/2015 ASCUS with positive high risk HPV cervical [R87*08/05/2024 Dysplasia of cervix, low grade (YESSY 1) [N87.0] 08/18/2024 Other instructions from your clinician: Gardasil Gardasil is a vaccine to protect against Human Papillomavirus (HPV) types 6, 11, 16, 18, 31,33,45, 52, 58. These viruses cause cancer and precancerous lesions on the cervix (opening between vagina and uterus), in the vagina and on the vulva (skin around the outside of the vagina) as well as genital warts. The vaccine cannot cause these diseases and cannot treat them if already present. Gardasil works best if given before contact with HPV. Most people are exposed to HPV soon after starting sexual activity. The vaccine is recommended (more content not included)... 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 Maik is a 33 year old Female who presents today for a colposcopy. The patient's last pap smear was ASCUS with positive HPV from July 2024. Patient has a history of abnormal pap: No. The patient has had prior treatment: none. test: negative UNIVERSAL PROTOCOL / SAFETY CHECKLIST Procedure to be Performed: Colposcopy Sign In: A Moment of CARE was completed. Personnel directly involved with the procedure wore the appropriate PPE (Personal Protective Equipment). Patient/Surrogate Stated/Verified: PATIENT VERIFIED(optional for EMERGENT procedures): Patient name, Date of , Relevant allergies, and The intended procedure Time Out Communication: Intended patient and procedure match the source documents. Consent documented and matches the intended procedure. Relevant labs, photos, and/or imaging studies have been reviewed. Sign Out: SIGN OUT (optional for EMERGENT procedures): All specimen containers correctly labeled. All instruments, equipment, possible retained foreign bodies accounted for. Post-procedure follow-up management communicated and Plan of Care Visit completed when applicable. PROCEDURE: EXTERNAL GENITALIA: Normal in appearance without lesions VAGINA: Normal in appearance without lesions CERVIX: Speculum placed in vagina and excellent visualization of cervix achieved. Cervix swabbed x 3 with 3% acetic acid solution. Cervix grossly normal. Squamocolumnar junction visualized. acetowhite changes noted diffusely. BIOPSY: Done at 3:00, 6:00, 9:00, and 12:00 ECC: done HEMOSTASIS: Obtained with Monsel's solution, silver nitrate, and pressure Procedure Summary: Patient tolerated procedure well and colposcopy was adequate. ASSESSMENT: ASCUS with positive HRHPV PLAN: Specimens labeled and sent to Pathology. Will notify patient of results in 1-2 weeks. Post-procedure instructions reviewed and written material given to the patient. HPV vaccine series If indicated, lesion by colpo is amenable to office LEEP as lesion is small. MD Yaw Elliott [place], MA 08/14/2024 11:00 AM Addendum YOUR RECOVERY It may take a few weeks for your cervix to heal. While your cervix heals, you may have: - Vaginal bleeding (less than a normal menstrual period) - Mild cramping - A brown-black vaginal discharge (similar to coffee grounds) which is a result of the paste used to help stop bleeding from the procedure Do NOT put anything in the vagina for 1 week after your colposcopy if your doctor does a biopsy of your cervix. This includes sex, tampons, and douches. If you have any discomfort, you may take an over the counter pain medication (motrin, advil, ibuprofen, tylenol, etc). If this does not relieve your discomfort, contact your doctor's office for a prescription strength pain medication. It is okay to wear a sanitary pad until the discharge and spotting stops. RISKS Although problems seldom occur with colposcopy, there can be some complications. You may feel faint during and shortly after the procedure as well as have some bleeding and vaginal discharge after the procedure. There is also a risk of infection after the procedure. These complications are rare and can be easily treated. You should contact you doctor is you have any of the following: - Heavy bleeding (more than your normal period) - Bleeding with clots - Severe abdominal pain - Fever (more than 100.4F) - Foul smelling vaginal discharge RESULTS If a biopsy was taken, we will have the results of your biopsy in 1-2 weeks. If you do not hear the results of your biopsy after 2 weeks, please contact your physicians office for the results. Depending on the biopsy results, your doctor will determine your follow up plan which may include further testing or treatments. STAYING HEALTHY After the procedure, you will need to see your doctor for follow up visits during the year. At these visits your doctor will check the health of your cervix with a pap smear. After three normal pap smears, your doctor will allow you to return to having exams once a year. If you have another abnormal pap smear, you may need closer follow up for longer or you may need additional treatment. By making a few lifestyle changes after the procedure, you can help protect the health of your cervix: - Have regular pelvic exams and pap smears as ordered by your doctor. - Stop smoking as smoking increases your risk of developing a cancer of the cervix - If (more content not included)... 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, [place], [place], [address] [place] [address] POINT OF CARE [facility] SURGICAL PATHOLOGYon 025 CASE REPORT Normal [facility] Comment on above: Order Comment: Speci men Type: TISSUE SPECIMENOrdering Facility: [facility] Address: [address] [place] [address] Result Comment: Surg ica Pathology Report Case: [id number] Authorizing Provider: Vernell Medina MD Collected: 08/14/2024 11:09 AM Ordering Location: OB/Gynecology Received: 08/14/2024 04:35 PM Pathologist: Adria Liz MD Specimens: A) - Endocervix, Curettings B) - Cervix, Biopsy, 3 C) - Cervix, Biopsy, 6 D) - Cervix, Biopsy, 9 E) - Cervix, Biopsy, 12 Performed By: #### S ####[facility] LABORATORYIA [id number] [address] [facility] LABCLIA [id number] [place] [address] [place] CLINICAL HISTORY Positive Normal [facility] Comment on above: Order Comment: Speci men Type: TISSUE SPECIMENOrdering Facility: [facility] Address: [address] [place] [address] Performed By: #### S ####[facility] LABORATORYCLIA [id number] [address] LABCLIA [id number] [address] OF [facility] FINAL DIAGNOSIS Normal [facility] Comment on above: Order Comment: Speci men Type: TISSUE SPECIMENOrdering Facility: [facility] Address: [address] [place] [address] Result Comment: A. E ndocervix, curettage: - Benign endocervical tissue and superficial squamous epithelium. B, D, E. Cervix, 3:00, 9:00 and 12:00, biopsies: - Benign endocervical tissue. C. Cervix, 6:00, biopsy: - Low-grade squamous intraepithelial lesion (YESSY 1). BRYNM 08/18/2024 Performed By: #### S ####[facility] LABORATORYCLIA [id number] [address] LABCLIA [id number] [address] [place] FINAL PERFORMING LAB Normal [facility] Comment on above: Order Comment: Speci men Type: TISSUE SPECIMENOrdering Facility: [facility] Address: [address] [place] [address] Result Comment: Diag nostic interpretation performed at: [facility], [address] [id number] CLIA# [id number] Attractions Associate: Adria Liz MD Performed By: #### S ####[facility] LABORATORYCLIA [id number] [place] [id number] [place] [facility] LABCLIA [id number] [place] [address] [place] GROSS DESCRIPTION [facility] Comment on above: Order Comment: Speci men Type: TISSUE SPECIMENOrdering Facility: [facility] Address: [address] [place] [address] Result Comment: A. E ndocervix, Curettings Received in formalin are multiple patricia to brown, soft feathery segments of tissue admixed with mucinous material aggregating to 1.1 x 0.9 x 0.1 cm. Totally submitted in one cassette. B. Cervix, Biopsy Received in formalin is one piece of patricia to patricia-white, soft mucosal covered tissue measuring 0.3 x 0.1 x 0.1 cm. Totally submitted in one cassette. C. Cervix, Biopsy Received in formalin is one piece of patricia to patricia-white, soft mucosal covered tissue measuring 0.5 x 0.3 x 0.2 cm. Totally submitted in one cassette. D. Cervix, Biopsy Received in formalin are two pieces of patricia to patricia-brown, soft mucosal covered tissue aggregating to 0.7 x 0.3 x 0.1 cm. Totally submitted in one cassette. E. Cervix, Biopsy Received in formalin is one piece of patricia to patricia-white, soft mucosal covered tissue measuring 0.2 x 0.1 x 0.1 cm. Totally submitted in one cassette. May not survive processing. DB August 14, 2024 10:59 PM Gross examination performed at [facility], [address] [place] [address] Performed By: #### S ####[facility] LABORATORYCLIA [id number] [place] [id number] [place] [facility] LABCLIA [id number] [place] [address] [place] BACTERIAL VAGINOSIS NAATon 0 07-31-2024 Lactobacillus crispatus+gasseri+jensenii + Gardnerella vaginalis + Atopobium vaginae rRNA ROBBY+probe Ql (Vag fld) Not detected Normal Not detected [facility] Comment on above: Order Comment: Speci men Type: SWABOrdering Facility: [facility] Address: [address] [place] [address] Performed By: #### B SHWETHA, CVTV ####[facility] LABCLIA [id number] [place] [address] [place] C. trachomatis+N. gonorrhoea e DNA ROBBY+probe Ql (Unsp spec)on 07-31-2024 C. trachomatis rRNA ROBBY+probe Ql (Unsp spec) Not detected Normal Not detected [facility] Comment on above: Order Comment: Speci men Type: SWABOrdering Facility: [facility] Address: [address] [place] [address] Performed By: #### 3 6902-5 ####[facility] LABCLIA [id number] [place] [address] [place] N. gonorrhoeae rRNA ROBBY+probe Ql (Unsp spec) Not detected Normal Not detected [facility] Comment on above: Order Comment: Speci men Type: SWABOrdering Facility: [facility] Address: [address] [place] [address] Performed By: #### 3 6902-5 ####[facility] LABCLIA [id number] [place] [address] [place] MAYNOR/TRICHOMONAS NAATon 0 07-31-2024 C. glabrata RNA ROBBY+probe Ql (Vag fld) Not detected Normal Not detected [facility] Comment on above: Order Comment: Speci men Type: SWABOrdering Facility: [facility] Address: [address] [place] [address] Performed By: #### B VAMP, CVTV ####[facility] LABCLIA [id number] [place] [address] [place] Maynor sp DNA ROBBY+probe Ql (Vag fld) Not detected Normal Not detected [facility] Comment on above: Order Comment: Speci men Type: SWABOrdering Facility: [facility] Address: [address] [place] [address] Result Comment: The Maynor species group target includes C. albicans, C. tropicalis, C. parapsilosis, and C. dubliniensis. Performed By: #### B VAMP, CVTV ####[facility] LABCLIA [id number] [address] [place] T. vaginalis DNA ROBBY+probe Ql (Unsp spec) Not detected Normal Not detected [facility] Comment on above: Order Comment: Speci men Type: SWABOrdering Facility: [facility] Address: [address] [place] [address] Performed By: #### B VAMP, CVTV ####[facility] LABCLIA [id number] [address] OF [place] CNOVon 07-31-2024 CNOV Office Visit (OBGYWM ) CONRADCHRISTIANMAIK Yazan ([id number]) 1990 F [facility] Date Time Provider Department 07/31/24 10:00 AM CLAUDINE JOYCE OBCHINEDUWYazan During your visit today, we recorded the following information about you: Blood pressure Weight Height Last Period 118/76 83 kg 1.6 m 06/29/24 Claudine Joyce APRN.CNYazan 07/31/2024 10:44 AM Signed Maik is a 33 year old who presents for an annual gynecologic exam without complaints. Still get period: Yes Bleeding amount bothersome: Yes Bleeding between periods: Yes Period symptoms: Acne; Breast tenderness; Cramps; Mood change; Pelvic pain Other control: Depo control frequency: Always HPV vaccine: Unsure; HPV: negative Last pap smear: 04/30/2023 History of abnormal pap: No, all prior PAP smears have been normal Bothersome pelvic pain: Yes Last mammogram: never Patient concerns for STD exposure: Yes: infidelity by OB History T1 L1 SAB0 IAB0 Ectopic0 Multiple0 Live Births1 [place] History LMP: 06/29/2024, Having periods Age at Menarche: 21 Age at First : Age at Menopause: [place] History Comments: Sexual Activity: Not Currently; Male; depo Contraception: Abstinence, Other Menstrual Tracking History Flowsheet Row Office Visit from 07/31/2024 in OB/Gynecology Period Cycle (Days) 28 Period Duration (Days) 5 Menstrual Flow Moderate PAST MEDICAL HISTORY Diagnosis Date Allergic rhinitis, cause unspecified Coitus painful for female 2004 Endometriosis Esophageal reflux Headache(784.0) Lymph node enlargement right posterior auricular, sees [facility] Lymph node enlargement right axilla PAST SURGICAL HISTORY Procedure Laterality Date DELIVERY ONLY 07/30/2009 , low transverse EXC/DSTRJ LINGUAL TONSIL ANY METHOD SPX 06/29/2007 GI UPPER SERIES FAMILY HISTORY Problem Relation Age of Onset None Mother None Father None Sister Overweight None Brother Overweight Hypertension Maternal Grandmother Heart Maternal Grandfather other (Other [Other]) Maternal Grandfather Parkinson's Alzheimer's Disease Paternal Grandmother Breast Cancer Maternal Aunt 53 Genetics negative Breast Cancer Maternal cousin 60 SOCIAL HISTORY Social History Tobacco Use Smoking status: Never Smokeless tobacco: Never Vaping Use Vaping status: Never Used Substance Use Topics Alcohol use: Not Currently Drug use: No REVIEW OF SYSTEMS Abdomen: No abdominal pain, nausea, vomiting, diarrhea, or constipation. No bloating, early satiety, indigestion, or increased flatulence. Bladder: No dysuria, gross hematuria, urinary frequency, urinary urgency, or incontinence. Breast: History of right breast pain, fibrocystic breasts. Allergies and current medication updated:Yes SENSITIVE EXAM: The sensitive examination was discussed with the Patient or Patient's Authorized Still Operator Helper. As applicable, any other physician, advance practice provider, medical student, or other health professional student that will be observing or involved in the sensitive examination for educational or training purposes was discussed with the Patient or Authorized Still Operator Helper. The Patient or Authorized Still Operator Helper has agreed to proceed with the sensitive examination. (Sensitive examination includes inspection and/or palpation of the breasts, pelvis, prostate and anorectal regions). EXAM: BP 118/76 Ht 5' 3 (1.60m) Wt 183 lb (83.0kg) LMP 06/29/2024 BMI 32.43 kg/(m2). GENERAL: pleasant, female in no apparent distress HEENT: Normocephalic, atraumatic, mucus membranes moist, and no lesions NECK: Supple and full range of motion DERMATOLOGY: Normal and without lesions BREAST: soft, non-tender, symmetric, no dominant mass, normal nipple-areolar complex, no lymphadenopathy, no nipple discharge, and fibrocystic changes CHEST: Normal inspiratory effort ABDOMEN: soft, non-tender, and no masses PELVIC: external genitalia normal, normal Bartholin's glands, urethra, [place]'s glands, no vulvar lesions, no cervical lesions, good vaginal support, physiologic discharge present, normal appearing perineal body and perianal region BIMANUAL: uterus normal size, shape and consistency, no adnexal masses, non-tender, and no cervical motion tenderness RECTOVAGINAL: deferred. NEURO: alert and oriented x3,exam grossly non-focal EXTREMITIES: normal ASSESSMENT/PLAN: 1) Health maintenance: Pap done with HPV. Nutrition, exercise and routine health maintenance exams reviewed. 2) Contraception: Depo Provera. Contraceptive options reviewed and information provided. 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 Rx sent 3) STD screening: Accepted STD check for Gonorrhea and Chlamydia. 4) Follow up one year or sooner as needed Claudine Joyce APRN.CNM Allergies As of Date: 07/31/2024 Noted (more content not included)... Normal [facility] HIGH RISK HUMAN PAPILLOMA TEN (HPV), PCR FOR DETECTION AND GENOTYPINGon 07-31-2024 HPV 16 Ag Ql (Unsp spec) Not detected Normal Not detected [facility] Comment on above: Order Comment: Speci men Type: FLUID SPECIMENOrdering Facility: [facility] Address: [address] [place] [address] Performed By: #### H PVHRT ####[facility] LABCLIA [id number] [place] [address] [place] HPV 18 Ag Ql (Unsp spec) Not detected Normal Not detected [facility] Comment on above: Order Comment: Speci men Type: FLUID SPECIMENOrdering Facility: [facility] Address: [address] [place] [address] Performed By: #### H PVHRT ####[facility] LABCLIA [id number] [place] [address] [place] HPV 31+33+35+39+45+51+52+56+58+ 59+66+68 DNA ROBBY+probe Ql (Cvx) Detected Abnormal Not detected [facility] Comment on above: Order Comment: Speci men Type: FLUID SPECIMENOrdering Facility: [facility] Address: [address] [place] [address] Result Comment: High Risk HPV Other Type includes HPV types 31, 33, 35, 39, 45, 51, 52, 56, 58, 59, 66 and 68. Performed By: #### H PVHRT ####[facility] LABCLIA [id number] [place] [address] [place] PAP TESTon 07-31-2024 ADEQUACY Satisfactory for interpretation. Normal [facility] Comment on above: Order Comment: Speci men Type: FLUID SPECIMENOrdering Facility: [facility] Address: [address] [place] [address] Performed By: #### L [id number] ####[facility]ORY[facility] [id number] [place] [address] [place] [facility]AA[facility] LABCLIA [id number] [place] [address] [place] CASE REPORT Normal [facility] Comment on above: Order Comment: Speci men Type: FLUID SPECIMENOrdering Facility: [facility] Address: [address] [place] [address] Result Comment: Gyne cologic Cytology Report Case: [id number] Authorizing Provider: Claudine Joyce APRN.CNM Collected: 07/31/2024 10:32 AM Ordering Location: OB/Gynecology Received: 07/31/2024 11:33 AM First Screen: Mcleod, Selin, CT, ASCP Pathologist: Scarlett Randall MD Specimen: Pap Test, ThinPrep, Cervix Performed By: #### L [id number] ####[facility]ORYCLIA [id number] [address] LABCLIA [id number] [place] [address] [place] CLINICAL HISTORY, CYTOLOGY, TRAILER TANK 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 DRIVER Routine Exam Normal [facility] Comment on above: Order Comment: Speci men Type: FLUID SPECIMENOrdering Facility: [facility] Address: [address] [place] [address] Performed By: #### L [id number] ####[facility]IA [id number] [address] LABCLIA [id number] [address] [place] FINAL PERFORMING LAB Normal [facility] Comment on above: Order Comment: Speci men Type: FLUID SPECIMENOrdering Facility: [facility] Address: [address] [place] [address] Result Comment: Tech nical component, marbleizing machine tender screening performed at [facility], [address] [place] [address] CLIA# [id number] Diagnostic interpretation performed at [facility], [address] [place] [id number] CLIA# [id number] Attractions Associate: Lexi Neff M.D. Performed By: #### L [id number] ####[facility]ORY[facility]IA [id number] [address] LABCLIA [id number] [place] [address] [place] INTERPRETATION, CYTOLOGY, TRAILER TANK TRUCK DRIVER Abnormal [facility] Comment on above: Order Comment: Speci men Type: FLUID SPECIMENOrdering Facility: [facility] Address: [address] [place] [address] Result Comment: Atyp ical squamous cells of undetermined significance (ASC-US). Performed By: #### L [id number] ####[facility]ORY[facility]IA [id number] [address] STATES [facility] LABCLIA [id number] [place] [address] [place] LMP 06/29/2024 Normal [facility] Comment on above: Order Comment: Speci men Type: FLUID SPECIMENOrdering Facility: [facility] Address: [address] [place] [address] Performed By: #### L [id number] ####[facility] [id number] [address] LABCLIA [id number] [place] [address] [place] PAP DISCLAIMER COMMENT The Pap Smear is a screening test for cervical cancer. False negative results occur with all screening tests, emphasizing the need for rescreening at recommended intervals, and clinical correlation. Normal [facility] Comment on above: Order Comment: Speci men Type: FLUID SPECIMENOrdering Facility: [facility] Address: [address] [place] [address] Performed By: #### L [id number] ####[facility]ORY[facility]IA [id number] [address] STATES [facility] LABCLIA [id number] [place] [address] [place] PAP GENERAL CATEGORIZATION Epithelial Ce ll Abnormality Normal [facility] Comment on above: Order Comment: Speci men Type: FLUID SPECIMENOrdering Facility: [facility] Address: [address] [place] [address] Performed By: #### L [id number] ####[facility]IA [id number] [address] STATES [facility] LABCLIA [id number] [place] [address] [place] PAP GOSPEL WORKER COMMENT This specimen has be en analyzed by the ThinPrep Imaging System, an automated imaging and review system, which assists the laboratory in evaluating cells on ThinPrep Pap tests. Following automated imaging, selected medellin from every slide are reviewed by a marbleizing machine tender. Normal [facility] Comment on above: Order Comment: Speci men Type: FLUID SPECIMENOrdering Facility: [facility] Address: [address] [place] [address] Performed By: #### L [id number] ####[facility]ORYCLIA [id number] [place] [id number] [facility] LABCLIA [id number] [address] CNOVon 07-03-2024 CNOV Office Visit (UCWSTR ) MAIK MARTINES ([id number]) 1990 [facility] Date Time Provider Department 07/03/24 8:45 AM ESTEFANIA VINES [facility] During your visit today, we recorded the following information about you: Temperature Pulse Respiration Blood pressure 99.7 degrees 107/minute 20/minute 134/86 Weight 85 kg Estefania Vines PA 07/03/2024 9:54 AM Signed This note was created using TextCornerter. Subjective Maik Martines is a 33 year old female. HPI 33-year-old female presents for cough, chest congestion, nasal congestion, ear pain for about 4 days. Patient states over the weekend she started getting sick. She states that she is coughing up a lot of mucus. It originally was green, now it is more yellow. She states it seems thicker and harder to cough up now. She denies any chest pain or shortness of breath, but has been using her rescue inhaler over the past 24 hours. She does not have a history of asthma, but has been given an inhaler in the past when she was sick. She states she has had nasal congestion. She has had chills and felt feverish at home. She feels like she had a fever last night because she woke up in sweat. She denies any vomiting or diarrhea. Still eating and drinking. She has been taking rfjf-kkv-judqnet cough/cold medications including Mucinex, Tylenol Cold and flu and [place] without much improvement in symptoms. No other complaint. PAST MEDICAL HISTORY Diagnosis Date Allergic rhinitis, cause unspecified Esophageal reflux Headache(784.0) Lymph node enlargement right posterior auricular, sees [facility] Lymph node enlargement right axilla PAST SURGICAL HISTORY Procedure Laterality Date DELIVERY ONLY 2009 , low transverse EXC/DSTRJ LINGUAL TONSIL ANY METHOD SPX 06/2007 GI UPPER SERIES ALLERGIES Bactrim [Sulfamethoxazole-Trim ethoprim], Grape, Morphine, Phenergan [Promethazine Hcl], and Zoloft [Sertraline Hcl] MEDICATIONS DULoxetine (CYMBALTA) 60 mg capsule Take 1 capsule by mouth every afternoon. fexofenadine (RADHA ALLERGY) 180 mg tablet Take 180 mg by mouth once daily. estradiol (DEPO-ESTRADIOL) 5 mg/mL injection Inject intramuscularly one time only. lansoprazole (PREVACID) 30 mg capsule Take 1 capsule by mouth twice daily before meals. albuterol HFA (PROAIR HFA) 90 mcg/actuation inhaler Inhale 2 Puffs as instructed every 4 hours as needed. benzonatate (TESSALON PERLE) 100 mg capsule Take 2 capsules by mouth three times a day as needed. (Patient not taking: Reported on 05/11/2024) sucralfate (CARAFATE) 1 gram tablet Take 1 tablet by mouth four times daily. (mixed with a little bit of water to make a slurry). (Patient not taking: Reported on 07/24/2023) Cetirizine (ZYRTEC) 10 mg cap Take 10 mg by mouth. (Patient not taking: Reported on 05/11/2024) FAMILY HISTORY Problem Relation Age of Onset None Mother None Father None Sister Overweight None Brother Overweight Hypertension Maternal Grandmother Heart Maternal Grandfather other (Other [Other]) Maternal Grandfather Parkinson's Alzheimer's Disease Paternal Grandmother Breast Cancer Maternal Aunt 53 Genetics negative Breast Cancer Maternal cousin 60 Social History Tobacco Use Smoking status: Never Smokeless tobacco: Never Vaping Use Vaping status: Never Used Substance Use Topics Alcohol use: Not Currently Drug use: No Review of Systems Constitutional: Positive for chills and fever. HENT: Positive for congestion and ear pain. Negative for sore throat. Respiratory: Positive for cough and wheezing. Negative for shortness of breath. Cardiovascular: Negative for chest pain. Gastrointestinal: Negative for diarrhea and vomiting. Objective BP 134/86 Pulse 107 Temp 37.6 ?C (99.7 ?F) Resp 20 Wt 85 kg (187 lb 6.3 oz) LMP 07/30/2022 (Within Days) SpO2 97% BMI 33.19 kg/m? Physical Exam Vitals and nursing note reviewed. Constitutional: General: She is not in acute distress. Appearance: Normal appearance. She is not toxic-appearing. HENT: Right Ear: Tympanic membrane and ear canal normal. Left Ear: Tympanic membrane and ear canal normal. Nose: Congestion present. Mouth/Throat: Mouth: Mucous membranes are moist. Eyes: Conjunctiva/sclera: Conjunctivae normal. Cardiovascular: Rate and Rhythm: Normal rate and regular rhythm. Pulmonary: Effort: Pulmonary effort is normal. Breath sounds: Normal breath sounds. No wheezing, rhonchi or rales. Skin: General: Skin is warm and dry. Neurological: Mental Status: She is alert. Assessment and Plan ASSESSMENT/PLAN: 1. Acute cough - ICD9: 786.2, ICD10: R05.1 - XR CHEST 2V FRONTAL/LAT-no acute abnormality. -Rx prednisone, Rx Tessalon Perles patient reports wheezing at home. -Follow-up with PCP if no improvement. -Declines viral swab Diagnosis and treatment plan were d (more content not included)... Normal [facility] XR CHEST 2V FRONTAL/LATon XR CHEST 2V FRONTAL/LAT * * *Final Repor t* * * DATE OF EXAM: Jul 03 2024 9:12AM WOX [id number] - XR CHEST 2V FRONTAL/LAT / PROCEDURE REASON: Acute cough * * * * Physician Interpretation * * * * EXAMINATION: CHEST RADIOGRAPH (2 VIEW FRONTAL and LATERAL) CLINICAL HISTORY: Acute cough MQ: XC2_6 EXAM DATE/TIME: 07/03/2024 9:12 AM COMPARISON: No relevant prior studies available. RESULT: Lines, tubes, and devices: None. Lungs and pleura: No consolidation. No lung mass. No pleural effusion. No pneumothorax. Cardiomediastinal silhouette: Normal cardiomediastinal silhouette. Bones and soft tissues: Unremarkable. IMPRESSION: No acute radiographic abnormality. Lokie Engineer: PSC Transcribe Date/Time: Jul 03 2024 9:36A Dictated by : ANGELA OHARA MD This examination was interpreted and the report reviewed and electronically signed by: ANGELA OHARA MD on Jul 03 2024 9:37AM EST [id number] Normal [facility] XR Chest PA and Lateralon IMPRESSION: No acute radiographic abnormality. Lokie Engineer: [facility] Transcribe Date/Time: Jul 03 2024 9:36A Dictated by : ANGELA OHARA MD This examination was interpreted and the report reviewed and electronically signed by: ANGELA OHARA MD on Jul 03 2024 9:37AM EST DIVISION OF RADIOLOGY * * *Final Report* * * DATE OF EXAM: Jul 03 2024 9:12AM WOX [id number] - XR CHEST 2V FRONTAL/LAT / PROCEDURE REASON: Acute cough * * * * Physician Interpretation * * * * EXAMINATION: CHEST RADIOGRAPH (2 VIEW FRONTAL & LATERAL) CLINICAL HISTORY: Acute cough MQ: XC2_6 EXAM DATE/TIME: 07/03/2024 9:12 AM COMPARISON: No relevant prior studies available. RESULT: Lines, tubes, and devices: None. Lungs and pleura: No consolidation. No lung mass. No pleural effusion. No pneumothorax. Cardiomediastinal silhouette: Normal cardiomediastinal silhouette. Bones and soft tissues: Unremarkable. DIVISION OF RADIOLOGY Provider, [facility] - 07/03/2024 * * *Final Report* * * DATE OF EXAM: Jul 03 2024 9:12AM WOX [id number] - XR CHEST 2V FRONTAL/LAT / PROCEDURE REASON: Acute cough * * * * Physician Interpretation * * * * EXAMINATION: CHEST RADIOGRAPH (2 VIEW FRONTAL & LATERAL) CLINICAL HISTORY: Acute cough MQ: XC2_6 EXAM DATE/TIME: 07/03/2024 9:12 AM COMPARISON: No relevant prior studies available. RESULT: Lines, tubes, and devices: None. Lungs and pleura: No consolidation. No lung mass. No pleural effusion. No pneumothorax. Cardiomediastinal silhouette: Normal cardiomediastinal silhouette. Bones and soft tissues: Unremarkable. IMPRESSION IMPRESSION: No acute radiographic abnormality. Lokie Engineer: PSCAdriano Transcribe Date/Time: Jul 03 2024 9:36A Dictated by : ANGELA OHARA MD This examination was interpreted and the report reviewed and electronically signed by: ANGELA OHARA MD on Jul 03 2024 9:37AM EST [facility] Radiology Study observation (narrative) [facility] XR Chest PA and LateralOrder ed By: [facility] Provider on 07-03-2024 [facility] XR FOOT RIGHT 3+ VIEWSon XR FOOT RIGHT 3+ VIEWS EXAM: XR FOOT RIG HT 3 VIEWS, 06/19/2024 09:02 AM COMPARISON: No prior studies available for comparison. CLINICAL INDICATIONS: foot pain along plantar fascia and lateral side of foot near 5th metatarsal RELEVANT CLINICAL HISTORY: M79.671:Pain in right foot FINDINGS: 3 nonweightbearing images obtained. Soft Tissue: There is no significant soft tissue swelling. Bone: No acute osseous abnormality is identified. Joint: No evidence of dislocation. The tarsal-metatarsal joints appear grossly intact. Hammertoes are evident. IMPRESSION: No specific osseous or articular abnormality. If clinically indicated, further evaluation by means of MRI may be considered. Normal [facility] XR Foot - right 3 Viewson IMPRESSION: No specific osseous or articular abnormality. If clinically indicated, further evaluation by means of MRI may be considered. OLOGY EXAM: XR FOOT RIGHT 3 VIEWS, 06/19/2024 09:02 AM COMPARISON: No prior studies available for comparison. CLINICAL INDICATIONS: foot pain along plantar fascia and lateral side of foot near 5th metatarsal RELEVANT CLINICAL HISTORY: M79.671:Pain in right foot FINDINGS: 3 nonweightbearing images obtained. Soft Tissue: There is no significant soft tissue swelling. Bone: No acute osseous abnormality is identified. Joint: No evidence of dislocation. The tarsal-metatarsal joints appear grossly intact. Hammertoes are evident. RADIOLOGY Matias Nunez MD - 06/19/2024 EXAM: XR FOOT RIGHT 3 VIEWS, 06/19/2024 09:02 AM COMPARISON: No prior studies available for comparison. CLINICAL INDICATIONS: foot pain along plantar fascia and lateral side of foot near 5th metatarsal RELEVANT CLINICAL HISTORY: M79.671:Pain in right foot FINDINGS: 3 nonweightbearing images obtained. Soft Tissue: There is no significant soft tissue swelling. Bone: No acute osseous abnormality is identified. Joint: No evidence of dislocation. The tarsal-metatarsal joints appear grossly intact. Hammertoes are evident. IMPRESSION IMPRESSION: No specific osseous or articular abnormality. If clinically indicated, further evaluation by means of MRI may be considered. [facility] Radiology Study observation (narrative) [facility] XR Foot - right 3 ViewsOrder ed By: Matias Nunez on 06-19-2024 [facility] Work Phone: CNOVon 05-11-2024 CNOV Office Visit (UCWSTR ) MAIK MARTINES ([id number]) 1990 [facility] Date Time Provider Department 05/11/24 8:15 AM BANDAR SAUCEDA [facility] During your visit today, we recorded the following information about you: Temperature Pulse Respiration Blood pressure 98.6 degrees 106/minute 16/minute 132/80 Weight 84.4 kg Bandar Sauceda APRN.BUILDING CONSTRUCTION FOREMAN 05/11/2024 8:28 AM Signed Subjective HPI HPI Maik Martines is a 33 year old female who presents today for CC of painful spot on neck. This started 1 day ago. Has tried otc medication for relief. Symptoms are worsened by nothing. Sinus pressure, cough started 3 days ago, tried otc medication for relief. Sick exposures at home and work. Denies possibility of being . .Patient presents with: Sinus Problem: sinus pressure x 3 days, rash on back of neck painful x 1 day PAST MEDICAL HISTORY Diagnosis Date Allergic rhinitis, cause unspecified Esophageal reflux Headache(784.0) Lymph node enlargement right posterior auricular, sees [facility] Lymph node enlargement right axilla PAST SURGICAL HISTORY Procedure Laterality Date DELIVERY ONLY 2009 , low transverse EXC/DSTRJ LINGUAL TONSIL ANY METHOD SPX 06/2007 GI UPPER SERIES ALLERGIES Bactrim [Sulfamethoxazole-Trim ethoprim], Grape, Morphine, Phenergan [Promethazine Hcl], and Zoloft [Sertraline Hcl] MEDICATIONS DULoxetine (CYMBALTA) 60 mg capsule Take 1 capsule by mouth every afternoon. lansoprazole (PREVACID) 30 mg capsule Take 1 capsule by mouth twice daily before meals. albuterol HFA (PROAIR HFA) 90 mcg/actuation inhaler Inhale 2 Puffs as instructed every 4 hours as needed. fexofenadine (RADHA ALLERGY) 180 mg tablet Take 180 mg by mouth once daily. estradiol (DEPO-ESTRADIOL) 5 mg/mL injection Inject intramuscularly one time only. doxycycline monohydrate 100 mg tablet Take 1 tablet by mouth two times a day for 7 days. mupirocin (BACTROBAN) 2 % ointment Apply to affected area three times a day for 10 days. benzonatate (TESSALON PERLE) 100 mg capsule Take 2 capsules by mouth three times a day as needed. (Patient not taking: Reported on 05/11/2024) sucralfate (CARAFATE) 1 gram tablet Take 1 tablet by mouth four times daily. (mixed with a little bit of water to make a slurry). (Patient not taking: Reported on 07/24/2023) Cetirizine (ZYRTEC) 10 mg cap Take 10 mg by mouth. (Patient not taking: Reported on 05/11/2024) FAMILY HISTORY Problem Relation Age of Onset None Mother None Father None Sister Overweight None Brother Overweight Hypertension Maternal Grandmother Heart Maternal Grandfather other (Other [Other]) Maternal Grandfather Parkinson's Alzheimer's Disease Paternal Grandmother Breast Cancer Maternal Aunt 53 Genetics negative Breast Cancer Maternal cousin 60 Social History Tobacco Use Smoking status: Never Smokeless tobacco: Never Vaping Use Vaping status: Never Used Substance Use Topics Alcohol use: Not Currently Drug use: No Review of Systems Constitutional: Negative for fever. HENT: Positive for congestion and ear pain. Negative for nosebleeds and sore throat. Respiratory: Positive for cough. Negative for shortness of breath and wheezing. Musculoskeletal: Negative for neck pain. Skin: Positive for rash. Negative for itching. Objective Physical Exam Constitutional: General: She is not in acute distress. Appearance: She is not toxic-appearing or diaphoretic. HENT: Head: Normocephalic and atraumatic. Right Ear: Hearing, tympanic membrane, ear canal and external ear normal. Left Ear: Hearing, tympanic membrane, ear canal and external ear normal. Nose: Nose normal. Mouth/Throat: Pharynx: Uvula midline. No pharyngeal swelling, oropharyngeal exudate, posterior oropharyngeal erythema or uvula swelling. Eyes: General: Lids are normal. No scleral icterus. Right eye: No discharge. Left eye: No discharge. Conjunctiva/sclera: Conjunctivae normal. Pupils: Pupils are equal, round, and reactive to light. Neck: Trachea: Trachea normal. Pulmonary: Effort: Pulmonary effort is normal. Musculoskeletal: Cervical back: Normal range of motion and neck supple. Lymphadenopathy: Cervical: No cervical adenopathy. Right cervical: No superficial cervical adenopathy. Left cervical: No superficial cervical adenopathy. Skin: Findings: No rash. Neurological: Mental Status: She is alert and oriented to person, place, and time. ASSESSMENT/PLAN: 1. Skin lesion - ICD9: 709.9, ICD10: L98.9 (primary diagnosis) -use medication as prescribed -follow up if symptoms persist, worsen, change If pos for shingles call in treatment. - DOXYCYCLINE MONOHYDRATE 100 MG TABLET - HSV1,2/VZV NAAT LESION - MUPIROCIN 2 % TOPICAL OINTMENT 2. Nasal congestion - ICD9: 478.19, ICD10: R09.81 Viral vs allergic today. Earl (more content not included)... Normal [facility] HSV+VZV DNA ROBBY+probe Ql (Un sp spec)on 05-11-2024 HSV 1 DNA ROBBY+probe Ql (Unsp spec) Not detected Normal Not Detected [facility] Comment on above: Order Comment: Speci men Type: SWABOrdering Facility: [facility] Address: [address] [place] [address] Performed By: #### 3 3027-4 ####[facility] LABCLIA [id number] [place] [address] [place] HSV 2 DNA ROBBY+probe Ql (Unsp spec) Not detected Normal Not Detected [facility] Comment on above: Order Comment: Speci men Type: SWABOrdering Facility: [facility] Address: [address] [place] [address] Performed By: #### 3 3027-4 ####[facility] LABCLIA [id number] [place] [address] [place] VZV DNA ROBBY+probe Ql (Unsp spec) Not detected Normal Not Detected [facility] Comment on above: Order Comment: Speci men Type: SWABOrdering Facility: [facility] Address: [address] [place] [address] Performed By: #### 3 3027-4 ####[facility] LABCLIA [id number] [place] [address] [place] STREP A MOLECULAR (POC)on Procedural Control Valid [facility] Strep A (POCT) Negative Negative [facility] XR Shoulder - right 2 Viewso n 07-24-2023 IMPRESSION: No radiographic evidence of acute osseous abnormality Lokie Engineer: EDWARD Transcribe Date/Time: Jul 24 2023 8:28A Dictated by : CORONA RAI MD This examination was interpreted and the report reviewed and electronically signed by: CORONA RAI MD on Jul 24 2023 8:29AM [facility] [facility] * * *Final Report* * * DATE OF EXAM: Jul 24 2023 8:27AM WOX 5255 - XR SHOULDER 2V AP/TRUE AP RT / PROCEDURE REASON: Acute pain of right shoulder * * * * Physician Interpretation * * * * TITLE: XR SHOULDER 2V AP/TRUE AP RT CLINICAL INDICATION: Right shoulder pain TECHNIQUE: Two-view radiographic study of the right shoulder COMPARISON: None FINDINGS: No acute fracture or dislocation identified. Acromioclavicular joint intact. DIV[facility]Y [facility] * * *Final Report* * * DATE OF EXAM: Jul 24 2023 8:27AM WOX 5255 - XR SHOULDER 2V AP/TRUE AP RT / PROCEDURE REASON: Acute pain of right shoulder * * * * Physician Interpretation * * * * TITLE: XR SHOULDER 2V AP/TRUE AP RT CLINICAL INDICATION: Right shoulder pain TECHNIQUE: Two-view radiographic study of the right shoulder COMPARISON: None FINDINGS: No acute fracture or dislocation identified. Acromioclavicular joint intact. IMPRESSION IMPRESSION: No radiographic evidence of acute osseous abnormality Lokie Engineer: EDWARD Transcribe Date/Time: Jul 24 2023 8:28A Dictated by : CORONA RAI MD This examination was interpreted and the report reviewed and electronically signed by: CORONA RAI MD on Jul 24 2023 8:29AM EST [facility] Radiology Study observation (narrative) [facility] XR Shoulder - right 2 ViewsO rdered By: Cc Provider on 07-24-2023 [facility] Gastroenterology Visit Repor ton 05-10-2023 Gastroenterology Visit Report [facility] Gastroenterology [address] [place] [address] OFFICE VISIT Date of Service: 05/10/23 MR#: [id number] Acct: [id number] Name: MAIK MARTINES Rep #: [id number] : 1990 Provider: Louis Manning DO Age/Sex: 32/F Location: [facility] Status: Signed Intake Vital Signs 12/20/22 13:00 03/02/23 13:20 Height 5 ft 3 in 5 ft 3 in Intake Visit Reasons: 2 WK FU Chief Complaint: Cough, myalgias, rhinorrhea Allergies grape Allergy (Verified 05/10/23 14:42) Swelling morphine Adverse Reaction (Verified 05/10/23 14:42) Other promethazine HCl [From Phenergan] Adverse Reaction (Verified 05/10/23 14:42) Other sulfamethoxazole [From Bactrim] Adverse Reaction (Verified 05/10/23 14:42) Vomiting trimethoprim [From Bactrim] Adverse Reaction (Verified 05/10/23 14:42) Vomiting Medications fexofenadine 180 mg tablet (Radha Allergy) 180 mg PO DAILY 11/29/20 [History Confirmed 05/10/23] fluticasone propionate 50 mcg/actuation nasal spray,suspension 2 spray intranasal DAILY #18.2 mL 08/22/21 [Rx Confirmed 05/10/23] sucralfate 1 gram tablet 1 g PO Q6H 02/27/23 [History Confirmed 05/10/23] lansoprazole 30 mg capsule,delayed release (Prevacid) 30 mg PO BID #60 caps 04/03/23 [Rx Confirmed 05/10/23] colestipol 1 gram tablet 1 g PO ONCE 30 days #30 tabs 04/09/23 [Rx Confirmed 05/10/23] amoxicillin 875 mg-potassium clavulanate 125 mg tablet 1 tab PO Q12H #14 tabs 05/10/23 [Rx Confirmed 05/10/23] prednisone 20 mg tablet 20 mg PO DAILY #7 tabs 05/10/23 [Rx Confirmed 05/10/23] PFSH Medical History Anemia Anxiety Depression Difficulty swallowing Fatigue Gastric reflux History of ulceration Injury of head and neck Lumbar degenerative disc disease Non-smoker LEXIS (obstructive sleep apnea) SOB (shortness of breath) Wears contact lenses Wears glasses Surgical History History of tonsillectomy Hx of section Hx of knee surgery Family History Grandfather Heart disease Parkinson disease Hypertension Grandmother Heart disease CHF (congestive heart failure) Hypertension Dementia Mother CHF (congestive heart failure) Heart disease Father Hypertension Dementia Social History Smoking Status: Never smoker alcohol intake: current alcohol intake frequency: a few times a month Alcohol type: wine HPI HPI Chief Complaint: Cough, myalgias, rhinorrhea Details: MAIK MARTINES, is a 32 F who presents to the office today for PCP OV with history of GERD being managed with Prevacid 30mg BID.?Chest CTA 03.26.21???dyspnea without acute/chronic finding.?Barium swallow 05.08.22???tablet trapped at GE junction.??? *I established 01.01.23. Previously established with Dr. Aviles for many years for management of acid reflux. In 2019 she was changed to prevacid 30mg BID when she was . Notes recent increase of reflux lately but also notes there is some ???odd health issues??? and possibly increased stress with this. Feels cotton balls in her throat which she feels is r/t historical reflux symptoms. ??? Biochemical???CBC (eos H8.1), ESR, CMP, LFT, ferritin, CRP, D25, Vit D 1,25, TSH, prolactin, celiac, ARANZA, WILEY comp, ANCA, ASM, AMA, GAME, KIERSTEN without pertinent abnormality.??? RAST Low/equivocal wheat, cow???s milk; moderate egg white and whole egg.??? Contact, portal 01.08.23 with RAST bloodwork results.?EGD 03.02.23???gastritis; irregular Zline without metaplasia. ??? Contact 03.07.23 continue sucralfate prescribed 02.27.23?Esophageal Manometry 03.16.23???WNL?OV 05.10.23 Pt reports some decrease in sx but is still having heartburn and a sensation of something stuck in throat. Sucralfate was somewhat helpful. Feels like lansoprazole isn't working anymore. ROS Const Constitutional: Positive for fatigue and headache(s) ENT ENT: Positive for headache(s); No difficulty swallowing Gastro GI: Positive for bloating, change in bowel habits, heartburn and excessive flatus; No abdominal pain, belching, change in stool character, coffee ground emesis, constipation, cramping, diarrhea, difficulty swallowing, feeling full early, incontinent of stools, Vomiting blood/hematemesis, Blood in stool, loose stools, Black,tarry stools, nausea/dyspepsia, pain with swallowing, vomiting or other Musc Musculoskeletal: Positive for joint pain, back pain, joint swelling, muscle weakness, numbness, stiffness and tingling Skin Skin: No ye (more content not included)... Normal [facility] EMG(NEURO/NI)on 03-06-2023 [facility] EGD Reporton 03-02-2023 EGD Report [facility] Medical Records Department [address] [place] [address] EGD Report MR#: [id number] Acct: [id number] Name: MAIK MARTINES Rep #: [id number] : 1990 32 From: Louis Manning DO PCP: Dr. Gilbert Hurley MD Status:[facility] Patient Name: Maik Martines Procedure Date: 03/02/2023 2:41 PM Date of : 1990 Age: 32 Procedure: Upper GI endoscopy Indications: Functional Dyspepsia, Heartburn, Failure to respond to medical treatment Providers: Louis Manning DO Referring MD: Gilbert Hurley MD Medicines: Monitored Anesthesia Care Patient Profile: This is a 32 year old female. Refer to note in patient chart for documentation of history and physical. Patient has symptoms of acute epigastric abdominal pain, chronic dyspepsia and chronic heartburn. Complications: No immediate complications. Procedure: Pre-Anesthesia Assessment: - Prior to the procedure, a History and Physical was performed, and patient medications and allergies were reviewed. The patient is competent. The risks and benefits of the procedure and the sedation options and risks were discussed with the patient. All questions were answered and informed consent was obtained. Patient identification and proposed procedure were verified by the physician in the pre-procedure area. Mental Status Examination: alert and oriented. Airway Examination: normal oropharyngeal airway and neck mobility. Respiratory Examination: clear to auscultation. CV Examination: normal. Prophylactic Antibiotics: The patient does not require prophylactic antibiotics. Prior Anticoagulants: The patient has taken no previous anticoagulant or antiplatelet agents. ASA Grade Assessment: II - A patient with mild systemic disease. After reviewing the risks and benefits, the patient was deemed in satisfactory condition to undergo the procedure. The anesthesia plan was to use monitored anesthesia care (MAC). Immediately prior to administration of medications, the patient was re-assessed for adequacy to receive sedatives. The heart rate, respiratory rate, oxygen saturations, blood pressure, adequacy of pulmonary ventilation, and response to care were monitored throughout the procedure. The physical status of the patient was re-assessed after the procedure. After obtaining informed consent, the endoscope was passed under direct vision. Throughout the procedure, the patient's blood pressure, pulse, and oxygen saturations were monitored continuously. The Endoscope was introduced through the mouth, and advanced to the second part of duodenum. The upper GI endoscopy was accomplished without difficulty. The patient tolerated the procedure well. Scope In: 2:57:37 PM Scope Out: 3:03:03 PM Total Procedure Duration Time 0 hours 5 minutes 26 seconds Findings: The Z-line was irregular and was found 37 cm from the incisors. Biopsies were taken with a cold forceps for histology. Verification of patient identification for the specimen was done. Estimated blood loss was minimal. Localized moderate inflammation characterized by erosions, erythema and friability was found in the cardia. Biopsies were taken with a cold forceps for histology. Verification of patient identification for the specimen was done. Estimated blood loss was minimal. The first portion of the duodenum was normal. Biopsies were taken with a cold forceps for histology. Verification of patient identification for the specimen was done. Estimated blood loss was minimal. Impression: - Z-line irregular, 37 cm from the incisors. Biopsied. - Chronic gastritis. Biopsied. - Normal first portion of the duodenum. Biopsied. Recommendation: - Discharge patient to home. - Resume previous diet. - Continue present medications. - Await pathology results. Procedure Code(s): --- Professional --- 39023, Esophagogastroduodenos copy, flexible, transoral; with biopsy, single or multiple CPT copyright 2017 [employer]. All rights reserved. The codes documented in this report are preliminary and upon gastroenterology technician review may be revised to meet current compliance requirements. Louis Manning DO 03/02/2023 3:13:35 PM This report has been signed electronically. Number of Addenda: 0 Note Initiated On: 03/02/2023 2:41 PM 03/02/23 1513 Date Louis Manning DO Cosigner Signature: Date (if indicated) CC: Dr. Gilbert Hurley MD; Louis Manning DO Date Dictated: 03/02/23 1441 Date Transcribed: Lokie Engineer: KEENAN Signed Normal [facility] H Pylori (initial)on 023 H Pylori (initial) Patient Age/Sex Location Account Attending Physician MAIK MARTINES 32/F EN [id number] Louis Manning DO Specimen: [id number] Received: 03/05/23 Status: DAI Tubbs Num: [id number] Spec Type: IMMUNO Subm Dr: Louis Manning DO PHYSICIAN INSTITUTION [place] [address] SPECIMEN INFORMATION: Tissue Source: A - Stomach, cardiac Clinical Info: GERD Specimen Number: [id number] CPT code: 45969 METHODOLOGY: Deparaffinized sections of prefer/formalin-fixed tissue or PAP/DQ stained slides are incubated with monoclonal/polyclonal antibodies/oligonucleo tide probes. Localization is made via biotin free immunoperoxidase method. Appropriate controls are performed and reacted as expected. Results on target cell population are indicated in the following table: RESULTS: ANTIBODY / CLONE RESULT Block A H Pylori (polyclonal) negative These tests were developed and their performance characteristics determined by [facility]. They may not have been cleared or approved by the U.S. Food and Drug Administration. The FDA has determined that such clearance or approval is not necessary. The above immunohistochemical/du alISH markers are ordered and reviewed by the Pathologist. INTERPRETATION: A. Stomach cardia, biopsy: Negative for Helicobacter pylori organisms. SJ:stacey 03/06/2023 Signed (signature on file) Dr. Francois Holley MD 03/06/23 1414 ---- Normal [facility] Comment on above: Performed By: #### P H.PYLORI ####[facility] [address] [place], [place], [id number] Laboratory - Chemistry and C hemistry - challengeOrdered By: Abdirahman Hutton on 03-02-2023 HCG ( test) Ql (U) Negative [facility] Comment on above: Very dilute urine sp ecimens, as indicated by a low specificgravity, may not contain denial management representative levels of hCG. If is still suspected, a first morning urinespecimen should be collected 48 hours later and tested. ,Urineon 03-02-2023 Beta HCG ( test) Ql (U) Negative Normal [facility] Comment on above: Result Comment: Very dilute urine specimens, as indicated by a low specific gravity, may not contain denial management representative levels of hCG. If is still suspected, a first morning urine specimen should be collected 48 hours later and tested. Performed By: #### L 400.7600 ####[facility] [address] [place], [address] Special Stain Group IIon Special Stain Group II Patient Age/Sex Location Account Attending Physician MAIK MARTINES 32/F EN [id number] Louis Manning DO Specimen: [id number] Received: 03/02/23 Status: DAI Tubbs Num: [id number] Spec Type: EGD BIOPSY Subm Dr: Louis Manning DO HEADER OPERATION: EGD ([facility]) with biopsy PRE-OP DIAGNOSIS: GERD TISSUE SUBMITTED: A - Stomach cardia biopsy, B - Duodenum biopsy, C - Distal esophagus biopsy ---- MICROSCOPIC DIAGNOSIS A. Stomach cardia, biopsy: Moderate chronic active gastritis. See comment. B. Duodenum, biopsy: Fragments of duodenal mucosa with mild nonspecific chronic inflammation. C. Distal esophagus, biopsy: Fragments of gastroesophageal mucosa with chronic inflammation. Intestinal metaplasia (goblet cell metaplasia) not identified. See comment. SJ:stacey 03/06/2023 COMMENT A. The results of immunohistochemistry for Helicobacter pylori will be reported separately ([id number]). C. Alcian blue/PAS stain with matched control is used in the evaluation of the specimen. MICROSCOPIC DESCRIPTION Slides are reviewed. GROSS DESCRIPTION A - Received in fixative is one container labeled with the patient's name and designated stomach cardia biopsy. The specimen consists of two irregular fragments of light patricia soft tissue that in aggregate measure 0.8 x 0.4 x 0.1 cm. The specimen is totally submitted in one cassette. B - Received in fixative is one container labeled with the patient's name and designated duodenum biopsy. The specimen consists of two irregular fragments of light patricia soft tissue that in aggregate measure 0.6 x 0.3 x 0.1 cm. The specimen is totally submitted in one cassette. C - Received in fixative is one container labeled with the patient's name and designated distal esophagus biopsy. The specimen consists of two irregular fragments of light patricia soft tissue that in aggregate measure 0.6 x 0.4 x 0.1 cm. The specimen is totally submitted in one cassette. / ALDA:stacey 03/05/2023 TC:2 [facility]: [id number] x3, 52547 ---- Patient Age/Sex Location Account Attending Physician ---- MAIK MARTINES 32/F EN [id number] Louis Manning, DO ---- Signed (signature on file) Dr. Francois Holley MD 03/06/23 1408 ---- [facility] Comment on above: Performed By: #### P SSII #### [facility] [address] [place], [place], [id number] EPIL EEG ROUTINEon 3 [facility] ANCAon 01-06-2023 Atypical pANCA <1:20 Normal Neg:<1:20 [facility] Comment on above: Order Comment: N Result Comment: The atypical pANCA pattern has been observed in a significant percentage of patients with ulcerative colitis, primary sclerosing cholangitis and autoimmune hepatitis. Performed By: #### L 3100.5420, L3100.5440, L3300.0960, L3100.3425, L101.9900, L3300.1200, L500.4050, L503.6550, L100.0100, L506.1000, L3200.1100, L5500.0410, L5500.0400, L803.2200, L501.9520, L501.6710, L3410.2400, L3100.6900 ####[facility] [address] [place], [place], [id number] Cytoplasmic Ab <1:20 Normal Neg:<1:20 [facility] Comment on above: Order Comment: N Performed By: #### L 3100.5420, L3100.5440, L3300.0960, L3100.3425, L101.9900, L3300.1200, L500.4050, L503.6550, L100.0100, L506.1000, L3200.1100, L5500.0410, L5500.0400, L803.2200, L501.9520, L501.6710, L3410.2400, L3100.6900 ####[facility] [address] [place], [address] Perinuclear Ab. <1:20 Normal Neg:<1:20 [facility] Comment on above: Order Comment: N Result Comment: The presence of positive fluorescence exhibiting P-ANCA or C-ANCA patterns alone is not specific for the diagnosis of Adryan's Granulomatosis (WG) or microscopic polyangiitis. Decisions about treatment should not be based solely on ANCA IFA results. The International ANCA Group Consensus recommends follow up testing of positive sera with both UT- 3 and MPO-ANCA enzyme immunoassays. As many as 5% serum samples are positive only by EIA. Ref. AM J Clin Pathol 1999;111:507-513. Performed By: #### L 3100.5420, L3100.5440, L3300.0960, L3100.3425, L101.9900, L3300.1200, L500.4050, L503.6550, L100.0100, L506.1000, L3200.1100, L5500.0410, L5500.0400, L803.2200, L501.9520, L501.6710, L3410.2400, L3100.6900 ####[facility] [address] [place], [address] Angiotensin Convert Enzymeon 01-06-2023 ANGIOT-CONV.ENZ 39 U/L Normal 14-82 [facility] Comment on above: Order Comment: N Result Comment: Perf ormed at: [facility] [address] [id number] Rehabilitation Technician: Daquan Parker PhD, Phone: [phone] Performed at: [facility] [address] [id number] Rehabilitation Technician: Liang Boston MD, Phone: [phone] Performed By: #### L 3100.5420, L3100.5440, L3300.0960, L3100.3425, L101.9900, L3300.1200, L500.4050, L503.6550, L100.0100, L506.1000, L3200.1100, L5500.0410, L5500.0400, L803.2200, L501.9520, L501.6710, L3410.2400, L3100.6900 ####[facility] [address] [place], [address] Anti-Smooth Muscle ABSon 06- 10-2023 ANTISMOOTH MUSC 13 Units Normal 0-19 [facility] Comment on above: Order Comment: N Result Comment: Nega tive 0 - 19 Weak positive 20 - 30 Moderate to strong positive >30 Actin Antibodies are found in 52-85% of patients with autoimmune hepatitis or chronic active hepatitis and in 22% of patients with primary biliary cirrhosis. Performed By: #### L 3100.5420, L3100.5440, L3300.0960, L3100.3425, L101.9900, L3300.1200, L500.4050, L503.6550, L100.0100, L506.1000, L3200.1100, L5500.0410, L5500.0400, L803.2200, L501.9520, L501.6710, L3410.2400, L3100.6900 ####[facility] [address] [place], [place], [id number] KIERSTEN + Protein Elect, Serumon 01-06-2023 M-SPIKE Normal [facility] Comment on above: Order Comment: N Result Comment: Resu lt: Not Observed Performed By: #### L 3100.5420, L3100.5440, L3300.0960, L3100.3425, L101.9900, L3300.1200, L500.4050, L503.6550, L100.0100, L506.1000, L3200.1100, L5500.0410, L5500.0400, L803.2200, L501.9520, L501.6710, L3410.2400, L3100.6900 ####[facility] [address] [place], [place], [address] Immunoglobulins G/A/M/Dilshad IMMUNOGLOB E QN 54 IU/mL Normal 6-495 [facility] Comment on above: Order Comment: N Performed By: #### L 3100.5420, L3100.5440, L3300.0960, L3100.3425, L101.9900, L3300.1200, L500.4050, L503.6550, L100.0100, L506.1000, L3200.1100, L5500.0410, L5500.0400, L803.2200, L501.9520, L501.6710, L3410.2400, L3100.6900 ####[facility] [address] [place], [address] WILEY Comprehensive Panelon WILEY TABLE Comment Normal . [facility] Comment on above: Result Comment: Auto antibody Disease Association -- Condition Frequency --------- Antinuclear Antibody, SLE, mixed connective Direct (WILEY-D) tissue diseases --------- dsDNA SLE 40 - 60% --------- Chromatin Drug induced SLE 90% SLE 48 - 97% --------- SSA (Ro) SLE 25 - 35% Sjogren's Syndrome 40 - 70% Lupus 100% --------- SSB (La) SLE 10% Sjogren's Syndrome 30% --------- Sm (anti-Martines) SLE 15 - 30% --------- MANAGER STUDENT SERVICES Mixed Connective Tissue Disease 95% (U1 nRNP, SLE 30 - 50% anti-ribonucleoprotein) Polymyositis and/or Dermatomyositis 20% --------- Scl-70 (antiDNA Scleroderma (diffuse) 20 - 35% topoisomerase) Crest 13% --------- Mellissa-1 Polymyositis and/or Dermatomyositis 20 - 40% --------- Centromere B Scleroderma - Crest variant 80% Performed By: #### L 3100.5420, L3100.5440, L3300.0960, L3100.3425, L101.9900, L3300.1200, L500.4050, L503.6550, L100.0100, L506.1000, L3200.1100, L5500.0410, L5500.0400, L803.2200, L501.9520, L501.6710, L3410.2400, L3100.6900 ####[facility] [address] [place], [address] ANTI-CENT B AB <0.2 Normal 0.0-0.9 [facility] Comment on above: Performed By: #### L 3100.5420, L3100.5440, L3300.0960, L3100.3425, L101.9900, L3300.1200, L500.4050, L503.6550, L100.0100, L506.1000, L3200.1100, L5500.0410, L5500.0400, L803.2200, L501.9520, L501.6710, L3410.2400, L3100.6900 ####[facility] [address] [place], [address] ANTI-DNA (DS)AB 1 IU/mL Normal 0-9 [facility] Comment on above: Result Comment: Nega tive <5 Equivocal 5 - 9 Positive >9 Performed By: #### L 3100.5420, L3100.5440, L3300.0960, L3100.3425, L101.9900, L3300.1200, L500.4050, L503.6550, L100.0100, L506.1000, L3200.1100, L5500.0410, L5500.0400, L803.2200, L501.9520, L501.6710, L3410.2400, L3100.6900 ####[facility] [address] [facility] [place], [address] ANTI-MELLISSA-1 <0.2 Normal 0.0-0.9 [facility] Comment on above: Performed By: #### L 3100.5420, L3100.5440, L3300.0960, L3100.3425, L101.9900, L3300.1200, L500.4050, L503.6550, L100.0100, L506.1000, L3200.1100, L5500.0410, L5500.0400, L803.2200, L501.9520, L501.6710, L3410.2400, L3100.6900 ####[facility] [address] [place], [place], [id number] ANTI-SS-A < 0.2 Normal 0.0-0.9 [facility] Comment on above: Performed By: #### L 3100.5420, L3100.5440, L3300.0960, L3100.3425, L101.9900, L3300.1200, L500.4050, L503.6550, L100.0100, L506.1000, L3200.1100, L5500.0410, L5500.0400, L803.2200, L501.9520, L501.6710, L3410.2400, L3100.6900 ####[facility] [address] [place], [address] Anti-SS-B < 0.2 Normal 0.0-0.9 [facility] Comment on above: Performed By: #### L 3100.5420, L3100.5440, L3300.0960, L3100.3425, L101.9900, L3300.1200, L500.4050, L503.6550, L100.0100, L506.1000, L3200.1100, L5500.0410, L5500.0400, L803.2200, L501.9520, L501.6710, L3410.2400, L3100.6900 ####[facility] [address] [place], [place], [id number] ANTICHROMATIN <0.2 Normal 0.0-0.9 [facility] Comment on above: Performed By: #### L 3100.5420, L3100.5440, L3300.0960, L3100.3425, L101.9900, L3300.1200, L500.4050, L503.6550, L100.0100, L506.1000, L3200.1100, L5500.0410, L5500.0400, L803.2200, L501.9520, L501.6710, L3410.2400, L3100.6900 ####[facility] [address] [facility] [place], [place], [id number] ANTISCLERODERM 0.3 AI Normal 0.0-0.9 [facility] Comment on above: Performed By: #### L 3100.5420, L3100.5440, L3300.0960, L3100.3425, L101.9900, L3300.1200, L500.4050, L503.6550, L100.0100, L506.1000, L3200.1100, L5500.0410, L5500.0400, L803.2200, L501.9520, L501.6710, L3410.2400, L3100.6900 ####[facility] [address] [facility] [place], [place], [id number] MANAGER STUDENT SERVICES Ab <0.2 Normal 0.0-0.9 [facility] Comment on above: Performed By: #### L 3100.5420, L3100.5440, L3300.0960, L3100.3425, L101.9900, L3300.1200, L500.4050, L503.6550, L100.0100, L506.1000, L3200.1100, L5500.0410, L5500.0400, L803.2200, L501.9520, L501.6710, L3410.2400, L3100.6900 ####[facility] [address] [place], [place], [id number] MARTINES Ab <0.2 Normal 0.0-0.9 [facility] Comment on above: Performed By: #### L 3100.5420, L3100.5440, L3300.0960, L3100.3425, L101.9900, L3300.1200, L500.4050, L503.6550, L100.0100, L506.1000, L3200.1100, L5500.0410, L5500.0400, L803.2200, L501.9520, L501.6710, L3410.2400, L3100.6900 ####[facility] [address] [place], [place], [id number] Allergen, Food Profileon CLAM <0.10 Normal Class 0 [facility] Comment on above: Performed By: #### L 3100.5420, L3100.5440, L3300.0960, L3100.3425, L101.9900, L3300.1200, L500.4050, L503.6550, L100.0100, L506.1000, L3200.1100, L5500.0410, L5500.0400, L803.2200, L501.9520, L501.6710, L3410.2400, L3100.6900 ####[facility] [address] [place], [place], [id number] CODFISH <0.10 Normal Class 0 [facility] Comment on above: Performed By: #### L 3100.5420, L3100.5440, L3300.0960, L3100.3425, L101.9900, L3300.1200, L500.4050, L503.6550, L100.0100, L506.1000, L3200.1100, L5500.0410, L5500.0400, L803.2200, L501.9520, L501.6710, L3410.2400, L3100.6900 ####[facility] [address] [place], [place], [id number] EGG, WHITE 1.29 kU/L Abnormal Class II [facility] Comment on above: Performed By: #### L 3100.5420, L3100.5440, L3300.0960, L3100.3425, L101.9900, L3300.1200, L500.4050, L503.6550, L100.0100, L506.1000, L3200.1100, L5500.0410, L5500.0400, L803.2200, L501.9520, L501.6710, L3410.2400, L3100.6900 ####[facility] [address] [place], [place], [id number] SCALLOP <0.10 Normal Class 0 [facility] Comment on above: Performed By: #### L 3100.5420, L3100.5440, L3300.0960, L3100.3425, L101.9900, L3300.1200, L500.4050, L503.6550, L100.0100, L506.1000, L3200.1100, L5500.0410, L5500.0400, L803.2200, L501.9520, L501.6710, L3410.2400, L3100.6900 ####[facility] [address] [place], [address] SESAME SEED <0.10 Normal Class 0 [facility] Comment on above: Performed By: #### L 3100.5420, L3100.5440, L3300.0960, L3100.3425, L101.9900, L3300.1200, L500.4050, L503.6550, L100.0100, L506.1000, L3200.1100, L5500.0410, L5500.0400, L803.2200, L501.9520, L501.6710, L3410.2400, L3100.6900 ####[facility] [address] [place], [place], [id number] SHRIMP <0.10 Normal Class 0 [facility] Comment on above: Performed By: #### L 3100.5420, L3100.5440, L3300.0960, L3100.3425, L101.9900, L3300.1200, L500.4050, L503.6550, L100.0100, L506.1000, L3200.1100, L5500.0410, L5500.0400, L803.2200, L501.9520, L501.6710, L3410.2400, L3100.6900 ####[facility] [address] [place], [place], [phone] WALNUT,(Food) <0.10 Normal Class 0 [facility] Comment on above: Performed By: #### L 3100.5420, L3100.5440, L3300.0960, L3100.3425, L101.9900, L3300.1200, L500.4050, L503.6550, L100.0100, L506.1000, L3200.1100, L5500.0410, L5500.0400, L803.2200, L501.9520, L501.6710, L3410.2400, L3100.6900 ####[facility] [address] [place], [place], [phone] Allergen, Rast Food Profileo n 01-04-2023 BEEF <0.10 Normal Class 0 [facility] Comment on above: Performed By: #### L 3100.5420, L3100.5440, L3300.0960, L3100.3425, L101.9900, L3300.1200, L500.4050, L503.6550, L100.0100, L506.1000, L3200.1100, L5500.0410, L5500.0400, L803.2200, L501.9520, L501.6710, L3410.2400, L3100.6900 ####[facility] [address] [place], [place], [phone] CHOCOLATE <0.10 Normal Class 0 [facility] Comment on above: Result Comment: Perf ormed at: [address] [id number] Rehabilitation Technician: Daquan Parker PhD, Phone: [phone] Performed at: [facility] [address] [id number] Rehabilitation Technician: Liang Boston MD, Phone: [phone] Performed By: #### L 3100.5420, L3100.5440, L3300.0960, L3100.3425, L101.9900, L3300.1200, L500.4050, L503.6550, L100.0100, L506.1000, L3200.1100, L5500.0410, L5500.0400, L803.2200, L501.9520, L501.6710, L3410.2400, L3100.6900 ####[facility] [address] [place], [place], [id number] COMMENT Comment Normal . [facility] Comment on above: Result Comment: Denilson garcia of Specific IgE Class Description of Class ----- < 0.10 0 Negative 0.10 - 0.31 0/I Equivocal/Low 0.32 - 0.55 I Low 0.56 - 1.40 II Moderate 1.41 - 3.90 III High 3.91 - 19.00 IV Very High 19.01 - 100.00 V Very High >100.00 Very High Performed By: #### L 3100.5420, L3100.5440, L3300.0960, L3100.3425, L101.9900, L3300.1200, L500.4050, L503.6550, L100.0100, L506.1000, L3200.1100, L5500.0410, L5500.0400, L803.2200, L501.9520, L501.6710, L3410.2400, L3100.6900 ####[facility] [address] [place], [place], [id number] CORN <0.10 Normal Class 0 [facility] Comment on above: Performed By: #### L 3100.5420, L3100.5440, L3300.0960, L3100.3425, L101.9900, L3300.1200, L500.4050, L503.6550, L100.0100, L506.1000, L3200.1100, L5500.0410, L5500.0400, L803.2200, L501.9520, L501.6710, L3410.2400, L3100.6900 ####[facility] [address] [place], [place], [id number] EGG, WHOLE 0.66 kU/L Abnormal Class II [facility] Comment on above: Performed By: #### L 3100.5420, L3100.5440, L3300.0960, L3100.3425, L101.9900, L3300.1200, L500.4050, L503.6550, L100.0100, L506.1000, L3200.1100, L5500.0410, L5500.0400, L803.2200, L501.9520, L501.6710, L3410.2400, L3100.6900 ####[facility] [address] [place], [place], [phone] FISH/SHELL MIX Negative Normal . [facility] Comment on above: Result Comment: Mansoor rgens in this mix are: Blue mussel Fish [place] Shrimp Tuna Performed By: #### L 3100.5420, L3100.5440, L3300.0960, L3100.3425, L101.9900, L3300.1200, L500.4050, L503.6550, L100.0100, L506.1000, L3200.1100, L5500.0410, L5500.0400, L803.2200, L501.9520, L501.6710, L3410.2400, L3100.6900 ####[facility] [address] [place], [address] MILK (COW) 0.33 kU/L Abnormal Class I [facility] Comment on above: Performed By: #### L 3100.5420, L3100.5440, L3300.0960, L3100.3425, L101.9900, L3300.1200, L500.4050, L503.6550, L100.0100, L506.1000, L3200.1100, L5500.0410, L5500.0400, L803.2200, L501.9520, L501.6710, L3410.2400, L3100.6900 ####[facility] [address] [place], [address] PEANUT <0.10 Normal Class 0 [facility] Comment on above: Performed By: #### L 3100.5420, L3100.5440, L3300.0960, L3100.3425, L101.9900, L3300.1200, L500.4050, L503.6550, L100.0100, L506.1000, L3200.1100, L5500.0410, L5500.0400, L803.2200, L501.9520, L501.6710, L3410.2400, L3100.6900 ####[facility] [address] [place], [place], [id number] PORK <0.10 Normal Class 0 [facility] Comment on above: Performed By: #### L 3100.5420, L3100.5440, L3300.0960, L3100.3425, L101.9900, L3300.1200, L500.4050, L503.6550, L100.0100, L506.1000, L3200.1100, L5500.0410, L5500.0400, L803.2200, L501.9520, L501.6710, L3410.2400, L3100.6900 ####[facility] [address] [place], [place], [phone] SOYBEAN <0.10 Normal Class 0 [facility] Comment on above: Performed By: #### L 3100.5420, L3100.5440, L3300.0960, L3100.3425, L101.9900, L3300.1200, L500.4050, L503.6550, L100.0100, L506.1000, L3200.1100, L5500.0410, L5500.0400, L803.2200, L501.9520, L501.6710, L3410.2400, L3100.6900 ####[facility] [address] [place], [place], [phone](391) WHEAT 0.25 kU/L Abnormal Class 0/I [facility] Comment on above: Performed By: #### L 3100.5420, L3100.5440, L3300.0960, L3100.3425, L101.9900, L3300.1200, L500.4050, L503.6550, L100.0100, L506.1000, L3200.1100, L5500.0410, L5500.0400, L803.2200, L501.9520, L501.6710, L3410.2400, L3100.6900 ####[facility] [address] [place], [place], [id number] Vitamin D 1,25-Dihydroxyon 0 01-04-2023 VIT D 1,25 DIHY 38.8 pg/mL Normal 24.8-81.5 [facility] Comment on above: Performed By: #### L 3100.5420, L3100.5440, L3300.0960, L3100.3425, L101.9900, L3300.1200, L500.4050, L503.6550, L100.0100, L506.1000, L3200.1100, L5500.0410, L5500.0400, L803.2200, L501.9520, L501.6710, L3410.2400, L3100.6900 ####[facility] [address] [place], [place], [id number] Breast Bilateral W/O and Won 01-02-2023 Breast Bilateral W/O and W [facility] [address] [place] [address] Breast Bilateral W/O and W MR#: [id number] Acct: [id number] Name: MAIK MARTINES Rep #: [id number] : 1990 F 32 From: Willy Kaur MD PCP: Dr. Gilbert Hurley MD Status: REG CLI Study: Breast Bilateral W/O and W Date of Exam: 01/02 Exam# [id number] Ordering Dr: Gilbert Hurley MD STUDY: BILATERAL BREAST MR WITHOUT AND WITH CONTRAST REASON FOR EXAM: Female, 32 years old. Family history of breast cancer. Right axillary adenopathy. TECHNIQUE: Multi-sequence multi-echo imaging of both breasts was performed with a dedicated breast coil. T1-weighted and T2-weighted images were performed before the administration of contrast. T1-weighted images were also performed after the intravenous administration of 15ml of Clariscan. COMPARISON: Mammogram and right breast ultrasound dated December 12, 2022. FINDINGS: RIGHT BREAST: Heterogeneously dense fibroglandular tissue. No abnormal enhancing masses or areas of non-mass enhancement in the right breast. LEFT BREAST: Heterogeneously dense fibroglandular tissue. No abnormal enhancing masses or areas of non-mass enhancement in the left breast. Scattered shotty lymph nodes in both axillae, right slightly greater than left. No abnormal morphology of either axillary region lymph nodes is noted. No abnormality in the visualized regions of the chest or liver. MRI/Breast Bilateral W/O and W IMPRESSION: Heterogeneously dense fibroglandular tissue with shotty lymph nodes in both axillae, right slightly greater than left. No other abnormality. Yearly screening mammogram recommended. CATEGORY: BIRADS Category 2: Benign. A letter regarding these results will be sent to the patient by the facility within 30 days. Electronically Signed: Willy Kaur MD at 9:49 EDT , CC: Dr. Gilbert Hurley MD Lokie Engineer: Signed Normal [facility] Celiac Disease Profileon ENDOMYSIAL IGA Negative Normal Negative [facility] Comment on above: Performed By: #### L 3100.5420, L3100.5440, L3300.0960, L3100.3425, L101.9900, L3300.1200, L500.4050, L503.6550, L100.0100, L506.1000, L3200.1100, L5500.0410, L5500.0400, L803.2200, L501.9520, L501.6710, L3410.2400, L3100.6900 ####[facility] [address] [place], [address] IMMUNOGLOB A QN 118 mg/dL Normal 87-352 [facility] Comment on above: Result Comment: Perf ormed at: - [facility] [place] [id number] Rehabilitation Technician: Daquan Parker PhD, Phone: [phone] Performed By: #### L 3100.5420, L3100.5440, L3300.0960, L3100.3425, L101.9900, L3300.1200, L500.4050, L503.6550, L100.0100, L506.1000, L3200.1100, L5500.0410, L5500.0400, L803.2200, L501.9520, L501.6710, L3410.2400, L3100.6900 ####[facility] [address] [place], [address] tTG IGA <2 Normal 0-3 [facility] Comment on above: Result Comment: Nega tive 0 - 3 Weak Positive 4 - 10 Positive >10 Tissue Transglutaminase (tTG) has been identified as the endomysial antigen. Studies have demonstr- ated that endomysial IgA antibodies have over 99% specificity for gluten sensitive enteropathy. Performed By: #### L 3100.5420, L3100.5440, L3300.0960, L3100.3425, L101.9900, L3300.1200, L500.4050, L503.6550, L100.0100, L506.1000, L3200.1100, L5500.0410, L5500.0400, L803.2200, L501.9520, L501.6710, L3410.2400, L3100.6900 ####[facility] [address] [place], [address] Absolute lymphocyte countOrd ered By: Louis Manning on 01-01-2023 Lymphocytes Auto (Unsp spec) [#/Vol] 2.00 10*3/uL 0.83-4.51 [facility] Albumin Elph [Mass/Vol]Order ed By: Louis Manning on 01-01-2023 Albumin [Mass/Vol] 4.0 g/dL 2.9-4.4 [facility] Atypical perinuclear antineu trophil cytoplasmic antibodies measurementOrdered By: Louis Manning on 01-01-2023 Neutrophil cytoplasmic Ab.perinuclear.atypical IF (S) [Titer] <1:20 titer Neg:<1:20 [facility] Comment on above: The atypical pANCA p attern has been observed in asignificant percentage of patients with ulcerative colitis,primary sclerosing cholangitis and autoimmune hepatitis. Basophil percentageOrdered B y: Louis Manning on 01-01-2023 Basophil percentage < 0.2 AI 0.0-0.9 [facility] Basophils/100 WBC (Bld) 0.7 % 0-1 [facility] Bilirubin [Mass/Vol] 0.30 mg/dL 0.20-1.00 [facility] Comment on above: For patients on eltr ombopag therapy, use of Dimension Jackson TBIL is not recommended. Chloride [Moles/Vol] 108 mmol/L 98-107 [facility] Eosinophils/100 WBC (Bld) 8.1 % 0-5 [facility] Glucose [Mass/Vol] 89 mg/dL 74-106 [facility] Neutrophils (Bld) [#/Vol] 2.9 10*3/uL 2.0-7.7 [facility] Neutrophils/100 WBC (Bld) 49.5 % 47-70 [facility] Potassium [Moles/Vol] 4.5 mmol/L 3.5-5.1 [facility] Protein [Mass/Vol] 7.8 g/dL 6.4-8.2 [facility] Sodium [Moles/Vol] 137 mmol/L 136-145 [facility] WBC (Bld) [#/Vol] 5.8 10*3/uL 4.4-11.0 [facility] Blood erythrocytes count (nu mber/volume)Ordered By: Louis Manning on 01-01-2023 RBC (Bld) [#/Vol] 4.96 10*6/uL 4.2-5.4 [facility] Blood hemoglobin measurement (mass/volume)Ordered By: Louis Manning on 01-01-2023 Hemoglobin (Bld) [Mass/Vol] 12.0 g/dL 12.0-15. 0 [facility] Blood lymphocytes/100 leukoc ytesOrdered By: Louis Manning on 01-01-2023 Lymphocytes/100 WBC (Bld) 34.6 % 19-41 [facility] Blood monocytes/100 leukocyt esOrdered By: Louis Manning on 01-01-2023 Monocytes/100 WBC (Bld) 6.9 % 0-10 [facility] Blood platelet mean volumeOr dered By: Louis Manning on 01-01-2023 Platelet mean volume (Bld) [Entitic vol] 11.6 fL 6.2-12.0 [facility] CBC W/Diff, Automatedon Absolute Lymph 2.00 X10 3/uL Normal 0.83-4.51 [facility] Comment on above: Performed By: #### L 3100.5420, L3100.5440, L3300.0960, L3100.3425, L101.9900, L3300.1200, L500.4050, L503.6550, L100.0100, L506.1000, L3200.1100, L5500.0410, L5500.0400, L803.2200, L501.9520, L501.6710, L3410.2400, L3100.6900 ####[facility] [address] [place], [address] Absolute Neut 2.9 X10 3/uL Normal 2.0-7.7 [facility] Comment on above: Performed By: #### L 3100.5420, L3100.5440, L3300.0960, L3100.3425, L101.9900, L3300.1200, L500.4050, L503.6550, L100.0100, L506.1000, L3200.1100, L5500.0410, L5500.0400, L803.2200, L501.9520, L501.6710, L3410.2400, L3100.6900 ####[facility] [address] [place], [address] Basophils/100 WBC (Bld) 0.7 % Normal 0-1 [facility] Comment on above: Performed By: #### L 3100.5420, L3100.5440, L3300.0960, L3100.3425, L101.9900, L3300.1200, L500.4050, L503.6550, L100.0100, L506.1000, L3200.1100, L5500.0410, L5500.0400, L803.2200, L501.9520, L501.6710, L3410.2400, L3100.6900 ####[facility] [address] [place], [address] Eosinophils/100 WBC (Bld) 8.1 % High 0-5 [facility] Comment on above: Performed By: #### L 3100.5420, L3100.5440, L3300.0960, L3100.3425, L101.9900, L3300.1200, L500.4050, L503.6550, L100.0100, L506.1000, L3200.1100, L5500.0410, L5500.0400, L803.2200, L501.9520, L501.6710, L3410.2400, L3100.6900 ####[facility] [address] [place], [place], [id number] Erythrocyte distribution width (RBC) [Ratio] 16.1 % High 11.6-14.6 [facility] Comment on above: Performed By: #### L 3100.5420, L3100.5440, L3300.0960, L3100.3425, L101.9900, L3300.1200, L500.4050, L503.6550, L100.0100, L506.1000, L3200.1100, L5500.0410, L5500.0400, L803.2200, L501.9520, L501.6710, L3410.2400, L3100.6900 ####[facility] [address] [place], [address] Hematocrit (Bld) [Volume fraction] 39.6 % Normal 37-47 [facility] Comment on above: Performed By: #### L 3100.5420, L3100.5440, L3300.0960, L3100.3425, L101.9900, L3300.1200, L500.4050, L503.6550, L100.0100, L506.1000, L3200.1100, L5500.0410, L5500.0400, L803.2200, L501.9520, L501.6710, L3410.2400, L3100.6900 ####[facility] [address] [place], [address] Hemoglobin (Bld) [Mass/Vol] 12.0 g/dL Normal 12.0-15. 0 [facility] Comment on above: Performed By: #### L 3100.5420, L3100.5440, L3300.0960, L3100.3425, L101.9900, L3300.1200, L500.4050, L503.6550, L100.0100, L506.1000, L3200.1100, L5500.0410, L5500.0400, L803.2200, L501.9520, L501.6710, L3410.2400, L3100.6900 ####[facility] [address] [place], [place], [phone](886) IG% 0.200 Normal 0.0-0.9 [facility] Comment on above: Result Comment: IG% - Immature Granulocytes (promyelocytes, myelocytes and metamyelocytes) > 1% indicates that a LEFT SHIFT is Present. Performed By: #### L 3100.5420, L3100.5440, L3300.0960, L3100.3425, L101.9900, L3300.1200, L500.4050, L503.6550, L100.0100, L506.1000, L3200.1100, L5500.0410, L5500.0400, L803.2200, L501.9520, L501.6710, L3410.2400, L3100.6900 ####[facility] [address] [place], [address] Lymphocytes/100 WBC (Bld) 34.6 % Normal 19-41 [facility] Comment on above: Performed By: #### L 3100.5420, L3100.5440, L3300.0960, L3100.3425, L101.9900, L3300.1200, L500.4050, L503.6550, L100.0100, L506.1000, L3200.1100, L5500.0410, L5500.0400, L803.2200, L501.9520, L501.6710, L3410.2400, L3100.6900 ####[facility] [address] [place], [place], [phone](991) MCH (RBC) [Entitic mass] 24.2 pg Low 27.0-32.0 [facility] Comment on above: Performed By: #### L 3100.5420, L3100.5440, L3300.0960, L3100.3425, L101.9900, L3300.1200, L500.4050, L503.6550, L100.0100, L506.1000, L3200.1100, L5500.0410, L5500.0400, L803.2200, L501.9520, L501.6710, L3410.2400, L3100.6900 ####[facility] [address] [place], [place], [phone](272) MCHC (RBC) [Mass/Vol] 30.3 g/dL Low 32-36 [facility] Comment on above: Performed By: #### L 3100.5420, L3100.5440, L3300.0960, L3100.3425, L101.9900, L3300.1200, L500.4050, L503.6550, L100.0100, L506.1000, L3200.1100, L5500.0410, L5500.0400, L803.2200, L501.9520, L501.6710, L3410.2400, L3100.6900 ####[facility] [address] [place], [place], [id number] MCV (RBC) [Entitic vol] 79.8 fL Low 81-99 [facility] Comment on above: Performed By: #### L 3100.5420, L3100.5440, L3300.0960, L3100.3425, L101.9900, L3300.1200, L500.4050, L503.6550, L100.0100, L506.1000, L3200.1100, L5500.0410, L5500.0400, L803.2200, L501.9520, L501.6710, L3410.2400, L3100.6900 ####[facility] [address] [place], [place], [id number] Monocytes/100 WBC (Bld) 6.9 % Normal 0-10 [facility] Comment on above: Performed By: #### L 3100.5420, L3100.5440, L3300.0960, L3100.3425, L101.9900, L3300.1200, L500.4050, L503.6550, L100.0100, L506.1000, L3200.1100, L5500.0410, L5500.0400, L803.2200, L501.9520, L501.6710, L3410.2400, L3100.6900 ####[facility] [address] [facility] [place], [place], [phone](728) Neutrophils/100 WBC (Bld) 49.5 % Normal 47-70 [facility] Comment on above: Performed By: #### L 3100.5420, L3100.5440, L3300.0960, L3100.3425, L101.9900, L3300.1200, L500.4050, L503.6550, L100.0100, L506.1000, L3200.1100, L5500.0410, L5500.0400, L803.2200, L501.9520, L501.6710, L3410.2400, L3100.6900 ####[facility] [address] [facility]. [place], [place], [address] Nucleated RBC (Bld) [#/Vol] 0 10*3/uL Normal 0-5 [facility] Comment on above: Performed By: #### L 3100.5420, L3100.5440, L3300.0960, L3100.3425, L101.9900, L3300.1200, L500.4050, L503.6550, L100.0100, L506.1000, L3200.1100, L5500.0410, L5500.0400, L803.2200, L501.9520, L501.6710, L3410.2400, L3100.6900 ####[facility] [address] [facility]. [place], [place], [id number] Platelet mean volume (Bld) [Entitic vol] 11.6 fL Normal 6.2-12.0 [facility] Comment on above: Performed By: #### L 3100.5420, L3100.5440, L3300.0960, L3100.3425, L101.9900, L3300.1200, L500.4050, L503.6550, L100.0100, L506.1000, L3200.1100, L5500.0410, L5500.0400, L803.2200, L501.9520, L501.6710, L3410.2400, L3100.6900 ####[facility] [address] [place], [place], [phone] Platelets (Bld) [#/Vol] 182 10*3/uL Normal 150-450 [facility] Comment on above: Performed By: #### L 3100.5420, L3100.5440, L3300.0960, L3100.3425, L101.9900, L3300.1200, L500.4050, L503.6550, L100.0100, L506.1000, L3200.1100, L5500.0410, L5500.0400, L803.2200, L501.9520, L501.6710, L3410.2400, L3100.6900 ####[facility] [address] [place], [place], [phone] RBC (Bld) [#/Vol] 4.96 10*6/uL Normal 4.2-5.4 [facility] Comment on above: Performed By: #### L 3100.5420, L3100.5440, L3300.0960, L3100.3425, L101.9900, L3300.1200, L500.4050, L503.6550, L100.0100, L506.1000, L3200.1100, L5500.0410, L5500.0400, L803.2200, L501.9520, L501.6710, L3410.2400, L3100.6900 ####[facility] [address] [place], [place], [phone] RDW SD 45.5 fl High 35.1-43.9 [facility] Comment on above: Performed By: #### L 3100.5420, L3100.5440, L3300.0960, L3100.3425, L101.9900, L3300.1200, L500.4050, L503.6550, L100.0100, L506.1000, L3200.1100, L5500.0410, L5500.0400, L803.2200, L501.9520, L501.6710, L3410.2400, L3100.6900 ####[facility] [address] [facility]. [place], [place], [phone] WBC (Bld) [#/Vol] 5.8 10*3/uL Normal 4.4-11.0 [facility] Comment on above: Performed By: #### L 3100.5420, L3100.5440, L3300.0960, L3100.3425, L101.9900, L3300.1200, L500.4050, L503.6550, L100.0100, L506.1000, L3200.1100, L5500.0410, L5500.0400, L803.2200, L501.9520, L501.6710, L3410.2400, L3100.6900 ####[facility] [address] [facility] [place], [place], [phone] CRPon 01-01-2023 C-REACTIVE PROT < 2.90 Normal 0.0-3.0 [facility] Comment on above: Result Comment: C-Re active Protein (CRP) provides useful information for the diagnosis, therapy and monitoring of inflammatory processes and associated diseases. For the evaluation of Relative Risk for Cardiovascular Disease, a High Sensitivity CRP (HSCRP) should be ordered. Performed By: #### L 3100.5420, L3100.5440, L3300.0960, L3100.3425, L101.9900, L3300.1200, L500.4050, L503.6550, L100.0100, L506.1000, L3200.1100, L5500.0410, L5500.0400, L803.2200, L501.9520, L501.6710, L3410.2400, L3100.6900 ####[facility] [address] [place], [place], [phone] Chocolate RASTOrdered By: Ra thurman Friend on 01-01-2023 Chocolate IgE Qn (S) <0.10 kU/L Class 0 [facility] Comment on above: Performed at: [address] [id number] Director: Daquan Parker PhD, Phone: [phone] at: - [facility] [id number] Director: Liang Boston MD, Phone: [phone] Comprehensive Metabolic Prof [facility] 01-01-2023 Albumin [Mass/Vol] 3.9 g/dL Normal 3.2-5.0 [facility] Comment on above: Performed By: #### L 3100.5420, L3100.5440, L3300.0960, L3100.3425, L101.9900, L3300.1200, L500.4050, L503.6550, L100.0100, L506.1000, L3200.1100, L5500.0410, L5500.0400, L803.2200, L501.9520, L501.6710, L3410.2400, L3100.6900 ####[facility] [address] [place], [address] Albumin/Globulin [Mass ratio] 1.0 {ratio} Normal 0.9-2.4 [facility] Comment on above: Performed By: #### L 3100.5420, L3100.5440, L3300.0960, L3100.3425, L101.9900, L3300.1200, L500.4050, L503.6550, L100.0100, L506.1000, L3200.1100, L5500.0410, L5500.0400, L803.2200, L501.9520, L501.6710, L3410.2400, L3100.6900 ####[facility] [address] [place], [address] ALK P 104 U/L Normal 45-117 [facility] Comment on above: Performed By: #### L 3100.5420, L3100.5440, L3300.0960, L3100.3425, L101.9900, L3300.1200, L500.4050, L503.6550, L100.0100, L506.1000, L3200.1100, L5500.0410, L5500.0400, L803.2200, L501.9520, L501.6710, L3410.2400, L3100.6900 ####[facility] [address] [place], [place], [phone] ALT [Catalytic activity/Vol] 25 U/L Normal 13-56 [facility] Comment on above: Performed By: #### L 3100.5420, L3100.5440, L3300.0960, L3100.3425, L101.9900, L3300.1200, L500.4050, L503.6550, L100.0100, L506.1000, L3200.1100, L5500.0410, L5500.0400, L803.2200, L501.9520, L501.6710, L3410.2400, L3100.6900 ####[facility] [address] [facility] [place] [place], [phone]) AST [Catalytic activity/Vol] 18 U/L Normal 15-37 [facility] Comment on above: Performed By: #### L 3100.5420, L3100.5440, L3300.0960, L3100.3425, L101.9900, L3300.1200, L500.4050, L503.6550, L100.0100, L506.1000, L3200.1100, L5500.0410, L5500.0400, L803.2200, L501.9520, L501.6710, L3410.2400, L3100.6900 ####[facility] [address] [place], [place], [phone]) Bilirubin [Mass/Vol] 0.30 mg/dL Normal 0.20-1.00 [facility] Comment on above: Result Comment: For patients on eltrombopag therapy, use of Dimension Jackson TBIL is not recommended. Performed By: #### L 3100.5420, L3100.5440, L3300.0960, L3100.3425, L101.9900, L3300.1200, L500.4050, L503.6550, L100.0100, L506.1000, L3200.1100, L5500.0410, L5500.0400, L803.2200, L501.9520, L501.6710, L3410.2400, L3100.6900 ####[facility] [address] [place], [place], [phone](892) BUN/CRE 14.9 RATIO Normal 10-20 [facility] Comment on above: Performed By: #### L 3100.5420, L3100.5440, L3300.0960, L3100.3425, L101.9900, L3300.1200, L500.4050, L503.6550, L100.0100, L506.1000, L3200.1100, L5500.0410, L5500.0400, L803.2200, L501.9520, L501.6710, L3410.2400, L3100.6900 ####[facility] [address] [place], [place], [phone](073) CA,Total 9.3 mg/dL Normal 8.5-10.1 [facility] Comment on above: Performed By: #### L 3100.5420, L3100.5440, L3300.0960, L3100.3425, L101.9900, L3300.1200, L500.4050, L503.6550, L100.0100, L506.1000, L3200.1100, L5500.0410, L5500.0400, L803.2200, L501.9520, L501.6710, L3410.2400, L3100.6900 ####[facility] [address] [place], [place], [phone] Chloride [Moles/Vol] 108 mmol/L High 98-107 [facility] Comment on above: Performed By: #### L 3100.5420, L3100.5440, L3300.0960, L3100.3425, L101.9900, L3300.1200, L500.4050, L503.6550, L100.0100, L506.1000, L3200.1100, L5500.0410, L5500.0400, L803.2200, L501.9520, L501.6710, L3410.2400, L3100.6900 ####[facility] [address] [place], [place], [phone] CO2 [Moles/Vol] 26.0 mmol/L Normal 21.0-32.0 [facility] Comment on above: Performed By: #### L 3100.5420, L3100.5440, L3300.0960, L3100.3425, L101.9900, L3300.1200, L500.4050, L503.6550, L100.0100, L506.1000, L3200.1100, L5500.0410, L5500.0400, L803.2200, L501.9520, L501.6710, L3410.2400, L3100.6900 ####[facility] [address] [place], [place], [phone] Creatinine [Mass/Vol] 1.01 mg/dL Normal 0.55-1.02 [facility] Comment on above: Result Comment: The validity of the calculated GFR GFRAA in patients over 70 years has not been determined. Clinical correlation is essential. Performed By: #### L 3100.5420, L3100.5440, L3300.0960, L3100.3425, L101.9900, L3300.1200, L500.4050, L503.6550, L100.0100, L506.1000, L3200.1100, L5500.0410, L5500.0400, L803.2200, L501.9520, L501.6710, L3410.2400, L3100.6900 ####[facility] [address] [place], [address] EST GFR - AA 81 mL/min Normal >60 [facility] Comment on above: Result Comment: Afri can Cypriot GFR Calc Performed By: #### L 3100.5420, L3100.5440, L3300.0960, L3100.3425, L101.9900, L3300.1200, L500.4050, L503.6550, L100.0100, L506.1000, L3200.1100, L5500.0410, L5500.0400, L803.2200, L501.9520, L501.6710, L3410.2400, L3100.6900 ####[facility] [address] [place], [address] GAP 3 Low 5-15 [facility] Comment on above: Performed By: #### L 3100.5420, L3100.5440, L3300.0960, L3100.3425, L101.9900, L3300.1200, L500.4050, L503.6550, L100.0100, L506.1000, L3200.1100, L5500.0410, L5500.0400, L803.2200, L501.9520, L501.6710, L3410.2400, L3100.6900 ####[facility] [address] [place], [address] GFR/1.73 sq M.predicted among non-blacks MDRD (S/P/Bld) [Vol rate/Area] 67 mL/min/{1.73_m2} Normal >60 [facility] Comment on above: Result Comment: Non- GFR Calc Performed By: #### L 3100.5420, L3100.5440, L3300.0960, L3100.3425, L101.9900, L3300.1200, L500.4050, L503.6550, L100.0100, L506.1000, L3200.1100, L5500.0410, L5500.0400, L803.2200, L501.9520, L501.6710, L3410.2400, L3100.6900 ####[facility] [address] [place], [phone]) Globulin (S) [Mass/Vol] 3.9 g/dL Normal 2.2-4.2 [facility] Comment on above: Performed By: #### L 3100.5420, L3100.5440, L3300.0960, L3100.3425, L101.9900, L3300.1200, L500.4050, L503.6550, L100.0100, L506.1000, L3200.1100, L5500.0410, L5500.0400, L803.2200, L501.9520, L501.6710, L3410.2400, L3100.6900 ####[facility] [address] [place], [address] Glucose [Mass/Vol] 89 mg/dL Normal 74-106 [facility] Comment on above: Performed By: #### L 3100.5420, L3100.5440, L3300.0960, L3100.3425, L101.9900, L3300.1200, L500.4050, L503.6550, L100.0100, L506.1000, L3200.1100, L5500.0410, L5500.0400, L803.2200, L501.9520, L501.6710, L3410.2400, L3100.6900 ####[facility] [address] [place], [place], [phone] Potassium [Moles/Vol] 4.5 mmol/L Normal 3.5-5.1 [facility] Comment on above: Performed By: #### L 3100.5420, L3100.5440, L3300.0960, L3100.3425, L101.9900, L3300.1200, L500.4050, L503.6550, L100.0100, L506.1000, L3200.1100, L5500.0410, L5500.0400, L803.2200, L501.9520, L501.6710, L3410.2400, L3100.6900 ####[facility] [address] [place], [place], [phone] Sodium [Moles/Vol] 137 mmol/L Normal 136-145 [facility] Comment on above: Performed By: #### L 3100.5420, L3100.5440, L3300.0960, L3100.3425, L101.9900, L3300.1200, L500.4050, L503.6550, L100.0100, L506.1000, L3200.1100, L5500.0410, L5500.0400, L803.2200, L501.9520, L501.6710, L3410.2400, L3100.6900 ####[facility] [address] [place], [place], [phone] T PROT 7.8 g/dL Normal 6.4-8.2 [facility] Comment on above: Performed By: #### L 3100.5420, L3100.5440, L3300.0960, L3100.3425, L101.9900, L3300.1200, L500.4050, L503.6550, L100.0100, L506.1000, L3200.1100, L5500.0410, L5500.0400, L803.2200, L501.9520, L501.6710, L3410.2400, L3100.6900 ####[facility] [address] [place], [address] Urea nitrogen [Mass/Vol] 15 mg/dL Normal 7-18 [facility] Comment on above: Performed By: #### L 3100.5420, L3100.5440, L3300.0960, L3100.3425, L101.9900, L3300.1200, L500.4050, L503.6550, L100.0100, L506.1000, L3200.1100, L5500.0410, L5500.0400, L803.2200, L501.9520, L501.6710, L3410.2400, L3100.6900 ####[facility] [address] [place], [address] Determination of erythrocyte mean corpuscular volume (MCV)Ordered By: Louis Manning on 01-01-2023 MCV (RBC) [Entitic vol] 79.8 fL 81-99 [facility] Erythrocyte Sed Rateon 01-01 SED RATE 4 mm/hr Normal 0-30 [facility] Comment on above: Performed By: #### L 3100.5420, L3100.5440, L3300.0960, L3100.3425, L101.9900, L3300.1200, L500.4050, L503.6550, L100.0100, L506.1000, L3200.1100, L5500.0410, L5500.0400, L803.2200, L501.9520, L501.6710, L3410.2400, L3100.6900 ####[facility] [address] [place], [address] Erythrocyte sedimentation ra teOrdered By: Louis Manning on 01-01-2023 ESR (Bld) [Velocity] 4 mm/h 0-30 [facility] Ferritinon 01-01-2023 Ferritin [Mass/Vol] 6 ng/mL Low 8-252 [facility] Comment on above: Performed By: #### L 3100.5420, L3100.5440, L3300.0960, L3100.3425, L101.9900, L3300.1200, L500.4050, L503.6550, L100.0100, L506.1000, L3200.1100, L5500.0410, L5500.0400, L803.2200, L501.9520, L501.6710, L3410.2400, L3100.6900 ####[facility] [address] [place], [address] Gastroenterology Visit Repor ton 01-01-2023 Gastroenterology Visit Report [facility] [address] [place] [address] OFFICE VISIT Date of Service: 01/01/23 MR#: [id number] Acct: [id number] Name: MAIK MARTINES Rep #: [id number] : 1990 Provider: Louis Manning DO Age/Sex: 32/F Location: [facility] Status: Signed Intake Vital Signs 09/01/22 19:39 12/20/22 13:00 Height 5 ft 3 in 5 ft 3 in Weight: 173 lb 6.395 oz BMI 30.7 BP 137/91 H Respiration 16 Pulse 117 H Temp 98 F Temp Source Temporal Pulse Oximetry (%) 100 Intake Visit Reasons: Consult Allergies grape Allergy (Verified 12/20/22 13:02) Swelling morphine Adverse Reaction (Verified 12/20/22 13:02) Other promethazine HCl [From Phenergan] Adverse Reaction (Verified 12/20/22 13:02) Other sulfamethoxazole [From Bactrim] Adverse Reaction (Verified 12/20/22 13:02) Vomiting trimethoprim [From Bactrim] Adverse Reaction (Verified 12/20/22 13:02) Vomiting Medications lansoprazole 30 mg capsule,delayed release 30 mg PO BID 05/19/20 [History Confirmed 10/17/22] desogestrel 0.15 mg-ethinyl estradiol 0.03 mg tablet (Apri) 1 tab PO DAILY 11/29/20 [History Confirmed 01/19/21] fexofenadine 180 mg tablet (Radha Allergy) 180 mg PO DAILY 11/29/20 [History Confirmed 01/19/21] azelastine 137 mcg (0.1 %) nasal spray aerosol 2 spray intranasal BID #30 mL 12/06/20 [Rx Confirmed 01/19/21] celecoxib 200 mg capsule (Celebrex) 200 mg PO DAILY Stomach Ulcer and Pain #30 caps 01/20/21 [Rx] fluticasone propionate 50 mcg/actuation nasal spray,suspension 2 spray intranasal DAILY #18.2 mL 08/22/21 [Rx Confirmed 10/17/22] famotidine 20 mg tablet 20 mg PO BID #60 tabs 01/01/23 [Rx Confirmed 01/01/23] PFSH Medical History (Updated 01/01/23 @ 10:[address] Myers Friend, DO) Anemia Fatigue Lumbar degenerative disc disease LEXIS (obstructive sleep apnea) SOB (shortness of breath) Surgical History History of tonsillectomy Hx of section Family History Grandfather Heart disease Parkinson disease Hypertension Grandmother Heart disease CHF (congestive heart failure) Hypertension Dementia Mother CHF (congestive heart failure) Heart disease Father Hypertension Dementia Social History Smoking Status: Never smoker alcohol intake: current alcohol intake frequency: a few times a month Alcohol type: wine HPI HPI Details: bob DIANA a 32 F who presents to the office today for PCP OV with history of GERD being managed with Prevacid 30mg BID. ? Chest CTA 8 dyspnea without acute/chronic finding. ? Barium swallow 1010.22 tablet trapped at GE junction. *BGI established .12.19. Previously established with Dr. Aviles for many years for management of acid reflux. In 2020 she was changed to prevacid 30mg BID when she was . Notes recent increase of reflux lately but also notes there is some ???odd health issues??? and possibly increased stress with this. Feels cotton balls in her throat which she feels is r/t historical reflux symptoms. ROS Const Constitutional: No anorexia, fatigue, fever(s), weight change or sleep problems Eyes Eyes: No change in vision ENT ENT: No abnormal hearing, difficulty swallowing, mouth lesions, tongue swelling or throat swelling Resp Respiratory: No cough or shortness of breath Cardio Cardiology: No chest pain at rest, chest pain with exertion, shortness of breath or dyspnea on exertion Gastro GI: No difficulty swallowing Genitourinary-Female: No difficulty urinating or burning urination Musc Musculoskeletal: No joint pain, joint swelling, muscle weakness or decreased muscle mass Skin Skin: No hair loss in leg, yellowing of the eye, itchy eyes, rash, skin ulcer or skin swelling Neuro Neurology: No abnormal hearing, abnormal movements, confusion, unsteady gait/balance or memory loss Psych Psychiatric: No anxiety, No confusion and No memory loss Endo Endocrine: No fatigue or weight change Aller/Imm Allergy/Immunologic: No itchy eyes, throat swelling or tongue swelling Sammy/Lymp Hematologic/Lymphatic: No easy bleeding, easy bruising or enlarged lymph nodes Exam Const General: cooperative and comfortable Nutritional Appearance: average body habitus and well nourished [facility] Head: normal to inspection Ears: hearing grossly normal bilaterally Nose: external nose normal Face and sinus: normal facial exam Mouth: oral mucosae normal Throat: posterior oropharynx normal Eyes General: appearance normal, both eyes and all related structures Neck Neck: normal visual inspection Chest Chest (more content not included)... Normal [facility] Hematocrit Auto (Bld) [Volum e fraction]Ordered By: Louis Manning on 01-01-2023 Hematocrit (Bld) [Volume fraction] 39.6 % 37-47 [facility] Interpretation of serum or p lasma protein pattern by immunofixation (narrative resultOrdered By: Louis Manning on 01-01-2023 Protein Fractions Immunofixation Rajinder [Interp] See comment [facility] Comment on above: Result: Not Observed Laboratory - Chemistry and C hemistry - challengeOrdered By: Louis Manning on 01-01-2023 ALP [Catalytic activity/Vol] 104 U/L 45-117 [facility] ALT [Catalytic activity/Vol] 25 U/L 13-56 [facility] CO2 [Moles/Vol] 26.0 mmol/L 21.0-32.0 [facility] Urea nitrogen/Creatinine [Mass ratio] 14.9 mg/mg 10-20 [facility] Laboratory - Hematology and Cell countsOrdered By: Louis Manning on 01-01-2023 Erythrocyte distribution width (RBC) [Entitic vol] 45.5 fL 35.1-43.9 [facility] Erythrocyte distribution width (RBC) [Ratio] 16.1 % 11.6-14.6 [facility] Immature granulocytes/100 WBC (Bld) 0.200 % 0.0-0.9 [facility] Comment on above: IG% - Immature Granu locytes (promyelocytes, myelocytes and metamyelocytes) > 1% indicates that a LEFT SHIFT is Present. MCH (RBC) [Entitic mass] 24.2 pg 27.0-32.0 [facility] Nucleated RBC/100 WBC (Bld) [Ratio] 0 % 0-5 [facility] Laboratory - Miscellaneous t estsOrdered By: Louis Manning on 01-01-2023 Service comment (Unsp spec) [Interp] Comment . [facility] Comment on above: Levels of Specific I gE Class Description of Class ----- < 0.10 0 Negative 0.10 - 0.31 0/I Equivocal/Low 0.32 - 0.55 I Low 0.56 - 1.40 II Moderate 1.41 - 3.90 III High 3.91 - 19.00 IV Very High 19.01 - 100.00 V Very High >100.00 Very High MCHC Auto (RBC) [Mass/Vol]Or dered By: Louis Manning on 01-01-2023 MCHC (RBC) [Mass/Vol] 30.3 g/dL 32-36 [facility] No Panel InformationOrdered By: Louis Friend on 01-01-2023 Addendum Document Comment . [facility] Comment on above: Protein electrophore sis scan will follow via computer,mail, or vice president biostatistics delivery. Centromere B Antibody <0.2 AI 0.0-0.9 [facility] Endomysial IgA Antibody Negative Negative [facility] Estimated GFR (MDRD) Amer 81 mL/min >60 [facility] Comment on above: GFR Calc Estimated GFR (MDRD) Non-Af Amer 67 mL/min >60 [facility] Comment on above: Non- GFR Calc Immunoglobulin E 54 IU/mL 6-495 [facility] [employer] Antibody <0.2 AI 0.0-0.9 [facility] Scallop Allergen <0.10 kU/L Class 0 [facility] Seafood Group Allergens (RAST) Negative . [facility] Comment on above: Allergens in this mi x are: Blue mussel Fish [place] Shrimp Tuna Sesame Seed Allergen IgE Antibody <0.10 kU/L Class 0 [facility] Shrimp Allergen <0.10 kU/L Class 0 [facility] Thyroid Stimulating Hormone (TSH) 1.86 uIU/mL 0.358-3.74 [facility] Vitamin D 25-Hydroxy 27.4 ng/mL [facility] Comment on above: Vitamin D 25(OH) Sta tus Range Deficiency <20 ng/mL (50nmol/L) Insufficiency 20 - 30 ng/mL (50 - 75 nmol/L) Sufficiency 30 - 100 ng/mL (75 - 250 nmol/L) Toxicity >100 ng/mL (>250 nmol/L) Platelets bldOrdered By: Brennen causey Friend on 01-01-2023 Platelets (Bld) [#/Vol] 182 10*3/uL 150-450 [facility] Prolactinon 01-01-2023 PROLACTIN 4.5 ng/mL Normal [facility] Comment on above: Result Comment: NORMAL REFERENCE RANGES FEMALE NON- 2.2 - 30.3 ng/mL 8.1 - 347.6 ng/mL POST-MENOPAUSAL 0.7 - 31.5 ng/mL MALE 2.5 - 17.4 ng/mL Performed By: #### L 3100.5420, L3100.5440, L3300.0960, L3100.3425, L101.9900, L3300.1200, L500.4050, L503.6550, L100.0100, L506.1000, L3200.1100, L5500.0410, L5500.0400, L803.2200, L501.9520, L501.6710, L3410.2400, L3100.6900 ####[facility] [address] [place], [place], [id number] Serum DNA double strand anti body assay (units/volume)Ordered By: Louis Manning on 01-01-2023 DNA double strand Ab Qn (S) 1 [IU]/mL 0-9 [facility] Comment on above: Negative <5 Equivoca l 5 - 9 Positive >9 Serum Mellissa-1 antibody assay (u nits/volume)Ordered By: Louis Manning on 01-01-2023 Mellissa-1 extractable nuclear Ab Qn (S) <0.2 AI 0.0-0.9 [facility] Serum Scl-70 extractable nuc lear antibody assay (units/volume)Ordered By: Louis Manning on 01-01-2023 SCL-70 extractable nuclear Ab Qn (S) 0.3 AI 0.0-0.9 [facility] Serum Martines extractable nucl ear antibody detectionOrdered By: Louis Manning on 01-01-2023 Martines extractable nuclear Ab Ql (S) <0.2 AI 0.0-0.9 [facility] Serum [id number] measu rement by electrophoresisOrdered By: Louis Manning on 01-01-2023 Alpha 1 globulin Elph [Mass/Vol] 0.2 g/dL 0.0-0.4 [facility] Alpha 1 globulin Elph [Mass/Vol] 0.7 g/dL 0.4-1.0 [facility] Serum beef IgE antibody assa y (units/volume)Ordered By: Louis Manning on 01-01-2023 Beef IgE Qn (S) <0.10 kU/L Class 0 [facility] Serum black walnut IgE antib nurys assay (units/volume)Ordered By: Louis Manning on 01-01-2023 Black Temple IgE Qn (S) <0.10 kU/L Class 0 [facility] Serum clam IgE antibody assa y (units/volume)Ordered By: Louis Manning on 01-01-2023 Clam IgE Qn (S) <0.10 kU/L Class 0 [facility] Serum classic neutrophil cyt oplasmic antibody assay (units/volume)Ordered By: Louis Manning on 01-01-2023 Neutrophil cytoplasmic Ab.classic Qn (S) <1:20 titer Neg:<1:20 [facility] Serum codfish IgE antibody a ssay (units/volume)Ordered By: Louis Manning on 01-01-2023 Codfish IgE Qn (S) <0.10 kU/L Class 0 [facility] Serum corn IgE antibody assa y (units/volume)Ordered By: Louis Manning on 01-01-2023 Jelm IgE Qn (S) <0.10 kU/L Class 0 [facility] Serum cow milk IgE antibody assay (units/volume)Ordered By: Louis Manning on 01-01-2023 Cow milk IgE Qn (S) 0.33 kU/L Class I [facility] Serum egg white IgE antibody assay (units/volume)Ordered By: Louis Manning on 01-01-2023 Egg white IgE Qn (S) 1.29 kU/L Class II [facility] Serum globulin measurement ( mass/volume)Ordered By: Louis Manning on 01-01-2023 Globulin (S) [Mass/Vol] 3.2 g/dL 2.2-3.9 [facility] Serum or plasma C reactive p rotein measurement (mass/volume)Ordered By: Louis Manning on 01-01-2023 CRP [Mass/Vol] mg/L 0.0-3.0 [facility] Comment on above: C-Reactive Protein ( CRP) provides useful information for thediagnosis, therapy and monitoring of inflammatory processesand associated diseases. For the evaluation of Relative Riskfor Cardiovascular Disease, a High Sensitivity CRP (HSCRP)should be ordered. Serum or plasma IgA measurem ent (mass/volume)Ordered By: Louis Manning on 01-01-2023 IgA [Mass/Vol] 118 mg/dL 87-352 [facility] Serum or plasma IgG measurem ent (mass/volume)Ordered By: Louismiguel Manning on 01-01-2023 IgG [Mass/Vol] 1101 mg/dL 586-1602 [facility] Serum or plasma IgM measurem ent (mass/volume)Ordered By: Louis Manning on 01-01-2023 IgM [Mass/Vol] 109 mg/dL 26-217 [facility] Serum or plasma actin IgG an tibody assay (units/volume)Ordered By: Louis Manning on 01-01-2023 Actin IgG Qn 13 Units 0-19 [facility] Comment on above: Negative 0 - 19 Weak positive 20 - 30 Moderate to strong positive >30 Actin Antibodies are found in 52-85% of patients with autoimmune hepatitis or chronic active hepatitis and in 22% of patients with primary biliary cirrhosis. Serum or plasma albumin bri urement (mass/volume)Ordered By: Louis Manning on 01-01-2023 Albumin [Mass/Vol] 3.9 g/dL 3.2-5.0 [facility] Serum or plasma albumin/glob ulin mass ratioOrdered By: Louisjoe Manning on 01-01-2023 Albumin/Globulin [Mass ratio] 1.0 {ratio} 0.9-2.4 [facility] Serum or plasma angiotensin converting enzyme measurement (enzymatic activity/volume)Ordered By: Louismiguel Manning on 01-01-2023 Angiotensin converting enzyme [Catalytic activity/Vol] 39 U/L 14-82 [facility] Comment on above: Performed at: [facility] [employer] [address] [id number] Director: Daquan Parker PhD, Phone: [phone] at: [facility] [address] [id number] Director: Liang Boston MD, Phone: [phone] Serum or plasma beta globuli n measurement by electrophoresis (mass/volume)Ordered By: Louis Manning on 01-01-2023 Beta globulin Elph [Mass/Vol] 1.1 g/dL 0.7-1.3 [facility] Serum or plasma calcitriol m easurement (mass/volume)Ordered By: Louis Manning on 01-01-2023 1,25-dihydroxyvitamin D3 [Mass/Vol] 38.8 pg/mL 24.8-81.5 [facility] Serum or plasma calcium bri urement (mass/volume)Ordered By: Louis Manning on 01-01-2023 Calcium [Mass/Vol] 9.3 mg/dL 8.5-10.1 [facility] Serum or plasma creatinine m easurement (mass/volume)Ordered By: Louis Manning on 01-01-2023 Creatinine [Mass/Vol] 1.01 mg/dL 0.55-1.02 [facility] Comment on above: The validity of the calculated GFR & GFRAA in patients over 70 years has not been determined. Clinical correlation is essential. Serum or plasma ferritin jesse surement (mass/volume)Ordered By: Louis Manning on 01-01-2023 Ferritin [Mass/Vol] 6 ng/mL 8-252 [facility] Serum or plasma gamma globul in measurement by electrophoresis (mass/volume)Ordered By: Louis Manning on 01-01-2023 Gamma globulin Elph [Mass/Vol] 1.2 g/dL 0.4-1.8 [facility] Serum or plasma immunoelectr ophoresis interpretation (nominal result)Ordered By: Louis Manning on 01-01-2023 Interpretation IEP [Interp] Comment . [facility] Comment on above: No monoclonality det ected. Serum or plasma prolactin me asurement (mass/volume)Ordered By: Louis Manning on 01-01-2023 Prolactin [Mass/Vol] 4.5 ng/mL [facility] Comment on above: NORMAL REFERENCE RAN GES FEMALE NON- 2.2 - 30.3 ng/mL 8.1 - 347.6 ng/mL POST-MENOPAUSAL 0.7 - 31.5 ng/mL MALE 2.5 - 17.4 ng/mL Serum or plasma urea nitroge n measurement (mass/volume)Ordered By: Louis Manning on 01-01-2023 Urea nitrogen [Mass/Vol] 15 mg/dL 7-18 [facility] Serum peanut IgE antibody as say (units/volume)Ordered By: Louis Manning on 01-01-2023 Peanut IgE Qn (S) <0.10 kU/L Class 0 [facility] Serum perinuclear neutrophil cytoplasmic antibody titer by immunofluorescenceOrdered By: Louis Manning on 01-01-2023 Neutrophil cytoplasmic Ab.perinuclear IF (S) [Titer] <1:20 titer Neg:<1:20 [facility] Comment on above: The presence of posi tive fluorescence exhibiting P-ANCA orC-ANCA patterns alone is not specific for the diagnosis ofWegener's Granulomatosis (WG) or microscopic polyangiitis.Decisions about treatment should not be based solely onANCA IFA results. The [employer] ANCA Group Consensusrecommends follow up testing of positive sera with both UT-3 and MPO-ANCA enzyme immunoassays. As many as 5% serumsamples are positive only by EIA. Ref. AM J Clin [id number];111:507-513. Serum pork IgE antibody assa y (units/volume)Ordered By: Louis Manning on 01-01-2023 Pork IgE Qn (S) <0.10 kU/L Class 0 [facility] Serum soybean IgE antibody a ssay (units/volume)Ordered By: Louis Manning on 01-01-2023 Soybean IgE Qn (S) <0.10 kU/L Class 0 [facility] Serum tissue transglutaminas e IgA antibody assay (units/volume)Ordered By: Louis Manning on 01-01-2023 tTG IgA Qn (S) <2 U/mL 0-3 [facility] Comment on above: Negative 0 - 3 Weak Positive 4 - 10 Positive >10 Tissue Transglutaminase (tTG) has been identified as the endomysial antigen. Studies have demonstr- ated that endomysial IgA antibodies have over 99% specificity for gluten sensitive enteropathy. Serum wheat IgE antibody ass ay (units/volume)Ordered By: Louis Manning on 01-01-2023 Wheat IgE Qn (S) 0.25 kU/L Class 0/I [facility] Serum whole egg IgE antibody assay (units/volume)Ordered By: Louis Manning on 01-01-2023 Whole Egg IgE Qn (S) 0.66 kU/L Class II [facility] Thin prep Papanicolaou smear with manual screeningOrdered By: Louis Manning on 01-01-2023 Thin prep Papanicolaou smear with manual screening 18 U/L 15-37 [facility] Thin prep Papanicolaou smear with manual screening 3 5-15 [facility] Thin prep Papanicolaou smear with manual screening 1.3 0.7-1.7 [facility] Thyroid Stim Hormone (TSH)on 01-01-2023 TSH 1.86 uIU/mL Normal 0.358-3.74 [facility] Comment on above: Performed By: #### L 3100.5420, L3100.5440, L3300.0960, L3100.3425, L101.9900, L3300.1200, L500.4050, L503.6550, L100.0100, L506.1000, L3200.1100, L5500.0410, L5500.0400, L803.2200, L501.9520, L501.6710, L3410.2400, L3100.6900 ####[facility] [id number] [place], [place], [id number] Total protein bloodOrdered B y: Louis Manning on 01-01-2023 Protein [Mass/Vol] 7.2 g/dL 6.0-8.5 [facility] Vitamin D,25 Hydroxyon 01-01 Vitamin D 25-OH 27.4 ng/mL Normal [facility] Comment on above: Result Comment: Lori min D 25(OH) Status Range Deficiency <20 ng/mL (50nmol/L) Insufficiency 20 - 30 ng/mL (50 - 75 nmol/L) Sufficiency 30 - 100 ng/mL (75 - 250 nmol/L) Toxicity >100 ng/mL (>250 nmol/L) Performed By: #### L 3100.5420, L3100.5440, L3300.0960, L3100.3425, L101.9900, L3300.1200, L500.4050, L503.6550, L100.0100, L506.1000, L3200.1100, L5500.0410, L5500.0400, L803.2200, L501.9520, L501.6710, L3410.2400, L3100.6900 ####[facility] [address] [place], [address] DBT Breast - bilateral diagn ostic for implanton 12-29-2022 * * *Final Report* * * DATE OF EXAM: Dec 29 2022 1:36PM [facility] 0627 - JELANI DIAG W HERBERTH FARHAD / PROCEDURE REASON: Breast disorder * * * * Physician Interpretation * * * * RESULT: #[id number] - JELANI US AXILLA ONLY RT #[id number] - [facility] DIAG W HERBERTH FARHAD BILATERAL DIGITAL DIAGNOSTIC MAMMOGRAM TOMOSYNTHESIS WITH CAD: 12/29/2022 HISTORY: 32-year-old female with right axillary pain. Right axillary biopsy ordered by the patient's surgeon due to right axillary symptoms. Outside right axillary ultrasound dated 12/12/2022 demonstrates multiple morphologically normal lymph nodes. RESULT: TECHNIQUE: The study was acquired using full field digital technology and interpreted from soft copy. Digital Breast Tomosynthesis (DBT) images were obtained and used to assist in the interpretation of this examination. Current study was also evaluated with a Computer Aided Detection (CAD). No prior exams were available for comparison. The tissue of both breasts is extremely dense, which lowers the sensitivity of mammography. No significant masses, calcifications, or other findings are seen in either breast. DIVISION OF RADIOLOGY Provider, [facility] - 12/29/2022 * * *Final Report* * * DATE OF EXAM: Dec 29 2022 1:36PM [facility] 0627 - JELANI DIAG W HERBERTH FARHAD / PROCEDURE REASON: Breast disorder * * * * Physician Interpretation * * * * RESULT: #[id number] - JELANI US AXILLA ONLY RT #[id number] - [facility] DIAG W HERBERTH FARHAD BILATERAL DIGITAL DIAGNOSTIC MAMMOGRAM TOMOSYNTHESIS WITH CAD: 12/29/2022 HISTORY: 32-year-old female with right axillary pain. Right axillary biopsy ordered by the patient's surgeon due to right axillary symptoms. Outside right axillary ultrasound dated 12/12/2022 demonstrates multiple morphologically normal lymph nodes. RESULT: TECHNIQUE: The study was acquired using full field digital technology and interpreted from soft copy. Digital Breast Tomosynthesis (DBT) images were obtained and used to assist in the interpretation of this examination. Current study was also evaluated with a Computer Aided Detection (CAD). No prior exams were available for comparison. The tissue of both breasts is extremely dense, which lowers the sensitivity of mammography. No significant masses, calcifications, or other findings are seen in either breast. IMPRESSION IMPRESSION: INCOMPLETE: NEEDS ADDITIONAL IMAGING EVALUATION There is no abnormality seen in the right axilla to correspond with the pain in the right axilla, however, ultrasound is recommended. ULTRASOUND OF RIGHT BREAST AND AXILLA: 12/29/2022 RESULT: No prior exams were available for comparison. Color flow and real-time ultrasound of the right breast axilla were performed. Gary scale images of the real-time examination were reviewed. Multiple morphologically normal lymph nodes are visualized within the right axilla. No suspicious right axillary lymphadenopathy is identified. Multiple morphologically normal lymph nodes are visualized within the right axilla. No suspicious right axillary lymphadenopathy is identified. IMPRESSION: NEGATIVE There is no sonographic evidence of malignancy. There is no abnormality seen in the right breast to correspond with the pain in the axilla. Multiple morphologically normal lymph nodes visualized in the right axilla, without suspicious right axillary lymphadenopathy. Biopsy was therefore not performed. Multiple morphologically normal lymph nodes visualized in the right axilla, without suspicious right axillary lymphadenopathy. Biopsy was therefore not performed. Clinical follow-up is recommended. Follow-up with ACR/NCCN guidelines. Aisha castro/lillian:12/29/2022 15:42:44 Multiple national specialty organizations have released breast cancer screening guidelines for women at average risk for developing breast cancer - guidelines that are based on both evidence and opinion, yet differ on when to start and how often to screen for breast cancer. With representation from Breast Imaging, Internal Medicine, Women's Health, Family Medicine, and Medical/Surgical Oncology, the [facility] has carefully reviewed the data and reached the following consensus: 1) All women should engage in shared decision-making with their providers to decide when to start and how often to screen; 2) All women should have the opportunity to start screening mammography at age 40; 3) For women ages 45-55, we recommend annual screening mammograms; 4) For women ages 55 and over, we support both the transition from an annual to a biennial interval if this aligns more with patient's values and preferences, or continuation with annual screening; 5) All women should discuss with their providers when to stop screening mammograms. Windows Server Architect(s): Val Stephens RT(R)(M), [facility] OVERALL STUDY BIRADS: 3 Probably benign finding - short term interval follow-up recommended Lokie Engineer: Lillian Transcribe Date/Time: Dec 29 2022 1:02P Dictated by: AISHA PATRICIA MD This examination was interpreted and the report reviewed and electronically signed by: AISHA PATRICIA MD on Dec 29 2022 3:42PM [facility] No Panel InformationOrdered By: [facility] Provider on 12-29-2022 [facility] No Panel Informationon 12-29 Radiology Study observation (narrative) [facility] US Axilla - righton 12-30-19 23 * * *Final Report* * * DATE OF EXAM: Dec 29 2022 1:36PM [facility] [id number] - JELANI US AXILLA ONLY RT / PROCEDURE REASON: Enlarged lymph nodes * * * * Physician Interpretation * * * * RESULT: #[id number] - JELANI US AXILLA ONLY RT #[id number] - [facility] DIAG W HERBERTH FARHAD BILATERAL DIGITAL DIAGNOSTIC MAMMOGRAM TOMOSYNTHESIS WITH CAD: 12/29/2022 HISTORY: 32-year-old female with right axillary pain. Right axillary biopsy ordered by the patient's surgeon due to right axillary symptoms. Outside right axillary ultrasound dated 12/12/2022 demonstrates multiple morphologically normal lymph nodes. RESULT: TECHNIQUE: The study was acquired using full field digital technology and interpreted from soft copy. Digital Breast Tomosynthesis (DBT) images were obtained and used to assist in the interpretation of this examination. Current study was also evaluated with a Computer Aided Detection (CAD). No prior exams were available for comparison. The tissue of both breasts is extremely dense, which lowers the sensitivity of mammography. No significant masses, calcifications, or other findings are seen in either breast. DIVISION OF RADIOLOGY Provider, [facility] - 12/29/2022 * * *Final Report* * * DATE OF EXAM: Dec 29 2022 1:36PM [facility] 0592 - [facility] US AXILLA ONLY RT / PROCEDURE REASON: Enlarged lymph nodes * * * * Physician Interpretation * * * * RESULT: #[id number]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 BILAT MR#: [id number] Acct: [id number] Name: MAIK MARTINES Rep #: [id number] : 1990 F 32 From: Steve olivarez MD PCP: Dr. Gilbert Hurley MD Status: REG CLI Study: DIAG MAMM W/CAD, BILAT Date of Exam: 12/12/22 Exam# [id number] Ordering Dr: Gilbert Hurley MD MAMMOGRAPHY - BILATERAL DIAGNOSTIC REASON FOR EXAM: Female, 32 years old. Recently palpable right breast mass in the axillary region. Nonpalpable at time of examination. PERTINENT HISTORY: Aunt with breast cancer. TECHNIQUE: Digital bilateral breast herberth (3D mammographic acquisition) in the CC and MLO projections. 2-D mediolateral oblique (MLO) and craniocaudad (CC) views of both breasts were obtained. CAD: Full Field Digital Mammography with Computer Added Detection was performed. COMPARISON: Comparison is made with prior study dated February 26, 2022. FINDINGS: Breast Composition: The breasts are extremely dense, which lowers the sensitivity of mammography. There are no dominant masses or suspicious calcifications. Lymph nodes are seen in the right axillary region. No other significant abnormalities are identified. There has been no significant change since the prior study. BI/DIAG MAMM W/CAD, BILAT IMPRESSION: Stable bilateral diagnostic mammogram. With the patient''s history of a right axillary lump, correlation with ultrasound is recommended. ASSESSMENT CATEGORY: BIRADS Category 0: Incomplete. Need additional imaging evaluation. A letter regarding these results will be sent to the patient by the facility within 30 days. Approximately 10% of breast cancers are not detected by mammography. A normal mammogram should not delay biopsy of a clinically suspicious abnormality. Electronically Signed: Steve Moy MD at 10:29 EDT , CC: Dr. Gilbert Hurley MD Lokie Engineer: Signed Normal [facility] Basic Metabolic Profile (BMP )on 11-27-2022 BUN/CRE 14.8 RATIO Normal 10-20 [facility] Comment on above: Order Comment: 'TROP ' Serial specimen #1, #2 or #3: 1 Performed By: #### L 100.0100, L700.6800, L500.2500, L501.4020 ####[facility] [address] [place], [address] CA,Total 8.8 mg/dL Normal 8.5-10.1 [facility] Comment on above: Order Comment: 'TROP ' Serial specimen #1, #2 or #3: 1 Performed By: #### L 100.0100, L700.6800, L500.2500, L501.4020 ####[facility] [address] [place], [address] Chloride [Moles/Vol] 108 mmol/L High 98-107 [facility] Comment on above: Order Comment: 'TROP ' Serial specimen #1, #2 or #3: 1 Performed By: #### L 100.0100, L700.6800, L500.2500, L501.4020 ####[facility] [address] [place], [address] CO2 [Moles/Vol] 25.0 mmol/L Normal 21.0-32.0 [facility] Comment on above: Order Comment: 'TROP ' Serial specimen #1, #2 or #3: 1 Performed By: #### L 100.0100, L700.6800, L500.2500, L501.4020 ####[facility] [address] [place], [address] Creatinine [Mass/Vol] 1.08 mg/dL High 0.55-1.02 [facility] Comment on above: Order Comment: 'TROP ' Serial specimen #1, #2 or #3: 1 Result Comment: The validity of the calculated GFR GFRAA in patients over 70 years has not been determined. Clinical correlation is essential. Performed By: #### L 100.0100, L700.6800, L500.2500, L501.4020 ####[facility] [address] [place], [address] ECRCL 61.29 ml/min Normal [facility] Comment on above: Order Comment: 'TROP ' Serial specimen #1, #2 or #3: 1 Performed By: #### L 100.0100, L700.6800, L500.2500, L501.4020 ####[facility] [address] [place], [address] EST GFR - AA 75 mL/min Normal >60 [facility] Comment on above: Order Comment: 'TROP ' Serial specimen #1, #2 or #3: 1 Result Comment: Afri can Cypriot GFR Calc Performed By: #### L 100.0100, L700.6800, L500.2500, L501.4020 ####[facility] [address] [place], [address] GAP 4 Low 5-15 [facility] Comment on above: Order Comment: 'TROP ' Serial specimen #1, #2 or #3: 1 Performed By: #### L 100.0100, L700.6800, L500.2500, L501.4020 ####[facility] [address] [place], [address] GFR/1.73 sq M.predicted among non-blacks MDRD (S/P/Bld) [Vol rate/Area] 62 mL/min/{1.73_m2} Normal >60 [facility] Comment on above: Order Comment: 'TROP ' Serial specimen #1, #2 or #3: 1 Result Comment: Non- GFR Calc Performed By: #### L 100.0100, L700.6800, L500.2500, L501.4020 ####[facility] [address] [place], [address] Glucose [Mass/Vol] 129 mg/dL High 74-106 [facility] Comment on above: Order Comment: 'TROP ' Serial specimen #1, #2 or #3: 1 Result Comment: Fast ing Glucose result greater than or equal to 126 mg/dL suggests DIABETES MELLITUS per A.D.A. criteria. Performed By: #### L 100.0100, L700.6800, L500.2500, L501.4020 ####[facility] [address] [place], [address] Potassium [Moles/Vol] 3.6 mmol/L Normal 3.5-5.1 [facility] Comment on above: Order Comment: 'TROP ' Serial specimen #1, #2 or #3: 1 Performed By: #### L 100.0100, L700.6800, L500.2500, L501.4020 ####[facility] [address] [place], [address] Sodium [Moles/Vol] 137 mmol/L Normal 136-145 [facility] Comment on above: Order Comment: 'TROP ' Serial specimen #1, #2 or #3: 1 Performed By: #### L 100.0100, L700.6800, L500.2500, L501.4020 ####[facility] [address] [place], [address] Urea nitrogen [Mass/Vol] 16 mg/dL Normal 7-18 [facility] Comment on above: Order Comment: 'TROP ' Serial specimen #1, #2 or #3: 1 Performed By: #### L 100.0100, L700.6800, L500.2500, L501.4020 ####[facility] [address] [place], [address] CBC W/Diff, Automatedon 05-0 -2022 Absolute Lymph 2.75 X10 3/uL Normal 0.83-4.51 [facility] Comment on above: Performed By: #### L 100.0100, L700.6800, L500.2500, L501.4020 ####[facility] [address] [place], [address] Absolute Neut 4.0 X10 3/uL Normal 2.0-7.7 [facility] Comment on above: Performed By: #### L 100.0100, L700.6800, L500.2500, L501.4020 ####[facility] [address] [place], [address] Basophils/100 WBC (Bld) 0.7 % Normal 0-1 [facility] Comment on above: Performed By: #### L 100.0100, L700.6800, L500.2500, L501.4020 ####[facility] [address] [place], [address] Eosinophils/100 WBC (Bld) 3.3 % Normal 0-5 [facility] Comment on above: Performed By: #### L 100.0100, L700.6800, L500.2500, L501.4020 ####[facility] [address] [place], [address] Erythrocyte distribution width (RBC) [Ratio] 15.5 % High 11.6-14.6 [facility] Comment on above: Performed By: #### L 100.0100, L700.6800, L500.2500, L501.4020 ####[facility] [address] [place], [address] Hematocrit (Bld) [Volume fraction] 36.7 % Low 37-47 [facility] Comment on above: Performed By: #### L 100.0100, L700.6800, L500.2500, L501.4020 ####[facility] [address] [place], [address] Hemoglobin (Bld) [Mass/Vol] 11.3 g/dL Low 12.0-15. 0 [facility] Comment on above: Performed By: #### L 100.0100, L700.6800, L500.2500, L501.4020 ####[facility] [address] [place], [address] IG% 0.400 Normal 0.0-0.9 [facility] Comment on above: Result Comment: IG% - Immature Granulocytes (promyelocytes, myelocytes and metamyelocytes) > 1% indicates that a LEFT SHIFT is Present. Performed By: #### L 100.0100, L700.6800, L500.2500, L501.4020 ####[facility] [address] [place], [address] Lymphocytes/100 WBC (Bld) 36.4 % Normal 19-41 [facility] Comment on above: Performed By: #### L 100.0100, L700.6800, L500.2500, L501.4020 ####[facility] [address] [place], [address] MCH (RBC) [Entitic mass] 24.3 pg Low 27.0-32.0 [facility] Comment on above: Performed By: #### L 100.0100, L700.6800, L500.2500, L501.4020 ####[facility] [address] [place], [address] MCHC (RBC) [Mass/Vol] 30.8 g/dL Low 32-36 [facility] Comment on above: Performed By: #### L 100.0100, L700.6800, L500.2500, L501.4020 ####[facility] [address] [place], [address] MCV (RBC) [Entitic vol] 78.9 fL Low 81-99 [facility] Comment on above: Performed By: #### L 100.0100, L700.6800, L500.2500, L501.4020 ####[facility] [address] [place], [address] Monocytes/100 WBC (Bld) 6.9 % Normal 0-10 [facility] Comment on above: Performed By: #### L 100.0100, L700.6800, L500.2500, L501.4020 ####[facility] [address] [place], [address] Neutrophils/100 WBC (Bld) 52.3 % Normal 47-70 [facility] Comment on above: Performed By: #### L 100.0100, L700.6800, L500.2500, L501.4020 ####[facility] [address] [place], [address] Nucleated RBC (Bld) [#/Vol] 0 10*3/uL Normal 0-5 [facility] Comment on above: Performed By: #### L 100.0100, L700.6800, L500.2500, L501.4020 ####[facility] [address] [place], [address] Platelet mean volume (Bld) [Entitic vol] 10.1 fL Normal 6.2-12.0 [facility] Comment on above: Performed By: #### L 100.0100, L700.6800, L500.2500, L501.4020 ####[facility] [address] [place], [address] Platelets (Bld) [#/Vol] 262 10*3/uL Normal 150-450 [facility] Comment on above: Performed By: #### L 100.0100, L700.6800, L500.2500, L501.4020 ####[facility] [address] [place], [address] RBC (Bld) [#/Vol] 4.65 10*6/uL Normal 4.2-5.4 [facility] Comment on above: Performed By: #### L 100.0100, L700.6800, L500.2500, L501.4020 ####[facility] [address] [place], [address] RDW SD 44.2 fl High 35.1-43.9 [facility] Comment on above: Performed By: #### L 100.0100, L700.6800, L500.2500, L501.4020 ####[facility] [address] [place], [address] WBC (Bld) [#/Vol] 7.6 10*3/uL Normal 4.4-11.0 [facility] Comment on above: Performed By: #### L 100.0100, L700.6800, L500.2500, L501.4020 ####[facility] [address] [place], [address] Chest 1 View (Portable)on Chest 1 View (Portable) [facility] Imaging Services [address] [place] [address] Chest 1 View (Portable) MR#: [id number] Acct: [id number] Name: MAIK MARTINES Rep #: [id number] : 1990 F 31 From: [facility] Woods MD PCP: Dr. Gilbert Hurley MD Status: [facility] ER Study: Chest 1 View (Portable) Date of Exam: 11/26/22 Exam# [id number] Ordering Dr: Gerardo Antonio MD EXAM: XR CHEST, 1 VIEW CLINICAL INDICATION: chest pain TECHNIQUE: Frontal view of the chest. COMPARISON: 03/26/2021 FINDINGS: LUNGS AND PLEURAL SPACES: Unremarkable. No consolidation or edema. No pneumothorax. No effusion. HEART: Unremarkable. Cardiac silhouette not enlarged. MEDIASTINUM: Central airways and mediastinal contour are unremarkable. BONES/JOINTS: Unremarkable. SOFT TISSUES: Unremarkable. RAD/Chest 1 View (Portable) IMPRESSION: No radiographic evidence of acute cardiopulmonary disease. Electronically Signed: Emory Woods MD at 0:19 EDT , CC: Dr. Gerardo Antonio MD; Dr. Gilbert Hurley MD Lokie Engineer: Signed Normal [facility] Emergency Department Summary on 11-27-2022 Emergency Department Summary [facility] Medical Records Department [address] [place] [id number] Emergency Department Summary 11/26/22 MR#: [id number] Acct: [id number] Name: MAIK MARTINES Rep #: [id number] : 1990 31 From: Gerardo Antonio MD PCP: Dr. Gilbert Hurley MD Status:REG ER Location: ED HPI History of Present Illness Chief Complaint: Neuro S/Sx Detail of Chief Complaint: Syncope Informant: patient Onset/Context/Timing Onset: Today Context: Sudden Onset Current Severity: Gone Maximum Severity: Mild Narrative Narrative: 31-year-old female past medical history of reflux. Says she has passed out 5 times in the last 2 years never been evaluated for it. Today her has a history of bipolar disorder is currently manic. She said he was doing irrational things at home she was trying to stop him from leaving and losing his medications and she felt lightheaded and passed out. Said this was very brief and only lasted seconds. She denies any headache or chest pain. Last week she had viral syndrome with nausea vomiting and diarrhea. Denies any dysuria or abdominal pain. No recent hospitalizations or surgeries. Prior similar symptoms: Yes Recent Illness/Hospitalizatio n: No PFSH PFSH Medical History (Updated 11/27/22 @ 00:[address] Gerardo Antonio MD) Anemia Fatigue Fever SOB (shortness of breath) Home Medications lansoprazole 30 mg capsule,delayed release 30 mg PO BID 05/19/20 [History Last Taken 05/19/20 08:00] desogestrel 0.15 mg-ethinyl estradiol 0.03 mg tablet (Apri) 1 tab PO DAILY 11/29/20 [History Last Taken Unknown] fexofenadine 180 mg tablet (Radha Allergy) 180 mg PO DAILY 11/29/20 [History Last Taken Unknown] azelastine 137 mcg (0.1 %) nasal spray aerosol 2 spray intranasal BID #30 mL 12/06/20 [Rx Last Taken Unknown] celecoxib 200 mg capsule (Celebrex) 200 mg PO DAILY Stomach Ulcer and Pain #30 caps 01/20/21 [Rx Last Taken Unknown] fluticasone propionate 50 mcg/actuation nasal spray,suspension 2 spray intranasal DAILY #18.2 mL 08/22/21 [Rx Last Taken Unknown] Allergy/AdvReac Type Severity Reaction Status Date / Time grape Allergy Swelling Verified 11/26/22 22:45 morphine AdvReac Other Verified 11/26/22 22:45 promethazine HCl AdvReac Other Verified 11/26/22 22:45 [From Phenergan] sulfamethoxazole AdvReac Vomiting Verified 11/26/22 22:45 [From Bactrim] trimethoprim [From Bactrim] AdvReac Vomiting Verified 11/26/22 22:45 Family History Grandfather Heart disease Parkinson disease Hypertension Grandmother Heart disease CHF (congestive heart failure) Hypertension Dementia Mother CHF (congestive heart failure) Heart disease Father Hypertension Dementia Surgical History History of tonsillectomy Hx of section Social History Smoking Status: Never smoker alcohol intake: current alcohol intake frequency: a few times a month Alcohol type: wine ROS ROS ED ROS Narrative Recent GI illness resolved with nausea, vomiting and diarrhea. Review of Systems ROS Unobtainable: Denies due to encephalopathy Constitutional Constitutional ED: Denies chills or fever(s) Eyes Eyes: Denies blurry vision ENT ENT ED: Denies ear pain Cardiovascular Cardiovascular: Denies chest pain Respiratory/Chest Respiratory/Chest: Denies cough or dyspnea Gastrointestinal Gastrointestinal: Reports diarrhea, nausea, vomiting and other Details: 1 week ago. ; Denies abdominal pain, constipation or melena Genitourinary Genitourinary ED: Denies dysuria Musculoskeletal Musculoskeletal: Denies arthralgias Neurologic Neurologic: Denies headache(s) Psychiatric Psychiatric: Denies anxiety Endocrine Endocrinology: Denies cold intolerance Hematologic/Lymphatic Hematologic/Lymphatic: Reports none Allergic/Immunologic Allergic/Immunologic ED: Denies mouth swelling or tongue swelling EXAM Physical Exam Narrative Exam Narrative: Well-appearing 31-year-old female. Vital signs stable afebrile. H EENT exam unremarkable. Pupils round reactive light. No facial droop. Normal speech. No signs of trauma to her face or scalp. Neck nontender. No lymphadenopathy. Lungs clear to auscultation bilaterally. Heart regular rhythm no murmur. Rate about 90. Chest wall nontender. Abdomen soft nontender. Normal bowel sounds no peritoneal signs. Moving all 4 extremities. 5 out of 5 architect naval strength. Dorsi plantarflexion intact. Normal range of motion. No ataxia. Neurologically she is awake and alert. Answering questions following commands. NIH score of 0. Fingertip to nose within normal limits. No drift. Back nontender. Normal exam. Const Vital Signs: 11/26/22 22:42 11/26/22 22:49 11/26/22 (more content not included)... Normal [facility] L501.4020on 11-27-2022 TROPONIN-I HS 15 pg/mL Normal 3.0-54.0 [facility] Comment on above: Order Comment: 'TROP ' Serial specimen #1, #2 or #3: 1 Result Comment: Plea se Note: New Test Units and Gender Specific Reference Ranges. For more information see Policy Stat Procedure [facility] High Sensitivity Troponin (TNIH) and attachments. Performed By: #### L 100.0100, L700.6800, L500.2500, L501.4020 ####[facility] [id number] [place], [address] ,Serum,hCG Quali.on 11-27-2022 HCG, SERUM QUAL Negative Normal [facility] Comment on above: Performed By: #### L 100.0100, L700.6800, L500.2500, L501.4020 ####[facility] [id number] [place], [address] Absolute lymphocyte countOrd ered By: Dr. Antonio on 11-26-2022 Lymphocytes Auto (Unsp spec) [#/Vol] 2.75 10*3/uL 0.83-4.51 [facility] Basophil percentageOrdered B y: Dr. Antonio on 11-26-2022 Basophils/100 WBC (Bld) 0.7 % 0-1 [facility] Chloride [Moles/Vol] 108 mmol/L 98-107 [facility] Eosinophils/100 WBC (Bld) 3.3 % 0-5 [facility] Glucose [Mass/Vol] 129 mg/dL 74-106 [facility] Comment on above: Fasting Glucose resu lt greater than or equal to 126 mg/dL suggests DIABETES MELLITUS per A.D.A. criteria. Neutrophils (Bld) [#/Vol] 4.0 10*3/uL 2.0-7.7 [facility] Neutrophils/100 WBC (Bld) 52.3 % 47-70 [facility] Potassium [Moles/Vol] 3.6 mmol/L 3.5-5.1 [facility] Sodium [Moles/Vol] 137 mmol/L 136-145 [facility] WBC (Bld) [#/Vol] 7.6 10*3/uL 4.4-11.0 [facility] Beta hCG serum qualOrdered B y: Dr. Antonio on 11-26-2022 Beta HCG ( test) Ql Negative [facility] Blood erythrocytes count (nu mber/volume)Ordered By: Dr. Antonio on 11-26-2022 RBC (Bld) [#/Vol] 4.65 10*6/uL 4.2-5.4 [facility] Blood hemoglobin measurement (mass/volume)Ordered By: Dr. Antonio on 11-26-2022 Hemoglobin (Bld) [Mass/Vol] 11.3 g/dL 12.0-15. 0 [facility] Blood lymphocytes/100 leukoc ytesOrdered By: Dr. Antonio on 11-26-2022 Lymphocytes/100 WBC (Bld) 36.4 % 19-41 [facility] Blood monocytes/100 leukocyt esOrdered By: Dr. Antonio on 11-26-2022 Monocytes/100 WBC (Bld) 6.9 % 0-10 [facility] Blood platelet mean volumeOr dered By: Dr. Antonio on 11-26-2022 Platelet mean volume (Bld) [Entitic vol] 10.1 fL 6.2-12.0 [facility] Determination of erythrocyte mean corpuscular volume (MCV)Ordered By: Dr. Antonio on 11-26-2022 MCV (RBC) [Entitic vol] 78.9 fL 81-99 [facility] Hematocrit Auto (Bld) [Volum e fraction]Ordered By: Dr. Antonio on 11-26-2022 Hematocrit (Bld) [Volume fraction] 36.7 % 37-47 [facility] Laboratory - Chemistry and C hemistry - challengeOrdered By: Dr. Antonio on 11-26-2022 CO2 [Moles/Vol] 25.0 mmol/L 21.0-32.0 [facility] Urea nitrogen/Creatinine [Mass ratio] 14.8 mg/mg 10-20 [facility] Laboratory - Hematology and Cell countsOrdered By: Dr. Antonio on 11-26-2022 Erythrocyte distribution width (RBC) [Entitic vol] 44.2 fL 35.1-43.9 [facility] Erythrocyte distribution width (RBC) [Ratio] 15.5 % 11.6-14.6 [facility] Immature granulocytes/100 WBC (Bld) 0.400 % 0.0-0.9 [facility] Comment on above: IG% - Immature Granu locytes (promyelocytes, myelocytes and metamyelocytes) > 1% indicates that a LEFT SHIFT is Present. MCH (RBC) [Entitic mass] 24.3 pg 27.0-32.0 [facility] Nucleated RBC/100 WBC (Bld) [Ratio] 0 % 0-5 [facility] MCHC Auto (RBC) [Mass/Vol]Or dered By: Dr. Antonio on 11-26-2022 MCHC (RBC) [Mass/Vol] 30.8 g/dL 32-36 [facility] No Panel InformationOrdered By: Dr. Antonio on 11-26-2022 Estimated Creatinine Clearance Calc 61.29 ml/min [facility] Estimated GFR (MDRD) Amer 75 mL/min >60 [facility] Comment on above: GFR Calc Estimated GFR (MDRD) Non-Af Amer 62 mL/min >60 [facility] Comment on above: Non- GFR Calc Troponin I High Sensitivity 15 pg/mL 3.0-54.0 [facility] Comment on above: Please Note: New Lupe t Units and Gender Specific Reference Ranges. For more information see Policy Stat Procedure [facility] High Sensitivity Troponin (TNIH) and attachments. Platelets bldOrdered By: Dr. Antonio on 11-26-2022 Platelets (Bld) [#/Vol] 262 10*3/uL 150-450 [facility] Serum or plasma calcium bri urement (mass/volume)Ordered By: Dr. Antonio on 11-26-2022 Calcium [Mass/Vol] 8.8 mg/dL 8.5-10.1 [facility] Serum or plasma creatinine m easurement (mass/volume)Ordered By: Dr. Antonio on 11-26-2022 Creatinine [Mass/Vol] 1.08 mg/dL 0.55-1.02 [facility] Comment on above: The validity of the calculated GFR & GFRAA in patients over 70 years has not been determined. Clinical correlation is essential. Serum or plasma urea nitroge n measurement (mass/volume)Ordered By: Dr. Antonio on 11-26-2022 Urea nitrogen [Mass/Vol] 16 mg/dL 7-18 [facility] Thin prep Papanicolaou smear with manual screeningOrdered By: Dr. Antonio on 11-26-2022 Thin prep Papanicolaou smear with manual screening 4 5-15 [facility] Absolute lymphocyte countOrd ered By: Dr. Garcia on 09-01-2022 Lymphocytes Auto (Unsp spec) [#/Vol] 2.44 10*3/uL 0.83-4.51 [facility] Basophil percentageOrdered B y: Dr. Garcia on 09-01-2022 Basophils/100 WBC (Bld) 0.6 % 0-1 [facility] Chloride [Moles/Vol] 107 mmol/L 98-107 [facility] Eosinophils/100 WBC (Bld) 4.0 % 0-5 [facility] Glucose [Mass/Vol] 126 mg/dL 74-106 [facility] Comment on above: Fasting Glucose resu lt greater than or equal to 126 mg/dL suggests DIABETES MELLITUS per A.D.A. criteria. Neutrophils (Bld) [#/Vol] 4.8 10*3/uL 2.0-7.7 [facility] Neutrophils/100 WBC (Bld) 58.3 % 47-70 [facility] Potassium [Moles/Vol] 3.6 mmol/L 3.5-5.1 [facility] Sodium [Moles/Vol] 143 mmol/L 136-145 [facility] WBC (Bld) [#/Vol] 8.2 10*3/uL 4.4-11.0 [facility] Blood erythrocytes count (nu mber/volume)Ordered By: Dr. Garcia on 09-01-2022 RBC (Bld) [#/Vol] 4.71 10*6/uL 4.2-5.4 [facility] Blood hemoglobin measurement (mass/volume)Ordered By: Dr. Garcia on 09-01-2022 Hemoglobin (Bld) [Mass/Vol] 10.9 g/dL 12.0-15. 0 [facility] Blood lymphocytes/100 leukoc ytesOrdered By: Dr. Garcia on 09-01-2022 Lymphocytes/100 WBC (Bld) 29.8 % 19-41 [facility] Blood monocytes/100 leukocyt esOrdered By: Dr. Garcia on 09-01-2022 Monocytes/100 WBC (Bld) 7.1 % 0-10 [facility] Blood platelet mean volumeOr dered By: Dr. Garcia on 09-01-2022 Platelet mean volume (Bld) [Entitic vol] 10.3 fL 6.2-12.0 [facility] Determination of erythrocyte mean corpuscular volume (MCV)Ordered By: Dr. Garcia on 09-01-2022 MCV (RBC) [Entitic vol] 76.4 fL 81-99 [facility] Hematocrit Auto (Bld) [Volum e fraction]Ordered By: Dr. Garcia on 09-01-2022 Hematocrit (Bld) [Volume fraction] 36.0 % 37-47 [facility] Laboratory - Chemistry and C hemistry - challengeOrdered By: Dr. Garcia on 09-01-2022 CO2 [Moles/Vol] 28.0 mmol/L 21.0-32.0 [facility] Urea nitrogen/Creatinine [Mass ratio] 18.2 mg/mg 10-20 [facility] Laboratory - Hematology and Cell countsOrdered By: Dr. Garcia on 09-01-2022 Erythrocyte distribution width (RBC) [Entitic vol] 45.5 fL 35.1-43.9 [facility] Erythrocyte distribution width (RBC) [Ratio] 16.4 % 11.6-14.6 [facility] Immature granulocytes/100 WBC (Bld) 0.200 % 0.0-0.9 [facility] Comment on above: IG% - Immature Granu locytes (promyelocytes, myelocytes and metamyelocytes) > 1% indicates that a LEFT SHIFT is Present. MCH (RBC) [Entitic mass] 23.1 pg 27.0-32.0 [facility] Nucleated RBC/100 WBC (Bld) [Ratio] 0 % 0-5 [facility] MCHC Auto (RBC) [Mass/Vol]Or dered By: Dr. Garcia on 09-01-2022 MCHC (RBC) [Mass/Vol] 30.3 g/dL 32-36 [facility] No Panel InformationOrdered By: Dr. Garcia on 09-01-2022 D-Dimer Quantitative (PE/DVT) < 0.27 FEU/ug/m 0.27-0.49 [facility] Comment on above: NORMAL D-Dimer level (<0.50) indicates no DVT or PE. Estimated Creatinine Clearance Calc 66.86 ml/min [facility] Estimated GFR (MDRD) Amer 83 mL/min >60 [facility] Comment on above: GFR Calc Estimated GFR (MDRD) Non-Af Amer 68 mL/min >60 [facility] Comment on above: Non- GFR Calc Platelets bldOrdered By: Dr. Garcia on 09-01-2022 Platelets (Bld) [#/Vol] 253 10*3/uL 150-450 [facility] Serum or plasma calcium bri urement (mass/volume)Ordered By: Dr. Garcia on 09-01-2022 Calcium [Mass/Vol] 8.8 mg/dL 8.5-10.1 [facility] Serum or plasma creatinine m easurement (mass/volume)Ordered By: Dr. Garcia on 09-01-2022 Creatinine [Mass/Vol] 0.99 mg/dL 0.55-1.02 [facility] Comment on above: The validity of the calculated GFR & GFRAA in patients over 70 years has not been determined. Clinical correlation is essential. Serum or plasma urea nitroge n measurement (mass/volume)Ordered By: Dr. Garcia on 09-01-2022 Urea nitrogen [Mass/Vol] 18 mg/dL 7-18 [facility] Thin prep Papanicolaou smear with manual screeningOrdered By: Dr. Garcia on 09-01-2022 Thin prep Papanicolaou smear with manual screening 8 5-15 [facility] XR Foot - left AP and Latera l and obliqueon 08-01-2022 IMPRESSION: No acute radiographic abnormalities seen in the left foot. Lokie Engineer: PSCB Transcribe Date/Time: Aug 01 2022 11:01A Dictated by : ALISSA NUNEZ MD This examination was interpreted and the report reviewed and electronically signed by: ALISSA NUNEZ MD on Aug 01 2022 11:03AM [facility] DIVISION OF RADIOLOGY * * *Final Report* * * DATE OF EXAM: Aug 01 2022 10:43AM WOX [id number] - XR FOOT 3V AP/LAT/OBL LT / PROCEDURE REASON: Foot pain, left * * * * Physician Interpretation * * * * EXAM TITLE: XR FOOT 3V AP/LAT/OBL LT EXAM DATE/TIME: 08/01/2022 10:43 AM COMPARISON: None CLINICAL INDICATION/HISTORY: Foot pain. TECHNIQUE: AP, lateral and oblique views of the left foot are presented. FINDINGS: No acute fractures or subluxations are noted. No bony erosions are seen. The joint spaces are well preserved. The mineralization of the bones is normal. There is no significant soft tissue swelling. DIVISION OF RADIOLOGY Provider, [facility] Moira [facility] - 08/01/2022 * * *Final Report* * * DATE OF EXAM: Aug 01 2022 10:43AM WOX [id number] - XR FOOT 3V AP/LAT/OBL LT / PROCEDURE REASON: Foot pain, left * * * * Physician Interpretation * * * * EXAM TITLE: XR FOOT 3V AP/LAT/OBL LT EXAM DATE/TIME: 08/01/2022 10:43 AM COMPARISON: None CLINICAL INDICATION/HISTORY: Foot pain. TECHNIQUE: AP, lateral and oblique views of the left foot are presented. FINDINGS: No acute fractures or subluxations are noted. No bony erosions are seen. The joint spaces are well preserved. The mineralization of the bones is normal. There is no significant soft tissue swelling. IMPRESSION IMPRESSION: No acute radiographic abnormalities seen in the left foot. Lokie Engineer: EDWARD Transcribe Date/Time: Aug 01 2022 11:01A Dictated by : ALISSA NUNEZ MD This examination was interpreted and the report reviewed and electronically signed by: ALISSA NUNEZ MD on Aug 01 2022 11:03AM [facility] Radiology Study observation (narrative) [facility] XR Foot - left AP and Latera l and obliqueOrdered By: [facility] Provider on 08-01-2022 [facility] Rajwinder 05-02-2022 YENI Telephone (MEGHANN) MAIK MARTINES ([id number]) 1990 [facility] Date Time Provider Department 05/02/22 VESNA HILLMAN During your visit today, we recorded the following information about you: Vesna Hillman APRN.BUILDING CONSTRUCTION FOREMAN 05/02/2022 1:00 PM Signed Please let patient know that her renal ultrasound was normal. Jade Juan Cma 05/02/2022 1:30 PM Signed Lmom for pt to call back to give her, her results. Jade Loya RN 05/03/2022 9:52 AM Signed Patient notified of results. Tamar Loya RN Allergies As of Date: 05/02/2022 Noted Allergy Reaction BACTRIM (SULFAMETHOXAZOLE-TRIM ETH*08/20/2015 8 - GI Upset Comments: vomiting MORPHINE 01/07/2008 Comments: hypotension PHENERGAN (PROMETHAZINE HCL) 01/07/2008 14 - Other: See Comments Comments: ? Hypotension, given at same time as Morphine ZOLOFT (SERTRALINE HCL) 10/30/2016 14 - Other: See Comments Comments: Increased anxiety and weight gain Date Reviewed: 04/25/2022 Reviewed by: Raheem Orozco MA - Fully Assessed Reason for Visit: Results [95] Prescriptions as of 05/03/2022 - fluconazole (DIFLUCAN) 150 mg tablet Take 1 tablet by mouth once daily. - ergocalciferol 50,000 unit capsule (VITAMIN D2, DRISDOL) Take 1 capsule by mouth one time a week. - fexofenadine (RADHA) 180 mg tablet Take 1 tablet by mouth once daily. - ENSKYCE 0.15-0.03 mg per tablet Take 1 tablet by mouth once daily. - lansoprazole (PREVACID) 30 mg capsule Take 1 capsule by mouth twice daily before meals. - loratadine (CLARITIN) 10 mg tablet - albuterol HFA (PROAIR HFA) 90 mcg/actuation inhaler Inhale 2 Puffs as instructed every 4 hours as needed. - Levonorgestrel-Ethinyl Estrad (MARLISSA) 0.15-0.03 mg per tablet Take 1 tablet by mouth once daily. Problem List As Of Date 05/02/2022 Noted Resolved GE REFLUX (GASTROESOPHAGEAL) [K21.9] 03/06/2008 RHINITIS ALLERGIC, DUE TO POLLEN [J30.1] 03/06/2008 MELENA, BLOOD IN STOOL [K92.1] 03/06/2008 Supervision of Normal First [Z34.00] 03/25/2009 11/18/2009 Bacteriuria Preg-Unspec [O99.891, R82.71] 06/08/2009 11/18/2009 Routine Follow-Up [Z39.2] 12/22/2009 Leg Pain [M79.606] 12/22/2009 Unspecified Backache [M54.9] 12/22/2009 ANTOINE (generalized anxiety disorder) [F41.1] 02/16/2015 Encounter Status:Closed by TAMAR LOYA [facility] Tele[facility] (UROLAE) MAIK MARTINES ([id number]) 1990 [facility] Date Time Provider Department 04/28/22 VESNA HILLMAN During your visit today, we recorded the following information about you: Vesna Hillman APRN.CNP 04/28/2022 12:59 PM Signed Please call patient, urine culture is negative for infection. Shay Fernandez Ma 04/28/2022 1:01 PM Signed Patient informed. Shay Fernandez Ma Allergies As of Date: 04/28/2022 Noted Allergy Reaction BACTRIM (SULFAMETHOXAZOLE-TRIM ETH*08/20/2015 8 - GI Upset Comments: vomiting MORPHINE 01/07/2008 Comments: hypotension PHENERGAN (PROMETHAZINE HCL) 01/07/2008 14 - Other: See Comments Comments: ? Hypotension, given at same time as Morphine ZOLOFT (SERTRALINE HCL) 10/30/2016 14 - Other: See Comments Comments: Increased anxiety and weight gain Date Reviewed: 04/25/2022 Reviewed by: Raheem Orozco MA - Fully Assessed Reason for Visit: Results [95] Prescriptions as of 04/28/2022 - fluconazole (DIFLUCAN) 150 mg tablet Take 1 tablet by mouth once daily. - ergocalciferol 50,000 unit capsule (VITAMIN D2, DRISDOL) Take 1 capsule by mouth one time a week. - fexofenadine (RADHA) 180 mg tablet Take 1 tablet by mouth once daily. - ENSKYCE 0.15-0.03 mg per tablet Take 1 tablet by mouth once daily. - lansoprazole (PREVACID) 30 mg capsule Take 1 capsule by mouth twice daily before meals. - loratadine (CLARITIN) 10 mg tablet - albuterol HFA (PROAIR HFA) 90 mcg/actuation inhaler Inhale 2 Puffs as instructed every 4 hours as needed. - Levonorgestrel-Ethinyl Estrad (MARLISSA) 0.15-0.03 mg per tablet Take 1 tablet by mouth once daily. Problem List As Of Date 04/28/2022 Noted Resolved GE REFLUX (GASTROESOPHAGEAL) [K21.9] 03/06/2008 RHINITIS ALLERGIC, DUE TO POLLEN [J30.1] 03/06/2008 MELENA, BLOOD IN STOOL [K92.1] 03/06/2008 Supervision of Normal First [Z34.00] 03/25/2009 11/18/2009 Bacteriuria Preg-Unspec [O99.891, R82.71] 06/08/2009 11/18/2009 Routine Follow-Up [Z39.2] 12/22/2009 Leg Pain [M79.606] 12/22/2009 Unspecified Backache [M54.9] 12/22/2009 ANTOINE (generalized anxiety disorder) [F41.1] 02/16/2015 Encounter Status:Closed by VESNA HILLMAN on 04/28/22 Normal [facility] US KIDNEY/BLADDERon 04-28-20 22 [facility] Bacteria Ur Culton 2 Bacteria identified Cx Nom (U) CULTURE, URINE: Three or more urogenital leland organisms. No predominating uropathogen. Recollect if clinically indicated. Normal [facility] Comment on above: Performed By: #### 6 30-4 #### [facility] CLIA [id number] [address] STATES OF [facility] CNOVon 04-25-2022 CNOV Office Visit (AKURFL ) MAIK MARTINES ([id number]) 1990 F [facility] Date Time Provider Department 04/25/22 8:00 AM VESNA HILLMAN During your visit today, we recorded the following information about you: Blood pressure Weight Height 188/82 71.7 kg 1.6 m Raheem Orozco MA 04/25/2022 8:09 AM Signed Machine Shop Repair Technician offered:Patient declines, did bladder scan. Vesna Hillman APRN.CNP 04/25/2022 9:04 AM Signed NEW PATIENT OFFICE VISIT HISTORY OF PRESENT [...] (no units) Date Value 08/30/2016 Negative Specific [place], Ur (no units) Date Value 08/30/2016 1.026 [...] Lymph node enlargement right posterior auricular, sees [facility] Lymph node enlargement right axilla FAMILY [...] US KIDNEY/BLADDER - follow up pending results Vesna Hillman APRN.[facility] Referring Provider: TJ MEDINA [[id number]] Allergies As of Date: 04/25/2022 Noted Allergy Reaction BACTRIM (SULFAMETHOXAZOLE-TRIM ETH*08/20/2015 8 - GI Upset Comments: vomiting MORPHINE 01/06 (more content not included)... Normal [facility] UA DIP, URINE (POC)on 2021 BILIRUBIN UA (POCT) Negative Negative [facility] CLARITY UA (POCT) Clear [facility] COLOR UA (POCT) [facility] GLUCOSE UA (POCT) Negative Negative mg/dL [facility] HEMOGLOBIN/BLOOD UA (POCT) Negative Negative [facility] KETONE UA (POCT) Negative Negative mg/dL [facility] LEUKOCYTES UA (POCT) Small Abnormal Negative [facility] NITRITE UA (POCT) Negative Negative [facility] PH UA (POCT) 5.5 4.5 - 8.0 [facility] Protein Ql (U) Negative Negative mg/dL [facility] SPECIFIC GRAVITY UA (POCT) 1.020 1 .005 - 1.030 [facility] UROBILINOGEN UA (POCT) 0.2 E.U./dL Sasha l E.U./dL [facility] CNPNon 01-06-2022 [facility] MAIK MARTINES ([id number]) 1990 F [facility] Date Time Provider Department 01/06/22 [facility] During your visit today, we recorded the following information about you: Fabiana Arango MA 01/06/2022 3:06 PM Signed A message was left for the patient to call the office regarding scheduling a follow up appointment with Dr. Sánchez. Patient was to follow up in early November but was unable to schedule due to her work schedule. Fabiana Arango MA Allergies As of Date: 01/06/2022 Noted Allergy Reaction BACTRIM (SULFAMETHOXAZOLE-TRIM ETH*08/20/2015 8 - GI Upset Comments: vomiting MORPHINE 01/07/2008 Comments: hypotension PHENERGAN (PROMETHAZINE HCL) 01/07/2008 14 - Other: See Comments Comments: ? Hypotension, given at same time as Morphine ZOLOFT (SERTRALINE HCL) 10/30/2016 14 - Other: See Comments Comments: Increased anxiety and weight gain Date Reviewed: 10/17/2021 Reviewed by: Mónica Sánchez MD - Fully Assessed Reason for Visit: Future Appointment [256] Prescriptions as of 01/06/2022 - ergocalciferol 50,000 unit capsule (VITAMIN D2, DRISDOL) Take 1 capsule by mouth one time a week. - fexofenadine (RADHA ALLERGY) 180 mg tablet Take 1 tablet by mouth once daily. - ENSKYCE 0.15-0.03 mg per tablet Take 1 tablet by mouth once daily. - escitalopram oxalate (LEXAPRO) 5 mg tablet Take 5 mg by mouth once daily. - lansoprazole (PREVACID) 30 mg capsule Take 1 capsule by mouth twice daily before meals. - loratadine (CLARITIN) 10 mg tablet - ondansetron (ZOFRAN) 4 mg tablet Take by mouth. - albuterol HFA (PROAIR HFA) 90 mcg/actuation inhaler Inhale 2 Puffs as instructed every 4 hours as needed. - Levonorgestrel-Ethinyl Estrad (MARLISSA) 0.15-0.03 mg per tablet Take 1 tablet by mouth once daily. Problem List As Of Date 01/06/2022 Noted Resolved GE REFLUX (GASTROESOPHAGEAL) [K21.9] 03/06/2008 RHINITIS ALLERGIC, DUE TO POLLEN [J30.1] 03/06/2008 MELENA, BLOOD IN STOOL [K92.1] 03/06/2008 Supervision of Normal First [Z34.00] 03/25/2009 11/18/2009 Bacteriuria Preg-Unspec [O99.891, R82.71] 06/08/2009 11/18/2009 Routine Follow-Up [Z39.2] 12/22/2009 Leg Pain [M79.606] 12/22/2009 Unspecified Backache [M54.9] 12/22/2009 ANTOINE (generalized anxiety disorder) [F41.1] 02/16/2015 Encounter Status:Closed by FABIANA ARANGO on 01/06/22 [facility] CNPMayra 11-07-2021 CNPN Telephone ([facility]CR) MAIK MARTINES ([id number]) 1990 F [facility] Date Time Provider Department 11/07/21 MÓNICA SÁNCHEZ AGGNEYDA During your visit today, we recorded the following information about you: Fabiana Arango MA 11/07/2021 4:53 PM Signed I spoke with the patient to schedule her for a one month follow up with Dr. Sánchez. Patient will call back she was unable to schedule at this time due to her work schedule. Fabiana Arango MA Allergies As of Date: 11/07/2021 Noted Allergy Reaction BACTRIM (SULFAMETHOXAZOLE-TRIM ETH*08/20/2015 8 - GI Upset Comments: vomiting MORPHINE 01/07/2008 Comments: hypotension PHENERGAN (PROMETHAZINE HCL) 01/07/2008 14 - Other: See Comments Comments: ? Hypotension, given at same time as Morphine ZOLOFT (SERTRALINE HCL) 10/30/2016 14 - Other: See Comments Comments: Increased anxiety and weight gain Date Reviewed: 10/17/2021 Reviewed by: Mónica Sánchez MD - Fully Assessed Reason for Visit: Future Appointment [256] Prescriptions as of 11/07/2021 - ergocalciferol 50,000 unit capsule (VITAMIN D2, DRISDOL) Take 1 capsule by mouth one time a week. - lidocaine-prilocaine (EMLA) 2.5-2.5 % cream Apply cream to affected area twice daily as needed - fexofenadine (RADHA ALLERGY) 180 mg tablet Take 1 tablet by mouth once daily. - ENSKYCE 0.15-0.03 mg per tablet Take 1 tablet by mouth once daily. - escitalopram oxalate (LEXAPRO) 5 mg tablet Take 5 mg by mouth once daily. - lansoprazole (PREVACID) 30 mg capsule Take 1 capsule by mouth twice daily before meals. - loratadine (CLARITIN) 10 mg tablet - ondansetron (ZOFRAN) 4 mg tablet Take by mouth. - albuterol HFA (PROAIR HFA) 90 mcg/actuation inhaler Inhale 2 Puffs as instructed every 4 hours as needed. - Levonorgestrel-Ethinyl Estrad (MARLISSA) 0.15-0.03 mg per tablet Take 1 tablet by mouth once daily. Problem List As Of Date 11/07/2021 Noted Resolved GE REFLUX (GASTROESOPHAGEAL) [K21.9] 03/06/2008 RHINITIS ALLERGIC, DUE TO POLLEN [J30.1] 03/06/2008 MELENA, BLOOD IN STOOL [K92.1] 03/06/2008 Supervision of Normal First [Z34.00] 03/25/2009 11/18/2009 Bacteriuria Preg-Unspec [O99.891, R82.71] 06/08/2009 11/18/2009 Routine Follow-Up [Z39.2] 12/22/2009 Leg Pain [M79.606] 12/22/2009 Unspecified Backache [M54.9] 12/22/2009 ANTOINE (generalized anxiety disorder) [F41.1] 02/16/2015 Encounter Status:Closed by FABIANA ARANGO on 11/07/21 [facility] Rajwinder 10-18-2021 GEOFF Telephone (AGGBRCR) CONRADCHRISSMAIK Yazan ([id number]) 1990 F [facility] Date Time Provider Department 10/18/21 MÓNICA SÁNCHEZ AGGBRCR During your visit today, we recorded the following information about you: Mónica Sánchez MD 10/18/2021 10:54 AM Signed Patient notified of vitamin D results. Rx was sent for vitamin D replacement 50,000 IUs/week for 8 weeks. She was then instructed to begin 5000 IUs [id number] vitamin D per day after the Rx is complete Component Ref Range AND Units 1 d ago 5 yr ago Vitamin D 25 Hydroxy 30.0 - 100.0 ng/mL 22.8?Low? 22.7?Low? R, CM Comment: Classification of 25 OH Vitamin D status: Deficiency: <= 20.0 ng/ml. Insufficientcy: 21.0-29.0 ng/ml. Sufficiency: >= 30.0 ng/ml. Allergies As of Date: 10/18/2021 Noted Allergy Reaction BACTRIM (SULFAMETHOXAZOLE-TRIM ETH*08/20/2015 8 - GI Upset Comments: vomiting MORPHINE 01/07/2008 Comments: hypotension PHENERGAN (PROMETHAZINE HCL) 01/07/2008 14 - Other: See Comments Comments: ? Hypotension, given at same time as Morphine ZOLOFT (SERTRALINE HCL) 10/30/2016 14 - Other: See Comments Comments: Increased anxiety and weight gain Date Reviewed: 10/17/2021 Reviewed by: Mónica Sánchez MD - Fully Assessed Reason for Visit: Results [95] Order(s):ergocalcifero l 50,000 unit capsule (VITAMIN D2, DRISDOL)Take 1 capsule by mouth one time a week.Disp: 8 capsuleRfl: 0 Prescriptions as of 10/18/2021 - ergocalciferol 50,000 unit capsule (VITAMIN D2, DRISDOL) Take 1 capsule by mouth one time a week. - lidocaine-prilocaine (EMLA) 2.5-2.5 % cream Apply cream to affected area twice daily as needed - fexofenadine (RADHA ALLERGY) 180 mg tablet Take 1 tablet by mouth once daily. - ENSKYCE 0.15-0.03 mg per tablet Take 1 tablet by mouth once daily. - escitalopram oxalate (LEXAPRO) 5 mg tablet Take 5 mg by mouth once daily. - lansoprazole (PREVACID) 30 mg capsule Take 1 capsule by mouth twice daily before meals. - loratadine (CLARITIN) 10 mg tablet - ondansetron (ZOFRAN) 4 mg tablet Take by mouth. - albuterol HFA (PROAIR HFA) 90 mcg/actuation inhaler Inhale 2 Puffs as instructed every 4 hours as needed. - Levonorgestrel-Ethinyl Estrad (MARLISSA) 0.15-0.03 mg per tablet Take 1 tablet by mouth once daily. Problem List As Of Date 10/18/2021 Noted Resolved GE REFLUX (GASTROESOPHAGEAL) [K21.9] 03/06/2008 RHINITIS ALLERGIC, DUE TO POLLEN [J30.1] 03/06/2008 MELENA, BLOOD IN STOOL [K92.1] 03/06/2008 Supervision of Normal First [Z34.00] 03/25/2009 11/18/2009 Bacteriuria Preg-Unspec [O99.891, R82.71] 06/08/2009 11/18/2009 Routine Follow-Up [Z39.2] 12/22/2009 Leg Pain [M79.606] 12/22/2009 Unspecified Backache [M54.9] 12/22/2009 ANTOINE (generalized anxiety disorder) [F41.1] 02/16/2015 Prescriptions ordered this encounter Disp Refills Start End ERGOCALCIFEROL (VITAMIN D2) 1,250 MC* 8 ca* 0 10/18/2021 Route: ORAL Sig: Take 1 capsule by mouth one time a week. Encounter Status:Closed by MÓNICA SÁNCHEZ on 10/18/21 [facility] CNOVon 10-17-2021 CNOV Office Visit (AGGBRC R) MAIK MARTINES ([id number]) 1990 F [facility] Date Time Provider Department 10/17/21 3:30 PM MÓNICA SÁNCHEZ AGGBRAARON During your visit today, we recorded the following information about you: Pulse Blood pressure Weight Height 98/minute 121/85 72.6 kg 1.6 m Octavia Brewer LPN 10/17/2021 3:43 PM Signed Patient present for right breast and axillary pain x2-3 months. KEYA Belle MD 10/17/2021 4:11 PM Signed Mónica Sán[place] [address] HPI: Maik Martines is a 30 year old White female who presents for an evaluation of right breast and axillary pain of 2-1/2 months duration. She has tried [id number] Tylenol, ibuprofen and evening primrose oil with no significant improvement. Nursing Notes: Octavia Brewer LPN 10/17/2021 3:43 PM Signed Patient present for right breast and axillary pain x2-3 months. Octavia Brewer LPN AGE AT [facility] 10 AGE AT FIRST 18 (3/2) FAMILY HISTORY OF BREAST CANCER Yes (IF [...] enlargement right posterior auricular, sees [facility] - Lymph node enlargement right axilla [...] 121/85 Pulse 98 Ht 160 cm (5' 3) Wt 72.6 kg (160 lb) LMP 10/09/2016 [...] of 2-1/2 months duration. She has tried [id number] Tylenol, ibuprofen and evening p (more content not included)... Normal [facility] VITAMIN D 25 HYDROXYon 10-17 25-hydroxyvitamin D3 [Mass/Vol] 22.8 ng/mL Low 30.0-100.0 [facility] Comment on above: Order Comment: Speci men Type: BLOOD SPECIMENOrdering Facility: [facility] Address: [address] [place], [place] [id number] Result Comment: Clas sification of 25 OH Vitamin D status: Deficiency: <= 20.0 ng/ml. Insufficientcy: 21.0-29.0 ng/ml. Sufficiency: >= 30.0 ng/ml. Performed By: #### V ITD ####[facility] LABORATORYCLIA [id number] [place] [address] [place] [facility] Reporton 2021 [facility] Report . Pathology Reports Accession: Collected Date/Time: Received Date/Time: Pathologist: [id number] 10/10/2021 16:28 EDT 10/10/2021 18:00 EDT [facility] Report SPECIMEN: Specimen Description: Liquid Prep w/ HPV Specimen: Cervical Screening or Diagnostic: Screening RELEVANT HISTORY: LMP: 09/09/21 : Yes [id number] SPECIMEN ADEQUACY: SATISFACTORY FOR EVALUATION ENDOCERVICAL/TRANSFORM ATIONAL ZONE COMPONENT ABSENT/INSUFFICIENT INTERPRETATION/RESULTS : NEGATIVE FOR INTRAEPITHELIAL LESION OR MALIGNANCY HIGH RISK HPV TESTING: High Risk HPV Typing: Negative HPV Types 16, 18, 31, 33, 35, 39, 45, 51, 52, 56, 58, 59, 66 and 68 DNA were undetectable or below the pre-set threshold. The carlos High-Risk HPV DNA Test is not intended for use as a screening device for Pap normal women under age 30 and is not intended to substitute for regular Pap screening. The carlos High-Risk HPV DNA Test is designed to augment existing methods for the detection of cervical disease and should be used in conjunction with clinical information derived from other diagnostic and screening tests, physical examinations and full medical history in accordance with appropriate patient management procedures. NOTE: A negative result does not preclude the presence of HPV infection because results depend on adequate specimen collection, absence of inhibitors and sufficient DNA to be detected. COMMENT: This Pap Test was successfully processed and evaluated with the assistance of the [employer] ThinPrep Test Imaging System. Electronically Signed by Pathology report verified by [facility] Screened by: STEPHIE Electronically signed by Samantha MENA (ASCP) Sign-Out Date: 10/14/2021 11:23 Performing Lab: [facility], [address] [place] [address] Disclaimer The Pap test is a screening test for cervical cancer. As evidenced by published data, it is subject to both inherent false negative and false positive results. Your patient's results should be interpreted in context with pertinent clinical history including gynecological examination. Normal [facility] [place] HPVon 10-13-2021 HPV Interp Normal See Interp HPVN [facility] [place] Comment on above: Order Comment: Order placed by AP_HPV_ORDER rule from [id number] Result Comment: High Risk HPV Typing: NEGATIVE HPV types 16, 18, 31, 33, 35, 39, 45, 51, 52, 56, 58, 59, 66 and 68 DNA were undetectable or below the pre-set threshold. The carlos High-Risk HPV DNA Test is not intended for use as a screening device for Pap normal women under age 30 and is not intended to substitute for regular Pap screening. The carlos High-Risk HPV DNA Test is designed to augment existing methods for the detection of cervical disease and should be used in conjunction with clinical information derived from other diagnostic and screening tests, physical examinations and full medical history in accordance with appropriate patient management procedures. NOTE: A negative result does not preclude the presence of HPV infection because results depend on adequate specimen collection, absence of inhibitors and sufficient DNA to be detected. See Interp HPVN Performed By: #### H PV #### [place] [address] HPV Source Cervix Normal [facility] [place] Comment on above: Order Comment: Order placed by AP_HPV_ORDER rule from [id number] Performed By: #### H PV #### [place] [address] LABORATORYOrdered By: Cody Kat on 10-10-2021 HPV Interp High Risk HPV Typing : NEGATIVEHPV types 16, 18, 31, 33, 35, 39, 45, 51, 52, 56, 58, 59, 66 and 68 DNA wereundetectable or below the pre-set threshold.The carlos High-Risk HPV DNA Test is not intended for use as a screening device forPap normal women under age 30 and is not intended to substitute for regular Papscreening.The carlos High-Risk HPV DNA Test is designed to augment existing methods for thedetection of cervical disease and should be used in conjunction with clinicalinformation derived from other diagnostic and screening tests, physical examinationsand full medical history in accordance with appropriate patient managementprocedures.N OTE: A negative result does not preclude the presence of HPV infection because resultsdepend on adequate specimen collection, absence of inhibitors and sufficientDNA to be detected. Invalid Interpretation Code See Interp HPVN AH Auto Viro/Sero SS Specimen source Nom (Unsp spec) Cervix (10/10/21 4:28 PM) Invalid Interpretation Code AH Auto Viro/Sero SS Vital Signs Date Time Vital Sign Value Performing Clinician Facility 08-14-2024 10:35-0500 Body mass index (BMI) [Ratio] 32.42 kg/m2 Vernell Medina MD Work Phone: [facility] 08-14-2024 10:35-0500 Body weight 83.01 kg Vernell Medina MD Work Phone: [facility] 08-14-2024 10:35-0500 Diastolic blood pressure 84 mm[Hg] Vernell Medina MD Work Phone: [facility] 08-14-2024 10:35-0500 Systolic blood pressure 124 mm[Hg] Vernell Medina MD Work Phone: [facility] 07-31-2024 09:55-0500 Body height 160 cm Claudine Joyce APRN.CNM Work Phone: [facility] 07-31-2024 09:55-0500 Body mass index (BMI) [Ratio] 32.42 kg/m2 Claudine Olsonts [employer] PLANS STAFF OFFICER.CNM Work Phone: [facility] 07-31-2024 09:55-0500 Body weight 83.01 kg Claudine Joyce [employer] PL[employer] STAFF OFFICER.CNM Work Phone: [facility] 07-31-2024 09:55-0500 Diastolic blood pressure 76 mm[Hg] Claudine Olsonts [employer]ADC PLANS STAFF OFFICER.CNM Work Phone: [facility] 07-31-2024 09:55-0500 Systolic blood pressure 118 mm[Hg] Claudine Olsonts [employer] PL[employer] STAFF OFFICER.CNM Work Phone: [facility] 07-03-2024 08:50-0500 Body mass index (BMI) [Ratio] 33.19 kg/m2 Krislyn Aberegg PA Work Phone: [facility] 07-03-2024 08:50-0500 Body temperature 99.7 [degF] Krislyn Aberegg PA Work Phone: [facility] 07-03-2024 08:50-0500 Body weight 85 kg Krislyn Aberegg PA Work Phone: [facility] 07-03-2024 08:50-0500 Diastolic blood pressure 86 mm[Hg] Krislyn Aberegg PA Work Phone: [facility] 07-03-2024 08:50-0500 Heart rate 107 /min Krislyn Aberegg PA Work Phone: [facility] 07-03-2024 08:50-0500 Respiratory rate 20 /min Krislyn Aberegg PA Work Phone: [facility] 07-03-2024 08:50-0500 SaO2% (BldA) [Mass fraction] 97 % Krislyn Aberegg PA Work Phone: [facility] 07-03-2024 08:50-0500 Systolic blood pressure 134 mm[Hg] Krislyn Aberegg PA Work Phone: [facility] 05-11-2024 08:12-0400 Body mass index (BMI) [Ratio] 32.96 kg/m2 Bandar Sohail [employer] PL[employer] STAFF OFFICER.BUILDING [employer]STRUCTION FOREMAN Work Phone: [facility] 05-11-2024 08:12-0400 Body temperature 98.6 [degF] Bandar Sauceda [employer] PL[employer] STAFF OFFICER.BUILDING CONSTRUCTION FOREMAN Work Phone: [facility] 05-11-2024 08:12-0400 Body weight 84.4 kg Bandar Sauceda [employer] PL[employer] STAFF OFFICER.BUILDING CONSTRUCTION FOREMAN Work Phone: [facility] 05-11-2024 08:12-0400 Diastolic blood pressure 80 mm[Hg] Bandar Sauceda [employer] PL[employer] STAFF OFFICER.BUILDING CONSTRUCTION FOREMAN Work Phone: [facility] 05-11-2024 08:12-0400 Heart rate 106 /min Bandar Sauceda [employer] PL[employer] STAFF OFFICER.BUILDING CONSTRUCTION FOREMAN Work Phone: [facility] 05-11-2024 08:12-0400 Respiratory rate 16 /min Bandar Sauceda [employer] PL[employer] STAFF OFFICER.BUILDING CONSTRUCTION FOREMAN Work Phone: [facility] 05-11-2024 08:12-0400 SaO2% (BldA) [Mass fraction] 98 % Bandar Sauceda [employer] STAFF OFFICER.BUILDING CONSTRUCTION FOREMAN Work Phone: [facility] 05-11-2024 08:12-0400 Systolic blood pressure 132 mm[Hg] Bandar Sauceda [employer] PL[employer] STAFF OFFICER.BUILDING CONSTRUCTION FOREMAN Work Phone: [facility] 11-11-2023 08:39-0400 Body temperature 98.8 [degF] Bandar Sauceda [employer] PL[employer] STAFF OFFICER.BUILDING CONSTRUCTION FOREMAN Work Phone: [facility] 11-11-2023 08:39-0400 Body weight 82.4 kg Bandar Sauceda [employer] STAFF OFFICER.BUILDING CONSTRUCTION FOREMAN Work Phone: [facility] 11-11-2023 08:39-0400 Diastolic blood pressure 100 mm[Hg] Bandar Sauceda [employer] PL[employer] STAFF OFFICER.BUILDING CONSTRUCTION FOREMAN Work Phone: [facility] 11-11-2023 08:39-0400 Heart rate 90 /min Bandar Sauceda [employer] STAFF OFFICER.BUILDING CONSTRUCTION FOREMAN Work Phone: [facility] 11-11-2023 08:39-0400 Respiratory rate 19 /min Bandar Sauceda [employer] STAFF OFFICER.BUILDING CONSTRUCTION FOREMAN Work Phone: [facility] 11-11-2023 08:39-0400 SaO2% (BldA) [Mass fraction] 98 % Bandar Sauceda [employer] STAFF OFFICER.BUILDING CONSTRUCTION FOREMAN Work Phone: [facility] 11-11-2023 08:39-0400 Systolic blood pressure 122 mm[Hg] Bandar Sauceda [employer] STAFF OFFICER.BUILDING CONSTRUCTION FOREMAN Work Phone: [facility] 03-02-2023 15:25-0400 Body temperature 98.3 [degF] Dr. Gilbert Hurley Work Phone: [facility] 03-02-2023 15:25-0400 Diastolic blood pressure 91 mm[Hg] Dr. Gilbert Hurley Work Phone: [facility] 03-02-2023 15:25-0400 Heart rate 78 /min Dr. Gilbert Hurley Work Phone: [facility] 03-02-2023 15:25-0400 Respiratory rate 16 /min Dr. Gilbert Hurley Work Phone: [facility] 03-02-2023 15:25-0400 SaO2% (BldA) [Mass fraction] 97 % Dr. Gilbert Hurley Work Phone: [facility] 03-02-2023 15:25-0400 Systolic blood pressure 119 mm[Hg] Dr. Gilbert Hurley Work Phone: [facility] 03-02-2023 13:20-0400 Body height 160.[address] Gilbert Hurley Work Phone: [facility] 03-02-2023 13:20-0400 Body mass index (BMI) [Ratio] 31.4 kg/m2 Dr. Gilbert Hurley Work Phone: [facility] 03-02-2023 13:20-0400 Body weight 80.[address] Gilbert Hurley Work Phone: [facility] 12-26-2022 07:00-0400 Body temperature 98.6 [degF] Elle Faye PA-C Work Phone: [facility] 12-26-2022 07:00-0400 Body weight 79.11 kg Elle Faye PA-C Work Phone: [facility] 12-26-2022 07:00-0400 Diastolic blood pressure 88 mm[Hg] Elle Faye PA-C Work Phone: [facility] 12-26-2022 07:00-0400 Heart rate 71 /min Elle Faye PA-C Work Phone: [facility] 12-26-2022 07:00-0400 Respiratory rate 18 /min Elle Faye PA-C Work Phone: [facility] 12-26-2022 07:00-0400 SaO2% (BldA) [Mass fraction] 98 % Elle Faye PA-C Work Phone: [facility] 12-26-2022 07:00-0400 Systolic blood pressure 125 mm[Hg] Elle Faye PA-C Work Phone: [facility] 12-20-2022 15:32-0400 Diastolic blood pressure 71 mm[Hg] Dr. Gilbert Hurley Work Phone: [facility] 12-20-2022 15:32-0400 Heart rate 67 /min Dr. Gilbert Hurley Work Phone: [facility] 12-20-2022 15:32-0400 Respiratory rate 16 /min Dr. Gilbert Hurley Work Phone: [facility] 12-20-2022 15:32-0400 SaO2% (BldA) [Mass fraction] 97 % Dr. Gilbert Hurley Work Phone: [facility] 12-20-2022 15:32-0400 Systolic blood pressure 133 mm[Hg] Dr. Gilbert Hurley Work Phone: [facility] 12-20-2022 13:00-0400 Body height 160.[address] Gilbert Hurley Work Phone: [facility] 12-20-2022 13:00-0400 Body mass index (BMI) [Ratio] 30.7 kg/m2 Dr. Gilbert Hurley Work Phone: [facility] 12-20-2022 13:00-0400 Body temperature 98 [degF] Dr. Gilbert Hurley Work Phone: [facility] 12-20-2022 13:00-0400 Body weight 78.[address] Gilbert Hurley Work Phone: [facility] 11-27-2022 00:42-0400 Heart rate 69 /min [facility] 11-27-2022 00:42-0400 Respiratory rate 16 /min [facility] 11-27-2022 00:42-0400 SaO2% (BldA) [Mass fraction] 99 % [facility] 11-27-2022 00:02-0400 Diastolic blood pressure 98 mm[Hg] [facility] 11-27-2022 00:02-0400 Systolic blood pressure 132 mm[Hg] [facility] 11-26-2022 23:49-0400 Body height 160.02 cm [facility] 11-26-2022 23:49-0400 Body mass index (BMI) [Ratio] 30.6 kg/m2 [facility] 11-26-2022 23:49-0400 Body weight 78.47 kg [facility] 11-26-2022 22:42-0400 Body temperature 97.5 [degF] [facility] 09-01-2022 19:39-0500 Body height 160.02 cm [facility] 09-01-2022 19:39-0500 Body mass index (BMI) [Ratio] 30.1 kg/m2 [facility] 09-01-2022 19:39-0500 Body temperature 97.8 [degF] [facility] 09-01-2022 19:39-0500 Body weight 77.11 kg [facility] 09-01-2022 19:39-0500 Diastolic blood pressure 92 mm[Hg] [facility] 09-01-2022 19:39-0500 Heart rate 106 /min [facility] 09-01-2022 19:39-0500 Respiratory rate 16 /min [facility] 09-01-2022 19:39-0500 SaO2% (BldA) [Mass fraction] 100 % [facility] 09-01-2022 19:39-0500 Systolic blood pressure 124 mm[Hg] [facility] 07-26-2022 17:44-0500 Body temperature 97.59 [degF] Bandar Sohail [employer] PL[employer] STAFF OFFICER.BUILDING [employer]STRUCTION [employer]EMAN Work Phone: [facility] 07-26-2022 17:44-0500 Body weight 77.66 kg Bandar Sauceda [employer] STAFF OFFICER.BUILDING [employer]STRUCTION [employer]EMAN Work Phone: [facility] 07-26-2022 17:44-0500 Diastolic blood pressure 74 mm[Hg] Bandar Sauceda [employer] STAFF OFFICER.BUILDING [employer]STRUCTION [employer]EMAN Work Phone: [facility] 07-26-2022 17:44-0500 Heart rate 118 /min Bandar Sohail [employer] STAFF OFFICER.BUILDING [employer]STRUCTION [employer]EMAN Work Phone: [facility] 07-26-2022 17:44-0500 Respiratory rate 16 /min Bandar Sohail [employer] STAFF OFFICER.BUILDING CONSTRUCTION [employer]EMAN Work Phone: [facility] 07-26-2022 17:44-0500 SaO2% (BldA) [Mass fraction] 97 % Bandar Sauceda [employer] STAFF OFFICER.BUILDING [employer]STRUCTION [employer]EMAN Work Phone: [facility] 07-26-2022 17:44-0500 Systolic blood pressure 112 mm[Hg] Bandar Sauceda AADC PLANS STAFF OFFICER.BUILDING CONSTRUCTION FOREMAN Work Phone: [facility] 06-07-2022 08:28-0500 Body temperature 99.39 [degF] Tj Medina AADC PLANS STAFF OFFICER.BUILDING CONSTRUCTION FOREMAN Work Phone: [facility] 06-07-2022 08:28-0500 Body weight 74.84 kg Tj Medina AADC PLANS STAFF OFFICER.BUILDING CONSTRUCTION FOREMAN Work Phone: [facility] 06-07-2022 08:28-0500 Diastolic blood pressure 72 mm[Hg] Tj Medina AADC PLANS STAFF OFFICER.BUILDING CONSTRUCTION FOREMAN Work Phone: [facility] 06-07-2022 08:28-0500 Heart rate 76 /min Tj Medina AADC PLANS STAFF OFFICER.BUILDING CONSTRUCTION FOREMAN Work Phone: [facility] 06-07-2022 08:28-0500 Respiratory rate 16 /min Tj Medina AADC PLANS STAFF OFFICER.BUILDING CONSTRUCTION FOREMAN Work Phone: [facility] 06-07-2022 08:28-0500 SaO2% (BldA) [Mass fraction] 100 % Tj Medina AADC PLANS STAFF OFFICER.BUILDING CONSTRUCTION FOREMAN Work Phone: [facility] 06-07-2022 08:28-0500 Systolic blood pressure 108 mm[Hg] Tj Medina AADC PLANS STAFF OFFICER.BUILDING CONSTRUCTION FOREMAN Work Phone: [facility] 04-08-2022 10:51-0400 Body temperature 98.1 [degF] Rebeca Pike AADC PLANS STAFF OFFICER.BUILDING CONSTRUCTION FOREMAN Work Phone: [facility] 04-08-2022 10:51-0400 Body weight 72.48 kg Rebeca Pike AADC PLANS STAFF OFFICER.BUILDING CONSTRUCTION FOREMAN Work Phone: [facility] 04-08-2022 10:51-0400 Diastolic blood pressure 82 mm[Hg] Rebeca Galvank AADC PLANS STAFF OFFICER.BUILDING CONSTRUCTION FOREMAN Work Phone: [facility] 04-08-2022 10:51-0400 Heart rate 84 /min Rebeca Pike AADC PLANS STAFF OFFICER.BUILDING CONSTRUCTION FOREMAN Work Phone: [facility] 04-08-2022 10:51-0400 Respiratory rate 18 /min Rebeca Shahzad AADC PLANS STAFF OFFICER.BUILDING CONSTRUCTION FOREMAN Work Phone: [facility] 04-08-2022 10:51-0400 SaO2% (BldA) [Mass fraction] 99 % Rebeca Pike AADC PLANS STAFF OFFICER.BUILDING CONSTRUCTION FOREMAN Work Phone: [facility] 04-08-2022 10:51-0400 Systolic blood pressure 118 mm[Hg] Rebeca Shahzad AADC PLANS STAFF OFFICER.BUILDING CONSTRUCTION FOREMAN Work Phone: [facility] Encounters Encounter Date Encounter Type Care Provider Facility Start: 02-20-2025 End: 02-20-2025 ambulatory Amalia Prado MA [facility] Comment on above: WEIGHT PROBLEM Start: 11-18-2024 End: 11-18-2024 Nursing evaluation of patient and report Nurse Lithograph Press Operator [facility] Work Phone: OB/Gynecology Comment on above: Need for prophylacti c vaccination/inoculation against viral disease (Primary Dx) Start: 11-18-2024 End: 11-18-2024 [facility] [place] Start: 08-14-2024 End: 08-14-2024 ambulatory VERNELL MEDINA Facility:[facility] [place] Start: 08-14-2024 End: 08-14-2024 Patient encounter procedure Vernell Medina MD Work Phone: OB/Gynecology Comment on above: ASCUS with positive high risk HPV cervical (Primary Dx); Need for prophylactic vaccination/inoculation against viral disease Start: 07-31-2024 End: 07-31-2024 [facility] [place] Start: 07-31-2024 End: 07-31-2024 Patient encounter procedure Claudine Joyce AADC PLANS STAFF OFFICER.CNM Work Phone: OB/Gynecology Comment on above: Encounter for gyneco logical examination (general) (routine) without abnormal findings (Primary Dx); Screening for cervical cancer; Encounter for screening for human papillomavirus (HPV); Encounter for surveillance of injectable contraceptive Start: 07-31-2024 End: 07-31-2024 Patient encounter status Claudine Joyce AADC PLANS STAFF OFFICER.CNM Work Phone: [facility] Start: 07-03-2024 End: 07-03-2024 Subsequent hospital visit by physician Xr [facility] Work Phone: Radiology Comment on above: Acute cough [R05.1] Start: 07-03-2024 End: 07-03-2024 ambulatory GILBERT HURLEY Facility:[facility] [place] Start: 07-03-2024 End: 07-03-2024 Office outpatient visit 25 minutes Estefania OVALLE Work Phone: [facility] Comment on above: Acute cough (Primary Dx) Start: 06-19-2024 ambulatory FRANCISCO Escobedo [facility] Start: 06-19-2024 End: 06-19-2024 Subsequent hospital visit by physician Francisco Bui PA-C Work Phone: [facility] Comment on above: Arrived Start: 06-12-2024 End: 06-12-2024 ambulatory Amalia Prado MA [facility] Coord[facility] Comment on above: PHYSICAL THERAPIST ASSISTANT - O THER Start: 05-11-2024 End: 05-11-2024 ambulatory GILBERT HURLEY Facility:[facility] [place] Start: 05-11-2024 End: 05-11-2024 Patient encounter procedure Bandar Sauceda APRN.BUILDING CONSTRUCTION FOREMAN Work Phone: [facility] Comment on above: Skin lesion (Primary Dx); Nasal congestion Start: 01-02-2024 ambulatory Amalia Prado MA [facility] Resident Services Manager [facility] Comment on above: PHYSICAL THERAPIST ASSISTANT - O THER Start: 11-11-2023 End: 11-11-2023 Patient encounter procedure Bandar Sauceda APRN.BUILDING CONSTRUCTION FOREMAN Work Phone: [facility] Comment on above: URI, acute (Primary Dx) Start: 08-31-2023 ambulatory Kasey Cordoba RN Work Phone: [facility] Comment on above: WEIGHT PROBLEM Start: 07-24-2023 End: 07-24-2023 Subsequent hospital visit by physician Jayla [facility] Work Phone: Radiology Comment on above: Acute pain of right shoulder [M25.511] Start: 05-10-2023 End: 05-10-2023 ambulatory Louis Manning Facility:[facility] Start: 03-28-2023 Encounter for other preprocedural examination Louis Manning [facility] Start: 03-16-2023 End: 03-16-2023 ambulatory Gilbert Hurley Facility:[facility] Start: 03-06-2023 End: 03-06-2023 ambulatory Emg 850) Neurology Start: 03-06-2023 End: 03-06-2023 Patient encounter procedure Emg 1 Neur Dominic Patel (Max Weight: 850) DOMINIC PATEL Start: 03-02-2023 ambulatory Louis Gratis Facility :[facility] Start: 03-02-2023 End: 03-02-2023 ambulatory Gilbert Hurley Facility:[facility] Start: 03-02-2023 Non-patient / Non-visit Dr. Yamile Hurley Work Phone: [facility] Start: 03-02-2023 End: 03-02-2023 Admission to same day surgery center Dr. Gilbert Hurley Work Phone: [facility]-Endoscopy Work Phone: Start: 03-02-2023 End: 03-02-[address] Gilbert Hurley Work Phone: [facility] Work Phone: Start: 01-24-2023 End: 01-25-2023 ambulatory ELLE UNIONVILLEKAYLYNN Facility:[facility] Start: 01-24-2023 End: 01-25-2023 Patient encounter procedure Eeg Neur Marcial Work Phone: Neurology Comment on above: Awareness alteration , transient Start: 01-02-2023 End: 01-02-[address] Gilbert Hurley Work Phone: [facility] Work Phone: Start: 01-02-2023 End: 01-02-[address] Gilbert Hurley Work Phone: [facility] Start: 01-01-2023 End: 01-01-2023 ambulatory [facility] Facility:[facility] Start: 01-01-2023 End: 01-01-[address] Gilbert Hurley Work Phone: [facility] Gastroenterology Start: 12-29-2022 End: 12-29-2022 Subsequent hospital visit by physician Diagnostic Mammo [facility] Comment on above: Enlarged lymph nodes [R59.9] Start: 12-26-2022 End: 12-26-2022 Patient encounter procedure Elle Queener PA-C Work Phone: Neurology Comment on above: Demyelinating diseas e of central nervous system (HCC) (Primary Dx); Awareness alteration, transient; Paresthesia of skin; Claustrophobia Start: 12-21-2022 Telephone encounter Elle Griffin fowler PA-C Work Phone: [facility] [place] Comment on above: Appointment (Records for upcoming neuro appt. 12/26/22 with Elle Faye) Start: 12-20-2022 End: 12-20-2022 Emergency department patient visit Christos Schultz Facility:[facility] Start: 12-20-2022 End: 12-20-2022 Emergency department patient visit Dr. Gilbert Hurley Work Phone: [facility]-Emergency Department Start: 12-12-2022 End: 12-12-2022 [facility] Start: 12-12-2022 End: 12-12-[address] Gilbert Hurley Work Phone: [facility]-Outpatient Breast Imaging Start: 11-27-2022 End: 11-27-2022 Emergency department patient visit Gilbert Hurley Facility:[facility] Start: 11-26-2022 End: 11-27-2022 Emergency department patient visit [facility]-Emergency Department Start: 09-01-2022 End: 09-01-2022 Emergency department patient visit [facility]-Emergency Department Start: 08-04-2022 End: 08-04-2022 ambulatory [facility] Work Phone: Start: 08-04-2022 End: 08-04-2022 Patient encounter procedure [facility]-Laboratory, Specimen Start: 08-01-2022 End: 08-01-2022 Subsequent hospital visit by physician Xr [facility] Work Phone: Radiology Comment on above: Foot pain, left [M79 .672] Start: 07-26-2022 End: 07-26-2022 Patient encounter procedure Bandar Sauceda APRN.CNP Work Phone: [facility] Comment on above: Eyelid inflammation (Primary Dx) Start: 06-07-2022 End: 06-07-2022 Patient encounter procedure Tj Medina AADC PLANS STAFF OFFICER.BUILDING CONSTRUCTION FOREMAN Work Phone: [facility] Comment on above: Acute otitis media, right (Primary Dx) Start: 05-08-2022 End: 05-08-2022 ambulatory [facility] Work Phone: Start: 05-08-2022 End: 05-08-2022 Patient encounter procedure [facility]-Radiology, [facility] Start: 05-02-2022 Telephone encounter Vesna Tucker crista AADC PLANS STAFF OFFICER.BUILDING CONSTRUCTION FOREMAN Work Phone: Urology Comment on above: Results Start: 04-28-2022 Telephone encounter Vesna Tucker marvinmoriah AADC PLANS STAFF OFFICER.BUILDING CONSTRUCTION FOREMAN Work Phone: Urology Comment on above: Results Start: 04-28-2022 End: 04-28-2022 Subsequent hospital visit by physician [facility] Work Phone: Radiology Comment on above: Sensation of pressur e in bladder area [R39.89] Start: 04-25-2022 End: 04-25-[address] [facility] Start: 04-18-2022 Telephone encounter Juana Morales AADC PLANS STAFF OFFICER.BUILDING CONSTRUCTION FOREMAN Work Phone: [facility] Comment on above: Results, Lab Start: 04-17-2022 Telephone encounter Moose alcaraz AADC PLANS STAFF OFFICER.BUILDING CONSTRUCTION FOREMAN Work Phone: [facility] Comment on above: Results Start: 04-08-2022 End: 04-08-2022 Patient encounter procedure Rebeca Pike AADC PLANS STAFF OFFICER.BUILDING CONSTRUCTION FOREMAN Work Phone: [facility] Comment on above: Urinary frequency (P rimary Dx); Acute UTI Start: 02-23-2022 Telephone encounter Crow ashley PA-C Work Phone: Occupational Health Comment on above: [facility] Start: 02-21-2022 Telephone encounter Anahi lee AADC PLANS STAFF OFFICER.BUILDING CONSTRUCTION FOREMAN Work Phone: Occupational Health Comment on above: [facility] Start: 02-20-2022 Telephone encounter Farideh mason MD Work Phone: Occupational Health Comment on above: [facility] Start: 01-02-2022 End: 01-06-2022 Outreach Lab EMMETT DAMON MD [facility] Start: 11-07-2021 Telephone encounter Mónica murphy MD Work Phone: [facility] Comment on above: Future Appointment Start: 10-17-2021 End: 10-18-2021 ambulatory MÓNICA SÁNCHEZ Facility:[facility] Start: 10-10-2021 End: 10-14-2021 Outreach Lab AILYN NARANJO MD [facility] Procedures Date Procedure Procedure Detail Performing Clinician Start: 08-14-2024 UA DIP,URINE HCG (POC) Vernell Medina MD Work Phone: Start: 07-03-2024 Radiologic exam chest 2 views Estefania OVALLE Work Phone: Start: 06-19-2024 Radex foot complete minimum 3 views Effie Bui PA-C Work Phone: Start: 11-11-2023 STREP A MOLECULAR (POC) [facility] Provider Start: 07-24-2023 Radex shoulder complete minimum 2 views Timmy Guerrero MD Work Phone: Start: 03-06-2023 Nerve conduction studies 5-6 studies Elle Faye PA-C Work Phone: Start: 03-02-[address] Gilbert nichols Work Phone: Start: 01-24-2023 Electroencephalogram w/rec awake&drowsy Elle OVALLE-C Work Phone: Start: 01-02-2023 MRI of bilateral breasts with contrast Dr. Gilbert Hurley Work Phone: Start: 12-29-2022 Digital breast tomosynthesis bilateral Aisha Patricia MD Work Phone: Start: 12-29-2022 Us lmtd joint/oth nonvasc xtr strux r-t w/img Kishan Kay MD Work Phone: Start: 12-20-2022 Plain chest X-ray Dr. Gilbert Hurley Work Phone: Start: 12-20-2022 CT of head without contrast Dr. Gilbert nicole Work Phone: Start: 12-12-[address] Gilbert Hurley Work Phone: Start: 12-12-[address] Gilbert Owens en Work Phone: Start: 11-26-2022 Plain chest X-ray Start: 08-01-2022 Radex foot complete minimum 3 views Nery Berrios AADC PLANS STAFF OFFICER.BUILDING CONSTRUCTION FOREMAN Work Phone: Start: 05-08-2022 Radiography of esophagus Start: 04-28-2022 Us retroperitoneal real time w/image complete Vesna Hillman AADC PLANS STAFF OFFICER.BUILDING CONSTRUCTION FOREMAN Work Phone: Start: 04-08-2022 Urnls dip stick/tablet rgnt auto w/o microscopy Marlyn Nieves PA-C Work Phone: Start: 07-30-2018 History of operative procedure on knee AILYN NARANJO MD Start: 02-28-2016 Adult depression screening assessment Mónica Sánchez MD Work Phone: Start: 07-30-2009 section AILYN NARANJO MD Tonsillectomy AILYN NARANJO MD Plan of Treatment Date Care Activity Detail Author Start: 07-31-2025 Screening for malign ant neoplasm of cervix Cervical Cancer Screening [facility] Start: 03-30-2025 Influenza vaccination Influenza Vacc ine (#1) [facility] Start: 02-10-2025 9vhpv vacc 2/3 dose sched im use HPV VACCINE, 9-VALENT (GARDASIL 9) Immunization/Injection Routine Expected: 02/10/2025 (Approximate) [facility] Comment on above: Expected: 02/10/2025 (Approximate) Start: 10-13-2024 9vhpv vacc 2/3 dose sched im use HPV VACCINE, 9-VALENT (GARDASIL 9) Immunization/Injection Routine Expected: 10/13/2024 (Approximate) [facility] Comment on above: Expected: 10/13/2024 (Approximate) Start: 09-11-2024 HPV Vaccine (2 - 3-d ose SCDM series) HPV Vaccine (2 - 3-dose SCDM series) [facility] Start: 07-31-2024 End: 07-31-2024 Patient encounter procedure 07/31/2024 10:00 AM EST Office Visit OB/Gynecology [address] [place], [place] [id number] Claudine Joyce APRN.CN [address] [place], [place] [address] annual, new pt OB/Gynecology Comment on above: annual, new pt Start: 03-30-2024 Covid-19 Vaccine ( season) Covid-19 Vaccine ( season) [facility] Start: 03-30-2024 Covid-19 Vaccine ( season) Covid-19 Vaccine ( season) [facility] Start: 03-30-2024 Influenza vaccination [facility] Start: 07-30-2023 Behavioral Health Screening Behavioral Health Screening [facility] Start: 07-30-2023 Depression Assessment Depression Ass essment [facility] Start: 03-30-2023 Covid-19 Vaccine ( season) Covid-19 Vaccine ( season) [facility] Start: 03-30-2023 Influenza vaccination [facility] Start: 03-02-2023 [facility] Start: 12-26-2022 End: 02-25-2023 CBC W Auto Differential panel - Blood [facility] Work Phone: Comment on above: Expected: 12/26/2022 , Expires: 02/25/2023 Start: 12-26-2022 End: 02-25-2023 Cobalamin (Vitamin B12) [Mass/volume] in Serum or Plasma [facility] Work Phone: Comment on above: Expected: 12/26/2022 , Expires: 02/25/2023 Start: 12-26-2022 End: 02-25-2023 Comprehensive metabolic 2000 panel - Serum or Plasma [facility] Work Phone: Comment on above: Expected: 12/26/2022 , Expires: 02/25/2023 Start: 12-26-2022 End: 02-25-2023 Methylmalonate [Moles/volume] in Serum or Plasma [facility] Work Phone: Comment on above: Expected: 12/26/2022 , Expires: 02/25/2023 Start: 12-12-2022 Digital breast tomosynthesis bilateral BREAST TOMOSYNTHESIS [facility] Start: 11-26-2022 [facility] Start: 09-01-2022 [facility] Start: 07-30-2022 DEPRESSION ASSESSMENT DEPRESSION ASS ESSMENT [facility] Start: 04-08-2022 End: 06-08-2022 Bacteria identified in Urine by Culture URINE CULTURE Microbiology Routine Urinary frequency Expected: 04/08/2022, Expires: 06/08/2022 [facility] Work Phone: Comment on above: Expected: 04/08/2022 , Expires: 06/08/2022 Start: 04-08-2022 End: 06-08-2022 Comprehensive metabolic 2000 panel - Serum or Plasma [facility] Work Phone: Comment on above: Expected: 04/08/2022 , Expires: 06/08/2022 Start: 03-30-2022 Influenza vaccination INFLUENZA (#1) [facility] Start: 02-20-2022 End: 03-06-2022 SARS-CoV-2 (COVID-19) RNA [Presence] in Respiratory specimen by ROBBY with probe detection CAREGIVER COVID19 Microbiology Routine Suspected COVID-19 virus infection Expected: 02/20/2022, Expires: 03/06/2022 [facility] Work Phone: Comment on above: Expected: 02/20/2022 , Expires: 03/06/2022 Start: 07-30-2021 DEPRESSION ASSESSMENT DEPRESSION ASS ESSMENT [facility] Start: 01-05-2019 PAP TESTING PAP TESTING [facility] Start: 01-05-2019 Screening for malign ant neoplasm of cervix Pap Testing [facility] Start: 2018 HPV TESTING HPV TESTING [facility] Start: 2018 Screening for malign ant neoplasm of cervix HPV Testing [facility] Start: 02-27-2017 Adult depression screening assessment DEPRESSION SCREENING [facility] Start: 01-05-2017 Screening for malign ant neoplasm of cervix Cervical Cancer Screening [facility] Start: 2009 Screening for malign ant neoplasm of cervix CERVICAL CANCER SCREENING DISCUSSION [facility] Start: 12-05-2007 Hepatitis B vaccination HEP B VACCINE (1 of 3 - 19+ 3-dose series) [facility] Start: 12-05-2007 Hepatitis B Vaccine (1 of 3 - 19+ 3-dose series) Hepatitis B Vaccine (1 of 3 - 19+ 3-dose series) [facility] Start: 12-05-2007 Third diphtheria, tetanus and acellular pertussis (DTaP) vaccination TDAP (ADULT) [facility] Start: 12-05-2007 Urine microalbumin profile [facility] Start: 2006 Depression Screening Depression Scre ening [facility] Start: 2006 HEPATITIS C SCREENING HEPATITIS C [facility] Start: 2006 Hepatitis C screening Hepatitis C [facility] Start: 12-05-2003 HIV screening HIV SCREENING DISCUSSI ON [facility] Start: 1993 COVID-19 VACCINE (1) COVID-19 VACCIN E (1) [facility] Start: 06-06-1989 COVID-19 VACCINE (#1) COVID-19 VACCI NE (#1) [facility] Start: 1988 HEPATITIS B (1 of 3 - 3-dose series) HEPATITIS B (1 of 3 - 3-dose series) [facility] Start: 1988 Hepatitis B Vaccine (1 of 3 - 3-dose series) Hepatitis B Vaccine (1 of 3 - 3-dose series) [facility] Start: 1988 Hepatitis C screening HEPATITI S C VIRUS SCREENING [facility] Start: 1988 Tetanus vaccination TETANUS [facility] BACTERIAL VAGINOSIS NAAT BACTERI AL VAGINOSIS NAAT Lab Routine Encounter for gynecological examination (general) (routine) without abnormal findings 07/31/2024 10:33 AM EST [facility] MAYNOR/TRICHOMONAS NAAT MAYNOR /TRICHOMONAS NAAT Lab Routine Encounter for gynecological examination (general) (routine) without abnormal findings 07/31/2024 10:33 AM [facility] Chlamydia trachomatis+Neisseria gonorrhoeae DNA [Presence] in Unspecified specimen by ROBBY with probe detection GONORRHEA/CHLAMYDIA NAAT Lab Routine Encounter for gynecological examination (general) (routine) without abnormal findings 07/31/2024 10:33 AM EST [facility] COLPOSCOPY COLPOSCOPY Proce dures Routine ASCUS with positive high risk HPV cervical Ordered: 08/14/2024 [facility] Work Phone: Comment on above: Ordered: 08/14/2024 End: 12-27-2023 EMG(NEURO/NI) EMG(NEURO/NI) EMG Routine Paresthesia of skin 1 Occurrences starting 12/26/2022 until 12/27/2023 [facility] Work Phone: Comment on above: 1 Occurrences starti ng 12/26/2022 until 12/27/2023 End: 12-27-2023 EPIL EEG ROUTINE EPIL EEG ROUTINE NEUROLOGY Routine Awareness alteration, transient 1 Occurrences starting 12/26/2022 until 12/27/2023 [facility] Work Phone: Comment on above: 1 Occurrences starti ng 12/26/2022 until 12/27/2023 Herpes simplex virus+Varicella zoster virus DNA [Presence] in Unspecified specimen by ROBBY with probe detection HSV1,2/VZV NAAT LESION Lab Routine Skin lesion Ordered: 05/11/2024 [facility] Work Phone: Comment on above: Ordered: 05/11/2024 End: 01-25-2024 Mri brain brain stem w/o w/contrast material MRI BRAIN WO/W IVCON Radiology Routine Demyelinating disease of central nervous system (HCC) Awareness alteration, transient 1 Occurrences starting 12/26/2022 until 01/25/2024 [facility] Work Phone: Comment on above: 1 Occurrences starti ng 12/26/2022 until 01/25/2024 End: 01-25-2024 Mri spinal canal cervical w/o & w/contr matrl MRI CERVICAL SPINE WO/W IVCON Radiology Routine Demyelinating disease of central nervous system (HCC) Awareness alteration, transient 1 Occurrences starting 12/26/2022 until 01/25/2024 [facility] Work Phone: Comment on above: 1 Occurrences starti ng 12/26/2022 until 01/25/2024 PAP TEST PAP TEST Lab Phu el Encounter for gynecological examination (general) (routine) without abnormal findings Screening for cervical cancer Encounter for screening for human papillomavirus (HPV) 07/31/2024 10:32 AM [facility] Work Phone: Patient Education [facility] Work Phone: Patient referral [facility] Work Phone: SURGICAL PATHOLOGY SURGICAL PATH OLOGY Lab Routine ASCUS with positive high risk HPV cervical 08/14/2024 11:09 AM [facility] Therapeutic prophylactic/dx injection subq/im THER/PROPH/DIAG INJ, SC/IM Procedures Routine Need for prophylactic vaccination/inoculation against viral disease Ordered: 08/14/2024 [facility] Comment on above: Ordered: 08/14/2024 [facility] Immunizations Immunization Date Immunization Notes Care Provider Silvestre kaye 11-18-2024 Human Papillomavirus 9-valent vaccine Nurse Wstr Work Phone: [facility] 08-14-2024 Human Papillomavirus 9-valent vaccine Vernell Medina MD Work Phone: [facility] 06-14-2021 influenza, injectabl e, quadrivalent, preservative free Nurse Wstr Work Phone: [facility] 06-14-2021 influenza virus vacc ine, unspecified formulation Kasey Cordoba RN Work Phone: [facility] 06-06-2019 influenza, injectabl e, quadrivalent, contains preservative Nurse Wstr Work Phone: [facility] 04-27-2018 influenza, injectabl e, quadrivalent, preservative free [facility] 04-27-2018 influenza, seasonal, injectable [facility] 04-27-2018 influenza, seasonal, injectable, preservative free Nurse Wstr Work Phone: [facility] 05-10-2015 influenza, seasonal, injectable Mónica Sánchez MD Work Phone: [facility] Work Phone: 05-25-2009 novel influenza-H1N1 -09, all formulations Mónica Sánchez MD Work Phone: [facility] 07-03-2005 measles, mumps and rubella virus vaccine Nurse Wstr Work Phone: [facility] Payers Date Payer Category Payer Self-pay [id number] 2022 Private Health Insurance [id number] 2022 Unknown [id number] 2021 Private Health Insurance EHP AET NA EHP STAFF/NON STAFF / EHP [facility] [id number] 2021-Present [address] [place] [address] EPO [id number] 2021 Private Health Insurance [id number] 2021 Unknown [id number] 2019 Medicaid [employer] [id number] 2019-Present [phone] [address] [place] [address] Medicaid [id number] 2019 Medicaid [id number] 2019 Medicaid [id number] Unknown JAMILA [id number] Unknown [employer] [id number] Unknown [id number] Unknown [id number] 462 Unknown [id number] 462 Unknown [id number] 462 Unknown [id number] 462 Unknown [id number] 462 Unknown [id number] 462 Unknown [id number] 462 Unknown [id number] 462 Unknown [id number] 462 Unknown [id number] 462 Social History Date Type Detail Facility Start: 06-01-2020 End: 04-08-2022 Never smoked tobacco (finding) [facility] Start: 1990 Sex Assigned At Female A [facility] Start: 10-17-2021 End: 08-14-2024 Alcohol intake Ex-drinker (finding) [facility] Start: 10-28-2021 End: 06-07-2022 Exposure to SARS-CoV-2 (event) Not sure [facility] Start: 04-08-2022 Tobacco use and exposure Smokeless tobacco non-user [facility] Start: 03-26-2021 End: 02-27-2023 Tobacco smoking status NHIS Unknown if ever smoked [facility] Start: 04-03-2020 With Family [facility] Start: 12-21-2022 End: 12-26-2022 History of Social function [facility] Start: 12-21-2022 End: 12-26-2022 Tobacco use panel [facility] Adult Depression Screening Assessment 0 [facility] Start: 10-15-2021 Gender identity Identifies as female gender (finding) [facility] Start: 1990 Sex assigned at Not on file O [facility] NEGATED: Highlighted row [facility] Goals Date Patient Goal Desired Activity /State Functional Status Date Assessment Result Facility 02-16-2015 Are you deaf, or do you have serious difficulty hearing No 02/16/2015 7:53 AM SANAT Lexi Tucker LPN No [facility] 02-16-2015 Are you blind, or do you have serious difficulty seeing, even when wearing glasses No 02/16/2015 7:53 AM Lexi Zuniga LPN No [facility] 02-16-2015 Do you have serious difficulty walking or climbing stairs No 02/16/2015 7:53 AM Lexi Zuniga LPN No [facility] 02-16-2015 Do you have difficul ty dressing or bathing No 02/16/2015 7:53 AM Lexi Zuniga LPN No [facility] 02-16-2015 Because of a physica l, mental, or emotional condition, do you have difficulty doing errands alone such as visiting a physician's office or shopping No 02/16/2015 7:53 AM EDT Lexi Tucker LPN No [facility] Mental Status Date Assessment Result Facility 03-02-2023 Cognitive function Voice/Name [facility] Work Phone: 11-26-2022 Cognitive function Level Of Cons ciousness Awake;Alert;Appropriate;Fol lows Commands [facility] Work Phone: 02-16-2015 Because of a physica l, mental, or emotional condition, do you have serious difficulty concentrating, remembering, or making decisions No 02/16/2015 7:53 AM EDT Lexi Tucker LPN No [facility] Clinical Notes 06-08-2009 to 02-20-2025 EHP Outreach Note - Amalia Prado MA - 02/20/2025 3:45 PM EDTEHP Outreach Note - Amalia Prado MA - 02/20/2025 3:45 PM EDTPatient Jb Sullivan LPN - 11/18/2024 1:45 PM EDT Note Date & Type Note Facility 02-20-2025 Note Formatting of this n ote is different from the original. Sent member email message requesting an update on progress for 2024 weight program goals. Member resides in [facility] ---(located in member inquiry under Carrier Version) WEIGHT GOAL 175 lbs 2 BMI Points Last 2 Encounter Wt Readings: Date: Wt: 08/14/2024 83 kg (183 lb) 07/31/2024 83 kg (183 lb) Last 3 Encounter BP Readings: Date: BP: 08/14/2024 124/84 07/31/2024 118/76 07/03/2024 134/86 LDL:HDL RATIO Applies to members that are diet and Exercise controlled LDL:HDL RATIO does not apply to members on a statin Last 3 LDL readings: LDL Cholesterol, Calculated (mg/dL) Date Value 08/30/2016 101 01/05/2015 78 No results found for: LDLCHOLDIR LDL:HDL Ratio Date Value Ref Range Status 08/30/2016 1.87 0.50 - 3.55 Final [facility] 02-20-2025 Miscellaneous Notes Sent member email message requesting an update on progress for 2024 weight program goals. Member resides in state [facility] ---(located in member inquiry under Carrier Version) WEIGHT GOAL 175 lbs 2 BMI Points Last 2 Encounter Wt Readings: Date: Wt: 08/14/2024 83 kg (183 lb) 07/31/2024 83 kg (183 lb) Last 3 Encounter BP Readings: Date: BP: 08/14/2024 124/84 07/31/2024 118/76 07/03/2024 134/86 LDL:HDL RATIO Applies to members that are diet and Exercise controlled LDL:HDL RATIO does not apply to members on a statin Last 3 LDL readings: LDL Cholesterol, Calculated (mg/dL) Date Value 08/30/2016 101 01/05/2015 78 No results found for: LDLCHOLDIR LDL:HDL Ratio Date Value Ref Range Status 08/30/2016 1.87 0.50 - 3.55 Final documented in this encounter [facility] 11-18-2024 Instructions Jb Mills LPN - 11/18/2024 1:48 PM EDT Gardasil Gardasil is a vaccine to protect against Human Papillomavirus (HPV) types 6, 11, 16, 18, 31,33,45, 52, 58. These viruses cause cancer and precancerous lesions on the cervix (opening between vagina and uterus), in the vagina and on the vulva (skin around the outside of the vagina) as well as genital warts. The vaccine cannot cause these diseases and cannot treat them if already present. Gardasil works best if given before contact with HPV. Most people are exposed to HPV soon after starting sexual activity. The vaccine is recommended between the ages of 9 and 45. Gardasil does not protect against all strains of HPV. Women who receive the vaccine still need to have regular pelvic exams and cervical cancer screening with the pap smear. You should ask your doctor if Gardasil is right for you if you have a weakened immune system, a bleeding disorder, plan to become soon or have a current illness causing fever. Gardasil is not recommended for women. You should be sure your doctor is aware of any allergies you have and all medications and herbal supplements you take. Gardasil is given to those ages 9-14 in 2 doses at 0 and 8 months. In ages 15-45, three injections are given at 0,2,6 months. Common side effects include pain, redness, itching and swelling at the injection site, nausea, fever, dizziness and fainting. Rare but potentially serious reactions have been reported. These include allergic reaction, swollen glands, joint and muscle pain, weakness and Guillain-[place] syndrome. documented in this encounter [facility] 11-18-2024 Note HNO ID: [id number] Author: JB MILLS LPN Service: ? Author Type: LICENSED NURSE Type: Progress Notes Filed: 11/18/2024 14:01 Note Text: Patient identified by name and date of . Maik Martines is here for her HPV Gardasil vaccination, injection # two of the series. Patient ?No Gardasil injection was given without incident. See immunizations for details of immunizations administered today. VIS sheet provided: Yes Patient advised to follow up in 4 months from the 2nd injection Provider Dr. Vernell Medina was present in office at time of injection. Jb Mills LPN [facility] 11-18-2024 History of Present illness Narrative Patient identified by name and date of . Maik Martines is here for her HPV Gardasil vaccination, injection # two of the series. Patient ?No Gardasil injection was given without incident. See immunizations for details of immunizations administered today. VIS sheet provided: Yes Patient advised to follow up in 4 months from the 2nd injection Provider Dr. Vernell Medina was present in office at time of injection. Jb Mills LPN documented in this encounter [facility] 08-14-2024 Note HNO ID: [id number] Author: ELLEN GUADALUPE MA Service: ? Author Type: Flash Drier Operator Type: Progress Notes Filed: 08/14/2024 11:37 Note Text: Patient identified by name and date of . Maik Martines is here for her HPV Gardasil vaccination, injection # three of the series. Patient ?No Gardasil injection was given without incident. See immunizations for details of immunizations administered today. VIS sheet provided: Yes Patient advised to follow up in 2 months from the 1st injection Provider Vernell Medina MD was present in office at time of injection. Ellen Guadalupe MA [facility] 08-14-2024 History of Present illness Narrative Patient identified by name and date of . Maik Martines is here for her HPV Gardasil vaccination, injection # three of the series. Patient ?No Gardasil injection was given without incident. See immunizations for details of immunizations administered today. VIS sheet provided: Yes Patient advised to follow up in 2 months from the 1st injection Provider Vernell Medina MD was present in office at time of injection. Ellen Guadalupe MA Machine Shop Repair Technician offered: Patient accepts, visit chaperoned by Ellen Guadalupe MA. Maik is a 33 year old Female who presents today for a colposcopy. The patient's last pap smear was ASCUS with positive HPV from July 2024. Patient has a history of abnormal pap: No. The patient has had prior treatment: none. test: negative UNIVERSAL PROTOCOL / SAFETY CHECKLIST Procedure to be Performed: Colposcopy Sign In: A Moment of CARE was completed. Personnel directly involved with the procedure wore the appropriate PPE (Personal Protective Equipment). Patient/Surrogate Stated/Verified: PATIENT VERIFIED(optional for EMERGENT procedures): Patient name, Date of , Relevant allergies, and The intended procedure Time Out Communication: Intended patient and procedure match the source documents. Consent documented and matches the intended procedure. Relevant labs, photos, and/or imaging studies have been reviewed. Sign Out: SIGN OUT (optional for EMERGENT procedures): All specimen containers correctly labeled. All instruments, equipment, possible retained foreign bodies accounted for. Post-procedure follow-up management communicated and Plan of Care Visit completed when applicable. PROCEDURE: EXTERNAL GENITALIA: Normal in appearance without lesions VAGINA: Normal in appearance without lesions CERVIX: Speculum placed in vagina and excellent visualization of cervix achieved. Cervix swabbed x 3 with 3% acetic acid solution. Cervix grossly normal. Squamocolumnar junction visualized. acetowhite changes noted diffusely. BIOPSY: Done at 3:00, 6:00, 9:00, and 12:00 ECC: done HEMOSTASIS: Obtained with Monsel's solution, silver nitrate, and pressure Procedure Summary: Patient tolerated procedure well and colposcopy was adequate. ASSESSMENT: ASCUS with positive HRHPV PLAN: Specimens labeled and sent to Pathology. Will notify patient of results in 1-2 weeks. Post-procedure instructions reviewed and written material given to the patient. HPV vaccine series If indicated, lesion by colpo is amenable to office LEEP as lesion is small. Vernell Medina MD documented in this encounter [facility] 08-14-2024 Instructions Anu Tidwell MA - 08/14/2024 10:29 AM EST YOUR RECOVERY It may take a few weeks for your cervix to heal. While your cervix heals, you may have: - Vaginal bleeding (less than a normal menstrual period) - Mild cramping - A brown-black vaginal discharge (similar to coffee grounds) which is a result of the paste used to help stop bleeding from the procedure Do NOT put anything in the vagina for 1 week after your colposcopy if your doctor does a biopsy of your cervix. This includes sex, tampons, and douches. If you have any discomfort, you may take an over the counter pain medication (motrin, advil, ibuprofen, tylenol, etc). If this does not relieve your discomfort, contact your doctor's office for a prescription strength pain medication. It is okay to wear a sanitary pad until the discharge and spotting stops. RISKS Although problems seldom occur with colposcopy, there can be some complications. You may feel faint during and shortly after the procedure as well as have some bleeding and vaginal discharge after the procedure. There is also a risk of infection after the procedure. These complications are rare and can be easily treated. You should contact you doctor is you have any of the following: - Heavy bleeding (more than your normal period) - Bleeding with clots - Severe abdominal pain - Fever (more than 100.4F) - Foul smelling vaginal discharge RESULTS If a biopsy was taken, we will have the results of your biopsy in 1-2 weeks. If you do not hear the results of your biopsy after 2 weeks, please contact your physicians office for the results. Depending on the biopsy results, your doctor will determine your follow up plan which may include further testing or treatments. STAYING HEALTHY After the procedure, you will need to see your doctor for follow up visits during the year. At these visits your doctor will check the health of your cervix with a pap smear. After three normal pap smears, your doctor will allow you to return to having exams once a year. If you have another abnormal pap smear, you may need closer follow up for longer or you may need additional treatment. By making a few lifestyle changes after the procedure, you can help protect the health of your cervix: - Have regular pelvic exams and pap smears as ordered by your doctor. - Stop smoking as smoking increases your risk of developing a cancer of the cervix - If you have more than one sexual partner, limit your number of partners and use condoms to reduce your risks of STDs. If you have any additional questions, please contact your doctor's office. Gardasil Gardasil is a vaccine to protect against Human Papillomavirus (HPV) types 6, 11, 16, 18, 31,33,45, 52, 58. These viruses cause cancer and precancerous lesions on the cervix (opening between vagina and uterus), in the vagina and on the vulva (skin around the outside of the vagina) as well as genital warts. The vaccine cannot cause these diseases and cannot treat them if already present. Gardasil works best if given before contact with HPV. Most people are exposed to HPV soon after starting sexual activity. The vaccine is recommended between the ages of 9 and 45. Gardasil does not protect against all strains of HPV. Women who receive the vaccine still need to have regular pelvic exams and cervical cancer screening with the pap smear. You should ask your doctor if Gardasil is right for you if you have a weakened immune system, a bleeding disorder, plan to become soon or have a current illness causing fever. Gardasil is not recommended for women. You should be sure your doctor is aware of any allergies you have and all medications and herbal supplements you take. Gardasil is given to those ages 9-14 in 2 doses at 0 and 8 months. In ages 15-45, three injections are given at 0,2,6 months. Common side effects include pain, redness, itching and swelling at the injection site, nausea, fever, dizziness and fainting. Rare but potentially serious reactions have been reported. These include allergic reaction, swollen glands, joint and muscle pain, weakness and Guillain-[place] syndrome. documented in this encounter [facility] 08-14-2024 Note HNO ID: [id number] Author: VERNELL MEDINA MD Service: ? Author Type: Physician Type: Progress Notes Filed: 08/14/2024 11:37 Note Text: Machine Shop Repair Technician offered: Patient accepts, visit chaperoned by Ellen Guadalupe MA. Maik is a 33 year old Female who presents today for a colposcopy. The patient's last pap smear was ASCUS with positive HPV from July 2024. Patient has a history of abnormal pap: No. The patient has had prior treatment: none. test: negative UNIVERSAL PROTOCOL / SAFETY CHECKLIST Procedure to be Performed: Colposcopy Sign In: A Moment of CARE was completed. Personnel directly involved with the procedure wore the appropriate PPE (Personal Protective Equipment). Patient/Surrogate Stated/Verified: PATIENT VERIFIED(optional for EMERGENT procedures): Patient name, Date of , Relevant allergies, and The intended procedure Time Out Communication: Intended patient and procedure match the source documents. Consent documented and matches the intended procedure. Relevant labs, photos, and/or imaging studies have been reviewed. Sign Out: SIGN OUT (optional for EMERGENT procedures): All specimen containers correctly labeled. All instruments, equipment, possible retained foreign bodies accounted for. Post-procedure follow-up management communicated and Plan of Care Visit completed when applicable. PROCEDURE: EXTERNAL GENITALIA: Normal in appearance without lesions VAGINA: Normal in appearance without lesions CERVIX: Speculum placed in vagina and excellent visualization of cervix achieved. Cervix swabbed x 3 with 3% acetic acid solution. Cervix grossly normal. Squamocolumnar junction visualized. acetowhite changes noted diffusely. BIOPSY: Done at 3:00, 6:00, 9:00, and 12:00 ECC: done HEMOSTASIS: Obtained with Monsel's solution, silver nitrate, and pressure Procedure Summary: Patient tolerated procedure well and colposcopy was adequate. ASSESSMENT: ASCUS with positive HRHPV PLAN: Specimens labeled and sent to Pathology. Will notify patient of results in 1-2 weeks. Post-procedure instructions reviewed and written material given to the patient. HPV vaccine series If indicated, lesion by colpo is amenable to office LEEP as lesion is small. Vernell Medina MD [facility] 07-31-2024 Note HNO ID: [id number] Author: CLAUDINE JOYCE APRN.CNM Service: ? Author Type: Marine Cargo Inspector Type: Progress Notes Filed: 07/31/2024 10:44 Note Text: Maik is a 33 year old who presents for an annual gynecologic exam without complaints. Still get period: Yes Bleeding amount bothersome: Yes Bleeding between periods: Yes Period symptoms: Acne; Breast tenderness; Cramps; Mood change; Pelvic pain Other control: Depo control frequency: Always HPV vaccine: Unsure; HPV: negative Last pap smear: 04/30/2023 History of abnormal pap: No, all prior PAP smears have been normal Bothersome pelvic pain: Yes Last mammogram: never Patient concerns for STD exposure: Yes: infidelity by OB History T1 L1 SAB0 IAB0 Ectopic0 Multiple0 Live Births1 [place] Debeader History LMP: 06/29/2024, Having periods Age at Menarche: 21 Age at First : Age at Menopause: [place] Debeader History Comments: Sexual Activity: Not Currently; Male; depo Contraception: Abstinence, Other Menstrual Tracking History Flowsheet Row Office Visit from 07/31/2024 in OB/Gynecology Period Cycle (Days) 28 Period Duration (Days) 5 Menstrual Flow Moderate PAST MEDICAL HISTORY Diagnosis Date Allergic rhinitis, cause unspecified Coitus painful for female 2004 Endometriosis Esophageal reflux Headache(784.0) Lymph node enlargement right posterior auricular, sees [facility] Lymph node enlargement right axilla PAST SURGICAL HISTORY Procedure Laterality Date DELIVERY ONLY 07/30/2009 , low transverse EXC/DSTRJ LINGUAL TONSIL ANY METHOD SPX 06/29/2007 GI UPPER SERIES FAMILY HISTORY Problem Relation Age of Onset None Mother None Father None Sister Overweight None Brother Overweight Hypertension Maternal Grandmother Heart Maternal Grandfather other (Other [Other]) Maternal Grandfather Parkinson's Alzheimer's Disease Paternal Grandmother Breast Cancer Maternal Aunt 53 Genetics negative Breast Cancer Maternal cousin 60 SOCIAL HISTORY Social History Tobacco Use Smoking status: Never Smokeless tobacco: Never Vaping Use Vaping status: Never Used Substance Use Topics Alcohol use: Not Currently Drug use: No REVIEW OF SYSTEMS Abdomen: No abdominal pain, nausea, vomiting, diarrhea, or constipation. No bloating, early satiety, indigestion, or increased flatulence. Bladder: No dysuria, gross hematuria, urinary frequency, urinary urgency, or incontinence. Breast: History of right breast pain, fibrocystic breasts. Allergies and current medication updated:Yes SENSITIVE EXAM: The sensitive examination was discussed with the Patient or Patient's Authorized Still Operator Helper. As applicable, any other physician, advance practice provider, medical student, or other health professional student that will be observing or involved in the sensitive examination for educational or training purposes was discussed with the Patient or Authorized Still Operator Helper. The Patient or Authorized Still Operator Helper has agreed to proceed with the sensitive examination. (Sensitive examination includes inspection and/or palpation of the breasts, pelvis, prostate and anorectal regions). EXAM: BP 118/76 Ht 5' 3 (1.60m) Wt 183 lb (83.0kg) LMP 06/29/2024 BMI 32.43 kg/(m2). GENERAL: pleasant, female in no apparent distress HEENT: Normocephalic, atraumatic, mucus membranes moist, and no lesions NECK: Supple and full range of motion DERMATOLOGY: Normal and without lesions BREAST: soft, non-tender, symmetric, no dominant mass, normal nipple-areolar complex, no lymphadenopathy, no nipple discharge, and fibrocystic changes CHEST: Normal inspiratory effort ABDOMEN: soft, non-tender, and no masses PELVIC: external genitalia normal, normal Bartholin's glands, urethra, [place]'s glands, no vulvar lesions, no cervical lesions, good vaginal support, physiologic discharge present, normal appearing perineal body and perianal region BIMANUAL: uterus normal size, shape and consistency, no adnexal masses, non-tender, and no cervical motion tenderness RECTOVAGINAL: deferred. NEURO: alert and oriented x3,exam grossly non-focal EXTREMITIES: normal ASSESSMENT/PLAN: 1) Health maintenance: Pap done with HPV. Nutrition, exercise and routine health maintenance exams reviewed. 2) Contraception: Depo Provera. Contraceptive options reviewed and information provided. 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 Rx sent 3) STD screening: Accepted STD check for Gonorrhea and Chlamydia. 4) Follow up one year or sooner as needed Claudine Joyce APRN.CNM [facility] 07-31-2024 History of Present illness Narrative Maik is a 33 year old who presents for an annual gynecologic exam without complaints. Still get period: Yes Bleeding amount bothersome: Yes Bleeding between periods: Yes Period symptoms: Acne; Breast tenderness; Cramps; Mood change; Pelvic pain Other control: Depo control frequency: Always HPV vaccine: Unsure; HPV: negative Last pap smear: 04/30/2023 History of abnormal pap: No, all prior PAP smears have been normal Bothersome pelvic pain: Yes Last mammogram: never Patient concerns for STD exposure: Yes: infidelity by OB History T1 L1 SAB0 IAB0 Ectopic0 Multiple0 Live Births1 [place] Debeader History LMP: 06/29/2024, Having periods Age at Menarche: 21 Age at First : Age at Menopause: [place] Debeader History Comments: Sexual Activity: Not Currently; Male; depo Contraception: Abstinence, Other Menstrual Tracking History Flowsheet Row Office Visit from 07/31/2024 in OB/Gynecology Period Cycle (Days) 28 Period Duration (Days) 5 Menstrual Flow Moderate PAST MEDICAL HISTORY Diagnosis Date Allergic rhinitis, cause unspecified Coitus painful for female 2004 Endometriosis Esophageal reflux Headache(784.0) Lymph node enlargement right posterior auricular, sees [facility] Lymph node enlargement right axilla PAST SURGICAL HISTORY Procedure Laterality Date DELIVERY ONLY 07/30/2009 , low transverse EXC/DSTRJ LINGUAL TONSIL ANY METHOD SPX 06/29/2007 GI UPPER SERIES FAMILY HISTORY Problem Relation Age of Onset None Mother None Father None Sister Overweight None Brother Overweight Hypertension Maternal Grandmother Heart Maternal Grandfather other (Other [Other]) Maternal Grandfather Parkinson's Alzheimer's Disease Paternal Grandmother Breast Cancer Maternal Aunt 53 Genetics negative Breast Cancer Maternal cousin 60 SOCIAL HISTORY Social History Tobacco Use Smoking status: Never Smokeless tobacco: Never Vaping Use Vaping status: Never Used Substance Use Topics Alcohol use: Not Currently Drug use: No REVIEW OF SYSTEMS Abdomen: No abdominal pain, nausea, vomiting, diarrhea, or constipation. No bloating, early satiety, indigestion, or increased flatulence. Bladder: No dysuria, gross hematuria, urinary frequency, urinary urgency, or incontinence. Breast: History of right breast pain, fibrocystic breasts. Allergies and current medication updated:Yes SENSITIVE EXAM: The sensitive examination was discussed with the Patient or Patient's Authorized Still Operator Helper. As applicable, any other physician, advance practice provider, medical student, or other health professional student that will be observing or involved in the sensitive examination for educational or training purposes was discussed with the Patient or Authorized Still Operator Helper. The Patient or Authorized Still Operator Helper has agreed to proceed with the sensitive examination. (Sensitive examination includes inspection and/or palpation of the breasts, pelvis, prostate and anorectal regions). EXAM: BP 118/76 Ht 5' 3 (1.60m) Wt 183 lb (83.0kg) LMP 06/29/2024 BMI 32.43 kg/(m^2). GENERAL: pleasant, female in no apparent distress HEENT: Normocephalic, atraumatic, mucus membranes moist, and no lesions NECK: Supple and full range of motion DERMATOLOGY: Normal and without lesions BREAST: soft, non-tender, symmetric, no dominant mass, normal nipple-areolar complex, no lymphadenopathy, no nipple discharge, and fibrocystic changes CHEST: Normal inspiratory effort ABDOMEN: soft, non-tender, and no masses PELVIC: external genitalia normal, normal Bartholin's glands, urethra, [place]'s glands, no vulvar lesions, no cervical lesions, good vaginal support, physiologic discharge present, normal appearing perineal body and perianal region BIMANUAL: uterus normal size, shape and consistency, no adnexal masses, non-tender, and no cervical motion tenderness RECTOVAGINAL: deferred. NEURO: alert and oriented x3,exam grossly non-focal EXTREMITIES: normal ASSESSMENT/PLAN: 1) Health maintenance: Pap done with HPV. Nutrition, exercise and routine health maintenance exams reviewed. 2) Contraception: Depo Provera. Contraceptive options reviewed and information provided. 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 Rx sent 3) STD screening: Accepted STD check for Gonorrhea and Chlamydia. 4) Follow up one year or sooner as needed Claudine Joyce APRN.CNM documented in this encounter [facility] 07-03-2024 History of Present illness Narrative Radiology Service Progress Note PATIENT NAME: Maik Martines DATE OF SERVICE: July 03, 2024 TIME: 9:04 AM PATIENT IDENTITY VERIFICATION COMPLETED USING TWO (2) IDENTIFIERS: Name and Date of confirmed by patient verbally. FALL SCREENING: Has the patient had 2 falls in the last year or 1 fall with injury or currently using an Ambulatory Assistive Device (Walker, Cane, Wheelchair, Crutches, etc.)? No PATIENT GENDER DATA: Female. status: : No status: NO. PATIENT RELEVANT IMPLANT DATA REVIEWED: Not Applicable PATIENT PRESENTS WITH AN IMPLANTABLE OR ATTACHED NEWS PHOTOGRAPHER: No RADIOLOGY DEPARTMENT: General X-ray: Exam(s) Completed: Chest X-Ray PERIPHERAL IV DATA: Not applicable SIGNED BY: GLADIS Sousa) July 03, 2024 9:04 AM documented in this encounter [facility] 07-03-2024 Note HNO ID: [id number] Author: HAZEL ANDRE RT(R) Service: Radiology Author Type: Technologist Type: Progress Notes Filed: 07/03/2024 09:12 Note Text: Radiology Service Progress Note PATIENT NAME: Maik Martines DATE OF SERVICE: July 03, 2024 TIME: 9:04 AM PATIENT IDENTITY VERIFICATION COMPLETED USING TWO (2) IDENTIFIERS: Name and Date of confirmed by patient verbally. FALL SCREENING: Has the patient had 2 falls in the last year or 1 fall with injury or currently using an Ambulatory Assistive Device (Walker, Cane, Wheelchair, Crutches, etc.)? No PATIENT GENDER DATA: Female. status: : No status: NO. PATIENT RELEVANT IMPLANT DATA REVIEWED: Not Applicable PATIENT PRESENTS WITH AN IMPLANTABLE OR ATTACHED NEWS PHOTOGRAPHER: No RADIOLOGY DEPARTMENT: General X-ray: Exam(s) Completed: Chest X-Ray PERIPHERAL IV DATA: Not applicable SIGNED BY: Hazel Andre, RT(R) July 03, 2024 9:04 AM [facility] 07-03-2024 Note HNO ID: [id number] Author: ESTEFANIA VINES PA Service: ? Author Type: Physician Paid Search Marketing Analyst Type: Progress Notes Filed: 07/03/2024 09:54 Note Text: This note was created using DataMotionriter. Subjective Maik Martines is a 33 year old female. HPI 33-year-old female presents for cough, chest congestion, nasal congestion, ear pain for about 4 days. Patient states over the weekend she started getting sick. She states that she is coughing up a lot of mucus. It originally was green, now it is more yellow. She states it seems thicker and harder to cough up now. She denies any chest pain or shortness of breath, but has been using her rescue inhaler over the past 24 hours. She does not have a history of asthma, but has been given an inhaler in the past when she was sick. She states she has had nasal congestion. She has had chills and felt feverish at home. She feels like she had a fever last night because she woke up in sweat. She denies any vomiting or diarrhea. Still eating and drinking. She has been taking [id number] cough/cold medications including Mucinex, Tylenol Cold and flu and [place] without much improvement in symptoms. No other complaint. PAST MEDICAL HISTORY Diagnosis Date Allergic rhinitis, cause unspecified Esophageal reflux Headache(784.0) Lymph node enlargement right posterior auricular, [facility] Lymph node enlargement right axilla PAST SURGICAL HISTORY Procedure Laterality Date DELIVERY ONLY 2009 , low transverse EXC/DSTRJ LINGUAL TONSIL ANY METHOD SPX 06/2007 GI UPPER SERIES ALLERGIES Bactrim [Sulfamethoxazole-Trimethoprim], Grape, Morphine, Phenergan [Promethazine Hcl], and Zoloft [Sertraline Hcl] MEDICATIONS DULoxetine (CYMBALTA) 60 mg capsule Take 1 capsule by mouth every afternoon. fexofenadine (RADHA ALLERGY) 180 mg tablet Take 180 mg by mouth once daily. estradiol (DEPO-ESTRADIOL) 5 mg/mL injection Inject intramuscularly one time only. lansoprazole (PREVACID) 30 mg capsule Take 1 capsule by mouth twice daily before meals. albuterol HFA (PROAIR HFA) 90 mcg/actuation inhaler Inhale 2 Puffs as instructed every 4 hours as needed. benzonatate (TESSALON PERLE) 100 mg capsule Take 2 capsules by mouth three times a day as needed. (Patient not taking: Reported on 05/11/2024) sucralfate (CARAFATE) 1 gram tablet Take 1 tablet by mouth four times daily. (mixed with a little bit of water to make a slurry). (Patient not taking: Reported on 07/24/2023) Cetirizine (ZYRTEC) 10 mg cap Take 10 mg by mouth. (Patient not taking: Reported on 05/11/2024) FAMILY HISTORY Problem Relation Age of Onset None Mother None Father None Sister Overweight None Brother Overweight Hypertension Maternal Grandmother Heart Maternal Grandfather other (Other [Other]) Maternal Grandfather Parkinson's Alzheimer's Disease Paternal Grandmother Breast Cancer Maternal Aunt 53 Genetics negative Breast Cancer Maternal cousin 60 Social History Tobacco Use Smoking status: Never Smokeless tobacco: Never Vaping Use Vaping status: Never Used Substance Use Topics Alcohol use: Not Currently Drug use: No Review of Systems Constitutional: Positive for chills and fever. HENT: Positive for congestion and ear pain. Negative for sore throat. Respiratory: Positive for cough and wheezing. Negative for shortness of breath. Cardiovascular: Negative for chest pain. Gastrointestinal: Negative for diarrhea and vomiting. Objective BP 134/86 Pulse 107 Temp 37.6 ?C (99.7 ?F) Resp 20 Wt 85 kg (187 lb 6.3 oz) LMP 07/30/2022 (Within Days) SpO2 97% BMI 33.19 kg/m? Physical Exam Vitals and nursing note reviewed. Constitutional: General: She is not in acute distress. Appearance: Normal appearance. She is not toxic-appearing. HENT: Right Ear: Tympanic membrane and ear canal normal. Left Ear: Tympanic membrane and ear canal normal. Nose: Congestion present. Mouth/Throat: Mouth: Mucous membranes are moist. Eyes: Conjunctiva/sclera: Conjunctivae normal. Cardiovascular: Rate and Rhythm: Normal rate and regular rhythm. Pulmonary: Effort: Pulmonary effort is normal. Breath sounds: Normal breath sounds. No wheezing, rhonchi or rales. Skin: General: Skin is warm and dry. Neurological: Mental Status: She is alert. Assessment and Plan ASSESSMENT/PLAN: 1. Acute cough - ICD9: 786.2, ICD10: R05.1 - XR CHEST 2V FRONTAL/LAT-no acute abnormality. -Rx prednisone, Rx Tessalon Perles patient reports wheezing at home. -Follow-up with PCP if no improvement. -Declines viral swab Diagnosis and treatment plan were discussed and questions were answered to the patient's satisfaction. Pt acknowledged understanding of concepts and follow up plan. Specific signs and symptoms that would indicate the need for higher level of care were discussed in detail warranting prompt ER evaluation. YAMILE Pacheco [facility] 07-03-2024 History of Present illness Narrative This note was created using TextCornerter. Subjective Maik Martines is a 33 year old female. HPI 33-year-old female presents for cough, chest congestion, nasal congestion, ear pain for about 4 days. Patient states over the weekend she started getting sick. She states that she is coughing up a lot of mucus. It originally was green, now it is more yellow. She states it seems thicker and harder to cough up now. She denies any chest pain or shortness of breath, but has been using her rescue inhaler over the past 24 hours. She does not have a history of asthma, but has been given an inhaler in the past when she was sick. She states she has had nasal congestion. She has had chills and felt feverish at home. She feels like she had a fever last night because she woke up in sweat. She denies any vomiting or diarrhea. Still eating and drinking. She has been taking [id number] cough/cold medications including Mucinex, Tylenol Cold and flu and [place] without much improvement in symptoms. No other complaint. PAST MEDICAL HISTORY Diagnosis Date Allergic rhinitis, cause unspecified Esophageal reflux Headache(784.0) Lymph node enlargement right posterior auricular, [facility] Lymph node enlargement right axilla PAST SURGICAL HISTORY Procedure Laterality Date DELIVERY ONLY 2009 , low transverse EXC/DSTRJ LINGUAL TONSIL ANY METHOD SPX 06/2007 GI UPPER SERIES ALLERGIES Bactrim [Sulfamethoxazole-Trimethoprim], Grape, Morphine, Phenergan [Promethazine Hcl], and Zoloft [Sertraline Hcl] MEDICATIONS DULoxetine (CYMBALTA) 60 mg capsule Take 1 capsule by mouth every afternoon. fexofenadine (RADHA ALLERGY) 180 mg tablet Take 180 mg by mouth once daily. estradiol (DEPO-ESTRADIOL) 5 mg/mL injection Inject intramuscularly one time only. lansoprazole (PREVACID) 30 mg capsule Take 1 capsule by mouth twice daily before meals. albuterol HFA (PROAIR HFA) 90 mcg/actuation inhaler Inhale 2 Puffs as instructed every 4 hours as needed. benzonatate (TESSALON PERLE) 100 mg capsule Take 2 capsules by mouth three times a day as needed. (Patient not taking: Reported on 05/11/2024) sucralfate (CARAFATE) 1 gram tablet Take 1 tablet by mouth four times daily. (mixed with a little bit of water to make a slurry). (Patient not taking: Reported on 07/24/2023) Cetirizine (ZYRTEC) 10 mg cap Take 10 mg by mouth. (Patient not taking: Reported on 05/11/2024) FAMILY HISTORY Problem Relation Age of Onset None Mother None Father None Sister Overweight None Brother Overweight Hypertension Maternal Grandmother Heart Maternal Grandfather other (Other [Other]) Maternal Grandfather Parkinson's Alzheimer's Disease Paternal Grandmother Breast Cancer Maternal Aunt 53 Genetics negative Breast Cancer Maternal cousin 60 Social History Tobacco Use Smoking status: Never Smokeless tobacco: Never Vaping Use Vaping status: Never Used Substance Use Topics Alcohol use: Not Currently Drug use: No Review of Systems Constitutional: Positive for chills and fever. HENT: Positive for congestion and ear pain. Negative for sore throat. Respiratory: Positive for cough and wheezing. Negative for shortness of breath. Cardiovascular: Negative for chest pain. Gastrointestinal: Negative for diarrhea and vomiting. Objective BP 134/86 Pulse 107 Temp 37.6 C (99.7 F) Resp 20 Wt 85 kg (187 lb 6.3 oz) LMP 07/30/2022 (Within Days) SpO2 97% BMI 33.19 kg/m Physical Exam Vitals and nursing note reviewed. Constitutional: General: She is not in acute distress. Appearance: Normal appearance. She is not toxic-appearing. HENT: Right Ear: Tympanic membrane and ear canal normal. Left Ear: Tympanic membrane and ear canal normal. Nose: Congestion present. Mouth/Throat: Mouth: Mucous membranes are moist. Eyes: Conjunctiva/sclera: Conjunctivae normal. Cardiovascular: Rate and Rhythm: Normal rate and regular rhythm. Pulmonary: Effort: Pulmonary effort is normal. Breath sounds: Normal breath sounds. No wheezing, rhonchi or rales. Skin: General: Skin is warm and dry. Neurological: Mental Status: She is alert. Assessment and Plan ASSESSMENT/PLAN: 1. Acute cough - ICD9: 786.2, ICD10: R05.1 - XR CHEST 2V FRONTAL/LAT-no acute abnormality. -Rx prednisone, Rx Tessalon Perles patient reports wheezing at home. -Follow-up with PCP if no improvement. -Declines viral swab Diagnosis and treatment plan were discussed and questions were answered to the patient's satisfaction. Pt acknowledged understanding of concepts and follow up plan. Specific signs and symptoms that would indicate the need for higher level of care were discussed in detail warranting prompt ER evaluation. YAMILE Pacheco documented in this encounter [facility] 06-12-2024 Note Formatting of this n ote is different from the original. 2024 Weight goal Set Last 2 Encounter Wt Readings: Date: Wt: 05/11/2024 84.4 kg (186 lb 1.1 oz) 11/11/2023 82.4 kg (181 lb 10.5 oz) 2024 Weight goal: 2 BMI goal set based on weight documented on 05/11/2024 of 186 lbs. Weight goal to reach between 03/13/2025 - 04/28/2025 is 175 pounds. Last 3 Encounter BP Readings: Date: BP: 05/11/2024 132/80 11/11/2023 122/100 07/24/2023 118/72 Last 3 LDL readings: LDL Cholesterol (mg/dL) Date Value 08/30/2016 101 01/05/2015 78 No results found for: LDLCHOLDIR [facility] 06-12-2024 Miscellaneous Notes 2024 Weight goal Set Last 2 Encounter Wt Readings: Date: Wt: 05/11/2024 84.4 kg (186 lb 1.1 oz) 11/11/2023 82.4 kg (181 lb 10.5 oz) 2024 Weight goal: 2 BMI goal set based on weight documented on 05/11/2024 of 186 lbs. Weight goal to reach between 03/13/2025 - 04/28/2025 is 175 pounds. Last 3 Encounter BP Readings: Date: BP: 05/11/2024 132/80 11/11/2023 122/100 07/24/2023 118/72 Last 3 LDL readings: LDL Cholesterol (mg/dL) Date Value 08/30/2016 101 01/05/2015 78 No results found for: LDLCHOLDIR documented in this encounter [facility] 05-11-2024 Note HNO ID: [id number] Author: BANDAR SAUCEDA APRN.BUILDING CONSTRUCTION FOREMAN Service: ? Author Type: Nurse Practitioner Type: Progress Notes Filed: 05/11/2024 08:28 Note Text: Subjective HPI HPI Maik Martines is a 33 year old female who presents today for CC of painful spot on neck. This started 1 day ago. Has tried otc medication for relief. Symptoms are worsened by nothing. Sinus pressure, cough started 3 days ago, tried otc medication for relief. Sick exposures at home and work. Denies possibility of being . .Patient presents with: Sinus Problem: sinus pressure x 3 days, rash on back of neck painful x 1 day PAST MEDICAL HISTORY Diagnosis Date Allergic rhinitis, cause unspecified Esophageal reflux Headache(784.0) Lymph node enlargement right posterior auricular, [facility] Lymph node enlargement right axilla PAST SURGICAL HISTORY Procedure Laterality Date DELIVERY ONLY 2009 , low transverse EXC/DSTRJ LINGUAL TONSIL ANY METHOD SPX 06/2007 GI UPPER SERIES ALLERGIES Bactrim [Sulfamethoxazole-Trimethoprim], Grape, Morphine, Phenergan [Promethazine Hcl], and Zoloft [Sertraline Hcl] MEDICATIONS DULoxetine (CYMBALTA) 60 mg capsule Take 1 capsule by mouth every afternoon. lansoprazole (PREVACID) 30 mg capsule Take 1 capsule by mouth twice daily before meals. albuterol HFA (PROAIR HFA) 90 mcg/actuation inhaler Inhale 2 Puffs as instructed every 4 hours as needed. fexofenadine (RADHA ALLERGY) 180 mg tablet Take 180 mg by mouth once daily. estradiol (DEPO-ESTRADIOL) 5 mg/mL injection Inject intramuscularly one time only. doxycycline monohydrate 100 mg tablet Take 1 tablet by mouth two times a day for 7 days. mupirocin (BACTROBAN) 2 % ointment Apply to affected area three times a day for 10 days. benzonatate (TESSALON PERLE) 100 mg capsule Take 2 capsules by mouth three times a day as needed. (Patient not taking: Reported on 05/11/2024) sucralfate (CARAFATE) 1 gram tablet Take 1 tablet by mouth four times daily. (mixed with a little bit of water to make a slurry). (Patient not taking: Reported on 07/24/2023) Cetirizine (ZYRTEC) 10 mg cap Take 10 mg by mouth. (Patient not taking: Reported on 05/11/2024) FAMILY HISTORY Problem Relation Age of Onset None Mother None Father None Sister Overweight None Brother Overweight Hypertension Maternal Grandmother Heart Maternal Grandfather other (Other [Other]) Maternal Grandfather Parkinson's Alzheimer's Disease Paternal Grandmother Breast Cancer Maternal Aunt 53 Genetics negative Breast Cancer Maternal cousin 60 Social History Tobacco Use Smoking status: Never Smokeless tobacco: Never Vaping Use Vaping status: Never Used Substance Use Topics Alcohol use: Not Currently Drug use: No Review of Systems Constitutional: Negative for fever. HENT: Positive for congestion and ear pain. Negative for nosebleeds and sore throat. Respiratory: Positive for cough. Negative for shortness of breath and wheezing. Musculoskeletal: Negative for neck pain. Skin: Positive for rash. Negative for itching. Objective Physical Exam Constitutional: General: She is not in acute distress. Appearance: She is not toxic-appearing or diaphoretic. HENT: Head: Normocephalic and atraumatic. Right Ear: Hearing, tympanic membrane, ear canal and external ear normal. Left Ear: Hearing, tympanic membrane, ear canal and external ear normal. Nose: Nose normal. Mouth/Throat: Pharynx: Uvula midline. No pharyngeal swelling, oropharyngeal exudate, posterior oropharyngeal erythema or uvula swelling. Eyes: General: Lids are normal. No scleral icterus. Right eye: No discharge. Left eye: No discharge. Conjunctiva/sclera: Conjunctivae normal. Pupils: Pupils are equal, round, and reactive to light. Neck: Trachea: Trachea normal. Pulmonary: Effort: Pulmonary effort is normal. Musculoskeletal: Cervical back: Normal range of motion and neck supple. Lymphadenopathy: Cervical: No cervical adenopathy. Right cervical: No superficial cervical adenopathy. Left cervical: No superficial cervical adenopathy. Skin: Findings: No rash. Neurological: Mental Status: She is alert and oriented to person, place, and time. ASSESSMENT/PLAN: 1. Skin lesion - ICD9: 709.9, ICD10: L98.9 (primary diagnosis) -use medication as prescribed -follow up if symptoms persist, worsen, change If pos for shingles call in treatment. - DOXYCYCLINE MONOHYDRATE 100 MG TABLET - HSV1,2/VZV NAAT LESION - MUPIROCIN 2 % TOPICAL OINTMENT 2. Nasal congestion - ICD9: 478.19, ICD10: R09.81 Viral vs allergic today. Bandar Sauceda APRN.[facility] 05-11-2024 History of Present illness Narrative Images from the original note were not included. Subjective HPI HPI Maik Martines is a 33 year old female who presents today for CC of painful spot on neck. This started 1 day ago. Has tried otc medication for relief. Symptoms are worsened by nothing. Sinus pressure, cough started 3 days ago, tried otc medication for relief. Sick exposures at home and work. Denies possibility of being . .Patient presents with: Sinus Problem: sinus pressure x 3 days, rash on back of neck painful x 1 day PAST MEDICAL HISTORY Diagnosis Date Allergic rhinitis, cause unspecified Esophageal reflux Headache(784.0) Lymph node enlargement right posterior auricular, [facility] Lymph node enlargement right axilla PAST SURGICAL HISTORY Procedure Laterality Date DELIVERY ONLY 2009 , low transverse EXC/DSTRJ LINGUAL TONSIL ANY METHOD SPX 06/2007 GI UPPER SERIES ALLERGIES Bactrim [Sulfamethoxazole-Trimethoprim], Grape, Morphine, Phenergan [Promethazine Hcl], and Zoloft [Sertraline Hcl] MEDICATIONS DULoxetine (CYMBALTA) 60 mg capsule Take 1 capsule by mouth every afternoon. lansoprazole (PREVACID) 30 mg capsule Take 1 capsule by mouth twice daily before meals. albuterol HFA (PROAIR HFA) 90 mcg/actuation inhaler Inhale 2 Puffs as instructed every 4 hours as needed. fexofenadine (RADHA ALLERGY) 180 mg tablet Take 180 mg by mouth once daily. estradiol (DEPO-ESTRADIOL) 5 mg/mL injection Inject intramuscularly one time only. doxycycline monohydrate 100 mg tablet Take 1 tablet by mouth two times a day for 7 days. mupirocin (BACTROBAN) 2 % ointment Apply to affected area three times a day for 10 days. benzonatate (TESSALON PERLE) 100 mg capsule Take 2 capsules by mouth three times a day as needed. (Patient not taking: Reported on 05/11/2024) sucralfate (CARAFATE) 1 gram tablet Take 1 tablet by mouth four times daily. (mixed with a little bit of water to make a slurry). (Patient not taking: Reported on 07/24/2023) Cetirizine (ZYRTEC) 10 mg cap Take 10 mg by mouth. (Patient not taking: Reported on 05/11/2024) FAMILY HISTORY Problem Relation Age of Onset None Mother None Father None Sister Overweight None Brother Overweight Hypertension Maternal Grandmother Heart Maternal Grandfather other (Other [Other]) Maternal Grandfather Parkinson's Alzheimer's Disease Paternal Grandmother Breast Cancer Maternal Aunt 53 Genetics negative Breast Cancer Maternal cousin 60 Social History Tobacco Use Smoking status: Never Smokeless tobacco: Never Vaping Use Vaping status: Never Used Substance Use Topics Alcohol use: Not Currently Drug use: No Review of Systems Constitutional: Negative for fever. HENT: Positive for congestion and ear pain. Negative for nosebleeds and sore throat. Respiratory: Positive for cough. Negative for shortness of breath and wheezing. Musculoskeletal: Negative for neck pain. Skin: Positive for rash. Negative for itching. Objective Physical Exam Constitutional: General: She is not in acute distress. Appearance: She is not toxic-appearing or diaphoretic. HENT: Head: Normocephalic and atraumatic. Right Ear: Hearing, tympanic membrane, ear canal and external ear normal. Left Ear: Hearing, tympanic membrane, ear canal and external ear normal. Nose: Nose normal. Mouth/Throat: Pharynx: Uvula midline. No pharyngeal swelling, oropharyngeal exudate, posterior oropharyngeal erythema or uvula swelling. Eyes: General: Lids are normal. No scleral icterus. Right eye: No discharge. Left eye: No discharge. Conjunctiva/sclera: Conjunctivae normal. Pupils: Pupils are equal, round, and reactive to light. Neck: Trachea: Trachea normal. Pulmonary: Effort: Pulmonary effort is normal. Musculoskeletal: Cervical back: Normal range of motion and neck supple. Lymphadenopathy: Cervical: No cervical adenopathy. Right cervical: No superficial cervical adenopathy. Left cervical: No superficial cervical adenopathy. Skin: Findings: No rash. Neurological: Mental Status: She is alert and oriented to person, place, and time. ASSESSMENT/PLAN: 1. Skin lesion - ICD9: 709.9, ICD10: L98.9 (primary diagnosis) -use medication as prescribed -follow up if symptoms persist, worsen, change If pos for shingles call in treatment. - DOXYCYCLINE MONOHYDRATE 100 MG TABLET - HSV1,2/VZV NAAT LESION - MUPIROCIN 2 % TOPICAL OINTMENT 2. Nasal congestion - ICD9: 478.19, ICD10: R09.81 Viral vs allergic today. Bandar Sauceda APRN.BUILDING CONSTRUCTION FOREMAN documented in this encounter [facility] 01-02-2024 Note Formatting of this n ote is different from the original. Member newly assigned to me. Sent member [employer] message introducing myself and to see if member has any questions for me. LDL Cholesterol (mg/dL) Date Value 08/30/2016 101 01/05/2015 78 No results found for: LDLCHOLDIR Last 3 Encounter BP Readings: Date: BP: 11/11/2023 122/100 07/24/2023 118/72 12/26/2022 125/88 Diabetic Screening No results found for: HBA1C [facility] 01-02-2024 Miscellaneous Notes Member newly assigned to me. Sent member [employer] message introducing myself and to see if member has any questions for me. LDL Cholesterol (mg/dL) Date Value 08/30/2016 101 01/05/2015 78 No results found for: LDLCHOLDIR Last 3 Encounter BP Readings: Date: BP: 11/11/2023 122/100 07/24/2023 118/72 12/26/2022 125/88 Diabetic Screening No results found for: HBA1C documented in this encounter [facility] 11-11-2023 History of Present illness Narrative Subjective HPI HPI Maik Martines is a 32 year old female who presents today for CC of cough, st, laryngitis. This started 1 day ago. Has tried otc medication for relief. Symptoms are worsened by nothing. Risk factors sick exposures at work. Nonsmoker. Denies possibility of being . .Patient presents with: Sore Throat: Loss of voice, cough, coughing up green mucus x 1 day PAST MEDICAL HISTORY Diagnosis Date Allergic rhinitis, cause unspecified Esophageal reflux Headache(784.0) Lymph node enlargement right posterior auricular, sees [facility] Lymph node enlargement right axilla PAST SURGICAL HISTORY Procedure Laterality Date DELIVERY ONLY 2009 , low transverse EXC/DSTRJ LINGUAL TONSIL ANY METHOD SPX 06/2007 GI UPPER SERIES ALLERGIES Bactrim [Sulfamethoxazole-Trimethoprim], Grape, Morphine, Phenergan [Promethazine Hcl], and Zoloft [Sertraline Hcl] MEDICATIONS Cetirizine (ZYRTEC) 10 mg cap Take 10 mg by mouth. lansoprazole (PREVACID) 30 mg capsule Take 1 capsule by mouth twice daily before meals. albuterol HFA (PROAIR HFA) 90 mcg/actuation inhaler Inhale 2 Puffs as instructed every 4 hours as needed. sucralfate (CARAFATE) 1 gram tablet Take 1 tablet by mouth four times daily. (mixed with a little bit of water to make a slurry). (Patient not taking: Reported on 07/24/2023) FAMILY HISTORY Problem Relation Age of Onset [...] No Review of Systems Constitutional: Negative for fever. HENT: Positive for congestion, ear pain and sore throat. Negative for nosebleeds. Respiratory: Positive for cough. Negative for shortness of breath and wheezing. Musculoskeletal: Negative for neck pain. Skin: Negative for itching and rash. Objective Blood pressure 122/100, pulse 90, temperature 37.1 C (98.8 F), resp. rate 19, weight 82.4 kg (181 lb 10.5 oz), last menstrual period 07/30/2022, SpO2 98%. Physical Exam Constitutional: General: She is not in acute distress. Appearance: She is not toxic-appearing or diaphoretic. HENT: Head: Normocephalic and atraumatic. Right Ear: Hearing, tympanic membrane, ear canal and external ear normal. Left Ear: Hearing, tympanic membrane, ear canal and external ear normal. Nose: Nose normal. Mouth/Throat: Pharynx: Uvula midline. No pharyngeal swelling, oropharyngeal exudate, posterior oropharyngeal erythema or uvula swelling. Eyes: General: Lids are normal. No scleral icterus. Right eye: No discharge. Left eye: No discharge. Conjunctiva/sclera: Conjunctivae normal. Pupils: Pupils are equal, round, and reactive to light. Neck: Trachea: Trachea normal. Cardiovascular: Rate and Rhythm: Normal rate and regular rhythm. Heart sounds: Normal heart sounds. Pulmonary: Effort: Pulmonary effort is normal. Breath sounds: Normal breath sounds. Musculoskeletal: Cervical back: Normal range of motion and neck supple. Lymphadenopathy: Cervical: No cervical adenopathy. Right cervical: No superficial cervical adenopathy. Left cervical: No superficial cervical adenopathy. Skin: Findings: No rash. Neurological: Mental Status: She is alert and oriented to person, place, and time. ASSESSMENT/PLAN: 1. URI, acute - ICD9: 465.9, ICD10: J06.9 - Discussed viral etiology and rationale for treatment. - Symptomatic treatment with prn analgesia - Supportive care with fluids and rest - Follow up in 3-5 days if symptoms persist or sooner if worsening of symptoms - PREDNISONE 20 MG TABLET - BENZONATATE 100 MG CAPSULE Bandar Sauceda APRN.BUILDING [employer]STRU[employer] FOREMAN documented in this encounter [facility] 08-31-2023 Miscellaneous Notes Enrolled in WEIGHT MANAGEMENT Program Met no goals MEDICATIONS PER RX DATABASE none Adherent with medication refills N/A Is member submitting receipts for Reimbursement N/A Is Employee Health Plan primary Yes Last 2 Encounter Wt Readings: Date: Wt: 07/24/2023 82.1 kg (181 lb) 12/26/2022 79.1 kg (174 lb 6.4 oz) 2023 Weight goal: 2 BMI goal set based on weight documented on 07/24/23 of 181 lbs. Weight goal to reach between 03/13/2024 - 04/28/2024 is 170 pounds. Diagnosis of Coronary Artery Disease No Last 3 Encounter BP Readings: Date: BP: 07/24/2023 118/72 12/26/2022 125/88 12/26/2022 118/82 LDL Cholesterol (mg/dL) Date Value 08/30/2016 101 01/05/2015 78 No results found for: LDLCHOLDIR LDL:HDL RATIO Applies to members that are diet and Exercise controlled LDL:HDL Ratio Date Value Ref Range Status 08/30/2016 1.87 0.50 - 3.55 Final Diabetic Screening No results found for: HBA1C documented in this encounter [facility] 07-24-2023 History of Present illness Narrative Radiology Service Progress Note PATIENT NAME: Maik Martines DATE OF SERVICE: July 24, 2023 TIME: 8:27 AM PATIENT IDENTITY VERIFICATION COMPLETED USING TWO [...] Yes RADIOLOGY DEPARTMENT: General X-ray: Exam(s) Completed: Upper Extremity X-Ray(s): Shoulder, AP / TRUE AP right PERIPHERAL IV DATA: Not applicable SIGNED BY: RT Obey(R) July 24, 2023 8:27 AM documented in this encounter [facility] 03-06-2023 History of Present illness Narrative UNIVERSAL PROTOCOL / SAFETY CHECKLIST [...] Care Visit completed when applicable. Gricelda Brunson [facility] Carlito Lozano MD documented in this encounter [facility] 03-02-2023 Note [facility] Medical Records Department [address] [place] [id number] History Physical Exam 03/02/23 1452 MR#: [id number] Acct: [id number] Name: MAIK MARTINES Rep #: [id number] : 1990 32 From: Louis Friend DO PCP: Dr. Gilbert Hurley MD Status:REG [facility] Location: [place] [address] History and Physical Date of Admission: 03/02/23 32 F who presents to the office today for PCP OV with history of GERD being managed with Prevacid 30mg BID. ? Chest CTA 8. dyspnea without acute/chronic finding. ? Barium swallow 05.08.22 tablet trapped at GE junction. *[facility] established 01.01.23. Previously established with Dr. Aviles for many years for management of acid reflux. In 2019 she was changed to prevacid 30mg BID when she was . Notes recent increase of reflux lately but also notes there is some ???odd health issues??? and possibly increased stress with this. Feels cotton balls in her throat which she feels is r/t historical reflux symptoms. ROS Const Constitutional: No anorexia, fatigue, fever(s), weight change or sleep problems Eyes Eyes: No change in vision ENT ENT: No abnormal hearing, difficulty swallowing, mouth lesions, tongue swelling or throat swelling Resp Respiratory: No cough or shortness of breath Cardio Cardiology: No chest pain at rest, chest pain with exertion, shortness of breath or dyspnea on exertion Gastro GI: No difficulty swallowing Genitourinary-Female: No difficulty urinating or burning urination Musc Musculoskeletal: No joint pain, joint swelling, muscle weakness or decreased muscle mass Skin Skin: No hair loss in leg, yellowing of the eye, itchy eyes, rash, skin ulcer or skin swelling Neuro Neurology: No abnormal hearing, abnormal movements, confusion, unsteady gait/balance or memory loss Psych Psychiatric: No anxiety, No confusion and No memory loss Endo Endocrine: No fatigue or weight change Aller/Imm Allergy/Immunologic: No itchy eyes, throat swelling or tongue swelling Sammy/Lymp Hematologic/Lymphatic: No easy bleeding, easy bruising or enlarged lymph nodes Exam Const General: cooperative and comfortable Nutritional Appearance: average body habitus and well nourished [facility] Head: normal to inspection Ears: hearing grossly normal bilaterally Nose: external nose normal Face and sinus: normal facial exam Mouth: oral mucosae normal Throat: posterior oropharynx normal Eyes General: appearance normal, both eyes and all related structures Neck Neck: normal visual inspection Chest Chest palpation inspection: normal inspection of the chest and normal palpation of entire chest wall Resp Effort Inspection: normal respiratory effort Auscultation: Bilateral: Clear to Auscultation Cardio Palpation: normal PMI Rate: regular rate Rhythm: regular rhythm GI Inspection: normal to inspection Auscultation: normal bowel sounds Percussion: normal to percussion Palpation: no hepatosplenomegaly Skin General: no rashes or lesions noted Neuro General: patient alert Extrem General: normal to inspection Psych Affect: normal affect Quality Reporting Tobacco Screening ([facility] 138) Smoking Status: Never smoker Assessment and Plan Assessment and Plan (1) GERD (gastroesophageal reflux disease): Status: Chronic Plan: She has longstanding gastroesophageal reflux disease 18 and has used multiple medicines. Currently she is on omeprazole 40 mg twice daily. She did have a response with Prevacid. She takes this 30 mg p.o. twice a day. She does recognize that some of her symptoms could be secondary to reflux disease but she still wants to feel better. Await laboratory analysis and continue current medication recommendations. (2) History of paresthesia: Status: Acute Plan: He feels a lymphadenopathy we will check her for autoimmune disease. By checking antineutrophilic antibody, antineutrophil cytoplasmic antibody. We will also get ESR, CRP, LDH, protein electrophoresis to see if there or if her symptoms are mostly secondary to stress. Orders: Orders Comprehensive Metabolic Profil Today K21.9 - Gastro-esophageal reflux disease without esophagitis, Z87.898 - Personal history of other specified conditions CRP Today K21.9 - Gastro-esophageal reflux disease without esophagitis, Z87.898 - Personal history of other specified conditions Ferritin Today K21.9 - Gastro-esophageal reflux disease without esophagitis, Z87.898 - Personal history of other specified conditions CBC W/Diff, Automated Today K21.9 - Gastro-esophageal reflux disease without esophagitis, Z87.898 - Personal history of other specified conditions Erythrocyte Sed Rate Today K21.9 - Gastro-esophageal reflux disease without esophagitis, Z87.898 - Personal history of other specified (more content not included)... [facility] 03-02-2023 Procedure note [facility] 03-02-2023 Procedure note [facility] 12-29-2022 Note IMPRESSION: INCOMPLE TE: NEEDS ADDITIONAL IMAGING EVALUATION There is no abnormality seen in the right axilla to correspond with the pain in the right axilla, however, ultrasound is recommended. ULTRASOUND OF RIGHT BREAST AND AXILLA: 12/29/2022 RESULT: No prior exams were available for comparison. Color flow and real-time ultrasound of the right breast axilla were performed. Gary scale images of the real-time examination were reviewed. Multiple morphologically normal lymph nodes are visualized within the right axilla. No suspicious right axillary lymphadenopathy is identified. Multiple morphologically normal lymph nodes are visualized within the right axilla. No suspicious right axillary lymphadenopathy is identified. IMPRESSION: NEGATIVE There is no sonographic evidence of malignancy. There is no abnormality seen in the right breast to correspond with the pain in the axilla. Multiple morphologically normal lymph nodes visualized in the right axilla, without suspicious right axillary lymphadenopathy. Biopsy was therefore not performed. Multiple morphologically normal lymph nodes visualized in the right axilla, without suspicious right axillary lymphadenopathy. Biopsy was therefore not performed. Clinical follow-up is recommended. Follow-up with ACR/NCCN guidelines. Aisha castro/lillian:12/29/2022 15:42:44 Multiple national specialty organizations have released breast cancer screening guidelines for women at average risk for developing breast cancer - guidelines that are based on both evidence and opinion, yet differ on when to start and how often to screen for breast cancer. With representation from Breast Imaging, Internal Medicine, Women's Health, Family Medicine, and Medical/Surgical Oncology, the [facility] has carefully reviewed the data and reached the following consensus: 1) All women should engage in shared decision-making with their providers to decide when to start and how often to screen; 2) All women should have the opportunity to start screening mammography at age 40; 3) For women ages 45-55, we recommend annual screening mammograms; 4) For women ages 55 and over, we support both the transition from an annual to a biennial interval if this aligns more with patient's values and preferences, or continuation with annual screening; 5) All women should discuss with their providers when to stop screening mammograms. Windows Server Architect(s): RT Silvia(R)(M), [facility] OVERALL STUDY BIRADS: 3 Probably benign finding - short term interval follow-up recommended Lokie Engineer: Lillian Transcribe Date/Time: Dec 29 2022 1:02P Dictated by: AISHA PATRICIA MD This examination was interpreted and the report reviewed and electronically signed by: AISHA PATRICIA MD on Dec 29 2022 3:42PM [facility] DIV[facility] OF RADIOLOGY 12-29-2022 Note IMPRESSION: INCOMPLE TE: NEEDS ADDITIONAL IMAGING EVALUATION There is no abnormality seen in the right axilla to correspond with the pain in the right axilla, however, ultrasound is recommended. ULTRASOUND OF RIGHT BREAST AND AXILLA: 12/29/2022 RESULT: No prior exams were available for comparison. Color flow and real-time ultrasound of the right breast axilla were performed. Gary scale images of the real-time examination were reviewed. Multiple morphologically normal lymph nodes are visualized within the right axilla. No suspicious right axillary lymphadenopathy is identified. Multiple morphologically normal lymph nodes are visualized within the right axilla. No suspicious right axillary lymphadenopathy is identified. IMPRESSION: NEGATIVE There is no sonographic evidence of malignancy. There is no abnormality seen in the right breast to correspond with the pain in the axilla. Multiple morphologically normal lymph nodes visualized in the right axilla, without suspicious right axillary lymphadenopathy. Biopsy was therefore not performed. Multiple morphologically normal lymph nodes visualized in the right axilla, without suspicious right axillary lymphadenopathy. Biopsy was therefore not performed. Clinical follow-up is recommended. Follow-up with ACR/NCCN guidelines. Aisha castro/lillian:12/29/2022 15:42:44 Multiple national specialty organizations have released breast cancer screening guidelines for women at average risk for developing breast cancer - guidelines that are based on both evidence and opinion, yet differ on when to start and how often to screen for breast cancer. With representation from Breast Imaging, Internal Medicine, Women's Health, Family Medicine, and Medical/Surgical Oncology, the [facility] has carefully reviewed the data and reached the following consensus: 1) All women should engage in shared decision-making with their providers to decide when to start and how often to screen; 2) All women should have the opportunity to start screening mammography at age 40; 3) For women ages 45-55, we recommend annual screening mammograms; 4) For women ages 55 and over, we support both the transition from an annual to a biennial interval if this aligns more with patient's values and preferences, or continuation with annual screening; 5) All women should discuss with their providers when to stop screening mammograms. Windows Server Architect(s): RT Silvia(Gricelda)(M), [facility] OVERALL STUDY BIRADS: 3 Probably benign finding - short term interval follow-up recommended Lokie Engineer: Lillian Transcribe Date/Time: Dec 29 2022 1:02P Dictated by: AISHA PATRICIA MD This examination was interpreted and the report reviewed and electronically signed by: AISHA PATRICIA MD on Dec 29 2022 3:42PM [facility] OF RADIOLOG[facility] 12-29-2022 History of Present illness Narrative Radiology Service Progress Note PATIENT [...] IV DATA: Not applicable SIGNED BY: RT Silvia(R) December 29, 2022 1:43 PM documented in this encounter [facility] 12-26-2022 Instructions Elle Faye PA-C - 12/26/2022 [...] in three months documented in this encounter [facility] 12-26-2022 History of Present illness Narrative Images from the original note were not included. Neurology Outpatient Clinic Date: December 26, 2022 Patient Name: Maik Martines Referring physician: SELF Primary physician: Gilbert Hurley [address] [place] [address] Reason for Evaluation: Paresthesias Subjective HPI Maik Martines is a 32 year old right-handed female with history of ANTOINE who presents for evaluation of paresthesias. Dr. Gilbert Hurley MD is the PCP. Chart review: Patient [...] axilla. Noted to be following with Dr. Kay for this today. No foot weakness, facial [...] years she has been experiencing episodes of disassociation. She states they usually occur while driving, [...] pain, but this is just uncomfortable feeling. [place] like a blow torch to her side. [...] Extremity RIGHT LEFT Deltoid 5/5 5/5 Biceps / 5/5 Triceps 5/5 5/5 Wrist Extension 5/ 5/5 Wrist Flexion / 5/5 Finger Flexion 5/ 5/5 Finger Extension / 5/5 Finger Abd / 5/5 Finger Add / 5/ MUSCLES Lower Extremity RIGHT LEFT Hip Flexion / 5/5 Hip Extension / 5/5 BiFem (Knee Flex) / 5/5 Quads (Knee Ext) 12/01 5/ Gastroc (Plantflx) 12/01 5 TibAnt (Dorsiflx) 12/01 5 FlxHLong (Toe Flex) 12/01 12/01 ExtHLong (Toe Ext) 12/01 5 Sensory Examination [...] Negative Coordination: finger-to- nose-finger intact bilaterally and [id number] intact bilaterally. Gait: Patient's gait is normal, [...] which included preparing to see the patient, [id number] patient care, completing clinical documentation, obtaining and/or reviewing separately obtained history, performing a medically appropriate examination, counseling and educating the patient/family/caregiver, and ordering medications, tests, or procedures. Elle Faye PA-C [facility] Neurology This document has been created with the use of voice recognition technology. It may contain inaccuracies: (e.g. misspellings, inaccurate syntax or word sense) that have escaped review. PDMP website checked and validated. No controlled substance prescriptions were reported. 12/26/2022 by Elle Faye PA-C documented in this encounter [facility] 12-22-2022 Miscellaneous Notes Scanned last 2 ED Visits to [facility] (pertaining to neuro) into chart. Ashley Soliman MA [facility] message sent to patient to confirm referral & obtain records d/t PCP office outside of [facility]. Will wait to hear back via [facility] message. Ashley Soliman MA documented in this encounter [facility] 11-26-2022 Discharge summary Note Date/Time November 26, 2022 11:36pm [facility] Medical Records Department [address] [place] [address] Emergency Department Summary 11/26/22 MR#: [id number] Acct: [id number] Name: MAIK MARTINES Rep #:[id number] : 1990 31 From: Gearrdo Antonio MD PCP: Dr. Gilbert Hurley MD Status:REG E R Location: ED HPI History of Present Illness Chief Complaint: Neuro S/Sx Detail of Chief Complaint: Syncope Informant: patient Onset/Context/Timing Onset: Today Context: Sudden Onset Current Severity: Gone Maximum Severity: Mild Narrative Narrative: 31-year-old female past medical history of reflux. Says she has passed out 5 times in the last 2 years never been evaluated for it. Today her has a history of bipolar disorder is currently manic. She said he was doing irrational things at home she was trying to stop him from leaving and losing hismedications and she felt lightheaded and passed out. Said this was very brief and only lasted seconds. She denies any headache or chest pain. Last week she had viral syndrome with nausea vomiting and diarrhea. Denies any dysuria or abdominal pain. No recent hospitalizations or surgeries. Prior similar symptoms: Yes Recent Illness/Hospitalization: No PFSH [facility] Medical History (Updated 11/27/22 @ 00:[address] Gerardo Antonio MD) Anemia Fatigue Fever SOB (shortness of breath) Home Medications lansoprazole 30 mg capsule,delayed release 30 mg PO BID 05/19/20 [History Last Taken 05/19/20 08:00] desogestrel 0.15 mg-ethinyl estradiol 0.03 mg tablet (Apri) 1 tab PO DAILY 11/29/20 [History Last Taken Unknown] fexofenadine 180 mg tablet (Radha Allergy) 180 mg PO DAILY 11/29/20 [History Last Taken Unknown] azelastine 137 mcg (0.1 %) nasal spray aerosol 2 spray intranasal BID #30 mL 12/06/20 [Rx Last Taken Unknown] celecoxib 200 mg capsule (Celebrex) 200 mg PO DAILY Stomach Ulcer and Pain #30 caps 01/20/21 [Rx Last Taken Unknown] fluticasone propionate 50 mcg/actuation nasal spray,suspension 2 spray intranasal DAILY #18.2 mL 08/22/21 [Rx Last Taken Unknown] Allergy/AdvReac Type Severity Reaction Status Date / Time grape Allergy Swelling Verified 11/26/22 22:45 morphine AdvReac Other Verified 11/26/22 22:45 promethazine HCl AdvReac Other Verified 11/26/22 22:45 [From Phenergan] sulfamethoxazole AdvReac Vomiting Verified 11/26/22 22:45 [From Bactrim] trimethoprim [From Bactrim] AdvReac Vomiting Verified 11/26/22 22:45 Family History Grandfather Heart disease Parkinson disease Hypertension Grandmother Heart disease CHF (congestive heart failure) Hypertension Dementia Mother CHF (congestive heart failure) Heart disease Father Hypertension Dementia Surgical History History of tonsillectomy Hx of section Social History Smoking Status: Never smoker alcohol intake: current alcohol intake frequency: a few times a month Alcohol type: wine ROS ROS ED ROS Narrative Recent GI illness resolved with nausea, vomiting and diarrhea. Review of Systems ROS Unobtainable: Denies due to encephalopathy Constitutional Constitutional ED: Denies chills or fever(s) Eyes Eyes: Denies blurry vision ENT ENT ED: Denies ear pain Cardiovascular Cardiovascular: Denies chest pain Respiratory/Chest Respiratory/Chest: Denies cough or dyspnea Gastrointestinal Gastrointestinal: Reports diarrhea, nausea, vomiting and other Details: 1 week ago. ; Denies abdominal pain, constipation or melena Genitourinary Genitourinary ED: Denies dysuria Musculoskeletal Musculoskeletal: Denies arthralgias Neurologic Neurologic: Denies headache(s) Psychiatric Psychiatric: Denies anxiety Endocrine Endocrinology: Denies cold intolerance Hematologic/Lymphatic Hematologic/Lymphatic: Reports none Allergic/Immunologic Allergic/Immunologic ED: Denies mouth swelling or tongue swelling EXAM Physical Exam Narrative Exam Narrative: Well-appearing 31-year-old female. Vital signs stable afebrile. H EENT exam unremarkable. Pupils round reactive light. No facial droop. Normal speech. No signs of trauma to her face or scalp. Neck nontender. No lymphadenopathy. Lungs clear to auscultation bilaterally. Heart regular rhythm no murmur. Rate about 90. Chest wall nontender. Abdomen soft nontender. Normal bowel sounds no peritoneal signs. Moving all 4 extremities. 5 out of 5 architect naval strength. Dorsi plantarflexion intact. Normal range of motion. No ataxia. Neurologically she is awake and alert. Answering questions following commands. NIH score of 0. Fingertip to nose within normal limits. No drift. Back nontender. Normal exam. Const Vital Signs: 11/26/22 22:42 11/26/22 22:49 11/26/22 23:43 Temperature 97.5 F L Temperature Source Temporal Pulse Rate 89 Pulse Rate [Lying] Pulse Rate [Sitting (for 1 minute prior to obtaining)] Pulse Rate [Standing (for 1 minute prior to obtaining)] Respiratory Rate 16 Respiratory Effort Normal Non-Labored Respiratory Pattern Normal Blood Pressure 123/89 H Blood Pressure [Lying] Blood Pressure [Sitting (for 1 minute prior to obtaining)] Blood Pressure [Standing (for 1 minute prior to obtaining)] Blood Pressure Mean 100 Blood Pressure Mean [Lying] Blood Pressure Mean [Sitting (for 1 minute prior to obtaining)] Blood Pressure Mean [Standing (for 1 minute prior to obtaining)] Pulse Ox 100 98 Oxygen Delivery Method Room Air Room Air 11/27/22 00:02 Temperature Temperature Source Pulse Rate Pulse Rate [Lying] 83 Pulse Rate [Sitting (for 1 minute prior to obtaining)] 90 Pulse Rate [Standing (for 1 minute prior to obtaining)] 88 Respiratory Rate Respiratory Effort Respiratory Pattern Blood Pressure Blood Pressure [Lying] 112/87 H Blood Pressure [Sitting (for 1 minute prior to obtaining)] 120/91 H Blood Pressure [Standing (for 1 minute prior to obtaining)] 132/98 H Blood Pressure Mean Blood Pressure Mean [Lying] 95 Blood Pressure Mean [Sitting (for 1 minute prior to obtaining)] 100 Blood Pressure Mean [Standing (for 1 minute prior to obtaining)] 109 Pulse Ox Oxygen Delivery Method Positive well nourished and well developed; Negative for obese, cachectic, contractures or unkempt General Appearance ED: well developed and NAD; Negative for unkempt, cachectic, contractures, cyanotic, diaphoretic or pallor Nutritional Appearance: Negative for cachectic or obese HEENT Reports moist mucous membranes; Denies dry mucous membranes Negative for trauma or tenderness Mouth ED: No dry mucous membranes Mouth: No dry mucous membranes Eyes PERRL and EOMs intact bilaterally General Eye ED: Negative for pale conjunctiva, scleral icterus or other Neck no lymphadenopathy, supple and no JVD General: Negative for tenderness Lymph Lymphatic: Negative for other Chest Wall inspection of chest normal and palpation of chest normal Chest: Negative for other Resp normal respiratory effort and clear to auscultation bilaterally Effort and Inspection: Negative for retractions Auscultation: Negative for rales, rhonchi or wheezes Cardio regular rate, regular rhythm, S1 normal heart sound, S2 normal heart sound and no murmurs Palpation: Negative for palpable S3 Rate: Negative for bradycardia or tachycardic Rhythm: Negative for abnormal rhythm GI normal to inspection, nondistended, normoactive bowel sounds, non-tender, non-distended and no masses; Negative for hepatosplenomegaly Inspection: Negative for abdominal distention Auscultation: normoactive bowel sounds Palpation: soft; Negative for tender or guarding Back/Spine no CVA tenderness General Back: Negative for CVA tenderness Cervical Spine: Negative for cervical spine tenderness Thoracic Spine / Upper Back: Negative for thoracic spinal tenderness Lumbar Spine / Lower Back: Negative for lumbar spinal tenderness Extremity normal to inspection General Extremety ED: Negative for edema or tenderness General Extremity: Negative for edema Neuro oriented x3, CN's II-XII intact bilaterally and no sensory deficits noted Neuro Narrative: Normal neurologic exam. NIH 0. Normal speech. Normal motor strength and sensation. Sensorium / Orientation: alert; Negative for orientation impaired, lethargic or stuporous Sensory Exam: No sensory level loss detected Motor Exam: strength 5/5 throughout Psych mental status grossly normal Appearance: Negative for unkempt Attitude: No agitated Mood & Affect: Negative for depressed or tearful Skin no rashes or lesions noted, no wounds and skin turgor normal General Skin Exam: elasticity normal; Negative for jaundice or pallor Lesions: No lesion noted Rashes: No rashes noted Trauma: Negative for abrasion Wounds: Negative for wounds noted MDM MDM MDM Narrative Medical decision making narrative: 31-year-old female has very stressful situation at home with her with bipolar disorder. Has had syncopal events 5 times last 2 years. She has a normal physical exam. Normal neurologic exam. No cardiac history. We will do a cardiac work-up. I do not think she needs imaging of her brain. Repeat exam at 12:48 AM patient is doing well. Exam normal and unchanged. We went over all of her test results. They are comfortable being discharged home. Both her cardiac and neurologic exam remains normal. History & Record Review Discussion w/independent historian: Patient Lab Data Attestation: I reviewed the patient's lab results. Lab results narrative: CBC shows a white count 7.6. H&H 11.3 and 36.7. Consistent with a mild anemia. Platelets normal at 262. Electrolytes show a gap of 4. Normal BUN of 16 creatinine of 1. Glucose 129. Troponin 15. Serum test negative. Chest x-ray normal. EKG unremarkable. She does have prior labs on her computer and her last hemoglobin was 10.9. She normally runs between 10.9 and 14. Labs: Laboratory Results - last 24 hr 11/26/22 11/26/22 11/26/22 23:39 23:39 23:39 WBC 7.6 RBC 4.65 Hgb 11.3 L Hct 36.7 L MCV 78.9 L MCH 24.3 L MCHC 30.8 L RDW Std Deviation 44.2 H RDW Coeff of Nathaniel 15.5 H Plt Count 262 MPV 10.1 Immature Gran % (Auto) 0.400 Neut % (Auto) 52.3 Lymph % (Auto) 36.4 Schuyler % (Auto) 6.9 Eos % (Auto) 3.3 Baso % (Auto) 0.7 Absolute Neuts (auto) 4.0 Absolute Lymphs (auto) 2.75 Nucleated RBC % 0 Sodium 137 Potassium 3.6 Chloride 108 H Carbon Dioxide 25.0 Anion Gap 4 L BUN 16 Creatinine 1.08 H Estim Creat Clear Calc 61.29 Est GFR (MDRD) Af Amer 75 Est GFR (MDRD) Non-Af 62 BUN/Creatinine Ratio 14.8 Glucose 129 H Calcium 8.8 Troponin I High Sens 15 Serum , Qual NEGATIVE Radiography Chest X-Ray - ED: 1 View, Read by ED Physician, Read by Radiologist, Heart, Lungs, Mediastinum, Bony Structures and No Acute Disease Diagnostic Testing: Clinical Impression(s) from Imaging Studies Chest X-Ray 11/26/22 23:30 IMPRESSION: No radiographic evidence of acute cardiopulmonary disease. Electronically Signed: Emory Woods MD at 0:19 EDT , Chest x-ray, portable, single view read by myself and the radiologist is unremarkable. Normal cardiac silhouette. No infiltrates. No fluid. Normal lung medellin. Rhythm Strip Rhythm Strip: Sinus Rhythm Rate: 76 Ectopy: None EKG Initial EKG: Attestation: I personally reviewed and interpreted this EKG as follows: Interpretation: Sinus Rhythm and No Acute Injury Pattern Comments: Normal sinus rhythm rate of 76. No acute signs of OK, ischemia or dysrhythmia. No old EKG available for comparison. Prior EKG tracings: not available for review Prior: No Prior Discharge Plan Triage Chief Complaint: Neuro S/Sx Other Complaint: Syncope ED Provider: Gerardo Antonio Dx/Rx/DC Orders Clinical Impression: Syncope Instructions: Causes of Syncope Prescriptions: No Action desogestrel-ethinyl estradiol [Apri] 0.15-0.03 mg tablet 1 tab PO DAILY fexofenadine [Radha Allergy] 180 mg tablet 180 mg PO DAILY lansoprazole 30 MG capsule 30 mg PO BID azelastine 137 mcg (0.1 %) aerosol,spray 2 spray intranasal BID Qty: 30 3RF Rx Instructions: administer into each nostril celecoxib [Celebrex] 200 mg capsule 200 mg PO DAILY Qty: 30 0RF Rx Instructions: Do not take in conjunction with other NSAIDs, Tylenol is okay. fluticasone propionate 50 mcg/actuation spray,suspension 2 spray intranasal DAILY Qty: 18.2 3RF Rx Instructions: administer into each nostril Primary Care Provider: Gilbert Hurley Referrals: Gilbert Hurley MD [Primary Care Provider] - 3-5 Days if not improving Activity Restrictions/Additional Instructions: Follow-up with your doctor. Return if feeling worse. Disposition Disposition: Home, Self Care What to do if you have Problems For any increased pain, shortness of breath, bleeding, nausea or vomiting, chestpain, or any unexpected problems, contact your Primary Care Provider. Call [facility] ([phone]) or report to the closest Emergency Room. Call 911 if necessary. 11/27/22 0054 <Electronically signed by Gerardo Antonio MD> Cosigner Signature (if applicable): CC: Dr. Gilbert Hurley MD ~ Signed [facility] Work Phone: 1(881) 738-353902-03-2023 Discharge summary Author Lauri Pamellazoila [facility] September 01, 2022 11:16pm Note Date/Time September 01, 2022 1 1:11pm [facility] Medical Records Department [address] [place] [address] Emergency Department Summary 09/01/22 MR#: [id number] Acct: [id number] Name: MAIK MARTINES Rep #:[id number] : 1990 31 From: Lauri Lucio DO PCP: Dr. Gilbert Hurley MD Status:REG E R Location: ED HPI History of Present Illness Chief Complaint: Shortness of Breath Narrative Narrative: Patient is a 31-year-old female with past medical history of anemia. She statesthat over the past few weeks she has been having to travel more for work. She has noticed that she has had some tenderness and pain to her right calf and feels like the area is slightly swollen. She states that she has never had a DVT or PE but there is a strong family history of them and that today she noticed some shortness of breath sensation which she could not differentiate between anxiety or possible clot and secondary to this comes in for evaluation [facility] Medical History (Updated 09/01/22 @ 23:[address] Lauri Lucio DO) Anemia Fatigue Fever SOB (shortness of breath) Home Medications lansoprazole 30 mg capsule,delayed release 30 mg PO BID 05/19/20 [History Last Taken 05/19/20 08:00] desogestrel 0.15 mg-ethinyl estradiol 0.03 mg tablet (Apri) 1 tab PO DAILY 11/29/20 [History Last Taken Unknown] escitalopram oxalate 5 mg tablet (Lexapro) 5 mg PO DAILY 11/29/20 [History Last Taken Unknown] fexofenadine 180 mg tablet (Radha Allergy) 180 mg PO DAILY 11/29/20 [History Last Taken Unknown] azelastine 137 mcg (0.1 %) nasal spray aerosol 2 spray intranasal BID #30 mL 12/06/20 [Rx Last Taken Unknown] celecoxib 200 mg capsule (Celebrex) 200 mg PO DAILY Stomach Ulcer and Pain #30 caps 01/20/21 [Rx Last Taken Unknown] fluticasone propionate 50 mcg/actuation nasal spray,suspension 2 spray intranasal DAILY #18.2 mL 08/22/21 [Rx Last Taken Unknown] Allergy/AdvReac Type Severity Reaction Status Date / Time grape Allergy Swelling Verified 09/01/22 19:42 morphine AdvReac Other Verified 09/01/22 19:42 promethazine HCl AdvReac Other Verified 09/01/22 19:42 [From Phenergan] sulfamethoxazole AdvReac Vomiting Verified 09/01/22 19:42 [From Bactrim] trimethoprim [From Bactrim] AdvReac Vomiting Verified 09/01/22 19:42 Family History (Reviewed 01/07/21 @ 08:19 by Rosa Hilton ROOM SERVICE FOOD SERVICE ATTENDANT, ROOM SERVICE FOOD SERVICE ATTENDANT-C) Grandfather Heart disease Parkinson disease Hypertension Grandmother Heart disease CHF (congestive heart failure) Hypertension Dementia Mother CHF (congestive heart failure) Heart disease Father Hypertension Dementia Surgical History History of tonsillectomy Hx of section Social History Smoking Status: Never smoker alcohol intake: current alcohol intake frequency: a few times a month Alcohol type: wine ROS ROS ED Constitutional Constitutional ED: Denies chills or fever(s) ENT ENT ED: Denies sore throat Cardiovascular Cardiovascular: Denies chest pain Respiratory/Chest Respiratory/Chest: Reports dyspnea; Denies cough Gastrointestinal Gastrointestinal: Denies abdominal pain, diarrhea, nausea or vomiting Genitourinary Genitourinary ED: Denies dysuria Musculoskeletal Musculoskeletal: Reports other Details: Positive right calf pain Integumentary Denies rash Neurologic Neurologic: Denies headache(s) Hematologic/Lymphatic Hematologic/Lymphatic: Denies easy bleeding or easy bruising EXAM Physical Exam Const Vital Signs: 09/01/22 19:39 Temperature 97.8 F Temperature Source Temporal Pulse Rate 106 H Respiratory Rate 16 Blood Pressure 124/92 H Blood Pressure Mean 102 Pulse Ox 100 Oxygen Delivery Method Room Air Positive well nourished and well developed General Appearance ED: well developed HEENT Reports moist mucous membranes HEENT Narrative: No tongue or lip swelling no airway edema or compromise Eyes PERRL and EOMs intact bilaterally Neck supple and no JVD Chest Wall palpation of chest normal Resp normal respiratory effort and clear to auscultation bilaterally Cardio regular rhythm Rate: tachycardic and other Other Details: Slightly tachycardic rate with regular rhythm. Radial pulses are plus 2 out of 4 bilaterally are equal and symmetric GI normal to inspection, nondistended, normoactive bowel sounds, non-tender, non-distended and no masses Auscultation: normoactive bowel sounds Palpation: soft Extremity Extremity Narrative: There is trace nonpitting edema to the right lower extremity compared to left with mild calf tenderness with palpation but no overlying soft tissue changes tosuggest trauma or infection Neuro oriented x3 and CN's II-XII intact bilaterally Sensorium / Orientation: alert Psych mental status grossly normal Skin no rashes or lesions noted MDM MDM MDM Narrative Medical decision making narrative: Patient presented to the ER slightly tachycardic but otherwise with stable vitals and in no acute respiratory distress. Based on her slight asymmetric legedema and history of recent travel as well as family history of clots I did elect to perform a venous duplex as well as basic blood work. Venous duplex of the right lower extremity does not show any changes to suggest DVT and her D-dimer is also negative which goes against pulmonary embolus or DVT as a cause ofher symptoms. An EKG was then obtained secondary to her slight tachycardia and shortness of breath sensation which revealed no acute ischemic or dysrhythmic events. Therefore this time with stable vitals and negative work-up I do not feel there is need for further evaluation as exam and work-up does not point to DVT PE severe anemia or cardiac event as a cause of her symptoms. Patient was advised to follow-up with her family doctor she is agreeable to this plan as work-up does not show any obvious signs of clot and is safe for discharge Lab Data Attestation: I reviewed the patient's lab results. Labs: Laboratory Results - last 24 hr 09/01/22 09/01/22 09/01/22 22:00 22:00 22:00 WBC 8.2 RBC 4.71 Hgb 10.9 L Hct 36.0 L MCV 76.4 L MCH 23.1 L MCHC 30.3 L RDW Std Deviation 45.5 H RDW Coeff of Nathaniel 16.4 H Plt Count 253 MPV 10.3 Immature Gran % (Auto) 0.200 Neut % (Auto) 58.3 Lymph % (Auto) 29.8 Schuyler % (Auto) 7.1 Eos % (Auto) 4.0 Baso % (Auto) 0.6 Absolute Neuts (auto) 4.8 Absolute Lymphs (auto) 2.44 Nucleated RBC % 0 D-Dimer Quant (PE/DVT) < 0.27 L Sodium 143 Potassium 3.6 Chloride 107 Carbon Dioxide 28.0 Anion Gap 8 BUN 18 Creatinine 0.99 Estim Creat Clear Calc 66.86 Est GFR (MDRD) Af Amer 83 Est GFR (MDRD) Non-Af 68 BUN/Creatinine Ratio 18.2 Glucose 126 H Calcium 8.8 Radiography Diagnostic Testing: Clinical Impression(s) from Imaging Studies Venous Duplex 09/01/22 21:01 IMPRESSION: There is no demonstrated deep venous thrombosis. Electronically Signed: Emory Troy MD at 21:44 EST Reading Location ID and State: [facility] / [place] , Service support , Discharge Plan Triage Chief Complaint: Shortness of Breath Other Complaint: Lower Extremity Injury ED Provider: Lauri Lucio Dx/Rx/DC Orders Clinical Impression: Right calf pain, Dyspnea Instructions: ED Dyspnea Prescriptions: No Action escitalopram oxalate [Lexapro] 5 mg tablet 5 mg PO DAILY desogestrel-ethinyl estradiol [Apri] 0.15-0.03 mg tablet 1 tab PO DAILY fexofenadine [Radha Allergy] 180 mg tablet 180 mg PO DAILY lansoprazole 30 MG capsule 30 mg PO BID azelastine 137 mcg (0.1 %) aerosol,spray 2 spray intranasal BID Qty: 30 3RF Rx Instructions: administer into each nostril celecoxib [Celebrex] 200 mg capsule 200 mg PO DAILY Qty: 30 0RF Rx Instructions: Do not take in conjunction with other NSAIDs, Tylenol is okay. fluticasone propionate 50 mcg/actuation spray,suspension 2 spray intranasal DAILY Qty: 18.2 3RF Rx Instructions: administer into each nostril Primary Care Provider: Gilbert Hurley Referrals: Gilbert Hurley MD [Primary Care Provider] - Activity Restrictions/Additional Instructions: The ultrasound of your leg does not show any type of blood clot/DVT. Your D- dimer is also negative which goes against a pulmonary embolus. Please follow-upwith her family doctor for repeat evaluation and return to the ER should you have any further concerns Disposition Disposition: Home, Self Care What to do if you have Problems For any increased pain, shortness of breath, bleeding, nausea or vomiting, chestpain, or any unexpected problems, contact your Primary Care Provider. Call [facility] ([phone]) or report to the closest Emergency Room. Call 911 if necessary. 09/01/22 3345 <Electronically signed by Lauri Lucio DO> Cosigner Signature (if applicable): CC: Dr. Gilbert Hurley MD ~ Signed [facility] Work Phone: 1(338) 301-603912-28-2022 History of Present illness Narrative* Bandar Sauceda APRN.BUILDING CONSTRUCTION FOREMAN - 07/26/2022 6:39 PM EST Subjective HPI HPI Maik Martines is a 31 year old female who presents today for CC of left eyelid swelling/redness. This started 1 day aog. Has tried warm/cold compress. Symptoms are worsened by nothing. Risk factors has been crying a lot lately. Denies eye injury, blurred vision. Denies possibility of being . . .Patient presents with: Eye Problem: left eyelid on and off x 1 day PAST MEDICAL HISTORY Diagnosis Date Allergic rhinitis, cause unspecified Esophageal reflux Headache(784.0) Lymph node enlargement right posterior auricular, sees [facility] Lymph node enlargement right axilla PAST SURGICAL HISTORY Procedure Laterality Date DELIVERY ONLY 2009 , low transverse EXC/DSTRJ LINGUAL TONSIL ANY METHOD SPX 06/2007 GI UPPER SERIES ALLERGIES Bactrim [Sulfamethoxazole-Trimethoprim], Morphine, Phenergan [Promethazine Hcl], and Zoloft [Sertraline [...] EYE OINTMENT - CEPHALEXIN 500 MG CAPSULE Bandar Sauceda APRN.GEOFF [facility]11-[facility]22 History of Present illness Narrative* Tj Medina APRN.CNP - 06/07/2022 9:00 AM EST CC: Patient presents with: Sinus Problem: headaches, [...] Lymph node enlargement right posterior auricular, sees [facility] Lymph node enlargement right axilla PAST SURGICAL HISTORY Procedure Laterality Date DELIVERY ONLY 2009 , low transverse EXC/DSTRJ LINGUAL TONSIL ANY METHOD SPX 06/2007 GI UPPER SERIES ALLERGIES Bactrim [Sulfamethoxazole-Trimethoprim], Morphine, Phenergan [Promethazine Hcl], and Zoloft [Sertraline [...] symptoms occur. Patient agreeable to treatment plan. Tj Medina APRN.GEOFF documented in this [facility]Reg[facility] Center10-05-2022 Miscellaneous Notes* Telephone Encounter - Tamar Loya RN - 05/03/2022 9:52 AM EDT Patient notified of results. Tamar Lyoa RN * Telephone Encounter - Jade Juan Cma - 05/02/2022 1:29 PM EDT Lmom for pt to call back to give her, her results. Jade Juan Cma * Telephone Encounter - Vesna Hillman APRN.CNP - 05/02/2022 12:37 PM EDT Please let patient know that her renal ultrasound was normal. documented in this encounterReg[facility] Center09-30-2022 Miscellaneous Notes* Telephone Encounter - Shay Fernandez Ma - 04/28/2022 1:01 PM EDT Patient informed. Shay Fernandez Ma * Telephone Encounter - Vesna Hillman APRN.CNP - 04/28/2022 12:58 PM EDT Please call patient, urine culture is negative for infection. documented in this encounterRegional [facility] Center09-30-2022 History of Present illness Narrative* Libia Guadalupe RDMS - 04/28/2022 7:30 AM EDT Radiology Service Progress Note PATIENT NAME: Maik Martines DATE OF SERVICE: April 28, 2022 TIME: 7:59 AM PATIENT IDENTITY VERIFICATION COMPLETED USING TWO (2) IDENTIFIERS: Name and Date of confirmedby patient verbally. FALL SCREENING: Has the patient had 2 falls in the last year or 1 fall with injury or currently using an Ambulatory Assistive Device (Walker, Cane, Wheelchair, Crutches, etc.)? No PATIENT GENDER DATA: Female. status: : No status: NO. PATIENT RELEVANT IMPLANT DATA REVIEWED: Not Applicable RADIOLOGY DEPARTMENT: Ultrasound PERIPHERAL IV DATA: Not applicable SIGNED BY: Libia Guadalupe RDMS RVT April 28, 2022 7:59 AM documented in this encounterRegional Medical Center09-27-2022 NoteHNO ID: [id number] Author: Vesna Hillman APRN.BUILDING CONSTRUCTION FOREMAN Service: ? Author Type: Nurse Practitioner Type: [...] (no units) Date Value 08/30/2016 Negative Specific Hilbert, Ur (no units) Date Value 08/30/2016 1.026 [...] [facility] Lymph node enlargement right axilla FAMILY [...] US KIDNEY/BLADDER - follow up pending results Vesna Hillman APRN.[facility] Miscellaneous Notes* Telephone Encounter - Maria Victoria Antoine - 04/18/2022 4:16 PM EDT Patient given results and verbalized understanding of instructions given. Maria Victoria Antoine * Telephone Encounter - Maria Victoria Antoine - 04/18/2022 4:16 PM EDT ----- Message from Juana Kerns APRN.CNP sent at 04/18/2022 12:47 PM EDT ----- Please advise patient the urine culture was negative. Follow instructions given by provider at visit, f/u with PCP if symptoms persist or worsen. documented in this encounterRegional Medical Center09-19-2022 Miscellaneous Notes* Telephone Encounter - Maria Victoria Antoine - 04/17/2022 7:58 PM EDT Patient given results and verbalized understanding of instructions given. Maria Victoria Antoine * Telephone Encounter - Moose Grace APRN.CNP - 04/17/2022 7:52 PM EDT Vaginal swabs negative. Continue supportive therapies as discussed. Follow-up with PRODUCTION CLERKS SUPERVISOR if symptoms are not improving. Moose Grace APRN.GEOFF documented in this encounterRegional Medical Center09-10-2022 History of Present illness Narrative* Rebeca Pike APRN.CNP - 04/08/2022 11:02 AM EDT Subjective The history is provided by the patient. No cut off operator scorer was used. HPI Maik Martines is a 31 year old female who presents today for CC of burning and frequency with urination. She also is having lower abdominal pressure Positive for Dysuria, Increase in frequency of urination, and Urgency, Negative for Sense of incomplete void, Fevers, Vomiting, Diarrhea, Abdominal pain , Back/Flank pain, Blood in urine, and Vaginalitch or discharge Chance of : No Last [...] have confirmed and edited as necessary, the [facility] Review of Systems Constitutional: Negative for chills [...] COMP METABOLIC PANEL - last cmp was 2016 with creatinine of 1.04 Will repeat today, adjust dose of keflex if needed Will call tomorrow with results. Diagnosis and treatment plan were discussed and questions were answered to the patient's satisfaction. Pt acknowledged understanding of concepts and follow up plan. Specific signs and symptoms that would indicate the need for higher level of care were discussed indetail warranting prompt ER evaluation. Rebeca Pike APRN.CNP documented in this encounterRegional Medical Center07-28-2022 Miscellaneous Notes* Telephone Encounter - Crow Vargas PA-C - 02/23/2022 10:24 AM EDT Images from the original note were not included. Return to Work Progress Caregiver COVID19 Call Patient Name: Maik Martines Date of : 1990 Primary Care Physician: Gilbert Hurley MD, MD Service Date: 02/23/2022 Service Time: 10:24 AM Return to Work Progress Caregiver COVID19 Call Survey completed; NOT cleared. Declines outreach. Will follow Signature: Crow Vargas PA-C Patient Name: Maik Martines Date: 02/23/2022 Time: 10:24 AM Pager/Contact: [facility] in [facility] Miscellaneous Notes* Telephone Encounter - Anahi Andre APRN.CNP - 02/21/2022 7:10 AM EDT Images from the original note were not included. 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 Symptomatic Caregiver COVID Call Patient Name: Maik Martines Date of : 1990 Primary Care Physician: Gilbert Hurley MD, MD Service Date: 02/20/2022 Service Time: 6:43 AM Symptomatic Caregiver COVID Call - confirmed: Yes -Caregiver employee ID: [id number] -Symptom onset: 02-17-22 Home test + Covid Immunization Dates Overdue - COVID-19 VACCINE (1) Overdue - never done No completion, postpone, frequency change, or communication history exists for this topic. Recent travel outside [place]: no Cares for COVID-19 positive patients: [...] COVID Hotline with outstanding questions/comments/concerns Signature: Mónica Ballens Patient Name: Maik Martines Date: 02/20/2022 Time: 6:43 AM Pager/Contact: documented in [facility]-2022 Miscellaneous Notes* Telephone Encounter - Fabiana Arango MA - 11/07/2021 4:48 PM EDT I spoke with the patient to schedule her for a one month follow up with Dr. Sánchez. Patient will call back she was unable to schedule at this time due to her work schedule. Fabiana Arango MA documented in this encounterReg[facility] Center03-21-2022 NoteHNO ID: [id number] Author: Mónica Sánchez MD Service: ? Author Type: Physician Type: Progress Notes Filed: 10/17/2021 4:11 PM Note Text: Mónica Sánchez MD [facility] [address] [place] [id number] HPI: Maik Martines is a 30 year old White female who presents for an evaluation of right breast and axillary pain of 2-1/2 months duration. She has tried carx-irt-ohlmdqv Tylenol, ibuprofen and evening primrose oil with no significant improvement. Nursing Notes: Octavia Brewer LPN 10/17/2021 3:43 PM Signed Patient present for right breast and axillary pain x2-3 months. Octavia Brewer LPN AGE AT [facility] 10 AGE AT FIRST 18 (3/2) FAMILY HISTORY OF BREAST CANCER Yes (IF [...] Lymph node enlargement right posterior auricular, sees [facility] - Lymph node enlargement right axilla [...] 121/85 Pulse 98 Ht 160 cm (5' 3) Wt 72.6 kg (160 lb) LMP 10/09/2016 [...] of 2-1/2 months duration. She has tried rary-tip-qtkfsuq Tylenol, ibuprofen and evening primrose oil with no significant improvement. Clinical examination finds right breast tenderness with palpation. Otherwise, there is no discrete suspicious mass, skin change, nipple discharge or lymphadenopathy in either breast. Recent breast imaging was reviewed both films and reports. Both mammography and ultrasound were read as negative. I am recommending application of EMLA cream to the (more content not included)...[facility]11-10-2009 History of Past illness Narrative* Problem Noted Date Resolved Date Asymptomatic bacteriuria in , unspecified as to episode of care 06/08/2009 11/18/2009 Supervision of normal first 03/25/2009 11/18/2009 documented as of this encounter (statuses as of 11/07/2021) [facility] Narrative* Problem Noted Date Resolved Date Asymptomatic bacteriuria in , unspecified as to episode of care 06/08/2009 11/18/2009 Supervision of normal first 03/25/2009 11/18/2009 documented as of this encounter (statuses as of 02/20/2022) [address]10-2009 History of Past illness Narrative* Problem Noted Date Resolved Date Asymptomatic bacteriuria in , unspecified as to episode of care 06/08/2009 11/18/2009 Supervision of normal first 03/25/2009 11/18/2009 documented as of this encounter (statuses as of 02/21/2022) [facility] Narrative* Problem Noted Date Resolved Date Asymptomatic bacteriuria in , unspecified as to episode of care 06/08/2009 11/18/2009 Supervision of normal first 03/25/2009 11/18/2009 documented as of this encounter (statuses as of 02/23/2022) [facility] Narrative* Problem Noted Date Resolved Date Asymptomatic bacteriuria in , unspecified as to episode of care 06/08/2009 11/18/2009 Supervision of normal first 03/25/2009 11/18/2009 documented as of this encounter (statuses as of 04/08/2022) [address]10-2009 History of Past illness Narrative* Problem Noted Date Resolved Date Asymptomatic bacteriuria in , unspecified as to episode of care 06/08/2009 11/18/2009 Supervision of normal first 03/25/2009 11/18/2009 documented as of this encounter (statuses as of 04/17/2022) [address]10-2009 History of Past illness Narrative* Problem Noted Date Resolved Date Asymptomatic bacteriuria in , unspecified as to episode of care 06/08/2009 11/18/2009 Supervision of normal first 03/25/2009 11/18/2009 documented as of this encounter (statuses as of 04/18/2022) [address]10-2009 History of Past illness Narrative* Problem Noted Date Resolved Date Asymptomatic bacteriuria in , unspecified as to episode of care 06/08/2009 11/18/2009 Supervision of normal first 03/25/2009 11/18/2009 documented as of this encounter (statuses as of 04/28/2022) [address]10-2009 History of Past illness Narrative* Problem Noted Date Resolved Date Asymptomatic bacteriuria in , unspecified as to episode of care 06/08/2009 11/18/2009 Supervision of normal first 03/25/2009 11/18/2009 documented as of this encounter (statuses as of 04/29/2022) [address]10[address]2009 History of Past illness Narrative* Problem Noted Date Resolved Date Asymptomatic bacteriuria in , unspecified as to episode of care 06/08/2009 11/18/2009 Supervision of normal first 03/25/2009 11/18/2009 documented as of this encounter (statuses as of 05/03/2022) [address]2009 History of Past illness Narrative* Problem Noted Date Resolved Date Asymptomatic bacteriuria in , unspecified as to episode of care 06/08/2009 11/18/2009 Supervision of normal first 03/25/2009 11/18/2009 documented as of this encounter (statuses as of 06/07/2022) [address]10[address]2009 History of Past illness Narrative* Problem Noted Date Resolved Date Asymptomatic bacteriuria in , unspecified as to episode of care 06/08/2009 11/18/2009 Supervision of normal first 03/25/2009 11/18/2009 documented as of this encounter (statuses as of 08/02/2022) [address]10-2009 History of Past illness Narrative* Problem Noted Date Resolved Date Asymptomatic bacteriuria in , unspecified as to episode of care 06/08/2009 11/18/2009 Supervision of normal first 03/25/2009 11/18/2009 documented as of this encounter (statuses as of 12/26/2022) [address]10[address]2009 History of Past illness Narrative* Problem Noted Date Resolved Date Asymptomatic bacteriuria in , unspecified as to episode of care 06/08/2009 11/18/2009 Supervision of normal first 03/25/2009 11/18/2009 documented as of this encounter (statuses as of 12/26/2022) [address]2009 History of Past illness Narrative* Problem Noted Date Resolved Date Asymptomatic bacteriuria in , unspecified as to episode of care 06/08/2009 11/18/2009 Supervision of normal first 03/25/2009 11/18/2009 documented as of this encounter (statuses as of 01/26/2023) [address]10[address]2009 History of Past illness Narrative* Problem Noted Date Diagnosed Date Resolved Date Asymptomatic bacteriuria in , unspecified as to episode of care 06/08/20092009 Supervision of normal first 03/25/2009 11/18/2009 documented as of this encounter (statuses as of 03/07/2023) [address]2009 History of Past illness Narrative* Problem Noted Date Diagnosed Date Resolved Date Asymptomatic bacteriuria in , unspecified as to episode of care 06/08/20092009 Supervision of normal first 03/25/2009 11/18/2009 documented as of this encounter (statuses as of 09/04/2023) [address]2009 History of Past illness Narrative* Problem Noted Date Diagnosed Date Resolved Date Asymptomatic bacteriuria in , unspecified as to episode of care 06/08/20092009 Supervision of normal first 03/25/2009 11/18/2009 documented as of this encounter (statuses as of 11/11/2023) [facility] No data available for this section [facility] Evaluation + Plan note Future Appointments Appointment Date:01/16/2022 10:30:00 AM Scheduled Provider:EMMETT DAMON MD Location:[facility] Appointment Type:[facility] Evaluation note* Diagnosis Suspected COVID-19 virus infection- Primary [facility] Diagnosis Urinary frequency- Primary Acute UTI Urinary tract infection, site not specified documented in this encounter [facility]* Diagnosis Sensation of pressure in bladder area Other specified disorders of bladder documented [facility] this encounter [facility] noteNo assessment information availableWUniversity [facility]als [facility] Work Phone: Evaluation note* Diagnosis Acute otitis media, right- Primary Unspecified otitis media [facility]* Diagnosis Eyelid inflammation- Primary Unspecified inflammation of eyelid [facility]* Diagnosis Demyelinating disease of central nervous system (HCC)- Primary Demyelinating disease of central nervous system, unspecified Awareness alteration, transient Transient alteration of awareness Paresthesia of skin Disturbance of skin sensation Claustrophobia Other isolated or specific phobias documented [facility] this encounter [facility]* Diagnosis Onset Date Resolution Status History of paresthesia acute GERD (gastroesophageal reflux disease) [facility] Work Phone: Evaluation note* Diagnosis Awareness alteration, transient Transient alteration of awareness documented [facility]* Diagnosis Paresthesia of skin Disturbance of skin sensation documented [facility]* Diagnosis URI, acute- Primary Acute upper respiratory infections of unspecified site documented [facility]* Diagnosis Acute pain of right shoulder documented in this [facility]* Diagnosis Enlarged lymph nodes Enlargement of lymph nodes Breast disorder Unspecified breast disorder [facility] encounter [facility]* Diagnosis Enlarged lymph nodes Enlargement of lymph nodes documented [facility] this [facility]* Diagnosis Foot pain, left Pain in limb documented [facility]* Diagnosis Skin lesion- Primary Unspecified disorder of skin and subcutaneous tissue Nasal congestion Other diseases of nasal cavity and sinuses documented in [facility]* Diagnosis Pain in right foot Pain in limb documented [facility]* Diagnosis Acute cough- Primary Acute cough documented [facility] this encounter [facility]* Diagnosis Acute cough documented in this encounter [facility]* Diagnosis Encounter for gynecological examination (general) (routine) without abnormal findings- Primary Screening for cervical cancer Screening for malignant neoplasm of the cervix Encounter for screening for human papillomavirus (HPV) Special screening examination for human papillomavirus (HPV) Encounter for surveillance of injectable contraceptive Surveillance of other previously prescribed contraceptive method documented in this encounter [facility]* Diagnosis ASCUS with positive high risk HPV cervical- Primary Cervical high risk human papillomavirus (HPV) DNA test positive Need for prophylactic vaccination/inoculation against viral disease Need for prophylactic vaccination and inoculation against other viral diseases [facility] Diagnosis Need for prophylactic vaccination/inoculation against viral disease- Primary Need for prophylactic vaccination and inoculation against other viral diseases documented in this encounter [facility] Author Louis Manning [facility] March 02, 2023 2:52pm Note Date/Time March 02, 2023 2:5 2pm [facility] Medical Records Department [address] [place] [address] History & Physical Exam 03/02/23 1452 MR#: [id number] Acct: [id number] Name: MAIK MARTINES Rep #:[id number] : 1990 32 From: Louis Manning DO PCP: Dr. Gilbert Hurley MD Status:[facility] [place] Location: [place] [address] History and Physical Date of Admission: 03/02/23 32 F who presents to the office today for PCP OV with history of GERD being managed with Prevacid 30mg BID. ? Chest CTA 8.28.21 dyspnea without acute/chronic finding. ? Barium swallow 10.10.22 tablet trapped at GE junction. *[facility] established 6.5.23. Previously established with Dr. Aviles for many years for management of acid reflux. In 2019 she was changed to prevacid 30mg BID whenshe was . Notes recent increase of reflux lately but also notes there issome ?odd health issues? and possibly increased stress with this. Feels cotton balls in her throat which she feels is r/t historical reflux symptoms. ROS Const Constitutional: No anorexia, fatigue, fever(s), weight change or sleep problems Eyes Eyes: No change in vision ENT ENT: No abnormal hearing, difficulty swallowing, mouth lesions, tongue swelling or throat swelling Resp Respiratory: No cough or shortness of breath Cardio Cardiology: No chest pain at rest, chest pain with exertion, shortness of breathor dyspnea on exertion Gastro GI: No difficulty swallowing Genitourinary-Female: No difficulty urinating or burning urination Musc Musculoskeletal: No joint pain, joint swelling, muscle weakness or decreased muscle mass Skin Skin: No hair loss in leg, yellowing of the eye, itchy eyes, rash, skin ulcer orskin swelling Neuro Neurology: No abnormal hearing, abnormal movements, confusion, unsteady gait/balance or memory loss Psych Psychiatric: No anxiety, No confusion and No memory loss Endo Endocrine: No fatigue or weight change Aller/Imm Allergy/Immunologic: No itchy eyes, throat swelling or tongue swelling Sammy/Lymp Hematologic/Lymphatic: No easy bleeding, easy bruising or enlarged lymph nodes Exam Const General: cooperative and comfortable Nutritional Appearance: average body habitus and well nourished HENMT Head: normal to inspection Ears: hearing grossly normal bilaterally Nose: external nose normal Face and sinus: normal facial exam Mouth: oral mucosae normal Throat: posterior oropharynx normal Eyes General: appearance normal, both eyes and all related structures Neck Neck: normal visual inspection Chest Chest palpation & inspection: normal inspection of the chest and normal palpation of entire chest wall Resp Effort & Inspection: normal respiratory effort Auscultation: Bilateral: Clear to Auscultation Cardio Palpation: normal PMI Rate: regular rate Rhythm: regular rhythm GI Inspection: normal to inspection Auscultation: normal bowel sounds Percussion: normal to percussion Palpation: no hepatosplenomegaly Skin General: no rashes or lesions noted Neuro General: patient alert Extrem General: normal to inspection Psych Affect: normal affect Quality Reporting Tobacco Screening ([facility] 138) Smoking Status: Never smoker Assessment and Plan Assessment and Plan (1) GERD (gastroesophageal reflux disease): Status: Chronic Plan: She has longstanding gastroesophageal reflux disease 18 and has used multiple medicines. Currently she is on omeprazole 40 mg twice daily. She did have a response with Prevacid. She takes this 30 mg p.o. twice a day. She does recognize that some of her symptoms could be secondary to reflux disease but shestill wants to feel better. Await laboratory analysis and continue current medication recommendations. (2) History of paresthesia: Status: Acute Plan: He feels a lymphadenopathy we will check her for autoimmune disease. By checking antineutrophilic antibody, antineutrophil cytoplasmic antibody. We will also get ESR, CRP, LDH, protein electrophoresis to see if there or if her symptoms are mostly secondary to stress. Orders: Orders Comprehensive Metabolic Profil Today K21.9 - Gastro-esophageal reflux disease without esophagitis, Z87.898 - Personal history of other specified conditions CRP Today K21.9 - Gastro-esophageal reflux disease without esophagitis, Z87.898 - Personal history of other specified conditions Ferritin Today K21.9 - Gastro-esophageal reflux disease without esophagitis, Z87.898 - Personal history of other specified conditions CBC W/Diff, Automated Today K21.9 - Gastro-esophageal reflux disease without esophagitis, Z87.898 - Personal history of other specified conditions Erythrocyte Sed Rate Today K21.9 - Gastro-esophageal reflux disease without esophagitis, Z87.898 - Personal history of other specified conditions WILEY Comprehensive Panel Today K21.9 - Gastro-esophageal reflux disease without esophagitis, Z87.898 - Personal history of other specified conditions Angiotensin Convert Enzyme Today K21.9 - Gastro-esophageal reflux disease without esophagitis, Z87.898 - Personal history of other specified conditions ANCA Today K21.9 - Gastro-esophageal reflux disease without esophagitis, Z87.898- Personal history of other specified conditions Anti-Smooth Muscle ABS Today K21.9 - Gastro-esophageal reflux disease without esophagitis, Z87.898 - Personal history of other specified conditions Celiac Disease Profile Today K21.9 - Gastro-esophageal reflux disease without esophagitis, Z87.898 - Personal history of other specified conditions Vitamin D,25 Hydroxy Today K21.9 - Gastro-esophageal reflux disease without esophagitis, Z87.898 - Personal history of other specified conditions Thyroid Stim Hormone (TSH) Today K21.9 - Gastro-esophageal reflux disease without esophagitis, Z87.898 - Personal history of other specified conditions Allergen, Rast Food Profile Today K21.9 - Gastro-esophageal reflux disease without esophagitis, Z87.898 - Personal history of other specified conditions Allergen, Food Profile Today K21.9 - Gastro-esophageal reflux disease without esophagitis, Z87.898 - Personal history of other specified conditions Vitamin D 1,25-Dihydroxy Today K21.9 - Gastro-esophageal reflux disease without esophagitis, Z87.898 - Personal history of other specified conditions Immunoglobulins G/A/M/E Today K21.9 - Gastro-esophageal reflux disease without esophagitis, Z87.898 - Personal history of other specified conditions KIERSTEN + Protein Elect, Serum Today K21.9 - Gastro-esophageal reflux disease without esophagitis, Z87.898 - Personal history of other specified conditions Prolactin Today K21.9 - Gastro-esophageal reflux disease without esophagitis, Z87.898 - Personal history of other specified conditions Medications: New famotidine 20 mg PO BID 60 tabs 3RF I have examined the patient and the H&P has been reviewed. There are no clinicalchanges since date of exam. 03/02/23 1452 <Electronically signed by Louis Manning DO> Cosigner Signature (if applicable): CC: Dr. Gilbert Hurley MD; Louis Manning DO~ Signed [facility] Work Phone: Hospital Discharge instructions No data available for this section [facility] Hospital Discharge instructions Additional Instructions The ultrasound of your leg does not show any type of blood clot/DVT. Your D- dimer is also negative which goes against a pulmonary embolus. Please follow-up with her family doctor for repeat evaluation and return to the ER should you have any further concernsWUniversity Hospitals [facility] Work Phone: Hospital Discharge instructions Additional Instructions Follow-up with your doctor. Return if feeling worse.[facility] Work Phone: Progress note No data available for this section [facility] Reason for referral (narrative)* Diagnostic Procedure Only (Routine) - Closed Specialty Diagnoses / Procedures Referred By Contac t Referred To Contact US IMAGING Diagnoses Sensation of pressure in bladder area Procedures US KIDNEY/BLADDER US RETROPERITONEAL REAL TIME W/IMAGE COMPLETE Vesna Hillman APRN.CNP [address] [place] [address] Us Imaging Referral ID Status Reason Start Date Expiration Date V isits Requested Visits Authorized [id number] Closed Auto-Generate d Referral 04/25/2022 05/25/2023 1 1 [facility] for referral (narrative)* Outpatient Procedure (Routine) - Authorized Specialty Diagnoses / Procedures Referred By Contac t Referred To Contact [facility] Diagnoses Paresthesia of skin Procedures EMG(NEURO/NI) NERVE CONDUCTION STUDIES 9-10 STUDIES Elle Faye PA-C [address] [place] [id number] [facility] [place] [address] [place] [address] Referral ID Status Reason Start Date Expiration Date Visits Requested Visits Authorized [id number] Authorized Auto-Generat ed Referral 12/26/2022 12/27/2023 1 1 * MRI/CT (Routine) - Incomplete Specialty Diagnoses / Procedures Referred By Lin cano Referred To Contact MR IMAGING Diagnoses Demyelinating disease of central nervous system (HCC) Awareness alteration, transient Procedures MRI CERVICAL SPINE WO/W IVCON MRI SPINAL CANAL CERVICAL W/O & W/CONTR MATRL Elle Faye PA-C [address] [place] [address] Mr Imaging Referral ID Status Reason Start Date Expiration Date Visits Requested Visits Authorized [id number] Incomplete Auto-Generat ed Referral 12/26/2022 01/25/2024 1 1 * MRI/CT (Routine) - Incomplete Specialty Diagnoses / Procedures Referred By Lin cano Referred To Contact MR IMAGING Diagnoses Demyelinating disease of central nervous system (HCC) Awareness alteration, transient Procedures MRI BRAIN WO/W IVCON MRI BRAIN BRAIN STEM W/O W/CONTRAST MATERIAL Elle Faye PA-C [address] [place] [address] Mr Imaging Referral ID Status Reason Start Date Expiration Date Visits Requested Visits Authorized [id number] Incomplete Auto-Generat ed Referral 12/26/2022 01/25/2024 1 1 * Outpatient Procedure (Routine) - Authorized Specialty Diagnoses / Procedures Referred By Lin cano Referred To Contact [facility] Diagnoses Awareness alteration, transient Procedures EPIL EEG ROUTINE ELECTROENCEPHALOGRAM REC COMA/SLEEP ONLY Elle Faye PA-C [address] [place] [address] [facility] [address] [place] [address] Referral ID Status Reason Start Date Expiration Date Visits Requested Visits Authorized [id number] Authorized Auto-Generat ed Referral 12/26/2022 12/27/2023 1 1 [facility] for referral (narrative)* Diagnostic Procedure Only (Urgent) - Closed Specialty Diagnoses / Procedures Referred By Contac t Referred To Contact XR IMAGING Diagnoses Acute pain of right shoulder Procedures XR SHOULDER [id number] AP/TRUE AP RIGHT RADEX SHOULDER COMPLETE MINIMUM 2 VIEWS Timmy Guerrero MD [address] [place] [phone] [place] [address] Referral ID Status Reason Start Date Expiration Date V isits Requested Visits Authorized [id number] Closed Auto-Generate d Referral 07/24/2023 08/22/2024 1 1 [facility] for referral (narrative)* Diagnostic Procedure Only (Routine) - Closed Specialty Diagnoses / Procedures Referred By Contac t Referred To Contact BR IMAGING Diagnoses Enlarged lymph nodes Procedures US AXILLA ONLY RIGHT US LMTD JOINT/OTH NONVASC XTR STRUX R-T W/IMG Kishan Kay MD [address] [place] [address] Br Imaging [address] [place] [address] Referral ID Status Reason Start Date Expiration Date V isits Requested Visits Authorized [id number] Closed Auto-Generate d Referral 12/28/2022 01/27/2024 1 1 [facility] for referral (narrative)* Diagnostic Procedure Only (Urgent) - Closed Specialty Diagnoses / Procedures Referred By Contac t Referred To Contact XR IMAGING Diagnoses Foot pain, left Procedures XR FOOT GENERAL 3V AP/LAT/OBL LEFT RADEX FOOT COMPLETE MINIMUM 3 VIEWS Libia Berrios APRN.BUILDING CONSTRUCTION FOREMAN [address] [place] [address] [place] [address] Referral ID Status Reason Start Date Expiration Date V isits Requested Visits Authorized [id number] Closed Auto-Generate d Referral 08/01/2022 08/31/[address] [facility] for referral (narrative)* Outpatient Procedure (Routine) - Authorized Specialty Diagnoses / Procedures Referred By Contac t Referred To Contact [facility] Diagnoses ASCUS with positive high risk HPV cervical Procedures COLPOSCOPY COLPOSCOPY CERVIX BX CERVIX & ENDOCRV CURRETAGE Vernell Medina MD [address] [place] [phone] [place] [phone] Referral ID Status Reason Start Date Expiration Date Visits Requested Visits Authorized [id number] Authorized Auto-Generat ed Referral 08/14/2024 08/14/[address] [facility] for visit Narrative* Outpatient Procedure (Routine) - Closed Specialty Diagnoses / Procedures Referred By Contac t Referred To [facility] Diagnoses Awareness alteration, transient Procedures EPIL EEG ROUTINE ELECTROENCEPHALOGRAM REC COMA/SLEEP ONLY Elle Faye PA-C [address] [place] [address] [place] [phone] Referral ID Status Reason Start Date Expiration Date V isits Requested Visits Authorized [id number] Closed Auto-Generate d Referral 12/26/2022 12/27/2023 1 1 [facility] for visit Narrative* Outpatient Procedure (Routine) - Closed Specialty Diagnoses / Procedures Referred By Contac t Referred To Contact [facility] Diagnoses Paresthesia of skin Procedures EMG(NEURO/NI) NERVE CONDUCTION STUDIES 9-10 STUDIES Elle Faye PA-C [address] [place] [address] [facility] [place] [address] [place] [address] Referral ID Status Reason Start Date Expiration Date V isits Requested Visits Authorized [id number] Closed Auto-Generate d Referral 12/26/2022 12/27/2023 1 1 [facility] for visit Narrative* Diagnostic Procedure Only (Urgent) - Closed Specialty Diagnoses / Procedures Referred By Contac t Referred To Contact XR IMAGING Diagnoses Acute pain of right shoulder Procedures XR SHOULDER [id number] AP/TRUE AP RIGHT RADEX SHOULDER COMPLETE MINIMUM 2 VIEWS Timmy Guerrero MD [address] [phone] [place] [address] Referral ID Status Reason Start Date Expiration Date V isits Requested Visits Authorized [id number] Closed Auto-Generate d Referral 07/24/2023 08/22/2024 1 1 [facility] for visit Narrative* Diagnostic Procedure Only (Urgent) - Closed Specialty Diagnoses / Procedures Referred By Contac t Referred To Contact XR IMAGING Diagnoses Foot pain, left Procedures XR FOOT GENERAL 3V AP/LAT/OBL LEFT RADEX FOOT COMPLETE MINIMUM 3 VIEWS Libia Berrios APRN.CNP [address] [place] [address] [place] [address] Referral ID Status Reason Start Date Expiration Date V isits Requested Visits Authorized [id number] Closed Auto-Generate d Referral 08/01/2022 08/31/2023 1 1 [facility] Concerns Infection Onset Date Last Indicated Resolved Time COVID-19 Confirmed 02/20/2022 02/20/2022 Summary Purpose Family History Relationship Condition Age at Onset Recorded Date/T nisreen grandfather Cardiac disease Unknown Parkinson's disease Unknown Hypertension Unknown grandmother Cardiac disease Unknown Congestive heart failure Unknown Dementia Unknown mother Congestive heart failure Unknown Cardiac disease Unknown father Hypertension Unknown Advance Directives Advance Directive Response Recorded Date/ Time Living Will No March 26 9:58pm Power of Fire Alarm Dispatcher No March 26 9:58pm Advance Directive Response Recorded Date/ Time Living Will No March 26 8:58pm Power of Fire Alarm Dispatcher No March 26 8:58pm Advance Directive Response Recorded Date/ Time Living Will No September 01 11:25pm Power of Fire Alarm Dispatcher No September 01, 2022 11:25pm Advance Directive Response Recorded Date/ Time Living Will No November 26, 2022 10:49pm Power of Fire Alarm Dispatcher No November 26 10:49pm Advance Directive Response Recorded Date/ Time Living Will No December 20, 2022 1 :16pm Power of Fire Alarm Dispatcher No December 20, 2022 1:16pm Advance Directive Response Recorded Date/ Time Living Will No February 27, 2023 12:49pm Power of Fire Alarm Dispatcher No February 27 12:49pm Chief Complaint and Reason for Visit Chief Complaint ACID REFLUX Chief Complaint ACID REFLUX SUSPICIOUS SKIN LESION Chief Complaint ACID REFLUX SUSPICIOUS SKIN LESION SOB, PAIN IN RIGHT LEG Chief Complaint SUSPICIOUS SKIN LESI ON SOB, PAIN IN RIGHT LEG dizziness, syncope Chief Complaint dizziness, syncope RIGHT BREAST PAIN BACK Consult ADENOPATHY OF LYMPH NODES, BREAST PAIN Reason for Visit History of paresthes ia GERD (gastroesophageal reflux disease) Additional Source Comments Source Comments (unrecognize d section and content) In the event this informatio n is protected by the Federal Confidentiality of Alcohol and Drug Abuse Patient Records regulations: The Federal rules restrict any use of the information to criminally investigate or prosecute any alcohol or drug abuse patient.[facility] the event this information is protected by the Federal Confidentiality of Alcohol and Drug Abuse Patient Records regulations: The Federal rules restrict any use of the information to criminally investigate or prosecute any alcohol or drug abuse patient.[facility] CenterIn the event this information is protected by the Federal Confidentiality of Alcohol and Drug Abuse Patient Records regulations: The Federal rules restrict any use of the information to criminally investigate or prosecute any alcohol or drug abuse patient.[facility] CenterIn the event this information is protected by the Federal Confidentiality of Alcohol and Drug Abuse Patient Records regulations: The Federal rules restrict any use of the information to criminally investigate or prosecute any alcohol or drug abuse patient.[facility] CenterIn the event this information is protected by the Federal Confidentiality of Alcohol and Drug Abuse Patient Records regulations: The Federal rules restrict any use of the information to criminally investigate or prosecute any alcohol or drug abuse patient.[facility] CenterIn the event this information is protected by the Federal Confidentiality of Alcohol and Drug Abuse Patient Records regulations: The Federal rules restrict any use of the information to criminally investigate or prosecute any alcohol or drug abuse patient.[facility] CenterIn the event this information is protected by the Federal Confidentiality of Alcohol and Drug Abuse Patient Records regulations: The Federal rules restrict any use of the information to criminally investigate or prosecute any alcohol or drug abuse patient.[facility] CenterIn the event this information is protected by the Federal Confidentiality of Alcohol and Drug Abuse Patient Records regulations: The Federal rules restrict any use of the information to criminally investigate or prosecute any alcohol or drug abuse patient.[facility] CenterIn the event this information is protected by the Federal Confidentiality of Alcohol and Drug Abuse Patient Records regulations: The Federal rules restrict any use of the information to criminally investigate or prosecute any alcohol or drug abuse patient.[facility] CenterIn the event this information is protected by the Federal Confidentiality of Alcohol and Drug Abuse Patient Records regulations: The Federal rules restrict any use of the information to criminally investigate or prosecute any alcohol or drug abuse patient.[facility] CenterIn the event this information is protected by the Federal Confidentiality of Alcohol and Drug Abuse Patient Records regulations: The Federal rules restrict any use of the information to criminally investigate or prosecute any alcohol or drug abuse patient.[facility] CenterIn the event this information is protected by the Federal Confidentiality of Alcohol and Drug Abuse Patient Records regulations: The Federal rules restrict any use of the information to criminally investigate or prosecute any alcohol or drug abuse patient.[facility] CenterIn the event this information is protected by the Federal Confidentiality of Alcohol and Drug Abuse Patient Records regulations: The Federal rules restrict any use of the information to criminally investigate or prosecute any alcohol or drug abuse patient.[facility] CenterIn the event this information is protected by the Federal Confidentiality of Alcohol and Drug Abuse Patient Records regulations: The Federal rules restrict any use of the information to criminally investigate or prosecute any alcohol or drug abuse patient.[facility] CenterIn the event this information is protected by the Federal Confidentiality of Alcohol and Drug Abuse Patient Records regulations: The Federal rules restrict any use of the information to criminally investigate or prosecute any alcohol or drug abuse patient.[facility] CenterIn the event this information is protected by the Federal Confidentiality of Alcohol and Drug Abuse Patient Records regulations: The Federal rules restrict any use of the information to criminally investigate or prosecute any alcohol or drug abuse patient.[facility] CenterIn the event this information is protected by the Federal Confidentiality of Alcohol and Drug Abuse Patient Records regulations: The Federal rules restrict any use of the information to criminally investigate or prosecute any alcohol or drug abuse patient.[facility] CenterIn the event this information is protected by the Federal Confidentiality of Alcohol and Drug Abuse Patient Records regulations: The Federal rules restrict any use of the information to criminally investigate or prosecute any alcohol or drug abuse patient.[facility] CenterIn the event this information is protected by the Federal Confidentiality of Alcohol and Drug Abuse Patient Records regulations: The Federal rules restrict any use of the information to criminally investigate or prosecute any alcohol or drug abuse patient.[facility] CenterIn the event this information is protected by the Federal Confidentiality of Alcohol and Drug Abuse Patient Records regulations: The Federal rules restrict any use of the information to criminally investigate or prosecute any alcohol or drug abuse patient.[facility] CenterIn the event this information is protected by the Federal Confidentiality of Alcohol and Drug Abuse Patient Records regulations: The Federal rules restrict any use of the information to criminally investigate or prosecute any alcohol or drug abuse patient.[facility] CenterIn the event this information is protected by the Federal Confidentiality of Alcohol and Drug Abuse Patient Records regulations: The Federal rules restrict any use of the information to criminally investigate or prosecute any alcohol or drug abuse patient.[facility] CenterIn the event this information is protected by the Federal Confidentiality of Alcohol and Drug Abuse Patient Records regulations: The Federal rules restrict any use of the information to criminally investigate or prosecute any alcohol or drug abuse patient.[facility] CenterIn the event this information is protected by the Federal Confidentiality of Alcohol and Drug Abuse Patient Records regulations: The Federal rules restrict any use of the information to criminally investigate or prosecute any alcohol or drug abuse patient.[facility] CenterIn the event this information is protected by the Federal Confidentiality of Alcohol and Drug Abuse Patient Records regulations: The Federal rules restrict any use of the information to criminally investigate or prosecute any alcohol or drug abuse patient.[facility] CenterIn the event this information is protected by the Federal Confidentiality of Alcohol and Drug Abuse Patient Records regulations: The Federal rules restrict any use of the information to criminally investigate or prosecute any alcohol or drug abuse patient.[facility] CenterIn the event this information is protected by the Federal Confidentiality of Alcohol and Drug Abuse Patient Records regulations: The Federal rules restrict any use of the information to criminally investigate or prosecute any alcohol or drug abuse patient.[facility] CenterIn the event this information is protected by the Federal Confidentiality of Alcohol and Drug Abuse Patient Records regulations: The Federal rules restrict any use of the information to criminally investigate or prosecute any alcohol or drug abuse patient.[facility] CenterIn the event this information is protected by the Federal Confidentiality of Alcohol and Drug Abuse Patient Records regulations: The Federal rules restrict any use of the information to criminally investigate or prosecute any alcohol or drug abuse patient.[facility] CenterIn the event this information is protected by the Federal Confidentiality of Alcohol and Drug Abuse Patient Records regulations: The Federal rules restrict any use of the information to criminally investigate or prosecute any alcohol or drug abuse patient.[facility] CenterIn the event this information is protected by the Federal Confidentiality of Alcohol and Drug Abuse Patient Records regulations: The Federal rules restrict any use of the information to criminally investigate or prosecute any alcohol or drug abuse patient.[facility] CenterIn the event this information is protected by the Federal Confidentiality of Alcohol and Drug Abuse Patient Records regulations: The Federal rules restrict any use of the information to criminally investigate or prosecute any alcohol or drug abuse patient.[facility] Reason for Visit (unrecogniz ed section and content) Reason Comments Future Appointment Reason Onset Date Comments [facility] COVID Outreach 02/20/2022 Reason Comments [facility] Outreach Reason Comments UTI Urinary burning, katrina q. And pressure x 1.5 weeks Reason Comments Results Reason Comments Results, Lab Reason Comments Radiology US Specialty Diagnoses / Procedures [facility] IM[facility]ING Diagnoses Sensation of pressure in bladder area Procedures US KIDNEY/BLADDER US RETROPERITONEAL REAL TIME W/IMAGE COMPLETE Vesna Hillman, HECTOR.BUILDING CONSTRUCTION FOREMAN [address] [place] [address] Us Imaging Referral ID Status Reason Start Date Expiration Date V isits Requested Visits Authorized [id number] Closed Auto-Generate d Referral 04/25/2022 05/25/2023 1 1 Reason Comments Sinus Problem headaches, bilateral ear pain x 6 days Reason Comments Eye Problem left eyelid on and o ff x 1 day Reason Comments New Patient New Patient Evaluation Reason Comments Appointment Records for upcoming neuro appt. 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 Patricia Cx Bx Specialty Diagnoses / Procedures [facility] Ref[facility] To Contact BR IMAGING Diagnoses Enlarged lymph nodes Procedures US BIOPSY BREAST RIGHT US BIOPSY BREAST RIGHT US BIOPSY BREAST RIGHT BX BREAST W/DEVICE 1ST LESION ULTRASOUND GUID Kishan Kay MD [address] [place] [address] Br Imaging [address] [place] [address] Referral ID Status Reason Start Date Expiration Date V isits Requested Visits Authorized [id number] Closed Auto-Generate d Referral 12/28/2022 01/27/2024 1 1 Reason Comments Sinus Problem sinus pressure x 3 d ays, rash on back of neck painful x 1 day Reason Onset Date Comments 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 06/12/2024 Reason Comments Cough Head congestion, fev er, chest congestion, ST, MIRZA x5 days Reason Comments Well Woman Reason Onset Date Comments Colposcopy Gardasil Injection 08/14/2024 Reason Onset Date Comments Gardasil Injection 11/18/2024 Reason Onset Date Comments Weight Problem 02/20/2025 Care Teams (unrecognized sec tion and content) Mapping Pilot Relationship Specialty Start Date End Date Gilbert Hurley MD [address] [facility] [address] [place] [address] PCP - General Family Practice 09/09/21 Mapping Pilot Relationship Specialty Start Date End Date Gilbert Hurley MD [address] [facility] [address] [place] [address] PCP - General Family Practice 09/09/21 Mapping Pilot Relationship Specialty Start Date End Date Gilbert Hurley MD [address] [facility] [address] [place] [address] PCP - General Family Practice 09/09/21 Mapping Pilot Relationship Specialty Start Date End Date Gilbert Hurley MD [address] [facility] [address] [place] [address] PCP - General Family Practice 09/09/21 Mapping Pilot Relationship Specialty Start Date End Date Gilbert Hurley MD [address] [facility] [address] [place] [address] PCP - General Family Practice 09/09/21 Mapping Pilot Relationship Specialty Start Date End Date Gilbert Hurley MD [address] [facility] [address] [place] [address] PCP - General Family Medicine 09/09/21 Mapping Pilot Relationship Specialty Start Date End Date Gilbert Hurley MD [address] [place] [address] [address] [place] [address] PCP - General Family Medicine 09/09/21 Mapping Pilot Relationship Specialty Start Date End Date Gilbert Hurley MD [address] [place] [address] [address] [place] [address] PCP - General Family Medicine 09/09/21 Mapping Pilot Relationship Specialty Start Date End Date Gilbert Hurley MD [address] [place] [address] [address] [place] [address] PCP - General Family Medicine 09/09/21 Mapping Pilot Relationship Specialty Start Date End Date Gilbert Hurley MD [address] [place], [place] [address]Joe [facility] [address] [place] [address] PCP - General Family Medicine 09/09/21 Team Status: Active Member Role Status Dates Dr. Brandt Martines MD Family Provider Active Dr. Gilbert Hurley MD Primary Care Provider Active Team Status: Inactive Member Role Status Dates Dr. Gilbert Hurley MD Primary Care Provider Active Dr. Luís Villalobos MD Attending Provider Activ e Team Status: Inactive Member Role Status Dates Dr. Gilbert Hurley MD Primary Care Provi melba, Attending Provider, Referring Provider Active Team Status: Inactive Member Role Status Dates Dr. Gilbert Hurley MD Primary Care Provider Active Dr. Lauri Lucio DO Emergency Provider Active Team Status: Inactive Member Role Status Dates Dr. Gilbert Hurley MD Primary Care Provider Active Dr. Lauri Lucio DO Attending Provider, Emergency Pr ovider Active Team Status: Inactive Member Role Status Dates Dr. Gilbert Hurley MD Primary Care Provider Active Dr. Gerardo Antonio MD Emergency Provider Active Mapping Pilot Relationship Specialty Start Date End Date Gilbert Hurley MD [address] [place] [address] [address] [place] [address] PCP - General Family Medicine 09/09/21 Team Status: Inactive Member Role Status Dates Dr. Gilbert Hurley MD Primary Care Provider, Referring Provider Active Dr. Louis Manning DO Attending Provider Active Team Status: Inactive Member Role Status Dates Dr. Gilbert Hurley MD Primary Care Provider Active Dr. Gerardo Antonio MD Attending Provider, Emergency Pro vider Active Team Status: Inactive Member Role Status Dates Dr. Gilbert Hurley MD Primary Care Provider Active Dr. Christos Schultz MD Attending Provider, Emergency Provider Active Team Status: Inactive Member Role Status Dates Dr. Gilbert Hurley MD Primary Care Provider Active Dr. Louis Manning DO Attending Provider, Referring Provider Active Mapping Pilot Relationship Specialty Start Date End Date Gilbert Hurley MD [address] [facility] [address] [place] [address] PCP - General Family Medicine 09/09/21 Team Status: Active Member Role Status Dates Dr. Gilbert Hurley MD Primary Care Provider, Referring Provider Active Dr. Louis Manning DO Attending Provider, Other Prov ider Active Mapping Pilot Relationship Specialty Start Date End Date Gilbert Hurley MD [address] [facility] [address] [place] [address] PCP - General Family Medicine 09/09/21 Mapping Pilot Relationship Specialty Start Date End Date Gilbert Hurley MD [address] [facility] [address] [place] [address] PCP - General Family Medicine 09/09/21 Kasey Cordoba RN [facility] Tree Care Foreman 08/16/23 09/04/23 Amalia Prado MA [facility] Tree Care Foreman 09/04/23 Mapping Pilot Relationship Specialty Start Date End Date Gilbert Hurley MD [address] [facility] [address] [place] [address] PCP - General Family Medicine 09/09/21 Aamlia Prado MA [facility] Tree Care Foreman 09/04/23 Mapping Pilot Relationship Specialty Start Date End Date Gilbert Hurley MD [address] [facility] [address] [place] [address] PCP - General Family Medicine 09/09/21 Amalia Prado MA [facility] Tree Care Foreman 09/04/23 Mapping Pilot Relationship Specialty Start Date End Date Gilbert Hurley MD [address] [place] [address] PCP - General Family Medicine 09/09/21 Mapping Pilot Relationship Specialty Start Date End Date Gilbert Hurley MD [address] [place] [address] PCP - General Family Medicine 09/09/21 Mapping Pilot Relationship Specialty Start Date End Date Gilbert Hurley MD [address] [place] [address] PCP - General Family Medicine 09/09/21 Mapping Pilot Relationship Specialty Start Date End Date Gilbert Hurley MD [address] [place] [address] PCP - General Family Medicine 09/09/21 Mapping Pilot Relationship Specialty Start Date End Date Gilbert Hurley MD [address] [place] [address] PCP - General Family Medicine 09/09/21 Amalia Prado MA [facility] Tree Care Foreman 09/04/23 Mapping Pilot Relationship Specialty Start Date End Date Gilbert Hurley MD [address] [place] [address] PCP - General Family Medicine 09/09/21 Amalia Prado MA [facility] Tree Care Foreman 09/04/23 Mapping Pilot Relationship Specialty Start Date End Date Gilbert Hurley MD [address] [facility] [address] [place] [address] PCP - General Family Medicine 09/09/21 Amalia Prado MA [facility] Tree Care Foreman 09/04/23 Mapping Pilot Relationship Specialty Start Date End Date Gilbert Hurley MD [address] [facility] [address] [place], [place] [id number] PCP - General Family Medicine 09/09/21 Amalia Prado MA [facility] [employer] Foreman 09/04/23 Mapping Pilot Relationship Specialty Start Date End Date Gilbert Hurley MD [address] [facility] [address] [place], [place] [id number] PCP - General Family Medicine 09/09/21 Amalia Prado MA [facility] [employer] Foreman 09/04/23 INFORMATION SOURCE (unrecogn ized section and content) DATE CREATED AUTHOR 04/06/2022 [facility] DATE CREATED AUTHOR AUTHOR'S ORGANIZ ATION 05/04/2022 [facility] DATE CREATED AUTHOR AUTHOR'S ORGANIZ ATION 01/26/2023 [facility] DATE CREATED AUTHOR AUTHOR'S ORGANIZ ATION 10/06/2023 [facility] DATE CREATED AUTHOR AUTHOR'S ORGANIZ ATION 06/22/2024 [facility] DATE CREATED AUTHOR AUTHOR'S ORGANIZ ATION 12/03/2024 [facility] Goals (unrecognized section and content) Goals may be documented in a n alternate section FOR RECORDS PERTAINING TO PATIENTS WHO ARE [...] BE BASED ON THE PRIMARY CLINICAL RECORDS. [employer] [facility]. provides no warranty or guarantee of the accuracy or completeness of information in this document.
[2025-03-28 21:33] VITALS: BP 126/90; PULSE 90; RESP 18; TEMP 36.5; O2SAT 98
== END 2025-03-28 21:34 | disposition home or self-care (01) ==
PROVIDERS: Emergency Provider Emergency Medicine; PCP Family Medicine; Visit Provider Emergency Medicine
DX: S93.402A Sprain of unspecified ligament of left ankle, initial encounter (principal); S90.32XA Contusion of left foot, initial encounter; G47.33 Obstructive sleep apnea (adult) (pediatric); X58.XXXA Exposure to other specified factors, initial encounter
CPT/HCPCS: 73610; 73630; 99284